=== PATIENT | female | born 1955 | race Caucasian/White ===

== ENCOUNTER 2023-12-26 08:40 | Outpatient (OUT) | payer MEDICARE, OTHER, SELFPAY ==
--- NOTE | 2023-12-26 08:44 | MM_ITS ---
Patient Name: ALBERTO RENEE MR#: [id number] : 1955 Exam Date: 12/26/2023 Ordering Doctor: DR Tyrone Cabezas D.O. RADIOLOGY REPORT PROCEDURE: MM TOMOSYNTHESIS SCREENING BI COMPARISON: MAMMO WILLIAM SCREEN, 02/01/2023. MAMMO WILLIAM SCREEN, 12/15/2021. MG MAMM SCREEN WILLIAM W CAD, 10/28/2020. MG MAMM SCREEN WILLIAM W CAD, 12/24/2018. INDICATIONS: screening Calculator Name NCI Breast Cancer Risk Assessment Tool 5 Year Breast Cancer Risk 1.70% Lifetime Breast Cancer Risk 4.90% Personal Breast Cancer No Personal Ovarian Cancer No Treatments None Family Cancers Mother with colon cancer at age 78. LOCATION: [facility] BREAST COMPOSITION: Heterogeneously dense,which may obscure small masses. FINDINGS: DIAGNOSTIC CATEGORY 1--NEGATIVE. RIGHT BREAST: No significant suspicious finding. No significant change has occurred. LEFT BREAST: No significant suspicious finding. No significant change has occurred. RECOMMENDATIONS: ROUTINE MAMMOGRAM AND CLINICAL EVALUATION IN 12 MONTHS. PLEASE NOTE: A NORMAL MAMMOGRAM DOES NOT EXCLUDE THE POSSIBILITY OF BREAST CANCER. A CLINICALLY SUSPICIOUS PALPABLE LUMP SHOULD BE BIOPSIED. Dictated by: Tyron Helms M.D. on 12/28/2023 at 10:33 Approved by: Tyron Helms M.D. on 12/28/2023 at 10:37
== END 2023-12-26 08:41 | disposition home or self-care (01) ==
LOC: MAMMO 08:40
PROVIDERS: PCP Internal Medicine; Visit Provider Internal Medicine
DX: Z12.31 Encounter for screening mammogram for malignant neoplasm of breast (principal); Z80.0 Family history of malignant neoplasm of digestive organs
CPT/HCPCS: 77063; 77067

== ENCOUNTER 2024-06-03 07:46 | Day surgery (SDC) | payer MEDICARE, OTHER, SELFPAY ==
--- NOTE | 2024-06-03 07:51 | FL_ITS ---
[facility] [id number] Patient Name: ALBERTO RENEE MRN: [id number] date: 1955 Sex: F Assigned Patient Location: [place] Current Patient Location: Accession/Order Number: [id number] Exam Date: 06/03/2024 08:35 Report Date: 06/03/2024 12:49 At the request of: RAMESH DONOVAN Procedure: FL hip inj LT EXAMINATION: FL hip inj LT HISTORY: Left Hip Arthritis FLUORO DOSE: (Cannot be calculated) mGy Reference air kerma (Ka,r) COMPARISON: No relevant comparison available. TECHNIQUE: An arthrogram was performed under fluoroscopic guidance using non-ionic contrast material in the usual sterile manner after obtaining informed consent. Standard level fluoroscopic mode of operation utilized. FINDINGS: JOINT: Left hip NEEDLE: 25 gauge, 3.5 spinal needle. MEDICATION: 2 mL buffered 1% lidocaine for subcutaneous anesthesia. 2 mL Omnipaque-240 iodinated contrast to visualize the joint space. 40 mg Kenalog, 2 mL 0.5% bupivacaine, and 3 mL Omnipaque 240 injected into the joint space. TECHNIQUE: Anterior approach with prior localization of the femoral artery. A single stick was successful in gaining access to the joint space. CLINICAL: Improvement of joint pain post injection (3/10 preinjection; 2/10 post injection). COMPLICATIONS: None. OTHER: Negative. FL/FL hip inj LT IMPRESSION: 1. Technically successful left hip injection with slight improvement in symptoms immediately post procedure. Electronically authenticated by: NEHA MORALES Date: 06/03/2024 12:49
[2024-06-03] MEDS: BUPIVACAINE HCL 0.5% PF 50 MG/10 ML VIAL 2 ML INJ (08:35)
[2024-06-03] MEDS: LIDOCAINE HCL 10 ML, SODIUM BICARBONATE 1 MEQ INJ (08:35)
[2024-06-03] MEDS: TRIAMCINOLONE ACETONIDE 40 MG/ML VIAL INJ (08:35)
--- NOTE | 2024-06-03 09:07 | SUR.PREOP ---
06/02/24 Pt instructed on procedure, date, time, and prep.
== END 2024-06-03 08:55 | disposition home or self-care (01) ==
LOC: FL 07:46
PROVIDERS: Radiology Diagnostic Radiology; PCP Internal Medicine; Visit Provider Orthopaedic Surgery
DX: M16.12 Unilateral primary osteoarthritis, left hip (principal)
CPT/HCPCS: 20610; 77002; J0665; J3301; Q9966

== ENCOUNTER 2024-08-26 08:50 | Outpatient (OUT) | payer MEDICARE, OTHER, SELFPAY ==
--- OUTSIDE RECORDS SUMMARY | 2024-08-26 09:06 | XMS_ITS | CCD ---
Author Organization [facility] Care Team Providers Care Community Support Specialist Name Role Phone DANIEL, DR DUFFY Primary Care Unavailable BALL, DR DUFFY Consulting Unavailable BALL, DR DUFFY Attending Unavailable BALL, DR DUFFY Admitting Unavailable LutherChris Consulting Unavailable BALL, DR DUFFY Admitting Unavailable BALL, DR DUFFY Primary Care Unavailable BALL, DR DUFFY Consulting Unavailable BALL, DR DUFFY Attending Unavailable WEST, DR NAHUN Richey Consulting Unavailable Tyrone Sanchez DO Primary Care Provider [phone] Tyrone Sanchez DO Primary Care Provider [phone] MARSHA CASTANEDA Referring Unavai lable NO, PHYSICIAN Primary Care Unavailable JOE GONZALES Attending Chelsey vailable Tyrone Sanchez Unavailable Tyrone Sanchez DO Primary Care Provider [phone] TYRONE SANCHEZ Referring Unavailable DANIEL, TYRONE Primary Care Unavailable TYRONE SANCHEZ Referring Unavailable DANIEL, TYRONE Primary Care Unavailable Unavailable Primary Care Provider Unavailabl e Tyrone Sanchez DO Primary Care Provider [phone] TYRONE SANCHEZ Primary Care Unavailable SHALOM MÉNDEZ Attending Unavailable SELF, SELF Referring Unavailable SELF, SELF Referring Unavailable SHALOM MÉNDEZ Attending Unavailable TYRONE SANCHEZ Primary Care Unavailable ABELINO TIMMONS Referring Unavailable SHALOM MÉNDEZ Attending Unavailable SHALOM MÉNDEZ Attending Unavailable SELF, SELF Referring Unavailable SHALOM MÉNDEZ Referring Unavailable BALL, TYRONE Primary Care Unavailable TYRONE SANCHEZ Primary Care Unavailable SHALOM MÉNDEZ Attending Unavailable SELF, SELF Referring Unavailable TYRONE SANCHEZ Primary Care Unavailable SHALOM MÉNDEZ Attending Unavailable SELF, SELF Referring Unavailable BALL, TYRONE Primary Care Unavailable REAGAN HOGUE Attending Unavailable SELF, SELF Referring Unavailable BALL, TYRONE Primary Care Unavailable SHALOM MÉNDEZ Attending Unavailable SELF, SELF Referring Unavailable SHALOM MÉNDEZ Admitting Unavailable SHALOM MÉNDEZ Attending Unavailable TYRONE SANCHEZ Primary Care Unavailable SHALOM MÉNDEZ Attending Unavailable SELF, SELF Referring Unavailable Tyrone Sanchez MD Primary Care Provider Abelino Timmons MD Attending Unavailab Heriberto Abreu Attending Unavailable TYRONE SANCHEZ Referring Unavailable Unavailable Primary Care Provider Unavailabl e STEPANIC JR, RAMESH Maxwell Referring Unavailabl e STEPANIC JR, RAMESH Maxwell Referring Unavailabl e STEPANIC JR, RAMESH Maxwell Referring Unavailabl e STEPANIC JR, RAMESH Maxwell Attending Unavailabl e STEPANIC JR, RAMESH Maxwell Referring Unavailabl e LEATHA PEREZ Attending Unavailable STEPANIC, JR., RAMESH Maxwell Attending Unavaila ble STEPANIC, JR., RAMESH Maxwell Attending Unavaila ble STEPANIC, JR., RAMESH Maxwell Attending Unavaila ble LEATHA PEREZ Referring Unavailable LEATHA PEREZ Attending Unavailable STEPANIC, JR., RAMESH Maxwell Attending Unavaila ble Allergies Allergy Classification Reported Allergen(s) Allergy Type Date of Onset Reaction(s) Facility (1 source) patient allergy list reviewed by nurse or physicia Propensity to adverse reactions 8 Comment:Done [employer] Other (1 source) Allergies Reconciled Propensity to adverse reactions Unknown [employer] Other (2 sources) Other Propensity to adverse reactions 4 Other [facility] Medications Current Medications Medication Drug Class(es) Dates Sig (Normalized) Sig (Original) bimatoprost 0.1 mg/ml ophthalmic solution (18 sources) Prostaglandin Analog take 1 drop(s) into the eye(s) at bedtime Lumigan 0.01 % ophthalmic solution Administer 1 drop into affected eye(s) at bedtime Active brimonidine tartrate 1.5 mg/ml ophthalmic solution (20 sources) alpha-Adrenergic Agonist take 1 drop(s) into the eye(s) three times daily brimonidine (AlphaGAN P) 0.2 % ophthalmic solution ONE DROP IN EACH EYE THREE TIMES A DAY Active brimonidine (Alp Paulette P) 0.15 % ophthalmic solution Administer 1 drop into affected eye(s) in the morning and 1 drop at noon and 1 drop in the evening. Active take 1 drop(s) into the eye(s) three times daily brimonidine 0.15 % Solution ophthalmic solution Place 1 drop in left eye 3 times daily. Use in affected eye(s). Active dorzolamide 20 mg/ml / timolol 5 mg/ml ophthalmic solution (18 sources) Carbonic Anhydrase Inhibitor, beta-Adrenergic Marian End: 08-14-2024 dorzolamide-timolol (Cosopt) 2-0.5 % ophthalmic solution INSTILL 1 DROP INTO EACH EYE THREE TIMES A DAY 08/14/2024 Discontinued dorzolamide-franci lol 2-0.5 % Solution ophthalmic solution Place 1 drop in left eye 3 times daily. Active estradiol 0.5 mg oral tablet (20 sources) Estrogen Start: 10-04-2021 take 0.5 mg by mouth every other day Estradiol Active 0.5 MG PO .COMPLEX November 29, 2023 1:00am 0.5 mg orally every other day take 1 tablet by mouth once sanchez y Estradiol 0.5 MG tablet Take 1 tablet by mouth daily. Active folic acid 1 mg / polysaccharide iron complex 150 mg / vitamin b12 0.025 mg oral capsule (2 sources) Vitamin B12 Start: 08-14-2024 End: 09-13-2024 take 1 tablet by mouth once daily Iron Polysacch [id number] (Poly-Iron 150 Forte) 150-0.025-1 MG capsule Indications: Pre-op examination , Arthritis of left hip Take 1 tablet by mouth Daily 30 capsule 1 08/14/2024 09/13/2024 Active ketorolac tromethamine 5 mg/ml ophthalmic solution (18 sources) Nonsteroidal Anti-inflammatory Drug, Cyclooxygenase Inhibitor take 1 drop(s) into the eye(s) three times daily ketorolac (Acular) 0.5 % ophthalmic solution INSTILL 1 DROP INTO RIGHT EYE 3 TIMES A DAY Active take 1 drop(s) into the eye(s) twice daily ketorolac 0.5 % Solution ophthalmic solution Place 1 drop in right eye 2 times daily. Active Misc. Devices misc (2 sources) Start: 08-14-2024 Misc. Devices misc Indications: Pre-op examination , Arthritis of left hip Hospital bed, deliver to home 1 Units 08/14/2024 Active naproxen sodium 220 mg oral capsule (1 source) Nonsteroidal Anti-inflammatory Drug take 1 capsule by mouth in the morning, then take 1 capsule by mouth at mealtime naproxen sodium (ALEVE) 220 mg capsule Take 1 capsule (220 mg total) by mouth in the morning and 1 capsule (220 mg total) in the evening. Take with meals. Active predniSONE 10 mg oral tablet (2 sources) Start: 07-25-2024 predniSONE (Deltasone) 10 MG tablet PLEASE SEE ATTACHED FOR DETAILED DIRECTIONS 07/25/2024 Active SUMAtriptan 100 mg oral tablet (4 sources) Serotonin-1b and Serotonin-1d Receptor Agonist Start: 01-02-2024 take 1 tablet by mouth every two hours as needed Sumatriptan Succinate Active 0 .ROUTE .COMPLEX January 02, 2024 1:30pm TAKE 1 TABLET BY MOUTH NEEDED MAY REPEAT IN 2 HOURS IF NEEDED 30 Start: 11-29-2023 End: 01-02-2024 take 100 mg by mouth once Sumatriptan Succinate Discon tinued 100 MG PO Once November 29, 2023 1:00am January 02, 2024 1:30pm take 1 tablet by landon th every two hours as needed SUMAtriptan Succinate 100 MG TAKE 1 TABLET BY MOUTH NEEDED MAY REPEAT IN 2 HOURS IF NEEDED for 30 Active Completed/Discontinued Medications Medication Drug Class(es) Dates Sig (Normalized) Sig (Original) acetaminophen 325 mg oral tablet (1 source) Start: 12-10-2023 End: 12-10-2023 take 1 tablet by mouth every four hours as needed 650 mg, Oral, EVERY 4 HOURS NEEDED, Starting on Sun12/10/23 at 1253, Until Sun12/10/23 at 1527, Mild Pain, Maximum dose of acetaminophen is 4000 mg from all sources in 24 hours., Post-op/Post-Proc calcium chloride 0.0014 meq/ml / potassium chloride 0.004 meq/ml / sodium chloride 0.103 meq/ml / sodium lactate 0.028 meq/ml injectable solution (1 source) Start: 12-10-2023 End: 12-10-2023 Intravenous, at 20 mL/hr, CONTINUOUS, Starting on Sun12/10/23 at 1000, Until Sun12/10/23 at 1527, Pre-op/Pre-Proc 1 ml dexamethasone phosphate 4 mg/ml injection (1 source) Corticosteroid Start: 12-10-2023 End: 12-10-2023 inject 1 dose into the eye(s) once 2 mg, Subconjunctival, SEE ADMIN INSTRUCTIONS, 1 dose, Starting on Sun12/10/23 at 1135, Until Sun12/10/23 at 1527, Physician to inject into right eye via subconjunctival route once., Intra-op/Intra-Proc dicyclomine hydrochloride 10 mg oral capsule (3 sources) Anticholinergic Start: 06-13-2024 take 20 mg by mouth three times daily Dicyclomine Active 20 MG PO Three times daily June 13, 2024 12:00am Start: 12-03-2023 End: 06-13-2024 take 10 mg by mouth four times daily Dicyclomine Discontinued 10 MG PO Four times daily June 13, 2024 2:41pm June 13, 2024 2:41pm lidocaine 1% buffered in sodium bicarbonate 1-8.4 % injection SOSY 1 mL (1 source) Start: 12-10-2023 End: 12-10-2023 take 1 dose intravenously once 1 mL, Intradermal, ONCE NEEDED, 1 dose, Starting on Sun12/10/23 at 0945, Until Sun12/10/23 at 1026, Other, Use for peripheral IV insertion, Use when inserting peripheral IV, Pre-op/Pre-Proc moxifloxacin 5 mg/ml ophthalmic solution (1 source) Quinolone Antimicrobial Start: 12-10-2023 End: 12-10-2023 1 drop, Right Eye, SEE ADMIN INSTRUCTIONS, 3 doses, Starting on Sun12/10/23 at 0945, Until Sun12/10/23 at 1040, Administer every 5 minutes for 3 doses starting 30 minutes pre-procedure., Pre-op/Pre-Proc ofloxacin 3 mg/ml ophthalmic solution (5 sources) Quinolone Antimicrobial Start: 12-11-2023 End: 12-27-2023 take 1 drop(s) into the eye(s) four times daily ofloxacin 0.3 % ophthalmic solution Place 1 drop in right eye 4 times daily. Stop 12/17/23 12/14/2023 12/27/2023 Discontinued phenylephrine hydrochloride 25 mg/ml ophthalmic solution (1 source) alpha-1 Adrenergic Agonist Start: 12-10-2023 End: 12-10-2023 1 drop, Right Eye, SEE ADMIN INSTRUCTIONS, 3 doses, Starting on Sun12/10/23 at 0945, Until 12/10/23 at 1040, Administer every 5 minutes for 3 doses starting 30 minutes pre-procedure., Pre-op/Pre-Proc prednisoLONE acetate 10 mg/ml ophthalmic suspension (20 sources) Corticosteroid Start: 12-27-2023 End: 01-31-2024 prednisoLONE acetate 1 % Suspension ophthalmic suspension Place 1 drop in right eye See admin instructions. As of 01/03/24: TID OD x 1 wk, BID OD x 1 wk, daily OD x 1wk. 12/27/2023 01/31/2024 Discontinued Start: 12-27-2023 take 1 drop(s) into the eye(s) four times daily prednisoLONE acetate 1 % Suspension ophthalmic suspension Place 1 drop in right eye 4 times daily. 12/27/2023 Active Start: 12-14-2023 End: 08-14-2024 take 1 drop(s) into the eye(s) every two hours prednisoLONE acetate (Pred-Forte) 1 % ophthalmic suspension PLACE 1 DROP IN RIGHT EYE EVERY 2 HOURS WHILE AWAKE. 12/14/2023 08/14/2024 Discontinued Start: 12-11-2023 End: 12-27-2023 take 1 drop(s) into the eye(s) every two hours prednisoLONE acetate 1 % Suspension ophthalmic suspension Place 1 drop in right eye every 2 hours while awake. 15 mL 1 12/14/2023 12/27/2023 Discontinued Problems Active Problems Problem Classification Problem Date Documented Da te Episodic/Chronic Acute bronchitis (5 sources) Acute bronchitis due to other specified organisms; Translations: [Acute bronchitis] Onset: 04-21-2021 Episodic Blindness and vision defects (2 sources) Visual disturbance; Translations: [Other visual disturbances] Episodic Vincent (1 source) Partial thickness burn of lip; Translations: [Burn of second degree of lip(s), initial encounter] Episodic Cataract (8 sources) Nuclear sclerosis; Translations: [Age-related nuclear cataract, left eye] Onset: 12-27-2023 10-25-2023 Chronic Complications of surgical procedures or medical care (2 sources) Cystoid macular edema following cataract surgery, right eye; Translations: [Cystoid macular edema following cataract surgery, right eye] Onset: 10-26-2022 Episodic Disorders of lipid metabolism (2 sources) Hyperlipidemia; Translations: [Hyperlipidemia, unspecified] Onset: 11-13-2016 11-29-2023 Chronic Genitourinary symptoms and ill-defined conditions (4 sources) Dysuria; Translations: [Dysuria] Onset: 08-12-2024 08-12-2024 Episodic Glaucoma (11 sources) Primary open angle glaucoma; Translations: [Primary open-angle glaucoma, bilateral, severe stage] Onset: 11-05-2023 10-25-2023 Chronic Headache; including migraine (5 sources) Migraine, unspecified, not intractable, without status migrainosus; Translations: [Migraine with aura] Onset: 11-07-2017 Chronic Headache; including migraine (1 source) Headache; Translations: [Headache, unspecified] Episodic Menopausal disorders (5 sources) Menopausal symptom; Translations: [Menopausal and female climacteric states] Onset: 04-30-2018 Chronic Menopausal disorders (3 sources) Hormone replacement therapy; Translations: [Drug therapy finding] Onset: 11-03-2020 11-29-2023 Episodic Osteoarthritis (8 sources) Osteoarthritis of left hip joint; Translations: [Unilateral primary osteoarthritis, left hip] Onset: 08-12-2024 06-02-2024 Chronic Osteoporosis (1 source) Primary osteoporosis; Translations: [Age-related osteoporosis without current pathological fracture] Onset: 12-31-2018 Chronic Other aftercare (1 source) Long-term current use of drug therapy; Translations: [Other penitentiary (current) drug therapy] Episodic Other aftercare (7 sources) Surgical follow-up; Translations: [Encounter for surgical aftercare following surgery on the sense organs] 12-07-2023 Episodic Other aftercare (2 sources) Encounter for surgical aftercare following surgery on the sense organs; Translations: [Encounter for surgical aftercare following surgery on the sense organs] Onset: 01-10-2024 Episodic Other and unspecified benign neoplasm (3 sources) Benign neoplasm of colon; Translations: [Benign neoplasm of colon, unspecified] Episodic Other and unspecified benign neoplasm (1 source) Adenomatous polyp of colon ; Translations: [Benign neoplasm of colon, unspecified] 11-30-2023 Episodic Other and unspecified benign neoplasm (1 source) Benign neoplasm of colon, unspecified; Translations: [Benign neoplasm of colon] 06-13-2024 Episodic Other bone disease and musculoskeletal deformities (3 sources) Other specified disorders of bone density and structure, left thigh; Translations: [Osteopenia of neck of left femur] Episodic Other bone disease and musculoskeletal deformities (1 source) Osteopenia; Translations: [Other specified disorders of bone density and structure, left thigh] 11-29-2023 Episodic Other circulatory disease (1 source) Elevated blood-pressure reading, without diagnosis of hypertension Episodic Other congenital anomalies (2 sources) Congenital pes planus; Translations: [Congenital pes planus] Onset: 12-28-2014 Chronic Other gastrointestinal disorders (3 sources) Irritable bowel syndrome; Translations: [Irritable bowel syndrome without diarrhea] Onset: 11-24-2013 11-29-2023 Chronic Other gastrointestinal disorders (1 source) Irritable bowel syndrome without diarrhea; Translations: [Irritable bowel syndrome] 06-13-2024 Chronic Other injuries and conditions due to external causes (1 source) History of fall; Translations: [History of falling] Episodic Other lower respiratory disease (1 source) Cough; Translations: [COUGH] Onset: 04-28-2021 Episodic Other non-traumatic joint disorders (2 sources) Arthritis of left hip 08-14-2024 Chronic Other non-traumatic joint disorders (1 source) Hip pain; Translations: [Pain in left hip] 06-02-2024 Episodic Other nutritional; endocrine; and metabolic disorders (3 sources) Overweight; Translations: [Overweight] Onset: 02-02-2023 Episodic Other nutritional; endocrine; and metabolic disorders (1 source) Overweight; Translations: [Overweight] Episodic Other screening for suspected conditions (not mental disorders or infectious disease) (11 sources) Encounter for screening mammogram for malignant neoplasm of breast; Translations: [Encounter for screening for diseases of the blood and blood-forming organs and certain disorders involving the immune mechanism] Onset: 10-28-2020 Resolved: 11-23-2021 Episodic Other upper respiratory infections (1 source) Chronic sinusitis; Translations: [Chronic sinusitis, unspecified] Chronic Other upper respiratory infections (3 sources) Acute frontal sinusitis; Translations: [Acute frontal sinusitis, unspecified] Onset: 11-24-2013 Episodic Retinal detachments; defects; vascular occlusion; and retinopathy (3 sources) Cystoid macular edema of right retina; 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, right eye] Onset: 01-10-2024 01-10-2024 Chronic Thyroid disorders (2 sources) Congenital hypothyroidism with diffuse goiter; Translations: [Congenital hypothyroidism with diffuse goiter] Onset: 02-02-2023 Chronic Unclassified (2 sources) Post Op Visit; Translations: [Post Op Visit] Onset: 01-31-2024 Unclassified (2 sources) New Patient; Translations: [New Patient] Onset: 10-25-2023 Unclassified (3 sources) Preprocedural examination done 08-12-2024 Past or Other Problems Problem Classification Problem Date Documented Da te Episodic/Chronic Allergic reactions (1 source) Allergic contact dermatitis due to plants, except food; Translations: [Allergic contact dermatitis due to plants, except food] Onset: 04-18-2019 Episodic Bacterial infection; unspecified site (1 source) Bacterial infectious disease; Translations: [Bacterial infection, unspecified, in conditions classified elsewhere and of unspecified site] Onset: 09-16-2018 Episodic Malaise and fatigue (4 sources) Other fatigue; Translations: [Malaise and fatigue] Onset: 12-11-2018 Episodic Other aftercare (1 source) Other terminal make up operator (current) drug therapy; Translations: [OTH PENITENTIARY CURRENT DRUG THERAPY] Onset: 11-03-2020 Episodic Other and unspecified benign neoplasm (1 source) Benign neoplasm of skin of face; Translations: [Benign neoplasm of skin of other and unspecified parts of face] Onset: 10-05-2016 Episodic Other bone disease and musculoskeletal deformities (1 source) Bone density finding; Translations: [Other specified disorders of bone density and structure, unspecified site] Onset: 12-31-2018 Episodic Other lower respiratory disease (1 source) Cough; Translations: [Cough, unspecified] Resolved: 11-23-2021 Episodic Other nervous system disorders (1 source) Tetany; Translations: [Tetany] Onset: 11-07-2017 Episodic Other non-epithelial cancer of skin (1 source) Basal cell carcinoma of face; Translations: [Basal cell carcinoma of skin of unspecified parts of face] Onset: 10-25-2016 Episodic Other non-traumatic joint disorders (1 source) Arthralgia of the ankle and/or foot; Translations: [Pain in unspecified ankle and joints of unspecified foot] Onset: 12-28-2014 Episodic Other nutritional; endocrine; and metabolic disorders (1 source) Body mass index 25-29 - overweight; Translations: [Body mass index 27.0-27.9, adult] Onset: 11-07-2017 Episodic Other skin disorders (2 sources) Alopecia; Translations: [Other alopecia] Onset: 04-30-2018 Episodic Residual codes; unclassified (1 source) Family history of malignant neoplasm of digestive organs; Translations: [FAM HX MALIG NEOPLASM DIGESTIV ORGN] Onset: 11-03-2020 Episodic Residual codes; unclassified (1 source) Flushing; Translations: [Flushing] Onset: 11-24-2013 Episodic Results Test Name Value Interpretation Reference Range Facility Bacteria identified Cx Nom ( U)on 08-13-2024 Service comment (Unsp spec) [Interp] 50-100,000 ORGANISMS/ML NORMAL UROGENITAL PATY [facility] XR HIP LT 2-3 VIEWS W OR WO PELVISon 08-13-2024 XR HIP LT 2-3 VIEWS W OR WO PELVIS XR HIP LT 2-3 VIEWS W OR WO PELVIS History: Left hip degenerative disease. . Exam/Technique: AP view the pelvis, AP and lateral views of the left hip Comparison: None available Findings: Pelvic ring and sacrum appear intact and atraumatic. Degenerative disease of the lower lumbar spine noted as well as previous right hip replacement. Dedicated images of the left hip show loss of joint space superior acetabulum with subarticular sclerosis. There is no evidence of articular collapse, fracture or dislocation. IMPRESSION: * Loss of joint space left femoral acetabular articulation. Finalized by Abhinav Reynoso DO on 08/13/2024 2:54 PM Normal [facility] XR Pelvis and Hip - left 2 V iewson 08-13-2024 History: Left hip degenerative disease. . Exam/Technique: AP view the pelvis, AP and lateral views of the left hip Comparison: None available Findings: Pelvic ring and sacrum appear intact and atraumatic. Degenerative disease of the lower lumbar spine noted as well as previous right hip replacement. Dedicated images of the left hip show loss of joint space superior acetabulum with subarticular sclerosis. There is no evidence of articular collapse, fracture or dislocation. IMPRESSION: * Loss of joint space left femoral acetabular articulation. Finalized by Abhinav Reynoso DO on 08/13/2024 2:54 PM [facility] Abhinav Reynoso DO - 08/13/2024 History: Left hip degenerative disease. . Exam/Technique: AP view the pelvis, AP and lateral views of the left hip Comparison: None available Findings: Pelvic ring and sacrum appear intact and atraumatic. Degenerative disease of the lower lumbar spine noted as well as previous right hip replacement. Dedicated images of the left hip show loss of joint space superior acetabulum with subarticular sclerosis. There is no evidence of articular collapse, fracture or dislocation. IMPRESSION: * Loss of joint space left femoral acetabular articulation. Finalized by Abhinav Reynoso DO on 08/13/2024 2:54 PM [facility] XR Pelvis and Hip - left 2 V iewsOrdered By: Abhinav Reynoso on 08-13-2024 [facility] Work Phone: CBC AND AUTO DIFFon 08-12-20 ABSOLUTE BASOPHIL 0.1 X10E9/L Normal 0.0-0.2 [facility] Comment on above: Performed By: #### C BCA #### [facility] ([id number]) [address], [address] [place] [address] ABSOLUTE NEUTROPHIL 16.8 X10E9/L High 1.5-6.6 [facility] Comment on above: Performed By: #### C BCA #### [facility] ([id number]) [address], [address] [place] [address] Basophils/100 WBC (Bld) 0.6 % Normal [facility] Comment on above: Performed By: #### C BCA #### [facility] ([id number]) [address], [address] [place] [address] Eosinophils (Bld) [#/Vol] 0.0 10*3/uL Normal 0.0-0.4 [facility] Comment on above: Performed By: #### C BCA #### [facility] ([id number]) [address], [address] [place] [address] Eosinophils/100 WBC (Bld) 0.0 % Normal [facility] Comment on above: Performed By: #### C BCA #### [facility] ([id number]) [address], [facility] [address] [place] [address] Erythrocyte distribution width (RBC) [Ratio] 13.7 % Normal 11.5-15.0 [facility] Comment on above: Performed By: #### C BCA #### [facility] ([id number]) [address], [facility] [address] [place] [address] Hematocrit (Bld) [Volume fraction] 40.9 % Normal 35-47 [facility] Comment on above: Performed By: #### C BCA #### [facility] ([id number]) [address] [address] [place] [address] Hemoglobin (Bld) [Mass/Vol] 14.3 g/dL Normal 11.7-15.5 [facility] Comment on above: Performed By: #### C BCA #### [facility] ([id number]) [address], [facility] [address] [place] [address] Lymphocytes (Bld) [#/Vol] 0.8 10*3/uL Low 1.0-3.5 [facility] Comment on above: Performed By: #### C BCA #### [facility] ([id number]) [address], [address] [place] [address] Lymphocytes/100 WBC (Bld) 4.4 % Normal [facility] Comment on above: Performed By: #### C BCA #### [facility] ([id number]) [address], [address] [place] [address] MCH (RBC) [Entitic mass] 32.9 pg Normal 27-34 [facility] Comment on above: Performed By: #### C BCA #### [facility] ([id number]) [address], [address] [place] [address] MCHC (RBC) [Mass/Vol] 34.9 g/dL Normal 32-36 [facility] Comment on above: Performed By: #### C BCA #### [facility] ([id number]) [address], [address] [place] [address] MCV (RBC) [Entitic vol] 94 fL Normal 80-100 [facility] Comment on above: Performed By: #### C BCA #### [facility] ([id number]) [address], [address] [place] [address] Monocytes (Bld) [#/Vol] 0.2 10*3/uL Normal 0-0.9 [facility] Comment on above: Performed By: #### C BCA #### [facility] ([id number]) [address], [address] [place] [address] Monocytes/100 WBC (Bld) 1.2 % Normal [facility] Comment on above: Performed By: #### C BCA #### [facility] ([id number]) [address], [address] [place] [address] Neutrophils/100 WBC (Bld) 93.8 % Normal [facility] Comment on above: Performed By: #### C BCA #### [facility] ([id number]) [address], [address] [place] [address] Platelet mean volume (Bld) [Entitic vol] 9.1 fL Normal 7-12 [facility] Comment on above: Performed By: #### C BCA #### [facility] ([id number]) [address], [address] [place] [address] Platelets (Bld) [#/Vol] 310 10*3/uL Normal 150-450 [facility] Comment on above: Performed By: #### C BCA #### [facility] ([id number]) [address] [place] [address] RBC COUNT 4.35 X10E12/L Normal 3.80-5.20 [facility] Comment on above: Performed By: #### C BCA #### [facility] ([id number]) [address], [address] [place] [address] WBC (Bld) [#/Vol] 17.9 10*3/uL High 4.0-11.0 [facility] Comment on above: Performed By: #### C BCA #### [facility] ([id number]) [address], [address] [place] [address] CBC W Auto Differential pane l (Bld)on 08-12-2024 ABSOLUTE BASOPHIL 0.1 [facility] Comment on above: PERFORMED AT [facility] [address],[place] [address] Basophils/100 WBC (Bld) 0.6 % [facility] Eosinophils (Bld) [#/Vol] 0 10*3/uL [facility] Eosinophils/100 WBC (Bld) 0 % [facility] Erythrocyte distribution width (RBC) [Ratio] 13.7 % 11.5 - 15.0 % [facility] Hematocrit (Bld) [Volume fraction] 40.9 % 35 - 47 % [facility] Hem[facility] (Bld) [Mass/Vol] 14.3 g/dL 11.7 - 15.5 g/dL [facility] Interpretation and review of laboratory results Abnormal [facility] Lymphocytes (Bld) [#/Vol] 0.8 10*3/uL Low [facility] Lymphocytes/100 WBC (Bld) 4.4 % [facility] MCH (RBC) [Entitic mass] 32.9 pg 27 - 34 pg [facility] MCHC (RBC) [Mass/Vol] 34.9 g/dL 32 - 36 g/dL [facility] MCV (RBC) [Entitic vol] 94 fL 80 - 100 fL [facility] Monocytes (Bld) [#/Vol] 0.2 10*3/uL [facility] Monocytes/100 WBC (Bld) 1.2 % [facility] Neutrophils (Bld) [#/Vol] 16.8 10*3/uL High [facility] Neutrophils/100 WBC (Bld) 93.8 % [facility] Platelet mean volume (Bld) [Entitic vol] 9.1 fL 7 - 12 fL [facility] Platelets (Bld) [#/Vol] 310 10*3/uL [facility] RBC (Bld) [#/Vol] 4.35 10*6/uL [facility] WBC corrected for nucl RBC Auto (Bld) [#/Vol] 17.9 High [facility] CBC auto differentialon 07-25 Basophils (Bld) [#/Vol] 0.1 10*3/uL [facility] Basophils/100 WBC (Bld) 0.6 % [facility] Eosinophils (Bld) [#/Vol] 0 10*3/uL [facility] Eosinophils/100 WBC (Bld) 0 % [facility] Erythrocyte distribution width (RBC) [Ratio] 13.7 % 11.5 - 15.0 % [facility] Hematocrit (Bld) [Volume fraction] 40.9 % 35 - 47 % [facility] Hemoglobin (Bld) [Mass/Vol] 14.3 g/dL 11.7 - 15.5 g/dL [facility] Interpretation and review of laboratory results Abnormal [facility] Lymphocytes (Bld) [#/Vol] 0.8 10*3/uL Low [facility] Lymphocytes/100 WBC (Bld) 4.4 % [facility] MCH (RBC) [Entitic mass] 32.9 pg 27 - 34 pg [facility] MCHC (RBC) [Mass/Vol] 34.9 g/dL 32 - 36 g/dL [facility] MCV (RBC) [Entitic vol] 94 fL 80 - 100 fL [facility] Monocytes (Bld) [#/Vol] 0.2 10*3/uL [facility] Monocytes/100 WBC (Bld) 1.2 % [facility] Neutrophils (Bld) [#/Vol] 16.8 10*3/uL High [facility] Neutrophils/100 WBC (Bld) 93.8 % [facility] Platelet mean volume (Bld) [Entitic vol] 9.1 fL 7 - 12 fL [facility] Platelets (Bld) [#/Vol] 310 10*3/uL [facility] RBC (Bld) [#/Vol] 4.35 10*6/uL [facility] WBC corrected for nucl RBC Auto (Bld) [#/Vol] 17.9 High [facility] ECG 12 leadon 08-12-2024 TRACEMASTERVUE [facility] URINALYSISon 08-12-2024 Bilirubin Ql (U) Negative Normal NEG [facility] Comment on above: Performed By: #### U A #### [facility] ([id number]) [address] [place] [address] BLOOD/HGB Small Abnormal NEG [facility] Comment on above: Performed By: #### U A #### [facility] ([id number]) [address], [address] [place] [address] Color (U) YELLOW Normal YELLOW [facility] Comment on above: Performed By: #### U A #### [facility] ([id number]) [address], [address] [place] [address] Glucose Ql (U) Negative Normal NEG [facility] Comment on above: Performed By: #### U A #### [facility] ([id number]) [address], [address] [place] [address] Ketones Ql (U) Negative Normal NEG [facility] Comment on above: Performed By: #### U A #### [facility] ([id number]) [address], [address] [place] [address] Leukocyte esterase Test strip Ql (U) Negative Normal NEG [facility] Comment on above: Performed By: #### U A #### [facility] ([id number]) [address] [place] [address] MUCOUS PRESENT Abnormal NONE [facility] Comment on above: Performed By: #### U A #### [facility] ([id number]) [address], [address] [place] [address] Nitrite Ql (U) Negative Normal NEG [facility] Comment on above: Performed By: #### U A #### [facility] ([id number]) [address] [place] [address] pH (U) 6.0 [pH] Normal 5.0-8.5 [facility] Comment on above: Performed By: #### U A #### [facility] ([id number]) [address] [place] [address] Protein Ql (U) 30 mg/dL Abnormal NEG [facility] Comment on above: Performed By: #### U A #### [facility] ([id number]) [address], [address] [place] [address] R.B.CELLS 3 /hpf Normal 0-5 [facility] Comment on above: Performed By: #### U A #### [facility] ([id number]) [address], [address] [place] [address] Specific gravity (U) [Rel density] 1.026 Normal 1.003-1.035 [facility] Comment on above: Performed By: #### U A #### [facility] ([id number]) [address], [address] [place] [address] SQUAMOUS EPITHELIUM 10 /hpf High 0-5 [facility] Comment on above: Performed By: #### U A #### [facility] ([id number]) [address], [address] [place] [address] TURBIDITY CLEAR Normal CLEAR [facility] Comment on above: Performed By: #### U A #### [facility] ([id number]) [address], [address] [place] [address] Urobilinogen (U) [Mass/Vol] mg/dL Normal <1.1 [facility] Comment on above: Performed By: #### U A #### [facility] ([id number]) [address], [address] [place] [address] W.B.CELLS 3 /hpf Normal 0-5 [facility] Comment on above: Performed By: #### U A #### [facility] ([id number]) [address] [place] [address] URINE CULTUREon 08-12-2024 Bacteria identified Cx Nom (U) CULTURE RESULTS 50-100,000 ORGANISMS/ML NORMAL UROGENITAL PATY Normal [facility] Comment on above: Performed By: #### 6 30-4 #### [facility] ([id number]) [address] [place] [address] Urinalysison 08-12-2024 Bilirubin Ql (U) Negative Negative^Ne g ative [facility] Color (U) YELLOW YELLOW^YELLO W [facility] Epithelial cells Auto (Urine sed) [#/Area] 10 High [facility] Glucose (U) [Mass/Vol] Negative Negative^Neg ative mg/dL [facility] Hemoglobin Auto test strip Ql (U) Small Abnormal Negative^Neg ative [facility] Interpretation and review of laboratory results Abnormal [facility] Ketones (U) [Mass/Vol] Negative Negative^Neg ative mg/dL [facility] Leukocyte esterase Auto test strip Ql (U) Negative Negative^Neg ative [facility] Mucus Ql (Urine sed) PRESENT Abnormal NONE^NONE [facility] Nitrite Auto test strip Ql (U) Negative Negative^Neg ative [facility] pH (U) 6 [pH] 5.0 - 8.5 [facility] Protein (U) [Mass/Vol] 30 mg/dL Abnormal Negative^Neg ative [facility] RBC Auto (Urine sed) [#/Area] 3 [facility] Specific gravity Refractometry automated (U) [Rel density] 1.026 1.003 - 1.035 [facility] Turbidity Ql (U) CLEAR CLEAR^CLEAR [facility] Urobilinogen Qn (U) NINF [facility] WBC Auto (Urine sed) [#/Area] 3 [facility] [employer] [facility] XR Pelvis and Hip - left 2 V iewson 08-12-2024 Radiology Study observation (narrative) [facility] OCT/HRT MACULA OD*on 024 OCT/HRT MACULA OD* +CME - stable with 01/2023. Normal [facility] +CME - stable with 01/2023. RADIOLOGY [facility] Radiology Study observation (narrative) [facility] Basic Metabolic Panelon 01-22 Anion gap [Moles/Vol] 9 mmol/L 9 - 17 mmol/L [facility] Calcium [Mass/Vol] 9.6 mg/dL 8.6 - 10. 4 mg/dL [facility] Chloride [Moles/Vol] 106 mmol/L 98 - 10 7 mmol/L [facility] CO2 [Moles/Vol] 24 mmol/L 20 - 31 mmol/L [facility] Creatinine [Mass/Vol] 0.6 mg/dL 0.50 - 0.90 mg/dL [facility] GFR/1.73 sq M.predicted MDRD (S/P/Bld) [Vol rate/Area] - PINF [facility] Comment on above: These results are not intended for use in patients <18 years of age. eGFR results are calculated without a race factor using the 2020 CKD-EPI equation. Careful clinical correlation is recommended, particularly when comparing to results calculated using previous equations. The CKD-EPI equation is less accurate in patients with extremes of muscle mass, extra-renal metabolism of creatine, excessive creatine ingestion, or following therapy that affects renal tubular secretion. Glucose [Mass/Vol] 94 mg/dL 70 - 99 mg/dL [facility] Interpretation and review of laboratory results Abnormal [facility] Potassium [Moles/Vol] 4.2 mmol/L 3.7 - 5.3 mmol/L [facility] Sodium [Moles/Vol] 139 mmol/L 135 - 144 mmol/L [facility] Urea nitrogen [Mass/Vol] 26 mg/dL High 8 - 23 mg/dL [facility] Urea nitrogen/Creatinine (Bld) [Mass ratio] 43 High 9 - 20 [facility] Basic Metabolic Profon 02-02 Anion gap [Moles/Vol] 9 mmol/L Normal 9-17 [facility] Comment on above: Performed By: #### B MP, CDP, TSH #### [facility] [address] [place] [address] Network Field Engineer: Nahun Stone MD BUN/CRE Ratio 43 High - [facility] Comment on above: Performed By: #### B ERWIN KAN, TSH #### [facility] [address] [place] [address] Network Field Engineer: Nahun Stone MD Calcium [Mass/Vol] 9.6 mg/dL Normal 8.6-10.4 [facility] Comment on above: Performed By: #### B ERWIN KAN, TSH #### [facility] [address] [place] [address] Network Field Engineer: Nahun Stone MD Chloride [Moles/Vol] 106 mmol/L Normal 98-107 [facility] Comment on above: Performed By: #### B LUCIUS CDP, TSH #### [facility] [address] [place] [address] Network Field Engineer: Nahun Stone MD CO2 [Moles/Vol] 24 mmol/L Normal 20-31 [facility] Comment on above: Performed By: #### B LUCIUS CDP, TSH #### [facility] [address] [place] [address] Network Field Engineer: Nahun Stone MD Creatinine [Mass/Vol] 0.60 mg/dL Normal 0.50-0.90 [facility] Comment on above: Performed By: #### B ERWIN KAN, TSH #### [facility] [address] [place] [address] Network Field Engineer: Nahun Stone MD GFR/1.73 sq M.predicted among non-blacks MDRD (S/P/Bld) [Vol rate/Area] mL/min/{1.73_m2} Normal >60 [facility] Comment on above: Result Comment: These results are not intended for use in patients <18 years of age. eGFR results are calculated without a race factor using the 2020 CKD-EPI equation. Careful clinical correlation is recommended, particularly when comparing to results calculated using previous equations. The CKD-EPI equation is less accurate in patients with extremes of muscle mass, extra-renal metabolism of creatine, excessive creatine ingestion, or following therapy that affects renal tubular secretion. Performed By: #### B ERWIN KAN, TSH #### [facility] [address] [place] [address] Network Field Engineer: Nahun Stone MD Glucose [Mass/Vol] 94 mg/dL Normal 70-99 [facility] Comment on above: Performed By: #### B ERWIN KAN, TSH #### [facility] [address] [place] [address] Network Field Engineer: Nahun Stone MD Potassium [Moles/Vol] 4.2 mmol/L Normal 3.7-5.3 [facility] Comment on above: Performed By: #### B ERWIN KAN, TSH #### [facility] [address] [place] [address] Network Field Engineer: Nahun Stone MD Sodium [Moles/Vol] 139 mmol/L Normal 135-144 [facility] Comment on above: Performed By: #### B ERWIN KAN, TSH #### [facility] [address] [place] [address] Network Field Engineer: Nahun Stone MD Urea nitrogen [Mass/Vol] 26 mg/dL High 8-23 [facility] Comment on above: Performed By: #### B MP, CDP, TSH #### [facility] [address] [place] [address] Network Field Engineer: Nahun Stone MD CBC with Auto Differentialon 02-02-2023 Absolute Eos # 0.[address] [facility] Absolute Immature Granulocyte [facility] Absolute Lymph # 1.[address] [facility] [facility] Absolute Maury # 0.[address] [facility] Basophils (Bld) [#/Vol] 0.06 10*3/uL [facility] Basophils/100 WBC (Bld) 1 % 0 - 2 % [facility] Eosinophils/100 WBC (Bld) 4 % 1 - 4 % [facility] Hematocrit (Bld) [Volume fraction] 41.1 % 36.3 - 47.1 % [facility] Hemoglobin (Bld) [Mass/Vol] 14.2 g/dL 11.9 - 15.1 g/dL [facility] Immature granulocytes/100 WBC (Bld) 0 % 0 [facility] Interpretation and review of laboratory results Abnormal [facility] Lymphocytes/100 WBC (Bld) 18 % Low 24 - 43 % [facility] MCH (RBC) [Entitic mass] 32.7 pg 25.2 - 33.5 pg [facility] MCHC (RBC) [Mass/Vol] 34.5 g/dL 28.4 - 34.8 g/dL [facility] MCV (RBC) [Entitic vol] 94.7 fL 82.6 - 102.9 fL [facility] Monocytes/100 WBC (Bld) 8 % 3 - 12 % [facility] NRBC Automated 0.0 0.0 per 100 WBC [facility] Platelet distribution width (Bld) [Ratio] 12.2 % 11.8 - 14.4 % [facility] Platelet mean volume (Bld) [Entitic vol] 10.2 fL 8.1 - 13.5 fL [facility] Platelets (Bld) [#/Vol] 293 10*3/uL [facility] RBC (Bld) [#/Vol] 4.34 10*6/uL 3.95 - 5.1 1 m/uL [facility] Segmented neutrophils/100 WBC (Bld) 69 % High 36 - 65 % [facility] Segs Absolute 5.19 [facility] WBC (Bld) [#/Vol] 7.5 10*3/uL [facility] CBC with Diffon 02-02-2023 Abs. Basophil 0.06 k/uL Normal 0.00-0.20 [facility] Comment on above: Performed By: #### B LUCIUS, CDP, TSH #### [address] [place] [address] Network Field Engineer: Nahun Stone MD Abs.Imm.Granulocyte <0.03 Normal 0.00-0.30 [facility] Comment on above: Performed By: #### B LUCIUS, ERWIN, TSH #### [address] [place], [place] [address] Network Field Engineer: Nahun Stone MD Abs.Neutrophil (Seg) 5.19 k/uL Normal 1.50-8.10 [facility] Comment on above: Performed By: #### B LUCIUS, ERWIN, TSH #### [address] [place], [place] [id number] Network Field Engineer: Nahun Stone MD Basophils/100 WBC (Bld) 1 % Normal 0-2 [facility] Comment on above: Performed By: #### B LUCIUS, CDP, TSH #### [facility] [address] [place] [address] [place] [address] Network Field Engineer: Nahun Stone MD Eosinophils (Bld) [#/Vol] 0.30 10*3/uL Normal 0.00-0.44 [facility] Comment on above: Performed By: #### B MP, CDP, TSH #### [address] [place] [address] Network Field Engineer: Nahun Stone MD Eosinophils/100 WBC (Bld) 4 % Normal 1-4 [facility] Comment on above: Performed By: #### B ERWIN KAN, TSH #### [address] [place], [place] [id number] Network Field Engineer: Nahun Stone MD Erythrocyte distribution width (RBC) [Ratio] 12.2 % Normal 11.8-14.4 [facility] Comment on above: Performed By: #### B ERWIN KAN, TSH #### [address] [place], [place] [id number] Network Field Engineer: Nahun Stone MD Hematocrit (Bld) [Volume fraction] 41.1 % Normal 36.3-47.1 [facility] Comment on above: Performed By: #### B ERWIN KAN, TSH #### [address] [place], [facility] Network Field Engineer: Nahun Stone MD Hemoglobin (Bld) [Mass/Vol] 14.2 g/dL Normal 11.9-15.1 [facility] Comment on above: Performed By: #### B ERWIN KAN, TSH #### [address] [place], [place] [id number] Network Field Engineer: Nahun Stone MD Immature granulocytes/100 WBC (Bld) 0 % Normal 0 [facility] Comment on above: Performed By: #### B ERWIN KAN, TSH #### [facility] [address] [place] [address] [place] [place], [place] [id number] Network Field Engineer: Nahun Stone MD Lymphocytes (Bld) [#/Vol] 1.34 10*3/uL Normal 1.10-3.70 [facility] Comment on above: Performed By: #### B LUCIUS, ERWIN, TSH #### [address] [place], [place] [id number] Network Field Engineer: Nahun Stone MD Lymphocytes/100 WBC (Bld) 18 % Low 24-43 [facility] Comment on above: Performed By: #### B LUCIUS, CDP, TSH #### [facility] [address] [place] [address] Network Field Engineer: Nahun Stone MD MCH (RBC) [Entitic mass] 32.7 pg Normal 25.2-33.5 [facility] Comment on above: Performed By: #### B LUCIUS, CDP, TSH #### [facility] [address] [place], [place] [id number] Network Field Engineer: Nahun Stone MD MCHC (RBC) [Mass/Vol] 34.5 g/dL Normal 28.4-34.8 [facility] Comment on above: Performed By: #### B LUCIUS CDP, TSH #### [address] [place], [place] [address] Network Field Engineer: Nahun Stone MD MCV (RBC) [Entitic vol] 94.7 fL Normal 82.6-102.9 [facility] Comment on above: Performed By: #### B ERWIN KAN, TSH #### [address] [place], [place] [id number] Network Field Engineer: Nahun Stone MD Monocytes (Bld) [#/Vol] 0.62 10*3/uL Normal 0.10-1.20 [facility] Comment on above: Performed By: #### B LUCIUS CDP, TSH #### [facility] [address] [place] [address] [place] [place], [place] [phone] Network Field Engineer: Nahun Stone MD Monocytes/100 WBC (Bld) 8 % Normal 3-12 [facility] Comment on above: Performed By: #### B LUCIUS, CDP, TSH #### [facility] [address] [place], [place] [phone] Network Field Engineer: Nahun Stone MD Neutrophil (Seg) 69 % High 36-65 [facility] Comment on above: Performed By: #### B MP, CDP, TSH #### [facility] [address] [place], [place] [address] Network Field Engineer: Nahun Stone MD NRBC Automated 0.0 per 100 WBC Normal 0.0 [facility] Comment on above: Performed By: #### B LUCIUS CDP, TSH #### [facility] [address] [place], [facility] Network Field Engineer: Nahun Stone MD Platelet mean volume (Bld) [Entitic vol] 10.2 fL Normal 8.1-13.5 [facility] Comment on above: Performed By: #### B ERWIN KAN, TSH #### [address] [place], [facility] Network Field Engineer: Nahun Stone MD Platelets (Bld) [#/Vol] 293 10*3/uL Normal 138-453 [facility] Comment on above: Performed By: #### B ERWIN KAN, TSH #### [address] [place], [place] [address] Network Field Engineer: Nahun Stone MD RBC (Bld) [#/Vol] 4.34 10*6/uL Normal 3.95-5.11 [facility] Comment on above: Performed By: #### B ERWIN KAN, TSH #### [address] [place], [place] [address] Network Field Engineer: Nahun Stone MD WBC (Bld) [#/Vol] 7.5 10*3/uL Normal 3.5-11.3 [facility] Comment on above: Performed By: #### B ERWIN KAN, TSH #### [address] [place] [address] Network Field Engineer: Nahun Stone MD No Panel Informationon 02-02 [facility] TSHon 02-02-2023 TSH Qn 3.54 m[IU]/L [facility] Thyroid Stim. Horm.on 2022 Thyroid Stim. Horm. 3.54 uIU/mL Normal 0.30-5.00 [facility] Comment on above: Performed By: #### B MP, CDP, TSH #### [facility] [address] [place] [address] Network Field Engineer: Nahun Stone MD [facility] D[facility] SCRE[facility] BILCarl Xie 02-01-2023 [facility] DIGITAL SCREEN BILATERAL EXAMINATION: SCREENING DIGITAL BILATERAL MAMMOGRAM WITH TOMOSYNTHESIS, 02/01/2023 TECHNIQUE: Screening mammography was performed with tomosynthesis including MLO and CC views of the bilateral breasts. Computer aided detection was used for the interpretation of this exam. COMPARISON: December 15, 2021 in October 28, 2020 HISTORY: Screening. FINDINGS: The breasts are heterogeneously dense which can obscure small masses. There is no dominant mass architectural distortion or concerning grouping of microcalcification in either breast. IMPRESSION: No mammographic evidence of malignancy BIRADS: BIRADS - CATEGORY 1 Negative. Normal interval follow-up is recommended in 12 months. OVERALL ASSESSMENT - NEGATIVE A letter of notification will be sent to the patient regarding the results. The [employer] recommends annual mammograms for women 40 years and older. Interpreted by: Dick Rodriguez DO Signed by: Dick Rodriguez DO 02/01/23 Final result Normal [facility] No mammographic evidence of malignancy BIRADS: BIRADS - CATEGORY 1 Negative. Normal interval follow-up is recommended in 12 months. OVERALL ASSESSMENT - NEGATIVE A letter of notification will be sent to the patient regarding the results. [employer] recommends annual mammograms for women 40 years and older. [facility] EXAMINATION: SCREENING DIGITAL BILATERAL MAMMOGRAM WITH TOMOSYNTHESIS, 02/01/2023 TECHNIQUE: Screening mammography was performed with tomosynthesis including MLO and CC views of the bilateral breasts. Computer aided detection was used for the interpretation of this exam. COMPARISON: December 15, 2021 in October 28, 2020 HISTORY: Screening. FINDINGS: The breasts are heterogeneously dense which can obscure small masses. There is no dominant mass architectural distortion or concerning grouping of microcalcification in either breast. [facility] Radiology Study observation (narrative) [facility] Work Phone: [facility] DIG[facility] S[facility] BILA TERALOrdered By: Dick Rodriguez on 02-01-2023 [facility] [employer] Phone: [facility] DIG[facility] SCREEN BILA TERALon 12-15-2021 No evidence of malignancy. Advise annual screening mammography. BREAST DENSITY SUMMARY C: The breasts are heterogeneously dense which may obscure small masses. BI-RADS 2 BIRADS: BIRADS - CATEGORY 2 Benign Findings. Normal interval follow-up is recommended in 12 months. OVERALL ASSESSMENT - BENIGN A letter of notification will be sent to the patient regarding the results. [employer] recommends annual mammograms for women 40 years and older. [facility] EXAMINATION: SCREENING DIGITAL BILATERAL MAMMOGRAM WITH TOMOSYNTHESIS, 12/15/2021 TECHNIQUE: Screening mammography was performed with tomosynthesis including MLO and CC views of the bilateral breasts. Computer aided detection was used for the interpretation of this exam. COMPARISON: 28 October 2020; 24 December 2018 [facility] HISTORY: Screening. Negative family history of breast cancer. Negative history of hormonal replacement therapy. Prior right surgical biopsy 30 years ago with benign histology. FINDINGS: The breast parenchyma is heterogeneously dense which can obscure small masses. No skin thickening, nipple contour changes, malignant type microcalcifications, areas of architectural distortion, or significant interval changes are noted. Stable scar is present upper outer right breast in the area prior noted scar marker. [facility] Radiology Study observation (narrative) [facility]: [facility] DIG[facility] SCREEN BILA TERALOrdered By: Heather Daigle on 12-15-2021 [facility]: XR CHEST 2 Von 04-21-2021 XR CHEST 2 V EXAM: CHEST 2 VIEWS HISTORY: Acute bronchitis TECHNIQUE: PA and lateral views chest. COMPARISON: None. FINDINGS: The lungs are clear. There is no focal lung consolidation, pleural effusion or pneumothorax. There is no peribronchial cuffing. Pulmonary vasculature is within normal limits. The cardiomediastinal silhouette is normal. IMPRESSION: 1. No focal lung consolidation or bronchial wall thickening. Recommend followup imaging if symptoms worsen or persist. Electronically authenticated by: CHRIS LUTHER Date: 2021-04-21 17:53 Normal [facility] CBC AUTO DIFFon 10-28-2020 BASO # 0.1 103/ul Normal 0.0-0.1 [facility] Comment on above: Performed By: #### C BC #### [facility] [address] [id number] Inocencio Sandy Basophils/100 WBC (Bld) 0.6 % Normal 0.2-2.0 [facility] Comment on above: Performed By: #### C BC #### [facility] [address] [place], [place] [id number] Inocencio Sandy EO # 0.4 103/ul Normal 0.0-0.7 [facility] Comment on above: Performed By: #### C BC #### [facility] [address] [place] [address] Inocencio Sandy Eosinophils/100 WBC (Bld) 4.7 % Normal 0.9-7.0 [facility] Comment on above: Performed By: #### C BC #### [facility] [address] [place], [place] [phone] Inocencio Sandy Erythrocyte distribution width (RBC) [Ratio] 12.3 % Normal 11.0-15.0 [facility] Comment on above: Performed By: #### C BC #### [facility] [address] [place], [place] [phone] Inocencio Sandy Hematocrit (Bld) [Volume fraction] 41.3 % Normal 36.0-48.0 [facility] Comment on above: Performed By: #### C BC #### [facility] [address] [place], [place] [phone] Inocencio Sandy Hemoglobin (Bld) [Mass/Vol] 13.8 g/dL Normal 12.0-16.0 [facility] Comment on above: Performed By: #### C BC #### [facility] [address] [place], [place] [phone] Inocencio Sandy IG # 0.03 10e3/ul Normal 0.00-0.03 [facility] Comment on above: Performed By: #### C BC #### [facility] [address] [place] [address] Inocencio Sandy IG % 0.4 % Normal 0.0-0.5 [facility] Comment on above: Performed By: #### C BC #### [facility] [address] [place], [place] [phone] Inocencioadryan Randallen LYMPH # 1.7 103/ul Normal 1.2-3.8 [facility] Comment on above: Performed By: #### C BC #### [facility] [address] [place], [place] [phone] Inocencioadryan Delgado Lymphocytes/100 WBC (Bld) 20.3 % Critically low 20.5-60.0 [facility] Comment on above: Performed By: #### C BC #### [facility] [address] [place] [address] Inocencio Delgado MANUAL DIFF REQ NO Normal [facility] Comment on above: Performed By: #### C BC #### [facility] [address] [place] [address] Inocencioadryan Randallen MCH (RBC) [Entitic mass] 31.8 pg Normal 26.7-34.0 [facility] Comment on above: Performed By: #### C BC #### [facility] [address] [place] [address] Inocencioadryan Delgado MCHC (RBC) [Mass/Vol] 33.4 g/dL Normal 29.9-35.2 [facility] Comment on above: Performed By: #### C BC #### [facility] [address] [place] [address] Inocencioadryan Delgado MCV (RBC) [Entitic vol] 95.2 fL Normal 81.0-99.0 [facility] Comment on above: Performed By: #### C BC #### [facility] [address] [place], [place] [phone] Inocencio Sandy MONO # 0.6 103/ul Normal 0.3-0.8 [facility] Comment on above: Performed By: #### C BC #### [facility] [address] [place], [place] [phone] Inocencio Sandy Monocytes/100 WBC (Bld) 7.3 % Normal 1.7-12.0 [facility] Comment on above: Performed By: #### C BC #### [facility] [address] [place], [place] [phone] Inocencio Delgado NEUT # 5.4 103/ul Normal 1.4-6.5 [facility] Comment on above: Performed By: #### C BC #### [facility] [address] [place], [place] [phone] Inocencioadryan Delgado Neutrophils/100 WBC (Bld) 66.7 % Normal 43.0-75.0 [facility] Comment on above: Performed By: #### C BC #### [facility] [address] [place], [place] [phone] Inocencioadryan Delgado Platelet mean volume (Bld) [Entitic vol] 10.5 fL Normal 9.5-13.5 [facility] Comment on above: Performed By: #### C BC #### [facility] [address] [place] [address] Inocencio Sandy PLT 267 103/ul Normal 150-450 [facility] Comment on above: Performed By: #### C BC #### [facility] [address] [place], [place] [phone] Inocencio Sandy RBC 4.34 106/ul Normal 4.20-5.40 [facility] Comment on above: Performed By: #### C BC #### [facility] [address] [place] [address] Inocencio Sandy WBC 8.1 103/ul Normal 4.0-11.0 [facility] Comment on above: Performed By: #### C BC #### [facility] [address] [place] [id number] Inocencioadryan Delgado LIPID PROFILEon 10-28-2020 CHOL-HDL RATIO NORM SEE BELOW Normal [facility] Comment on above: Result Comment: 3.3 - 4.4 LOW RISK 4.4 - 7.1 AVERAGE RISK 7.1 - 11.0 MODERATE RISK >11.0 HIGH RISK Performed By: #### B MP, LIPID #### [facility] [address] [place], [place] [phone] Inocencio Sandy Cholesterol [Mass/Vol] 257 mg/dL Critically high <=200 [facility] Comment on above: Performed By: #### B MP, LIPID #### [facility] [address] [place], [place] [phone] Inocencio Sandy Cholesterol in HDL [Mass/Vol] 88 mg/dL Normal [facility] Comment on above: Performed By: #### B MP, LIPID #### [facility] [address] [phone] Inocencio Sandy Cholesterol in LDL [Mass/Vol] 158.0 mg/dL Normal [facility] Comment on above: Performed By: #### B MP, LIPID #### [facility] [address] [place], [place] [phone] Inocencio Sandy Cholesterol.total/Ch olesterol in HDL [Mass ratio] 2.9 {ratio} Normal [facility] Comment on above: Performed By: #### B MP, LIPID #### [facility] [address] [place], [place] [phone] Inocencio Sandy HDL NORMAL > or = 60 mg/dl - LOW CARDIOVASCULAR RISK <40 mg/dl - HIGH CARDIOVASCULAR RISK Normal [facility] Comment on above: Performed By: #### B MP, LIPID #### [facility] [address] [place], [place] [phone] Inocencio Sandy LDL CALC NORMAL SEE BELOW Normal [facility] Comment on above: Result Comment: <100 mg/dl OPTIMAL 100 - 129 mg/dl NEAR OR ABOVE OPTIMAL 130 - 159 mg/dl BORDERLINE HIGH 160 - 189 mg/dl HIGH >190 mg/dl VERY HIGH Performed By: #### B MP, LIPID #### [facility] [address] [place], [place] [phone] Inocencio Sandy Triglyceride [Mass/Vol] 55 mg/dL Normal <=150 [facility] Comment on above: Performed By: #### B MP, LIPID #### [facility] [address] [place], [place] [phone] Inocencio Sandy VLDL CALC 11.0 mg/dL Normal [facility] Comment on above: Performed By: #### B MP, LIPID #### [facility] [address] [place], [place] [phone] Inocencio Sandy MG MAMM SCREEN WILLIAM W CADon 0 10-28-2020 MG MAMM SCREEN WILLIAM W CAD Patient: LETICIA CANNON Exam Date: 10/28/2020 : 1955 Gender:F Ordering : DR TYRONE SANCHEZ D.O. Admission #: [id number] Family : Order #: [id number] CLICK HERE TO VIEW EXAM RADIOLOGY REPORT PROCEDURE: MAMMOGRAM BILATERAL SCREENING DIGITAL WITH COMPUTER AIDED DETECTION COMPARISON: MG MAMM SCREEN WILLIAM W CAD, 10/05/2016. MG MAMM SCREEN WILLIAM W CAD, 12/24/2018. INDICATIONS: Screening mammography Calculator Name NCI Breast Cancer Risk Assessment Tool 5 Year Breast Cancer Risk 1.60% Lifetime Breast Cancer Risk 5.60% Personal Breast Cancer No Personal Ovarian Cancer No Treatments None Family Cancers Mother with colon cancer at age 78. LOCATION: [facility] BREAST COMPOSITION: Heterogeneously dense, which may obscure small masses. FINDINGS: DIAGNOSTIC CATEGORY 1--NEGATIVE NO CHANGE FROM COMPARISON ASSESSMENT. Scattered benign-appearing calcifications are present. Scattered benign-appearing lymph nodes are present. RIGHT BREAST: No significant suspicious finding. Linear scar marker LEFT BREAST: No significant suspicious finding. Round mole marker RECOMMENDATIONS: ROUTINE MAMMOGRAM AND CLINICAL EVALUATION IN 12 MONTHS. PLEASE NOTE: A NORMAL MAMMOGRAM DOES NOT EXCLUDE THE POSSIBILITY OF BREAST CANCER. A CLINICALLY SUSPICIOUS PALPABLE LUMP SHOULD BE BIOPSIED. Dictated by: Nahun Medina MD on 10/28/2020 at 09:19 Approved by: Nahun Medina MD on 10/28/2020 at 09:23 Normal [facility] PROF CHEM 8 (BAS METB)on Anion gap [Moles/Vol] 13.1 mmol/L Normal [facility] Comment on above: Performed By: #### B MP, LIPID #### [facility] [address] [phone] Inocencio Sandy Calcium [Mass/Vol] 9.2 mg/dL Normal 8.4-10.2 [facility] Comment on above: Performed By: #### B MP, LIPID #### [facility] [address] [place], [place] [address] Inocencio Sandy Chloride [Moles/Vol] 106 mmol/L Normal 98-107 [facility] Comment on above: Performed By: #### B MP, LIPID #### [facility] [address] [phone] Inocencio Sandy CO2 [Moles/Vol] 26.1 mmol/L Normal 22.0-30.0 [facility] Comment on above: Performed By: #### B MP, LIPID #### [facility] [address] [phone] Inocencio Sandy Creatinine [Mass/Vol] 0.70 mg/dL Normal 0.52-1.04 [facility] Comment on above: Performed By: #### B MP, LIPID #### [facility] [address] [phone] Inocencio Sandy EGFR-AF [place] >60 Normal >=60 [facility] Comment on above: Performed By: #### B MP, LIPID #### [facility] [address] [address] Inocencio Sandy EGFR-NON AF [place] >60 Normal >=60 [facility] Comment on above: Performed By: #### B MP, LIPID #### [facility] [address] [address] Inocencio Sandy Glucose [Mass/Vol] 104 mg/dL Normal 74-[address] [facility] Comment on above: Performed By: #### B MP, LIPID #### [facility] [address] [address] Inocencio Sandy Potassium [Moles/Vol] 4.2 mmol/L Normal 3.4-5.0 [facility] Comment on above: Performed By: #### B MP, LIPID #### [facility] [address] [address] Inocencio Sandy Sodium [Moles/Vol] 141 mmol/L Normal 137-[address] [facility] Comment on above: Performed By: #### B MP, LIPID #### [facility] [address] [address] Inocencio Sandy Urea nitrogen [Mass/Vol] 22.0 mg/dL Critically high 7.0-17.0 [facility] Comment on above: Performed By: #### B MP, LIPID #### [facility] [address] [place], [place] [address] Inocencio Delgado Urea nitrogen/Creatinine [Mass ratio] 31.4 mg/mg Normal [facility] Comment on above: Performed By: #### B MP, LIPID #### [facility] [address] [place], [place] [address] Inocencio Delgado Vital Signs Date Time Vital Sign Value Performing Clinician Facility 08-14-2024 11:13-0500 Body height 160 cm Leatha ARIZA Work Phone: [facility] 08-14-2024 11:13-0500 Body mass index (BMI) [Ratio] 28.27 kg/m2 Leatha ARIZA Work Phone: [facility] 08-14-2024 11:13-0500 Body weight 72.39 kg Leatha ARIZA Work Phone: [facility] 08-12-2024 11:08-0500 Body height 160 cm [facility] 08-12-2024 11:08-0500 Body mass index (BMI) [Ratio] 28.34 kg/m2 [facility] 08-12-2024 11:08-0500 Body weight 72.58 kg [facility] 1 [facility] 06-13-2024 14:27-0400 Body height 160.02 cm [facility] 06-13-2024 14:27-0400 Body mass index (BMI) [Ratio] 28.4 kg/m2 [facility] 06-13-2024 14:27-0400 Body weight 72.8 kg [facility] 06-13-2024 14:27-0400 Diastolic blood pressure 91 mm[Hg] [facility] 06-13-2024 14:27-0400 Heart rate 75 /min [facility] 06-13-2024 14:27-0400 Respiratory rate 12 /min [facility] 06-13-2024 14:27-0400 Systolic blood pressure 163 mm[Hg] [facility] 12-10-2023 13:00-0400 Diastolic blood pressure 89 mm[Hg] Shalom Méndez MD Work Phone: [facility] 12-10-2023 13:00-0400 Heart rate 70 /min Shalom Méndez MD Work Phone: [facility] 12-10-2023 13:00-0400 Respiratory rate 19 /min Shalom Méndez MD Work Phone: [facility] 12-10-2023 13:00-0400 SaO2% (BldA) [Mass fraction] 97 % Shalom Méndez MD Work Phone: [facility] 12-10-2023 13:00-0400 Systolic blood pressure 189 mm[Hg] Shalom Méndez MD Work Phone: [facility] 12-10-2023 12:58-0400 Body temperature 98.4 [degF] Shalom Méndez MD Work Phone: [facility] 12-10-2023 10:29-0400 Body height 160 cm Shalom Méndez MD Work Phone: [facility] 12-10-2023 10:29-0400 Body mass index (BMI) [Ratio] 29.33 kg/m2 Shalom Méndez MD Work Phone: [facility] 12-10-2023 10:29-0400 Body weight 75.1 kg Shalom Méndez MD Work Phone: [facility] 12-07-2022 11:00-0400 Body height 160.02 cm Tyrone Sanchez Other [employer] Other 12-07-2022 11:00-0400 Body mass index (BMI) [Ratio] 27.6 kg/m2 Tyrone Ball Other [employer] Other 12-07-2022 11:00-0400 Body weight 70.67 kg Tyrone Ball Other [employer] Other 12-07-2022 11:00-0400 Diastolic blood pressure 111 mm[Hg] Tyrone Sanchez Other [employer] Other 12-07-2022 11:00-0400 Respiratory rate 12 /min Tyrone Sanchez Other [employer] Other 12-07-2022 11:00-0400 Systolic blood pressure 171 mm[Hg] Tyrone Sanchez Other [employer] Other Encounters Encounter Date Encounter Type Care Provider Facility Start: 10-29-2024 ambulatory Heriberto FRYE Facility :[facility] Start: 08-14-2024 End: 08-14-2024 Bamboo flowsheet Leatha Perez PA Work Phone: [facility] Start: 08-14-2024 End: 08-14-2024 Bamboo flowsheet Leatha ARIZA Work Phone: [facility] Start: 08-14-2024 End: 08-14-2024 Patient encounter procedure Leatha ARIZA Work Phone: [facility] Comment on above: Pre-op examination ( Primary Dx); Arthritis of left hip Start: 08-14-2024 End: 08-14-2024 Preprocedural examination done Leatha ARIZA Work Phone: [facility] Start: 08-14-2024 End: 08-14-2024 ambulatory LEATHA PEREZ Not Available Start: 08-12-2024 End: 08-12-2024 External Result Encounter Jr. Ramesh Christianson DO Work Phone: [facility] Unsolicited Start: 08-12-2024 End: 08-12-2024 External Result Encounter Jr. Ramesh Christianson DO Work Phone: [facility] Unsolicited Start: 08-12-2024 End: 08-12-2024 ambulatory RAMESH CHRISTIANSON JR [facility] Start: 08-12-2024 Encounter for other preprocedural examination RAMESH ZION CASH [facility] Start: 08-12-2024 End: 08-12-2024 Patient encounter procedure [facility] Pre-Admission Testing [facility] Comment on above: Preop examination (P rimary Dx); Osteoarthritis of left hip, unspecified osteoarthritis type; Urinary frequency Start: 08-12-2024 End: 08-12-2024 Preprocedural examination done [facility] 1 [facility] Start: 08-05-2024 End: 08-05-2024 ambulatory Abelino Timmons MD Facility:[facility] Start: 08-04-2024 End: 08-04-2024 Telephone encounter Jr. Ramesh Christianson DO Work Phone: [facility] Comment on above: surgery Start: 06-25-2024 End: 06-25-2024 Office outpatient visit 25 minutes Jr. Ramesh Christianson DO Work Phone: [facility] Comment on above: Arthritis of left hi p (Primary Dx) Start: 06-25-2024 End: 06-25-2024 ambulatory RAMESH CASTELLANO Not Available Start: 06-25-2024 End: 06-25-2024 Marycruz Christianson DO Work Phone: [facility] Start: 06-25-2024 End: 06-25-2024 Marycruz Christianson DO Work Phone: [facility] Start: 06-17-2024 ambulatory Heriberto FRYE Facility:[facility] Start: 06-13-2024 End: 06-13-2024 ambulatory [facility] Work Phone: Start: 06-13-2024 End: 06-13-2024 Patient encounter procedure [facility] Work Phone: Start: 06-02-2024 End: 06-02-2024 ambulatory RAMESH CASTELLANO Not Available Start: 05-19-2024 End: 05-19-2024 ambulatory RAMESH CASTELLANO Hans CHRISTIANSON Not Available Start: 04-21-2024 End: 04-21-2024 ambulatory RAMESH CASTELLANO Hans CHRISTIANSON Not Available Start: 03-26-2024 End: 03-26-2024 ambulatory LEATHA PEREZ Not Available Start: 01-31-2024 ambulatory SELF SELF Facility:[facility] Start: 01-31-2024 End: 01-31-2024 Postop follow up visit related to original px Shalom Méndez MD Work Phone: [facility] Comment on above: Aftercare following surgery of a sense organ (Primary Dx); Primary open-angle glaucoma, bilateral, severe stage Start: 01-10-2024 ambulatory TYRONE BALL Facility: [facility] Start: 01-10-2024 End: 01-10-2024 Postop follow up visit related to original px Shalom Méndez MD Work Phone: [facility] Comment on above: Aftercare following surgery of a sense organ (Primary Dx); Primary open-angle glaucoma, bilateral, severe stage; Cystoid macular edema of right eye Start: 01-03-2024 ambulatory TYRONE BALL Facility: [facility] Start: 01-03-2024 End: 01-03-2024 Postop follow up visit related to original px Shalom Méndez MD Work Phone: [facility] Comment on above: Aftercare following surgery of a sense organ (Primary Dx); Primary open-angle glaucoma, bilateral, severe stage Start: 12-27-2023 ambulatory TYRONE BALL Facility: [facility] Start: 12-27-2023 End: 12-27-2023 Postop follow up visit related to original px Shalom Méndez MD Work Phone: [facility] Comment on above: Aftercare following surgery of a sense organ (Primary Dx); Primary open-angle glaucoma, bilateral, severe stage; Pseudophakia, right eye Start: 12-17-2023 ambulatory TYRONE SANCHEZ Facility: [facility] Start: 12-17-2023 End: 12-17-2023 Postop follow up visit related to original px Reagan Hogue MD Work Phone: [facility] [place] Comment on above: Aftercare following surgery of a sense organ (Primary Dx) Start: 12-14-2023 ambulatory TYRONE SANCHEZ Facility: [facility] Start: 12-14-2023 End: 12-14-2023 Postop follow up visit related to original px Shalom Méndez MD Work Phone: [facility] Comment on above: Aftercare following surgery of a sense organ (Primary Dx); Primary open-angle glaucoma, bilateral, severe stage; Pseudophakia, right eye Start: 12-11-2023 ambulatory TYRONE DANIEL Facility: [facility] Start: 12-11-2023 End: 12-11-2023 Postop follow up visit related to original px Shalom Méndez MD Work Phone: [facility] Comment on above: Aftercare following surgery of a sense organ (Primary Dx); Primary open-angle glaucoma, bilateral, severe stage; Pseudophakia, right eye; Nuclear sclerosis, left Start: 12-10-2023 End: 12-10-2023 ambulatory SHALOM MÉNDEZ Facility:[facility] Start: 12-10-2023 End: 12-10-2023 Subsequent hospital visit by physician Shalom Méndez MD Work Phone: [facility] [place] Comment on above: Primary open-angle g la[place], bilateral, severe stage Start: 11-07-2023 ambulatory SHALOM Meier ty:[facility] Start: 11-07-2023 Encounter for other preprocedural examination SHALOM MÉNDEZ Facility:[facility] Start: 11-05-2023 ambulatory SHALOM Meier ty:[facility] Start: 10-25-2023 ambulatory ABELINO TIMMONS Facility: [facility] Start: 10-25-2023 End: 10-25-2023 Office outpatient new 45 minutes Shalom Méndez MD Work Phone: [facility] [place] Comment on above: Primary open-angle g laucoma, bilateral, severe stage (Primary Dx); Nuclear sclerosis, left; Pseudophakia, right eye Start: 10-02-2023 End: 10-02-2023 ambulatory Tyrone Sanchez Other [employer] Other Start: 10-02-2023 Telephone encounter [facility] Start: 02-02-2023 End: 02-03-2023 ambulatory [facility] Start: 02-02-2023 End: 02-02-2023 Subsequent hospital visit by physician Tyrone Sanchez DO Work Phone: [facility] Start: 02-01-2023 End: 02-04-2023 ambulatory TYRONE [facility] Start: 02-01-2023 End: 02-03-2023 Subsequent hospital visit by physician [facility] Comment on above: Encounter for screen ing mammogram for malignant neoplasm of breast Start: 12-07-2022 End: 12-07-2022 ambulatory Tyrone Sanchez Other [employer] Other Start: 12-07-2022 Patient encounter procedure Tyrone Sanchez [facility] Start: 10-26-2022 End: 10-26-2022 ambulatory MARSHA CASTANEDA [facility] Start: 10-26-2022 End: 10-26-2022 Encounter for other preprocedural examination JOE GONZALES [facility] Start: 02-02-2022 End: 02-02-2022 Subsequent hospital visit by physician Jeanmarie Roblero PT [facility] Physical Therapy Comment on above: Arrived Start: 01-26-2022 End: 01-26-2022 Subsequent hospital visit by physician Keyur Vital [facility] Physical Therapy Comment on above: Arrived Start: 01-24-2022 End: 01-24-2022 Subsequent hospital visit by physician Reagan Quiroz PTA [facility] Physical Therapy Comment on above: Arrived Start: 01-18-2022 End: 01-18-2022 Subsequent hospital visit by physician Reagan Quiroz PTA [facility] Physical Therapy Comment on above: Arrived Start: 01-16-2022 End: 01-16-2022 Subsequent hospital visit by physician Blanquita Nieto PT [facility] Physical Therapy Comment on above: Arrived Start: 01-11-2022 End: 01-11-2022 Subsequent hospital visit by physician Blanquita Nieto PT [facility] Physical Therapy Comment on above: Arrived Start: 01-05-2022 End: 01-05-2022 Subsequent hospital visit by physician Jeanmarie Roblero PT [facility] Physical Therapy Comment on above: Arrived Start: 01-02-2022 End: 01-02-2022 Subsequent hospital visit by physician Keyur Vital [facility] Physical Therapy Comment on above: Arrived Start: 12-15-2021 End: 12-17-2021 Subsequent hospital visit by physician [facility] Comment on above: Encounter for screen ing mammogram for breast cancer Start: 11-23-2021 Adult health examination Montrell Sanchez Other [employer] Other Start: 04-21-2021 End: 04-22-[address] TYRONE SANCHEZ Facility:[facility]1 Start: 10-28-2020 End: 10-29-[address] TYRONE SANCHEZ Facility:[facility]1 Procedures Date Procedure Procedure Detail Performing Clinician Start: 08-12-2024 Complete blood count with white cell differential, automated JrFrances Christianson DO Work Phone: Start: 01-10-2024 Optical coherence tomography of retina Shalom Méndez MD Work Phone: Start: 02-02-2023 Basic metabolic pane l calcium total Tyrone Sanchez DO Work Phone: Start: 02-01-2023 End: 02-01-2023 Screening mammography bi 2-view breast inc cad Tyrone Sanchez DO Work Phone: Start: 12-15-2021 Screening mammograph y bi 2-view breast inc cad Lorenzo Lindsay MD Work Phone: Start: 12-11-2018 Diabetes mellitus screening Tyrone Sanchez Other Start: 12-10-2018 Screening for malign ant neoplasm of colon Tyrone Sanchez Other Start: 12-10-2018 Screening for osteoporosis Tyrone Sanchez Other Start: 10-05-2016 Screening mammography B marcio Sanchez Other Start: 02-03-2016 General examination of patient Tyrone Sanchez Other Depression screening Arlet Sanchez Other Hormone replacement therapy Tyrone Sanchez Other Hormone replacement therapy Tyrone Sanchez Other End: 11-23-2021 Hyperlipidemia screening Tyrone Sanchez Other Screening for malign ant neoplasm of breast Tyrone Sanchez Other Plan of Treatment Date Care Activity Detail Author Start: 08-12-2025 Adult BMI Screening Adult BMI Screen ing [facility] Start: 08-12-2025 Tobacco Screening Tobacco Screening [facility] Start: 02-01-2025 Screening for malignant neoplasm of breast Breast cancer screen [facility] Start: 09-15-2024 End: 09-15-2024 Patient encounter procedure 09/15/2024 1:30 PM EST Office Visit [facility] [address] [place] [address] Leander Michaud, BEL[employer] PICKER [address] [place], [place] [id number] [facility] Start: 09-02-2024 End: 09-02-2024 Admission to same day surgery center 09/02/2024 12:30 PM EST - 09/02/2024 3:30 PM EST Surgery [facility] [address] [place] [id number] Ramesh Christianson Jr., DO [address] [place] [address] REPLACEMENT TOTAL JOINT HIP [97603 (CPT )] [facility] Comment on above: REPLACEMENT TOTAL STEWART INT HIP [51941 (CPT )] Start: 09-02-2024 End: 09-02-2024 Arthrp acetblr/prox fem prostc agrft/algrft REPLACEMENT TOTAL JOINT HIP left hip degenerative joint disease 09/02/2024 12:30 PM EST [facility] Start: 09-02-2024 Subsequent hospital visit by physician 09/02/2024 12:30 PM EST Hospital Encounter [facility] [address] [place] [id number] Ramesh Christianson Jr., DO [address] [facility] [address] [place] [address] [facility] Start: 08-25-2024 End: 08-08-2025 Crossmatch RBC Crossmatch RBC Blood Bank Routine Preop examination Osteoarthritis of left hip, unspecified osteoarthritis type Urinary frequency Expected: 08/25/2024, Expires: 08/08/2025 [facility] Comment on above: Expected: 08/25/2024 , Expires: 08/08/2025 Start: 08-25-2024 End: 08-08-2025 Type and screen(includes indirect dov) Type and screen(includes indirect dov) Blood Bank Routine Preop examination Osteoarthritis of left hip, unspecified osteoarthritis type Urinary frequency Expected: 08/25/2024, Expires: 08/08/2025 [employer] Work Phone: Comment on above: Expected: 08/25/2024 , Expires: 08/08/2025 Start: 08-14-2024 End: 08-14-2024 Patient encounter procedure [facility] Comment on above: Pre-op examination ( Primary Dx); Arthritis of left hip Start: 06-25-2024 End: 06-25-2024 Patient encounter procedure 06/25/2024 3:00 PM EDT Office Visit [facility] [address] [place] [address] Jr. Ramesh Christianson DO [address] [facility] [address] [place] [address] Arrived [facility] Comment on above: Arrived Start: 05-25-2024 COVID-19 Vaccine ( season) COVID-19 Vaccine ( season) [facility] Start: 05-25-2024 Influenza vaccination [facility] Start: 02-02-2024 Screening for malignant neoplasm of breast [facility] Start: 01-31-2024 End: 01-31-2024 Patient encounter procedure 01/31/2024 1:00 PM EDT Office Visit [facility] [address] [place] [address] [address] [place] [address] Shalom Méndez MD [address] [place] [address] [address] [place] [address] [facility] Start: 01-10-2024 End: 01-10-2024 Patient encounter procedure 01/10/2024 1:30 PM EDT Office Visit [facility] [address] [place] [address] [address] [place] [address] Shalom Méndez MD [address] [place] [address] [address] [place] [address] [facility] Start: 01-03-2024 End: 01-03-2024 Patient encounter procedure 01/03/2024 1:30 PM EDT Office Visit [facility] [address] [place] [address] [address] [place] [address] Shalom Méndez MD [address] [place] [address] [address] [place] [address] [facility] Start: 12-27-2023 End: 12-27-2023 Patient encounter procedure 12/27/2023 1:30 PM EDT Office Visit [facility] [place] [address] [place] [address] [address] [place] [id number] Shalom Méndez MD [address] [place] [address] [address] [place] [address] [facility] Start: 12-17-2023 End: 12-17-2023 Patient encounter procedure 12/17/2023 10:30 AM EDT Office Visit [facility] [address] [place] [phone] Reagan Hogue MD [address] [place] [address] [address] [place] [address] [facility] Start: 12-16-2023 Screening for malignant neoplasm of breast Breast cancer screen [facility] Start: 12-14-2023 End: 12-14-2023 Patient encounter procedure 12/14/2023 8:00 AM EDT Office Visit [facility] [address] [place] [address] Shalom Méndez MD [address] [place] [address] [address] [place] [address] [facility] Start: 12-11-2023 End: 12-11-2023 Patient encounter procedure 12/11/2023 8:00 AM EDT Office Visit [facility] [place] [address] [facility] [facility] [facility] [address] [place] [address] Shalom Méndez MD [address] [place] [address] [facility] [place] Start: 12-10-2023 End: 12-10-2023 Fstlj sclera glaucoma trabeculect ab externo TRABECULECTOMY Primary open-angle glaucoma, bilateral, severe stage 12/10/2023 11:18 AM EDT [facility] Start: 05-25-2023 COVID-19 VACCINE ( season) COVID-19 VACCINE ( season) [facility] Start: 05-25-2023 Influenza vaccination INFLUENZA VACC INE (#1) [facility] Start: 04-24-2023 Influenza vaccination Flu vacc ine (Season Ended) [facility] Start: 03-22-2023 Shingles vaccine (2 of 2) Shingles vaccine (2 of 2) [facility] Start: 05-25-2022 Influenza vaccination Flu vacc ine (Season Ended) [facility] Start: 02-02-2022 End: 02-02-2022 Patient encounter procedure 02/02/2022 Appointment Physical Therapy Jeanmarie Roblero, PT [facility] Physical Therapy Start: 01-26-2022 End: 01-26-2022 Patient encounter procedure 01/26/2022 Appointment Physical Therapy [facility] Vital [facility] Start: 01-24-2022 End: 01-24-2022 Patient encounter procedure 01/24/2022 Appointment Physical Therapy Reagan Quiroz PTA [facility] Physical Therapy Start: 01-18-2022 End: 01-18-2022 Patient encounter procedure 01/18/2022 Appointment Physical Therapy Reagan Quiroz PTA [facility] Physical Therapy Start: 01-16-2022 End: 01-16-2022 Patient encounter procedure 01/16/2022 Appointment Physical Therapy Blanquita Nieto, PT [facility] Physical Therapy Start: 01-11-2022 End: 01-11-2022 Patient encounter procedure 01/11/2022 Appointment Physical Therapy Blanquita Nieto, PT [facility] Physical Therapy Start: 01-09-2022 End: 01-09-2022 Patient encounter procedure 01/09/2022 Appointment Physical Therapy Reagan Quiroz, [facility] Start: 01-05-2022 End: 01-05-2022 Patient encounter procedure 01/05/2022 Appointment Physical Therapy Reagan Quiroz, OCTAVIA [facility] Physical Therapy Start: 10-31-2021 Annual Wellness Visi t (AWV) Annual Wellness Visit (AWV) [facility] Start: 05-25-2021 Influenza vaccination Flu vaccine (# 1) [facility] Start: 03-07-2021 COVID-19 Vaccine (3 - Booster for Moderna series) COVID-19 Vaccine (3 - Booster for Moderna series) [facility] Start: 12-11-2019 Pneumococcal 65+ yea rs Vaccine (2 - PPSV23 if available, else PCV20) Pneumococcal 65+ years Vaccine (2 - PPSV23 if available, else PCV20) [facility] Start: 12-11-2019 Pneumococcal 65+ yea rs Vaccine (2 - PPSV23 or PCV20) Pneumococcal 65+ years Vaccine (2 - PPSV23 or PCV20) [facility] Start: 12-11-2019 Pneumococcal 65+ yea rs Vaccine (2 of 2 - PPSV23) Pneumococcal 65+ years Vaccine (2 of 2 - PPSV23) [facility] Start: 12-11-2019 Pneumococcal vaccination PNEUMOCOCCAL VACCINE SERIES (2 of 2 - PPSV23 or PCV20) [facility] Start: 12-11-2019 Pneumococcal Vaccine : 65+ Years (2 of 2 - PPSV23 or PCV20) Pneumococcal Vaccine: 65+ Years (2 of 2 - PPSV23 or PCV20) [facility] Start: 2018 Fall Risk Screening Fall Risk Screen [facility] Start: 2008 Screening for osteoporosis DEXA (modify frequency per FRAX score) [facility] Start: 2003 Shingles Vaccine (1 of 2) Shingles Vaccine (1 of 2) [facility] Start: 1998 Screening for malignant neoplasm of colon [facility] Start: 1993 Lipid panel [facility] Start: 1993 Screening for malignant neoplasm of breast MAMMOGRAM SCREENING DISCUSSION [facility] Start: 1988 Diabetes screen Diabetes screen [facility] Start: 1974 Screening for malignant neoplasm of cervix CERVICAL CANCER SCREENING DISCUSSION [facility] Start: 1972 DTaP,Tdap and Td Vaccines (1 - Tdap) DTaP,Tdap and Td Vaccines (1 - Tdap) [facility] Start: 1972 DTaP/Tdap/Td vaccine (1 - Tdap) DTaP/Tdap/Td vaccine (1 - Tdap) [facility] Start: 1972 Third diphtheria, tetanus and acellular pertussis (DTaP) vaccination TDAP (ADULT) [facility] Start: 1971 Adult BMI Follow Up Plan Adult BMI Follow Up Plan [facility] Start: 1971 Hepatitis C screening Hepatitis C sc reen [facility] Start: 1965 Depression Screen Depression Screen [facility] Start: 1965 Depression Screening Depression Scre ing [facility] Start: 1958 COVID-19 Vaccine (1) COVID-19 Vaccin e (1) [facility] Start: 1953 Annual Wellness Visi t (AWV) Annual Wellness Visit (AWV) [facility] Start: 1953 Hepatitis C screening [facility] Start: 1953 Screening for malignant neoplasm of colon [facility] Start: 1953 Screening for osteoporosis DEXA SCAN DISCUSSION [facility] Start: 1953 Tetanus vaccination TETANUS [facility] Immunizations Immunization Date Immunization Notes Care Provider Fa lisseth 01-10-2021 COVID-19 Vaccine Moderna - Documentation Purposes Only Tyrone Sanchez Other [facility] 12-13-2020 COVID-19 Vaccine Moderna - Documentation Purposes Only Tyrone Sanchez Other [facility] 07-22-2020 influenza virus vaccine, split virus (incl. purified surface antigen) Tyrone Sanchez Other [facility] [employer] Other 07-22-2020 influenza virus vaccine, unspecified formulation Shalom Méndez MD Work Phone: [facility] 12-10-2018 pneumococcal conjuga te vaccine, 13 valent Tyrone Sanchez Other [facility] 12-10-2018 pneumococcal Conjuga te, unspecified formulation; Translations: [Need for prophylactic vaccination against Streptococcus pneumoniae (pneumococcus)] Tyrone Sanchez Other [facility] [employer] Other 07-12-2015 tetanus and diphther ia toxoids, adsorbed, preservative free, for adult use (5 Lf of tetanus toxoid and 2 Lf of diphtheria toxoid) Tyrone Sanchez Other [facility] 07-15-2014 tetanus and diphther ia toxoids, adsorbed, preservative free, for adult use (5 Lf of tetanus toxoid and 2 Lf of diphtheria toxoid) Tyrone Sanchez Other [facility] Payers Date Payer Category Payer Managed Care Other (unspecified) [employer] [id number] 2018 Medicare [id number] 2018 Private Health Insurance [id number] [id number] 2018 Unknown GENERIC PAYOR ME DICARE SUPPLEMENT [id number] 2018-Present [phone] [address] [address] [place] [address] [id number] [id number] 1959 Medicare [id number] 1959 Private Health Insurance [id number] 1953 Unknown [id number] 2.16.840.1.219104.3.579. 2.593 1953 Unknown [id number] 2.16.840.1.019266.3.579. 2.593 1953 Unknown [id number] 2.16.840.1.755136.3.579. 2.903 1953 Unknown [id number] 2.16.840.1.620296.3.579. 2.173 1953 Unknown [id number] 2.16.840.1.821847.3.579. 2.173 1953 Unknown [id number] 2.16.840.1.645120.3.579. 2.594 1953 Unknown [id number] 2.16.840.1.856990.3.579. 2.594 1953 Unknown [id number] 2.16.840.1.521432.3.579. 2.594 1953 Unknown [id number] 2.16.840.1.768955.3.579. 2.594 1953 Unknown [id number] 2.16.840.1.786216.3.579. 2.594 1953 Unknown [id number] 2.16.840.1.423967.3.579. 2.594 1953 Unknown [id number] 2.16.840.1.043961.3.579. 2.594 1953 Unknown [id number] 2.16.840.1.112850.3.579. 2.594 1953 Unknown [id number] 2.16.840.1.876173.3.579. 2.594 1953 Unknown [id number] 2.16.840.1.537944.3.579. 2.594 1953 Unknown [id number] 2.16.840.1.792912.3.579. 2.594 1953 Unknown [id number] 2.16.840.1.810886.3.579. 2.196 1953 Unknown [id number] 2.16.840.1.088573.3.579. 2.727 1953 Unknown [id number] 2.16.840.1.748358.3.579. 2.1286 1953 Unknown [id number] 2.16.840.1.261041.3.579. 2.1286 1953 Unknown [id number] 2.16.840.1.694599.3.579. 2.1286 1953 Unknown [id number] 2.16.840.1.991393.3.579. 2.1286 1953 Unknown [id number] 2.16.840.1.746475.3.579. 2.1259 1953 Unknown [id number] 2.16.840.1.418976.3.579. 2.1259 1953 Unknown [id number] 2.16.840.1.693055.3.579. 2.1259 1953 Unknown [id number] 2.16.840.1.981429.3.579. 2.1259 1953 Unknown [id number] 2.16.840.1.554159.3.579. 2.1259 1953 Unknown [id number] 2.16.840.1.994021.3.579. 2.1259 1953 Unknown [id number] 2.16.840.1.068835.3.579. 2.1259 Social History Date Type Detail Facility Start: 10-31-2021 End: 03-26-2024 Tobacco smoking status NHIS Never smoked tobacco [employer] Phone: Start: 10-31-2021 End: 03-26-2024 Tobacco use and exposure Smokeless tobacco non-user [employer] Phone: Start: 12-15-2021 End: 08-12-2024 Alcohol intake Lifetime non-drinker (finding) [employer] Phone: Start: 1955 Sex Assigned At Not on file [employer] Phone: Start: 10-25-2023 End: 08-08-2024 Sex Assigned At [facility] [employer] Other Start: 10-25-2023 End: 08-08-2024 History of Social function [facility] Start: 1955 Sex Assigned At Female F [facility] Start: 06-20-2024 End: 08-14-2024 Alcoholic beverage intake Ex-drinker (finding) [facility] Unknown [facility] Start: 04-29-2015 Sex Female (finding) [facility] Clinical Notes 01-02-2022 to 08-14-2024 TO Chaudhari - 08/14/2024 11:15 AM ESTPatient InstructionsPerioperative Nursing Note - Nusrat Duran RN - 08/12/2024 10:30 AM ESTTelephone Encounter - Farnaz Lindsay - 08/08/2024 8:18 AM EST Note Date & Type Note Facility 08-14-2024 History of Present illness Narrative Images from the original note were not included. GENERAL HISTORY AND PHYSICAL: NAME: Leticia Cannon : 1955 HISTORY OF PRESENT ILLNESS: Leticia Cannon is an 69 y.o. @ female. Here for surgery instructions - (L) SATHYA 09/02/2024 @[facility] PAST MEDICAL HISTORY: Past Medical History: Diagnosis Date Glaucoma (CMS/HCC) PAST SURGICAL HISTORY: Past Surgical History: Procedure Laterality Date [place] GUIDED INJECTION HIP LEFT Left 06/03/2024 [place] GUIDED INJECTION HIP LEFT GLAUCOMA SURGERY Right 10/2023 HYSTERECTOMY 2004 TOTAL HIP ARTHROPLASTY Right 2013 DR CHRISTIANSON SOCIAL HISTORY: Social History Occupational History Not on file Tobacco Use Smoking status: Never Smokeless tobacco: Never Substance and Sexual Activity Alcohol use: Not Currently Drug use: Not on file Sexual activity: Not on file ALLERGIES: No Known Allergies MEDICATIONS: Current Outpatient Medications Medication Instructions brimonidine (AlphaGAN P) 0.15 % ophthalmic solution 1 drop, Ophthalmic, 3 times daily brimonidine (AlphaGAN P) 0.2 % ophthalmic solution ONE DROP IN EACH EYE THREE TIMES A DAY dorzolamide-timolol (Cosopt) 2-0.5 % ophthalmic solution INSTILL 1 DROP INTO EACH EYE THREE TIMES A DAY estradiol (Estrace) 0.5 MG tablet TAKE 1 TABLET BY MOUTH EVERY OTHER DAY 30 ketorolac (Acular) 0.5 % ophthalmic solution INSTILL 1 DROP INTO RIGHT EYE 3 TIMES A DAY Lumigan 0.01 % ophthalmic solution 1 drop, Ophthalmic, Nightly prednisoLONE acetate (Pred-Forte) 1 % ophthalmic suspension PLACE 1 DROP IN RIGHT EYE EVERY 2 HOURS WHILE AWAKE. REVIEW OF SYSTEMS: Review of Systems Constitutional: Negative for fatigue, fever and unexpected weight change. Eyes: Negative for redness and visual disturbance. Gastrointestinal: Negative for abdominal pain. Denies Indigestion Musculoskeletal: See note: Skin: Negative for color change and rash. Neurological: Negative for light-headedness and numbness. Vitals: There is no height or weight on file to calculate BMI. PHYSICAL EXAM: Physical Exam Constitutional: General: She is not in acute distress. Appearance: Normal appearance. HENT: Head: Normocephalic and atraumatic. Right Ear: External ear normal. Left Ear: External ear normal. Nose: Nose normal. No rhinorrhea. Mouth/Throat: Mouth: Mucous membranes are moist. Dentition: No gingival swelling or dental abscesses. Pharynx: Oropharynx is clear. No pharyngeal swelling or posterior oropharyngeal erythema. Eyes: Extraocular Movements: Extraocular movements intact. Conjunctiva/sclera: Conjunctivae normal. Cardiovascular: Rate and Rhythm: Normal rate and regular rhythm. Pulses: Normal pulses. Heart sounds: Normal heart sounds. No murmur heard. Pulmonary: Effort: Pulmonary effort is normal. No respiratory distress. Breath sounds: Normal breath sounds. No wheezing or rhonchi. Abdominal: Palpations: Abdomen is soft. Tenderness: There is no abdominal tenderness. Musculoskeletal: Cervical back: Normal range of motion and neck supple. Lymphadenopathy: Cervical: No cervical adenopathy. Skin: General: Skin is warm and dry. Findings: No erythema or rash. Neurological: General: No focal deficit present. Mental Status: She is alert and oriented to person, place, and time. Psychiatric: Mood and Affect: Mood normal. Behavior: Behavior normal. No orders of the defined types were placed in this encounter. ASSESSMENT: ICD-10-CM 1. Pre-op examination Z01.818 2. Arthritis of left hip M16.12 PLAN: This patient presents for preadmission testing for upcoming surgery. Complete history with medical, surgery, and current allergy and medication list obtained. Consent for surgery signed and witnessed after verbal consent to perform surgery received. All questions answered and proposed surgery scheduled. (L) SATHYA 09/02 @[facility] SX INSTRUCTIONS GIVEN TODAY 08/14 @11:15AM - ADILENE DURHAM 08/12 @10:30AM DR. SANCHEZ CLEARANCE 08/18 @10AM [facility] NOTIFIED NPAR ([id number]) No follow-ups on file. Discussed patient's need for a Hospital bed postoperatively. The patient has mobility limitations that significantly impair their ability to participate in activities of daily living without the risk of fall. The patient would benefit from hospital bed in the home to avoid steps which she can't safely navigate post op. This will keep her on the same floor to help with activities of daily living such as prepping and cooking meals, getting too and from the bathroom in an acceptable timeframe given current limitations. To prevent risk of fall patient can not use a low couch safely as an alternative. documented in this encounter [facility] 08-12-2024 Instructions Nusrat Duran RN - 08/12/2024 10:30 AM EST Preoperative Education Checklist- Joints/Spine Surgery date: 09/02/24 Surgery time: 1230 p.m. Arrival time: 1030 a.m. Return between 12/2-09/01/24 Mon-Fri 7 a.m.-5 p.m. to [facility] for your last blood test. 1. Bring a photo ID and your insurance card with you the day of surgery. You will check in at the main lobby of the [facility]- registration desk is straight ahead as soon as you walk in. Tell them you are here for surgery. 2. If you have a Living Will/Durable Power of Program Administrator for Health Care that is not on file here, please bring a copy the day of surgery. 3. Please shower/tub bath the night before surgery and use wipes as directed. Do not shower the morning of surgery- you will again use wipes when you arrive here at the hospital before getting into your surgical gown. Do not shave the area of your procedure for 2 days prior to your surgery. 4. NO powder, lotion, perfume/cologne, aftershave, make-up, deodorant, or hair products after you have bathed. 5. No nail bahamian/acrylic on at least one finger. If you are having a hand, wrist, foot, or leg surgery then ALL nail bahamian and artificial/acrylic nails MUST be removed from that hand or foot. 6. Avoid ALL Aspirin and non-steroidal anti-inflammatory drugs (Ibuprofen, Advil, Aleve, Excedrin, Meloxicam, Celebrex, fish/krill oil, etc.) for 7 days prior to surgery as instructed by your surgeon and/or prescribing doctor. Tylenol IS ALLOWED. If you are on Ticlid, Xarelto, Eliquis, Pradaxa, Plavix or Coumadin, please check with your prescribing doctor for instructions for when to stop them. 7. If you use an inhaler, continue to use it routinely. 8. Nothing to eat or drink (not even water, gum, mints, or hard candy!) AFTER midnight prior to your surgery. 7. Take only medications that you are instructed to on the morning of surgery with a TINY SIP OF WATER. 9. Choose a responsible adult that will be able to drive you home when you are discharged from your hospital stay for your surgery- no driving or operating any machinery for 24 hours after surgery. 10. When you dress for your appointment, please wear loose fitting clothing that is appropriate to accommodate your surgical area procedure. BRING WITH YOU ANY DEVICES YOU MAY NEED: RAMOS hose, ice machine, sling/swath, brace or special shoe, crutches, oversized sup-up or button up shirt, CPAP machine if staying overnight. 11. Do NOT wear jewelry, watches, or any piercings or metal for surgery. 12. Do NOT wear contact lenses for surgery- glasses are okay if needed. 13. The anesthesiologist will talk with you the day of surgery and will ask you to sign a Consent Form. 14. Refrain from smoking or any type of tobacco use for at least 8 hours or marijuana for 24 hours prior to arrival for your surgery. 15. If a GREEN BLOOD band is given to you, please bring it with you for the day of surgery. 16. Notify your surgeon if you develop any illness before your surgery. 17. If you are staying overnight, please DO NOT BRING your home medications with your. 18. If you have any questions prior to surgery, please call the Preadmission Testing office at [phone] Mon.-Fri. 7 a.m.-3 p.m. Leave a voicemail if needed. Pre-Surgery Instructions: Medication Instructions estradioL (ESTRACE) 0.5 mg tablet Stop taking 0 days prior to procedure naproxen sodium (ALEVE) 220 mg capsule Stop taking 14 days prior to procedure What to Expect Following Your Surgery After surgery you will be in the recovery room for approximately 1 hour before you are moved to your room. Please let your family and visitors know this. You may be in a bed that has a trapeze overhead to assist you with movement while in bed. After surgery you will have a Smyth catheter in place (it is usually removed the first day after surgery after your first round of physical therapy has been completed), foot pumps on for circulation and prevention of blood clots, an IV, and possibly a DELIVERY REP pump and/or a NERVE BLOCK (both used for pain control). We will have you rate your pain on a scale from 0-10, with 10 being the highest possible pain level. We will NOT be able to get rid of ALL of your pain. We strive to keep you comfortable in the 3-5 range on the pain scale. PLEASE let your nurse know if your pain starts to creep up above a level of 5. We use a combination of IV medications, oral medications, ice, and elevation according to the doctor s orders in order to help keep your pain at a tolerable level. The first 24 hours after surgery are very busy! The doctor orders certain routine medications that are to be given up to every 4 hours along with breathing treatments and vital signs being assessed every 4 through the first night of your surgery in order to make sure that you are progressing as expected after surgery. This often makes it hard to sleep well the first night, but it is necessary to make sure that we are providing you the best care possible. We try to coordinate this care with each department in order to help you get as much uninterrupted sleep as possible. We also have earplugs and eye masks available by request to promote and enhance your sleep time. While here, you may see one of our Hospitalist physicians if your family doctor does not round on patients at [facility] to see you while you are here after surgery. Your orthopedic doctor will be directing all of your care and your discharge, but sometimes they need to consult with primary care/hospitalists in order to better serve you. Having the Hospitalists see you while in the hospital allows your primary care doctor to have more time in their offices, and the hospitalists will be in communication with your primary care doctor with updates on your care. Once discharged from the hospital, you will see your regular primary care physician as directed. While in the hospital you will receive physical therapy from [facility] physical therapists who work in the hospital and they will start seeing you the morning after surgery. Therapy from your orthopedic doctor s office will begin seeing you once you are discharged from the hospital- they are not contracted to provide your treatment while you are in the hospital. You may have spoken with a planner/scheduler at your orthopedic doctor s office, but you will still review your discharge plan with our planner/scheduler from here at the hospital in order to make sure that you understand all of your options prior to going home or to a facility. How to Avoid an Infection after Your Surgery Your doctor will give you specific instructions, but remember: -ALWAYS wash hands before caring for your incision. -No picking, scratching, or rubbing your incision. -No creams, lotion, powder, rubbing alcohol or hydrogen peroxide on the incision (can harm the tissue and slow healing). -Your doctor will give you specific instructions for what type of dressing you will need and how often it will need changed for infection purposes. -No tight clothing on incision. -Do not allow anyone to touch your incision unless they are cleaning, checking, or redressing it (be sure they wash their hands first). -No contact of your incision with pets; avoid sleeping with pets. -Take full course of antibiotic if prescribed for you after surgery- do not stop unless directed to by your physician. You may also be given an antibiotic prior to your surgery to help prevent surgical site infections. -Eat a healthy and varied diet including proteins, fruits, and vegetables to help promote wound healing and keep blood sugars under control if you are diabetic. -Smoking slows the healing process by decreasing the amount of oxygen in your blood that is needed for tissue healing. Try to avoid or stop smoking if possible. LOOK at your incision each morning and each night to check the progress of healing. Some soreness, numbness, itching and/or mild bruising around the incision is normal. Call your doctor if you notice any of the following: -Increased redness or hardening around the incision area. -Increased pain at the incision site. -Incision feels hot to the touch. -Swelling or pulling apart of the incision edges. -Yellow or green drainage or foul odor coming from the incision. -Bleeding from the incision (apply pressure as needed). -Fever higher than 101 degrees Fahrenheit for more than 4 hours. SHOWERING: Your doctor will give you specific instructions, but remember: -Be careful getting into and out of the shower. -Showers should be quick (5 minutes or less). -Use a clean washcloth to gently wash your incision with soap and water and pat the area dry with a clean towel. -No re-using wash cloths or towels; get a fresh one to clean your incision. -Do not soak in the bathtub, go swimming or use a hot tub (Jacuzzi), or perform activities where your incision is submerged in water or exposed to any fluids or substances until instructed by your doctor. -If your have the sticky strips (steri-strips) over the incision, it is OK to shower with them. Do not remove them. Let them fall off on their own. If you have a question, call your doctor s office. Go to the follow-up appointment with your doctor. documented in this encounter [facility] 08-12-2024 Miscellaneous Notes Preoperative Education Checklist- Joints/Spine Surgery date: 09/02/24 Surgery time: 1230 p.m. Arrival time: 1030 a.m. Return between 08/25-09/01/24 Mon-Fri 7 a.m.-5 p.m. to [facility] for your last blood test. 1. Bring a photo ID and your insurance card with you the day of surgery. You will check in at the main lobby of the [facility]- registration desk is straight ahead as soon as you walk in. Tell them you are here for surgery. 2. If you have a Living Will/Durable Power of Program Administrator for Health Care that is not on file here, please bring a copy the day of surgery. 3. Please shower/tub bath the night before surgery and use wipes as directed. Do not shower the morning of surgery- you will again use wipes when you arrive here at the hospital before getting into your surgical gown. Do not shave the area of your procedure for 2 days prior to your surgery. 4. NO powder, lotion, perfume/cologne, aftershave, make-up, deodorant, or hair products after you have bathed. 5. No nail bahamian/acrylic on at least one finger. If you are having a hand, wrist, foot, or leg surgery then ALL nail bahamian and artificial/acrylic nails MUST be removed from that hand or foot. 6. Avoid ALL Aspirin and non-steroidal anti-inflammatory drugs (Ibuprofen, Advil, Aleve, Excedrin, Meloxicam, Celebrex, fish/krill oil, etc.) for 7 days prior to surgery as instructed by your surgeon and/or prescribing doctor. Tylenol IS ALLOWED. If you are on Ticlid, Xarelto, Eliquis, Pradaxa, Plavix or Coumadin, please check with your prescribing doctor for instructions for when to stop them. 7. If you use an inhaler, continue to use it routinely. 8. Nothing to eat or drink (not even water, gum, mints, or hard candy!) AFTER midnight prior to your surgery. 7. Take only medications that you are instructed to on the morning of surgery with a TINY SIP OF WATER. 9. Choose a responsible adult that will be able to drive you home when you are discharged from your hospital stay for your surgery- no driving or operating any machinery for 24 hours after surgery. 10. When you dress for your appointment, please wear loose fitting clothing that is appropriate to accommodate your surgical area procedure. BRING WITH YOU ANY DEVICES YOU MAY NEED: RAMOS hose, ice machine, sling/swath, brace or special shoe, crutches, oversized sup-up or button up shirt, CPAP machine if staying overnight. 11. Do NOT wear jewelry, watches, or any piercings or metal for surgery. 12. Do NOT wear contact lenses for surgery- glasses are okay if needed. 13. The anesthesiologist will talk with you the day of surgery and will ask you to sign a Consent Form. 14. Refrain from smoking or any type of tobacco use for at least 8 hours or marijuana for 24 hours prior to arrival for your surgery. 15. If a GREEN BLOOD band is given to you, please bring it with you for the day of surgery. 16. Notify your surgeon if you develop any illness before your surgery. 17. If you are staying overnight, please DO NOT BRING your home medications with your. 18. If you have any questions prior to surgery, please call the Preadmission Testing office at [phone] Mon.-Fri. 7 a.m.-3 p.m. Leave a voicemail if needed. Pre-Surgery Instructions: Medication Instructions estradioL (ESTRACE) 0.5 mg tablet Stop taking 0 days prior to procedure naproxen sodium (ALEVE) 220 mg capsule Stop taking 14 days prior to procedure What to Expect Following Your Surgery After surgery you will be in the recovery room for approximately 1 hour before you are moved to your room. Please let your family and visitors know this. You may be in a bed that has a trapeze overhead to assist you with movement while in bed. After surgery you will have a Smyth catheter in place (it is usually removed the first day after surgery after your first round of physical therapy has been completed), foot pumps on for circulation and prevention of blood clots, an IV, and possibly a DELIVERY REP pump and/or a NERVE BLOCK (both used for pain control). We will have you rate your pain on a scale from 0-10, with 10 being the highest possible pain level. We will NOT be able to get rid of ALL of your pain. We strive to keep you comfortable in the 3-5 range on the pain scale. PLEASE let your nurse know if your pain starts to creep up above a level of 5. We use a combination of IV medications, oral medications, ice, and elevation according to the doctor s orders in order to help keep your pain at a tolerable level. The first 24 hours after surgery are very busy! The doctor orders certain routine medications that are to be given up to every 4 hours along with breathing treatments and vital signs being assessed every 4 through the first night of your surgery in order to make sure that you are progressing as expected after surgery. This often makes it hard to sleep well the first night, but it is necessary to make sure that we are providing you the best care possible. We try to coordinate this care with each department in order to help you get as much uninterrupted sleep as possible. We also have earplugs and eye masks available by request to promote and enhance your sleep time. While here, you may see one of our Hospitalist physicians if your family doctor does not round on patients at [facility] to see you while you are here after surgery. Your orthopedic doctor will be directing all of your care and your discharge, but sometimes they need to consult with primary care/hospitalists in order to better serve you. Having the Hospitalists see you while in the hospital allows your primary care doctor to have more time in their offices, and the hospitalists will be in communication with your primary care doctor with updates on your care. Once discharged from the hospital, you will see your regular primary care physician as directed. While in the hospital you will receive physical therapy from [facility] physical therapists who work in the hospital and they will start seeing you the morning after surgery. Therapy from your orthopedic doctor s office will begin seeing you once you are discharged from the hospital- they are not contracted to provide your treatment while you are in the hospital. You may have spoken with a planner/scheduler at your orthopedic doctor s office, but you will still review your discharge plan with our planner/scheduler from here at the hospital in order to make sure that you understand all of your options prior to going home or to a facility. How to Avoid an Infection after Your Surgery Your doctor will give you specific instructions, but remember: -ALWAYS wash hands before caring for your incision. -No picking, scratching, or rubbing your incision. -No creams, lotion, powder, rubbing alcohol or hydrogen peroxide on the incision (can harm the tissue and slow healing). -Your doctor will give you specific instructions for what type of dressing you will need and how often it will need changed for infection purposes. -No tight clothing on incision. -Do not allow anyone to touch your incision unless they are cleaning, checking, or redressing it (be sure they wash their hands first). -No contact of your incision with pets; avoid sleeping with pets. -Take full course of antibiotic if prescribed for you after surgery- do not stop unless directed to by your physician. You may also be given an antibiotic prior to your surgery to help prevent surgical site infections. -Eat a healthy and varied diet including proteins, fruits, and vegetables to help promote wound healing and keep blood sugars under control if you are diabetic. -Smoking slows the healing process by decreasing the amount of oxygen in your blood that is needed for tissue healing. Try to avoid or stop smoking if possible. LOOK at your incision each morning and each night to check the progress of healing. Some soreness, numbness, itching and/or mild bruising around the incision is normal. Call your doctor if you notice any of the following: -Increased redness or hardening around the incision area. -Increased pain at the incision site. -Incision feels hot to the touch. -Swelling or pulling apart of the incision edges. -Yellow or green drainage or foul odor coming from the incision. -Bleeding from the incision (apply pressure as needed). -Fever higher than 101 degrees Fahrenheit for more than 4 hours. SHOWERING: Your doctor will give you specific instructions, but remember: -Be careful getting into and out of the shower. -Showers should be quick (5 minutes or less). -Use a clean washcloth to gently wash your incision with soap and water and pat the area dry with a clean towel. -No re-using wash cloths or towels; get a fresh one to clean your incision. -Do not soak in the bathtub, go swimming or use a hot tub (Jacuzzi), or perform activities where your incision is submerged in water or exposed to any fluids or substances until instructed by your doctor. -If your have the sticky strips (steri-strips) over the incision, it is OK to shower with them. Do not remove them. Let them fall off on their own. If you have a question, call your doctor s office. Go to the follow-up appointment with your doctor. CHG wipes and surgical instructions reviewed. Patient verbalized understanding. LVM for patient to watch [facility] video prior to PAT appt. [facility] Nurse Note Preoperative Education Checklist- Joints/Spine Surgery date: 09/02/24 Surgery time: 1230 p.m. Arrival time: 1030 a.m. Return between 08/25-09/01/24 Mon-Fri 7 a.m.-5 p.m. to [facility] for your last blood test. 1. Bring a photo ID and your insurance card with you the day of surgery. You will check in at the main lobby of the [facility]- registration desk is straight ahead as soon as you walk in. Tell them you are here for surgery. 2. If you have a Living Will/Durable Power of Program Administrator for Health Care that is not on file here, please bring a copy the day of surgery. 3. Please shower/tub bath the night before surgery and use wipes as directed. Do not shower the morning of surgery- you will again use wipes when you arrive here at the hospital before getting into your surgical gown. Do not shave the area of your procedure for 2 days prior to your surgery. 4. NO powder, lotion, perfume/cologne, aftershave, make-up, deodorant, or hair products after you have bathed. 5. No nail bahamian/acrylic on at least one finger. If you are having a hand, wrist, foot, or leg surgery then ALL nail bahamian and artificial/acrylic nails MUST be removed from that hand or foot. 6. Avoid ALL Aspirin and non-steroidal anti-inflammatory drugs (Ibuprofen, Advil, Aleve, Excedrin, Meloxicam, Celebrex, fish/krill oil, etc.) for 7 days prior to surgery as instructed by your surgeon and/or prescribing doctor. Tylenol IS ALLOWED. If you are on Ticlid, Xarelto, Eliquis, Pradaxa, Plavix or Coumadin, please check with your prescribing doctor for instructions for when to stop them. 7. If you use an inhaler, continue to use it routinely. 8. Nothing to eat or drink (not even water, gum, mints, or hard candy!) AFTER midnight prior to your surgery. 7. Take only medications that you are instructed to on the morning of surgery with a TINY SIP OF WATER. 9. Choose a responsible adult that will be able to drive you home when you are discharged from your hospital stay for your surgery- no driving or operating any machinery for 24 hours after surgery. 10. When you dress for your appointment, please wear loose fitting clothing that is appropriate to accommodate your surgical area procedure. BRING WITH YOU ANY DEVICES YOU MAY NEED: RAMOS hose, ice machine, sling/swath, brace or special shoe, crutches, oversized sup-up or button up shirt, CPAP machine if staying overnight. 11. Do NOT wear jewelry, watches, or any piercings or metal for surgery. 12. Do NOT wear contact lenses for surgery- glasses are okay if needed. 13. The anesthesiologist will talk with you the day of surgery and will ask you to sign a Consent Form. 14. Refrain from smoking or any type of tobacco use for at least 8 hours or marijuana for 24 hours prior to arrival for your surgery. 15. If a GREEN BLOOD band is given to you, please bring it with you for the day of surgery. 16. Notify your surgeon if you develop any illness before your surgery. 17. If you are staying overnight, please DO NOT BRING your home medications with your. 18. If you have any questions prior to surgery, please call the Preadmission Testing office at [phone] Mon.-Fri. 7 a.m.-3 p.m. Leave a voicemail if needed. Pre-Surgery Instructions: Medication Instructions estradioL (ESTRACE) 0.5 mg tablet Stop taking 0 days prior to procedure naproxen sodium (ALEVE) 220 mg capsule Stop taking 14 days prior to procedure What to Expect Following Your Surgery After surgery you will be in the recovery room for approximately 1 hour before you are moved to your room. Please let your family and visitors know this. You may be in a bed that has a trapeze overhead to assist you with movement while in bed. After surgery you will have a Smyth catheter in place (it is usually removed the first day after surgery after your first round of physical therapy has been completed), foot pumps on for circulation and prevention of blood clots, an IV, and possibly a DELIVERY REP pump and/or a NERVE BLOCK (both used for pain control). We will have you rate your pain on a scale from 0-10, with 10 being the highest possible pain level. We will NOT be able to get rid of ALL of your pain. We strive to keep you comfortable in the 3-5 range on the pain scale. PLEASE let your nurse know if your pain starts to creep up above a level of 5. We use a combination of IV medications, oral medications, ice, and elevation according to the doctor s orders in order to help keep your pain at a tolerable level. The first 24 hours after surgery are very busy! The doctor orders certain routine medications that are to be given up to every 4 hours along with breathing treatments and vital signs being assessed every 4 through the first night of your surgery in order to make sure that you are progressing as expected after surgery. This often makes it hard to sleep well the first night, but it is necessary to make sure that we are providing you the best care possible. We try to coordinate this care with each department in order to help you get as much uninterrupted sleep as possible. We also have earplugs and eye masks available by request to promote and enhance your sleep time. While here, you may see one of our Hospitalist physicians if your family doctor does not round on patients [facility] Hospital to see you while you are here after surgery. Your orthopedic doctor will be directing all of your care and your discharge, but sometimes they need to consult with primary care/hospitalists in order to better serve you. Having the Hospitalists see you while in the hospital allows your primary care doctor to have more time in their offices, and the hospitalists will be in communication with your primary care doctor with updates on your care. Once discharged from the hospital, you will see your regular primary care physician as directed. While in the hospital you [facility] who work in the hospital and they will start seeing you the morning after surgery. Therapy from your orthopedic doctor s office will begin seeing you once you are discharged from the hospital- they are not contracted to provide your treatment while you are in the hospital. You may have spoken with a planner/scheduler at your orthopedic doctor s office, but you will still review your discharge plan with our planner/scheduler from here at the hospital in order to make sure that you understand all of your options prior to going home or to a facility. How to Avoid an Infection after Your Surgery Your doctor will give you specific instructions, but remember: -ALWAYS wash hands before caring for your incision. -No picking, scratching, or rubbing your incision. -No creams, lotion, powder, rubbing alcohol or hydrogen peroxide on the incision (can harm the tissue and slow healing). -Your doctor will give you specific instructions for what type of dressing you will need and how often it will need changed for infection purposes. -No tight clothing on incision. -Do not allow anyone to touch your incision unless they are cleaning, checking, or redressing it (be sure they wash their hands first). -No contact of your incision with pets; avoid sleeping with pets. -Take full course of antibiotic if prescribed for you after surgery- do not stop unless directed to by your physician. You may also be given an antibiotic prior to your surgery to help prevent surgical site infections. -Eat a healthy and varied diet including proteins, fruits, and vegetables to help promote wound healing and keep blood sugars under control if you are diabetic. -Smoking slows the healing process by decreasing the amount of oxygen in your blood that is needed for tissue healing. Try to avoid or stop smoking if possible. LOOK at your incision each morning and each night to check the progress of healing. Some soreness, numbness, itching and/or mild bruising around the incision is normal. Call your doctor if you notice any of the following: -Increased redness or hardening around the incision area. -Increased pain at the incision site. -Incision feels hot to the touch. -Swelling or pulling apart of the incision edges. -Yellow or green drainage or foul odor coming from the incision. -Bleeding from the incision (apply pressure as needed). -Fever higher than 101 degrees Fahrenheit for more than 4 hours. SHOWERING: Your doctor will give you specific instructions, but remember: -Be careful getting into and out of the shower. -Showers should be quick (5 minutes or less). -Use a clean washcloth to gently wash your incision with soap and water and pat the area dry with a clean towel. -No re-using wash cloths or towels; get a fresh one to clean your incision. -Do not soak in the bathtub, go swimming or use a hot tub (Jacuzzi), or perform activities where your incision is submerged in water or exposed to any fluids or substances until instructed by your doctor. -If your have the sticky strips (steri-strips) over the incision, it is OK to shower with them. Do not remove them. Let them fall off on their own. If you have a question, call your doctor s office. Go to the follow-up appointment with your doctor. [facility] 08-12-2024 Nurse Note CHG wipes and surgical instructions reviewed. Patient verbalized understanding. [facility] 08-08-2024 Telephone encounter Note Pt notified - states understanding. [facility] 08-08-2024 Miscellaneous Notes Pt notified - states understanding. She will be ok finishing this taper before surgery... I spoke to her on 08/04 about it.. but she will be off for 10 days before surgery,, she is not diabetic ...she will need to notify anesthesia of the taper and her eye surgery just so they are aware.. Spoke with pt - states she was given Prednisone to take post-op cataract sx 08/04/24 - tapering dose 60MG down to 10MG over the course of 3 weeks ; states she will finish this 10 days prior to her scheduled SATHYA 09/02/24. Pt wants to make sure this won't affect sx - please advise Patient left vm returning call. Attempted to call pt - no answer - L/M stating pt can return my call if she still has questions. Closing encounter for now... Attempted to call pt - no answer - L/M requesting a return call Attempted to call pt - no answer - L/M requesting a return call Patient is having cataract sx tomorrow. They want to put her on a couple pills. She wants to make sure this is ok, she is having (L) SATHYA 09/02/24. Please advise [phone]. documented in this encounter [facility] 08-08-2024 Telephone encounter Note She will be ok finishing this taper before surgery... I spoke to her on 08/04 about it.. but she will be off for 10 days before surgery,, she is not diabetic ...she will need to notify anesthesia of the taper and her eye surgery just so they are aware.. [facility] 08-08-2024 Telephone encounter Note Spoke with pt - states she was given Prednisone to take post-op cataract sx 08/04/24 - tapering dose 60MG down to 10MG over the course of 3 weeks ; states she will finish this 10 days prior to her scheduled SATHYA 09/02/24. Pt wants to make sure this won't affect sx - please advise [facility] 08-08-2024 Telephone encounter Note Patient left vm returning call. [facility] 08-07-2024 Telephone encounter Note Attempted to call pt - no answer - L/M stating pt can return my call if she still has questions. Closing encounter for now... [facility] 08-05-2024 Telephone encounter Note Attempted to call pt - no answer - L/M requesting a return call [facility] 08-05-2024 Nurse Note LVM for patient to watch SHAYY video prior to PAT appt. [facility] 08-04-2024 Telephone encounter Note Attempted to call pt - no answer - L/M requesting a return call [facility] 08-04-2024 Telephone encounter Note Spoke with pt.. she believes she will be on a taper over 21 days.. she will be off the steroid before surgery on her hip.. she will clarify the steroid rx written by her eye surgeon as she has a history of glaucoma,, denies temporal arteritis history. Pt thankful for phone call, she will notify us if anything changes following her eye surgery. [facility] 08-04-2024 Miscellaneous Notes Spoke with pt.. she believes she will be on a taper over 21 days.. she will be off the steroid before surgery on her hip.. she will clarify the steroid rx written by her eye surgeon as she has a history of glaucoma,, denies temporal arteritis history. Pt thankful for phone call, she will notify us if anything changes following her eye surgery. Patient has caratacts sx tomorrow and they are have her take prednisone. Making sure this won't affect her Lt hip sx on 09/[address] Christianson? documented in this encounter [facility] 08-04-2024 Telephone encounter Note Patient has caratacts sx tomorrow and they are have her take prednisone. Making sure this won't affect her Lt hip sx on 09/[address] Christianson? [facility] 08-04-2024 Telephone encounter Note Patient is having cataract sx tomorrow. They want to put her on a couple pills. She wants to make sure this is ok, she is having (L) SATHYA 09/02/24. Please advise [phone]. [facility] 06-25-2024 History of Present illness Narrative Images from the original note were not included. HISTORY OF PRESENT ILLNESS: EST PT Leticia Cannon is an 69 y.o. @ female. (EST PT) RECHECK (L) HIP ; S/P IA CORTISONE INJ 06/03/24 (3WKS 2DAYS) @ [facility] - EYE PRESSURE WAS CHECKED ~2DAYS AGO PER DR TIMMONS. XRAYS, 03/26/24 IN EPIC NO MRI NO MDP / PREDNISONE S/P IA CORTISONE INJ 06/03/24 NO PHYSICAL THERAPY NO PAIN MGMT CONTINUES TO HAVE INTERMITTENT DISCOMFORT PAIN ; BECOMING MORE CONSTANT. PAIN IS MOSTLY IN THE GROIN - SOME LATERAL ; DENIES ANY RADIATING PAIN, NO N/T. NOTES LIMITED ROM ; SOME WEAKNESS / DIFFICULTY GOING UP STAIRS. AMBULATES WITH LIMP / DIFFICULTY WITH PROLONGED AMBULATION. TAKING ALEVE PRN - SOME RELIEF. PREVIOUS (R) SATHYA 2013 - DR CHRISTIANSON ALLERGIES: No Known Allergies HOME MEDICATIONS: Current Outpatient Medications Medication Instructions brimonidine (AlphaGAN P) 0.15 % ophthalmic solution 1 drop, Ophthalmic, 3 times daily brimonidine (AlphaGAN P) 0.2 % ophthalmic solution ONE DROP IN EACH EYE THREE TIMES A DAY dorzolamide-timolol (Cosopt) 2-0.5 % ophthalmic solution INSTILL 1 DROP INTO EACH EYE THREE TIMES A DAY estradiol (Estrace) 0.5 MG tablet TAKE 1 TABLET BY MOUTH EVERY OTHER DAY 30 ketorolac (Acular) 0.5 % ophthalmic solution INSTILL 1 DROP INTO RIGHT EYE 3 TIMES A DAY Lumigan 0.01 % ophthalmic solution 1 drop, Ophthalmic, Nightly prednisoLONE acetate (Pred-Forte) 1 % ophthalmic suspension PLACE 1 DROP IN RIGHT EYE EVERY 2 HOURS WHILE AWAKE. PHYSICAL EXAM: Hip Musculoskeletal Exam Gait Antalgic: left Limp: left Trendelenburg: left Abductor lurch: left Circumduction: left Inspection Leg length disparity: no discrepancy Left Erythema: none Ecchymosis: none Edema: none Deformity: none Previous incision: no previous incision Palpation Left Increased warmth: none Tenderness: present Greater trochanteric region pain: mild Pubic rami pain: mild Lower lumbar region pain: mild Range of Motion Left Left hip range of motion is within functional limits. Active ROM: abnormal and pain. Passive ROM: abnormal and pain. Active extension: 10. Passive extension: 5. Active flexion: 40. Passive flexion: 40. Active internal rotation: 5. Passive internal rotation: 10. Active external rotation: 10. Passive external rotation: 15. Active adduction: 10. Passive adduction: 15. Active abduction: 10. Passive abduction: 15. Range of motion additional comments: Terminal motion on IR and ER limited by pain. Strength Left Left hip strength is normal. Extension: 5/5. Flexion: 4+/5. Flexion is affected by pain. Internal rotation: 5/5. External rotation: 5/5. Adduction: 5/5. Abduction: 4+/5. Abduction is affected by pain. Neurovascular Left Left hip neurovascular exam is normal. Sensation: sural, saphenous, tibial, superficial peroneal and deep peroneal Dorsalis pedis: 2+ Pulses - PT: normal Posterior tibial: 2+ Special Tests Left Log roll test: positive Impingement test: positive Trendelenburg test: positive Internal rotation: positive External rotation: positive Vitals: There is no height or weight on file to calculate BMI. Tobacco Use: Low Risk (06/25/2024) Patient History Smoking Tobacco Use: Never Smokeless Tobacco Use: Never Passive Exposure: Not on file Alcohol Use: Not on file IMAGING: Procedures No orders of the defined types were placed in this encounter. ASSESSMENT: ICD-10-CM 1. Arthritis of left hip M16.12 PLAN: We have answered all the patients questions and explained the patients condition, decision making and plan including the risks and benefits associated with said plan in layman''s terms in a language the patient could understand easily. If patient''s symptoms significantly worsen and they cannot get a hold of us or their family physician, we have recommended that the patient proceed to the nearest emergency department (room). Dr. Christianson obtained history and examined the patient, I am acting as scribe for Dr. Christianson/birgit, PLAN: We have reviewed prior (L) hip xrays. After examination of her left hip today we have discussed both surgical and nonsurgical intervention, with the risks and benefits of both. Patient denies relief of her left hip with recent IA injection. She is requesting a (L) SATHYA as the pain is affecting her ADL' s- unable to ambulate prolong period of time. Patient is understanding that she will have to wait at least 3 months s/p IA injection to proceed with sx. She is understanding that we are recommending that she ambulate with a cane / walker. We will give her a note for [employer] as she is going to [place]. We have discussed her HEP and restrictions and will see her back on the day of sx. Surgery - (L) SATHYA We have discussed both surgical and nonsurgical treatment options with the patient at length and the risks and benefits associated with both. The patient is requesting surgical intervention because they have not responded to outpatient treatment options including but not limited to rest ice, and home exercise program. Pain and decreased range of motion are affecting the patient''s ability to sleep and activities of daily living and we have recommended surgical intervention. We recommended surgery in the form of a total hip arthroplasty. Factors including the patient's age and longevity of prosthesis, usual postoperative course, and possible need for revision in the future, and leg length inequality postoperatively were discussed at length. We have discussed with the patient that this is a major orthopedic procedure. We discussed that the patient may require more than the average 30 MED limited and may require greater than 7 days narcotic treatment postoperatively. Therefore, patient's narcotic usage will be tailored on an individual basis. If this patient at the time of surgery has any of the following: Morbidities including but not limited to history of falling, cognitive impairment, BMI greater than 30, end-stage renal disease, respiratory failure, heart failure, kidney failure, liver failure, diabetes, cardiac event in the last year, sleep apnea, disorder, excessive tobacco use, if at the time of surgery the patient is greater than 80 years old, or the patient requires discharge to a custodial facility, the patient may require to have additional inpatient hospital stay days following the surgery. Physical therapy is contraindicated in this patient''s case because of the [id number] articulation of the patient's hip. Ramesh Stepanic, D.O. documented in this encounter [facility] 01-31-2024 History of Present illness Narrative ATTENDING PHYSICIAN NOTE CC: Chief Complaint Patient presents with Post Op Visit HPI: Reviewed and agree with tech HPI. Objective Today's Ancillary Tests: None Assessment/Plan: Subjective S/p trabeculectomy with MMC 0.4 mg/mL RIGHT EYE 12/10/23 Preop IOP: 16 on a complex regimen Aiming for IOP of 14 or less on fewest meds possible 5 sutures in a square flap - 2 T, PT, PN, N - all tied tight. Cut PN & middle temp 12/13 Doing well - IOP=08, off all ocular hypotensive agents and off prednisolone. Monitor. (NOTE: on ketorolac BID OD d/t h/o CME - will continue as below. 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 OS - eye remains comfortable. Monitor. PLAN: monitor OD. continue: dorz/timolol TID OS only; brimonidine TID OS only, and lumigan daily OS only. Pseudophakia OD - stable, monitor. Nuclear sclerosis OS - dense but vision limited by glaucoma (FS <0 on last HVF). Patient has elected to defer surgery due to limited vision from glaucoma. S/p PPV/MP/AGFEx OD with Dr. Saunders with h/o CME OD - on ketorolac BID OD, will continue. Last HVF 30-2 daylin-fast 03/2023, last OCT RNFL/GCL 09/2023, last DFE 10/2023 Referring; Dr. Calyton Timmons RTC with Dr. Timmons in 4-6 weeks RTC with ar GENIE Stanley, Derek GUERRERO, acted as a scribe for Shalom Méndez MD for this note 01/31/2024 at 1:41 PM Parts of this note were written by Derek Crespo, acting as a scribe for . The note was ultimately edited by Dr. Méndez for accuracy. I have reviewed the dictated exam and progress note as scribed by Derek Crespo and it accurately reflects the work performed and the decisions made. Shalom Méndez MD --- Shalom Méndez M.D. Hr Leader of Clinical Ophthalmology Glaucoma Taker Off [employer] [facility] Department of Ophthalmology and Visual Science REASON FOR VISIT Leticia Cannon presents to clinic today for a Post-Op Patient visit. Chief Complaint Post Op Visit HISTORY OF PRESENT ILLNESS HPI 68 yo female present for POW#7 s/p Trab right eye. Patient states no changes from previous visit. Patient denies any pain or irritation in the right right eye. Ketorolac BID @ 8am dorz/timolol TID OS, brimonidine TID OS @ 8am lumigan daily OS @ 11pm Last edited by Lawanda Romero on 01/31/2024 1:06 PM. Allergies, medications & history reviewed & updated by Lawanda Romero REVIEW OF SYSTEMS ROS Positive for: Eyes (reading vision gradually worsening and peripheral vision worsening) Negative for: Constitutional (denies fever), Neurological (denies cough), Respiratory (denies cough) Last edited by Lawanda Romero on 01/31/2024 12:59 PM. 10 minutes of face to face time was spent with patient performing the semiconductor development technician work of this visit. documented in this encounter [facility] 01-31-2024 Instructions Naomi Crespo - 01/31/2024 1:00 PM EDT Thank you for choosing [facility] for your eye care. Below are the instructions for your current eye medications. Please feel free to call with any questions. Follow up with [facility] in 4-6 weeks for pressure check and visual field testing Ketorolac HUGHES TOP RIGHT EYE 1 drop 2x daily Cosopt (dorzolamide/timolol) BLUE or WHITE CAP LEFT EYE 1 drop 3x daily Alphagan (brimonidine) PURPLE CAP LEFT EYE 1 drop 3x daily (morning, afternoon, bedtime) Lumigan TEAL CAP LEFT EYE 1 drop once daily at bedtime Anytime swimming use goggles Call [phone] with any questions or concerns. For emergencies after hours, call [phone] and ask to have the glaucoma doctor data conversion analyst paged. If you do not receive a return call within 15 minutes, please call [phone] and ask for the ophthalmology resident doctor data conversion analyst. documented in this encounter [facility] 01-10-2024 History of Present illness Narrative ATTENDING PHYSICIAN NOTE CC: Chief Complaint Patient presents with Post Op Visit HPI: Reviewed and agree with tech HPI. Objective Today's Ancillary Tests: z (NC) OCT/HRT MACULA OD* +CME - stable with 01/2023. Assessment/Plan: Subjective S/p trabeculectomy with MMC 0.4 mg/mL RIGHT EYE 12/10/23 Preop IOP: 16 on a complex regimen Aiming for IOP of 14 or less on fewest meds possible 5 sutures in a square flap - 2 T, PT, PN, N - all tied tight. Cut PN & middle temp 12/13 Doing great - IOP=09, no change in CME s/p surgery (stable as far back as at least 01/2023). Finish prednisolone taper: BID OD x 1 week, daily OD x 1 week, then stop. (NOTE: on ketorolac BID OD d/t h/o CME - will continue as below. 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 OS - eye remains comfortable. Monitor. PLAN: continue: dorz/timolol TID OS only; brimonidine TID OS only, and lumigan daily OS only. Pseudophakia OD - not addressed today Nuclear sclerosis OS - dense but vision limited by glaucoma (FS <0 on last HVF). Patient has elected to defer surgery due to limited vision from glaucoma. S/p PPV/MP/AGFEx OD with Dr. Saunders with h/o CME OD - on ketorolac BID OD, will continue. Last HVF 30-2 daylin-fast 03/2023, last OCT RNFL/GCL 09/2023, last DFE 10/2023 Referring; Dr. Clayton Timmons RTC 3 weeks - postop ck Lizeth, Derek GUERRERO, acted as a scribe for Shalom Méndez MD for this note 01/10/2024 at 4:50 PM Parts of this note were written by Derek Crespo, acting as a scribe for . The note was ultimately edited by Dr. Méndez for accuracy. I have reviewed the dictated exam and progress note as scribed by Derek Crespo and it accurately reflects the work performed and the decisions made. Shalom Méndez MD --- Shalom Méndez M.D. Hr Leader of Clinical Ophthalmology Glaucoma Taker Off [employer] [facility] Department of Ophthalmology and Visual Science REASON FOR VISIT Leticia Cannon presents to clinic today for a Established Patient visit. Chief Complaint Post Op Visit HISTORY OF PRESENT ILLNESS HPI 68 year old female presents for 4 week postop; S/p trabeculectomy with MMC 0.4 mg/mL RIGHT EYE 12/10/23. She stated that her eye feels much better after having her sutures trimmed at her last visit. No changes in vision OU since her last visit. ROS not completed due to post op period. Last edited by Mary Smith on 01/10/2024 1:42 PM. Allergies, medications & history reviewed & updated by Mary Smith REVIEW OF SYSTEMS 10 minutes of face to face time was spent with patient performing the semiconductor development technician work of this visit. documented in this encounter [facility] 01-10-2024 Instructions Naomi Crespo - 01/10/2024 1:30 PM EDT Thank you for choosing [facility] for your eye care. Below are the instructions for your current eye medications. Please feel free to call with any questions. Pred Forte (prednisolone acetate) PINK or WHITE CAP RIGHT EYE 2x daily for 1 week Then 1 drop daily for 1 week Then STOP Ketorolac HUGHES TOP RIGHT EYE 1 drop 2x daily Cosopt (dorzolamide/timolol) BLUE or WHITE CAP LEFT EYE 1 drop 3x daily Alphagan (brimonidine) PURPLE CAP LEFT EYE 1 drop 3x daily (morning, afternoon, bedtime) Lumigan TEAL CAP LEFT EYE 1 drop once daily at bedtime Anytime swimming use goggles Call [phone] with any questions or concerns. For emergencies after hours, call [phone] and ask to have the glaucoma doctor data conversion analyst paged. If you do not receive a return call within 15 minutes, please call [phone] and ask for the ophthalmology resident doctor data conversion analyst. documented in this encounter [facility] 01-03-2024 History of Present illness Narrative ATTENDING PHYSICIAN NOTE CC: Chief Complaint Patient presents with Post Op Visit HPI: Reviewed and agree with tech HPI. Objective Today's Ancillary Tests: None Assessment/Plan: Subjective S/p trabeculectomy with MMC 0.4 mg/mL RIGHT EYE 12/10/23 Preop IOP: 16 on a complex regimen Aiming for IOP of 14 or less on fewest meds possible 5 sutures in a square flap - 2 T, PT, PN, N - all tied tight. Cut PN & middle temp 12/13 IOP=08 - well controlled. Start prednisolone taper: TID OD x 1 wk, BID OD x 1 wk, daily OD x 1 wk then stop. Activity restrictions through Saturday 01/06 then stop. Removed loose vicryl sutures today - yara negative after removal. (NOTE: on ketorolac BID OD d/t h/o CME - will continue as below. 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 OS - eye remains comfortable. Monitor. PLAN: use dorz/timolol TID OS only; continue brimonidine TID OS only, and lumigan daily OS only. Pseudophakia OD - not addressed today Nuclear sclerosis OS - dense but vision limited by glaucoma (FS <0 on last HVF). Patient has elected to defer surgery due to limited vision from glaucoma. S/p PPV/MP/AGFEx OD with Dr. Saunders with h/o CME OD - on ketorolac BID OD, will continue. Last HVF 30-2 daylin-fast 03/2023, last OCT RNFL/GCL 09/2023, last DFE 10/2023 Referring; Dr. Clayton Timmons RTC 1 week - postop ck, OCT mac OD only I, Derek Crespo COT, acted as a scribe for Shalom Méndez MD for this note 01/03/2024 at 1:57 PM Parts of this note were written by Derek Crespo, acting as a scribe for . The note was ultimately edited by Dr. Méndez for accuracy. I have reviewed the dictated exam and progress note as scribed by Derek Crespo and it accurately reflects the work performed and the decisions made. Shalom Méndez MD --- Shalom Méndez M.D. Hr Leader of Clinical Ophthalmology Glaucoma Taker Off [employer]ker [employer] [facility] Department of Ophthalmology and Visual Science REASON FOR VISIT Leticia Cannon presents to clinic today for a Post-Op Patient visit. Chief Complaint Post Op Visit HISTORY OF PRESENT ILLNESS HPI 68 year old female returns for 3 week s/p Trab right eye after last visit noticed FB sensation in the right eye that lasted 4 days today noticing FB sensation again. Last edited by Naomi Crespo on 01/03/2024 1:18 PM. Allergies, medications & history reviewed & updated by Naomi Crespo Past Medical History: Diagnosis Date Arthritis Glaucoma REVIEW OF SYSTEMS Review of Systems 10 minutes of face to face time was spent with patient performing the semiconductor development technician work of this visit. documented in this encounter [facility] 01-03-2024 Instructions Naomi Crespo - 01/03/2024 1:30 PM EDT Thank you for choosing [facility] for your eye care. Below are the instructions for your current eye medications. Please feel free to call with any questions. Pred Forte (prednisolone acetate) PINK or WHITE CAP RIGHT EYE 1 drop 3x daily for 1 week Then 1 drop 2x daily for 1 week Then 1 drop daily for 1 week Then STOP Ketorolac HUGHES TOP RIGHT EYE 1 drop 2x daily Cosopt (dorzolamide/timolol) BLUE or WHITE CAP LEFT EYE 1 drop 3x daily Alphagan (brimonidine) PURPLE CAP LEFT EYE 1 drop 3x daily (morning, afternoon, bedtime) Lumigan TEAL CAP LEFT EYE 1 drop once daily at bedtime Call [phone] with any questions or concerns. For emergencies after hours, call [phone] and ask to have the glaucoma doctor data conversion analyst paged. If you do not receive a return call within 15 minutes, please call [phone] and ask for the ophthalmology resident doctor data conversion analyst. documented in this encounter [facility] 12-27-2023 History of Present illness Narrative ATTENDING PHYSICIAN NOTE CC: Chief Complaint Patient presents with Post Op Visit HPI: Reviewed and agree with tech HPI. Objective Today's Ancillary Tests: Assessment/Plan: Subjective S/p trabeculectomy with MMC 0.4 mg/mL RIGHT EYE 12/10/23 Preop IOP: 16 on a complex regimen Aiming for IOP of 14 or less on fewest meds possible 5 sutures in a square flap - CUT PN and middle temporal suture 12/14/23 IOP well controlled at 09, acuity 20/60 (baseline), continue prednisolone QID RIGHT EYE. Activity restrictions, shield at night, provided emergency contact numbers. 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 OS - eye remains comfortable. PLAN: Continue dorz/timolol TID OS only, brimonidine TID OS only, and lumigan fdaily OS only. Pseudophakia OD - not addressed today Nuclear sclerosis OS - dense but vision limited by glaucoma (FS <0 on last HVF). Patient has elected to defer surgery due to limited vision from glaucoma. H/o CME OD (pre-existing prior to trab). S/p PPV/MP OD: on ketorolac BID OD, will continue. Follows with Dr. Castaneda Last HVF 30-2 daylin-fast 03/2023, last OCT RNFL/GCL 09/2023, last DFE 10/2023 Referring; Dr. Clayton Timmons RTC 1 week - postop ck I, Derek Crespo COT, acted as a scribe for Shaolm Méndez MD for this note 12/27/2023 at 2:03 PM Shalom Méndez M.D. Hr Leader of Clinical Ophthalmology Glaucoma Taker Off Braker Machine [facility] [place] [facility] Department of Ophthalmology and Visual Science REASON FOR VISIT Leticia Cannon presents to clinic today for a Post-Op Patient visit. Chief Complaint Post Op Visit HISTORY OF PRESENT ILLNESS HPI 68 y.o female returns for 2 and a half week s/p TRABECULECTOMY (RIGHT EYE) 12/10/23. Pt reports that her vision has been gradually getting better since surgery and has no complaints of pain or foreign body sensation. Pt confirms use of drops as prescribed. Last edited by Vanna York on 12/27/2023 1:47 PM. Allergies, medications & history reviewed & updated by Vanna York REVIEW OF SYSTEMS NOT PERFORMED DURING 90 DAY POST OPERATIVE PERIOD >9 minutes was spent with patient updating allergies, medications, and medical history. documented in this encounter [facility] 12-17-2023 History of Present illness Narrative REASON FOR VISIT Leticia Cannon presents to clinic today for a Post-Op Patient visit. Chief Complaint Post Op Visit HISTORY OF PRESENT ILLNESS HPI 68 year old female presents for a 1 week post op; S/p trabeculectomy right eye 12/10/23. She is doing well, no pain only some scratchiness. Patient states her vision is not as clear as it was the first few days after surgery. ofloxacin QID OD @ 7am prednisolone Q2hrs w.a. OD @ 7am Last edited by Lawanda Romero on 12/17/2023 11:07 AM. Allergies, medications & history reviewed & updated by Lawanda Romero REVIEW OF SYSTEMS ROS Positive for: Eyes (reading vision gradually worsening and peripheral vision worsening) Negative for: Constitutional (denies fever), Neurological (denies cough), Respiratory (denies cough) Last edited by Lawanda Romero on 12/17/2023 10:59 AM. 10 minutes of face to face time was spent with patient performing the semiconductor development technician work of this visit. ATTENDING PHYSICIAN NOTE CC: Chief Complaint Patient presents with Post Op Visit HPI: Reviewed and agree with tech HPI. Objective Today's Ancillary Tests: None Assessment/Plan: Subjective S/p trabeculectomy with MMC 0.4 mg/mL RIGHT EYE 12/10/23 Preop IOP: 16 on a complex regimen Aiming for IOP of 14 or less on fewest meds possible 5 sutures in a square flap - 2 T, PT, PN, N - all tied tight. Cut PN & middle temp 12/13 Baseline acuity: 20/60 - at baseline today Nice bleb present after LSL. Stop ofloxacin QID RIGHT EYE until 12/16 then stop, prednisolone decrease to QID. 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 OS - eye remains comfortable. Monitor. PLAN: use dorz/timolol TID OS only; continue brimonidine TID OS only, and lumigan daily OS only. Pseudophakia OD - not addressed today Nuclear sclerosis OS - dense but vision limited by glaucoma (FS <0 on last HVF). Patient has elected to defer surgery due to limited vision from glaucoma. S/p PPV/MP/AGFEx OD with Dr. Saunders with h/o CME OD - on ketorolac BID OD, will continue. Last HVF 30-2 daylin-fast 03/2023, last OCT RNFL/GCL 09/2023, last DFE 10/2023 Referring; Dr. Clayton Timmons RTC with [facility] / - postop (sooner PRN) Reagan Hogue MD documented in this encounter [facility] 12-14-2023 History of Present illness Narrative POST OP SURGICAL FOLLOW UP Leticia Cannon presents to clinic today for a post-op visit. Chief Complaint Patient presents with Post Op Visit The procedure was performed on the right eye. Patient was asked about problems with loss of vision, eye pain/irritation, redness and discharge. The patient denies all. ; except for the following foreign body sensation. I have reviewed the patient's medical history in detail and updated the computerized patient record. ATTENDING PHYSICIAN NOTE CC: Chief Complaint Patient presents with Post Op Visit HPI: Reviewed and agree with tech HPI. Objective Today's Ancillary Tests: None Laser Suture Lysis Operative Report Risks, benefits and alternatives, were discussed including but not limited to: conjunctival button hole, hemorhage, hypotony, and need for additional procedures. Leticia Cannon understands the treatment and is ready to proceed. The Informed Consent was signed. Procedure: Laser Suture Lysis in the right eye Anesthesia: Topical (Proparacaine) Lens used: Paige/Rena Power: 400 mW Duration: 100 ms Size: 50 microns #: 1, 1 Suture cut: PN then middle temporal suture Postop IOP:as in the exam portion of this encounter The patient tolerated the procedure without complications. Assessment/Plan: Subjective S/p trabeculectomy with MMC 0.4 mg/mL RIGHT EYE 12/10/23 Preop IOP: 16 on a complex regimen Aiming for IOP of 14 or less on fewest meds possible 5 sutures in a square flap - 2 T, PT, PN, N - all tied tight. Cut PN & middle temp 12/13 Baseline acuity: 20/60 - acuity back up to 20/70 today. IOP=16 with flat bleb on dorz/timolol to avoid LSL on POD#1. All sutures were tied tight due to lack of scleral rigidity. Extra suture was placed temporally as a precaution. Cut PN suture today - IOP decreased to 14, cut extra suture that was placed in the middle aspect of the temporal margin of the flap - IOP down to 10. Nice bleb present after LSL. Will now stop dorz/timolol (was on dorz/timolol, brimonidine, and lumigan prior to surgery). use ofloxacin QID RIGHT EYE until 12/16 then stop, continue prednisolone Q2hrs w.a. RIGHT EYE - likely will be able to decrease to QID next week. NEXT WEEK: would cut PT if IOP 16 or higher. Activity restrictions, shield at night, provided emergency contact numbers. 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 OS - eye remains comfortable. Monitor. PLAN: use dorz/timolol TID OS only; continue brimonidine TID OS only, and lumigan daily OS only. Pseudophakia OD - not addressed today Nuclear sclerosis OS - dense but vision limited by glaucoma (FS <0 on last HVF). Patient has elected to defer surgery due to limited vision from glaucoma. S/p PPV/MP/AGFEx OD with Dr. Saunders with h/o CME OD - on ketorolac BID OD, will continue. Last HVF 30-2 daylin-fast 03/2023, last OCT RNFL/GCL 09/2023, last DFE 10/2023 Referring; Dr. Clayton Timmons RTC 12/16 - postop with Lennie (AKS out) RTC with [facility]KS 12/26 - postop (sooner PRN) IDerek, acted as a scribe for Shalom Méndez MD for this note 12/14/2023 at 10:17 AM Parts of this note were written by Derek Crespo, acting as a scribe for . The note was ultimately edited by Dr. Méndez for accuracy. I have reviewed the dictated exam and progress note as scribed by Derek Crespo and it accurately reflects the work performed and the decisions made. Shalom Méndez MD --- Shalom Méndez M.D. Hr Leader of Clinical Ophthalmology Glaucoma Taker Off Braker Machine [facility] Department of Ophthalmology and Visual Science documented in this encounter [facility] 12-14-2023 Instructions Naomi Crespo - 12/14/2023 8:00 AM EDT Postoperative Trabeculectomy Instructions NEXT APPT: 12/14/23 at 8am Glasses or the shield may be worn to protect the eye during the daytime. At night, the shield must be taped over the eye to protect it. DROP INSTRUCTIONS: - Wash your hands before instilling drops - Allow 5 minutes between each drop - You do not need to wake up at night to instill the drops RIGHT EYE: Antibiotic (Vigamox / Zymar / Ocuflox) CORDOVA CAP 1 drop 4x daily RIGHT EYE thru Sunday evening then STOP Steroid (Prednisolone acetate/Pred forte) PINK or WHITE CAP 1 drop every 2 hours w.a. daily RIGHT EYE Ketorolac HUGHES CAP 1 drop 2x daily RIGHT EYE LEFT EYE: Continue your usual medications in the non-operative eye including: Alphagan (brimonidine) PURPLE CAP 1 drop 3x daily (morning, afternoon, bedtime) LEFT EYE ONLY Lumigan TEAL CAP 1 drop once daily at bedtime LEFT EYE ONLY (Stop this drop in the right eye) Cosopt (dorzolamide/timolol) BLUE or WHITE CAP 1 drop 3x daily (morning, afternoon, bedtime) LEFT EYE ONLY WHAT TO EXPECT: Vision may fluctuate daily after surgery. Generally your vision may be blurry for several weeks. Glaucoma surgery cannot restore vision already lost from glaucoma. You may feel a foreign body sensation for several days to several weeks. You will experience some mild aching and stinging after surgery. Tylenol should be adequate to take care of this. If the pain is extreme, call your doctor. ACTIVITY RESTRICTIONS: 1) Never rub, scratch or press on the operated eye. 2) No exertion activities: No lifting or moving heavy objects No bending (head over waist) No Valsalva maneuvers, i.e. Coughing Blowing your nose with force Sneezing Constipation (stool softeners should be used) Sexual activity No vigorous exercise No gardening/shoveling No swimming WHAT YOU CAN DO: Activities that you can do include: reading, walking and watching television. You may also eat and drink just the way you did before surgery. Showering and washing your hair is allowed but avoid getting water and shampoo in your operative eye. CALL YOUR DOCTOR: 1) severe pain unrelieved by tylenol 2) a significant decrease in your vision 3) worsening redness of the eye if accompanied by pain or blurred vision. During normal business hours, please call Dr. Méndez's office if you have any questions or problems at [phone]. For after hours emergencies, please call the [facility] lasting machine operator bed at [phone] and ask to have the glaucoma doctor data conversion analyst paged. If no return call within 15 minutes, call the [facility] lasting machine operator bed and ask to have the ophthalmology resident doctor data conversion analyst paged. documented in this encounter [facility] 12-11-2023 History of Present illness Narrative ATTENDING PHYSICIAN NOTE CC: Chief Complaint Patient presents with Post Op Visit HPI: Reviewed and agree with tech HPI. Objective Today's Ancillary Tests: None Assessment/Plan: Subjective S/p trabeculectomy with MMC 0.4 mg/mL RIGHT EYE 12/10/23 Preop IOP: 16 on a complex regimen Aiming for IOP of 14 or less on fewest meds possible 5 sutures in a square flap IOP=24 today with flat bleb, bleb elevates and IOP decreases to 12 with gentle DOC - suspect underfiltration d/t sticky flap from some heme. will start ofloxacin QID RIGHT EYE, prednisolone Q2hrs w.a. RIGHT EYE, cover with dorz/timolol TID (continue OU) for the first few days - recheck in 4 days and consider early LSL. Stop glaucoma medications in this eye. Activity restrictions, shield at night, provided emergency contact numbers. 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 IOPs have been 9-16. Re-discussed that ideal IOPs in her case are likely 14 or less given amount of VF loss, with a rare IOP of as high as 18 tolerable. Reviewed options of close observation on current regimen vs. Surgical options (patient reports meds are expensive, would be interested in surgical options to try to control IOP with a less demanding and more affordable regimen) - patient has decided to proceed with a trabeculectomy in the right eye. OS - eye remains comfortable. PLAN: Continue dorz/timolol TID OU; change brimonidine from TID OU to TID OS only, and lumigan from daily OU to daily OS only. Pseudophakia OD - not addressed today Nuclear sclerosis OS - dense but vision limited by glaucoma (FS <0 on last HVF). Patient has elected to defer surgery due to limited vision from glaucoma. S/p PPV/MP/AGFEx OD with Dr. Saunders with h/o CME OD - on ketorolac BID OD, will continue. Last HVF 30-2 daylin-fast 03/2023, last OCT RNFL/GCL 09/2023, last DFE 10/2023 Referring; Dr. Clayton Timmons RTC 4 days - postop ck Shalom Méndez M.D. Hr Leader of Clinical Ophthalmology Glaucoma Taker Off Braker Machine [facility] [place] [facility] Department of Ophthalmology and Visual Science Chief Complaint Patient presents with Post Op Visit 1 day S/P Trabeculectomy with Mitomycin C 0.4 mg/mL RIGHT EYE (12/10/23) Patient asked about problems with loss of vision, eye pain/irritation, redness and discharge. The patient denies all except for the following: patient states she did pretty well last night. She states she can feel some scratchiness right eye. ROS not reviewed today due to patient here for post op appointment. documented in this encounter [facility] 12-11-2023 Instructions Shalom Méndze MD - 12/11/2023 8:00 AM EDT Postoperative Trabeculectomy Instructions NEXT APPT: 12/14/23 at 8am Glasses or the shield may be worn to protect the eye during the daytime. At night, the shield must be taped over the eye to protect it. DROP INSTRUCTIONS: - Wash your hands before instilling drops - Allow 5 minutes between each drop - You do not need to wake up at night to instill the drops BOTH EYES: Cosopt (dorzolamide/timolol) BLUE or WHITE CAP 1 drop 3x daily BOTH EYES RIGHT EYE: Antibiotic (Vigamox / Zymar / Ocuflox) CORDOVA CAP 1 drop 4x daily RIGHT EYE Steroid (Prednisolone acetate/Pred forte) PINK or WHITE CAP 1 drop every 2 hours w.a. daily RIGHT EYE Ketorolac HUGHES CAP 1 drop 2x daily RIGHT EYE LEFT EYE: Continue your usual medications in the non-operative eye including: Alphagan (brimonidine) PURPLE CAP 1 drop 3x daily (morning, afternoon, bedtime) LEFT EYE ONLY (Stop this drop in the right eye) Lumigan TEAL CAP 1 drop once daily at bedtime LEFT EYE ONLY (Stop this drop in the right eye) WHAT TO EXPECT: Vision may fluctuate daily after surgery. Generally your vision may be blurry for several weeks. Glaucoma surgery cannot restore vision already lost from glaucoma. You may feel a foreign body sensation for several days to several weeks. You will experience some mild aching and stinging after surgery. Tylenol should be adequate to take care of this. If the pain is extreme, call your doctor. ACTIVITY RESTRICTIONS: 1) Never rub, scratch or press on the operated eye. 2) No exertion activities: No lifting or moving heavy objects No bending (head over waist) No Valsalva maneuvers, i.e. Coughing Blowing your nose with force Sneezing Constipation (stool softeners should be used) Sexual activity No vigorous exercise No gardening/shoveling No swimming WHAT YOU CAN DO: Activities that you can do include: reading, walking and watching television. You may also eat and drink just the way you did before surgery. Showering and washing your hair is allowed but avoid getting water and shampoo in your operative eye. CALL YOUR DOCTOR: 1) severe pain unrelieved by tylenol 2) a significant decrease in your vision 3) worsening redness of the eye if accompanied by pain or blurred vision. During normal business hours, please call Dr. Méndez's office if you have any questions or problems at [phone]. For after hours emergencies, please call the [facility] lasting machine operator bed at [phone] and ask to have the glaucoma doctor data conversion analyst paged. If no return call within 15 minutes, call the [facility] lasting machine operator bed and ask to have the ophthalmology resident doctor data conversion analyst paged. documented in this encounter [facility] 12-10-2023 Nurse Surgical operation note 1315: Discharge instructions reviewed with patient and family, with family at bedside. All questions answered, patient and family verbalize understanding. 1326: Patient ambulated independently with standby assist to car without issue. [facility] 12-10-2023 Nurse Note 1315: Discharge instructions reviewed with patient and family, with family at bedside. All questions answered, patient and family verbalize understanding. 1326: Patient ambulated independently with standby assist to car without issue. Pt transported to PACU. Report given to RIC Garcia RN documented in this encounter [facility] 03-18-2024 Surgery Postoperative evaluation and management note PREOPERATIVE DIAGNOSIS: Primary Open Angle Glaucoma RIGHT EYE - severe stage POSTOPERATIVE DIAGNOSIS: Primary Open Angle Glaucoma RIGHT EYE - severe stage PROCEDURE: Trabeculectomy with Mitomycin C 0.4 mg/mL RIGHT EYE SURGEON: Shalom Méndez MD. ANESTHESIA: Retrobulbar block with monitored anesthesia care. COMPLICATIONS: None. INDICATIONS FOR PROCEDURE: Leticia Cannon has uncontrolled glaucoma as detailed in the last office encounter. Therefore the risks, benefits, and alternatives of a trabeculectomy with mitomycin C of the right eye were discussed with the patient. Risks discussed included but were not limited to decreased vision, loss of vision, loss of the eye, bleeding, infection, inflammation, endophthalmitis, choroidal hemorrhage, corneal edema, retinal edema, retinal detachment, hange in the size and the shape of the pupil, ptosis, diplopia, and need for additional procedures including surgery. The patient verbalized an understanding of these risks, and then signed the informed consent. PROCEDURE IN DETAIL: The patient was met in the preoperative holding area where her identity was confirmed and the operative eye was marked. The patient was then escorted to the operating room where a sign-in and pre-block time-out was completed. With anesthesia staff present to administer IV sedation, a peribulbar block consisting of a mixture of preservative-free lidocaine 4%, Marcaine 0.75%, and hyaluronidase was injected inferior to the RIGHT globe. The RIGHT eye was then gently massaged. The RIGHT eye was prepped and draped in the usual sterile fashion for ophthalmic surgery. A lid speculum was placed into the RIGHT eye, and the operating microscope was moved into position. A surgical time out was completed. No qualified resident was available to assist with this procedure. A 7-0 silk suture was then passed partial-thickness through the superior aspect of the cornea in order to serve as a traction suture. A mixture of 0.08 mL of mitomycin-C and 0.12mL of preservative free lidocaine 1% was injected into the superior subtenon's space. The mixture was left in place for 2 minutes. Vannas scissors were then used to complete a fornix-based peritomy superiorly that was approximately 8 mm in length. A small lip of intact conjunctiva was preserved at the limbus. The eye was irrigated copiously with balanced salt solution. Calipers were then used to measure the perimeter of a 3 x 3 mm square shaped scleral flap. A #67 Mcdonald blade was then used to create the posterior margin this scleral flap. A partial-thickness scleral flap was then advanced anteriorly to the blue line using a cresent blade. The temporal and nasal margins of the flap were cut with vannas scissors. Two interrupted 10-0 nylon sutures were then placed in the posterior corners of the scleral flap. A 15-degree blade was then used to create a temporal paracentesis.The 15-degree blade was then used to enter the anterior chamber at the base of the scleral flap. The sclerotomy was widened using a Jeanne punch. There was heme at the posterior margin of the sclerotomy and there was poor rigidity of the sclera due to prior vitrectomy. Therefore provisc was injected into the anterior chamber to maintain a formed chamber while cautery was completed to the bleeding vessel at the ostium site. Megha scissors were then used to complete a peripheral iridectomy. The 2 preplaced 10-0 nylon sutures were then tied using adjustable knots. 3 additional 10-0 nylon sutures were placed and tied with adjustable knots - 1 nasal and 2 temporal. The Provisc was then removed from the eye via manual irrigation while applying posterior pressure at the paracentesis site. Miostat was injected into the anterior chamber. Flow around the scleral flap was assessed and found to be adequate. All 5 sutures were then tied securely and rotated such that the knots were buried. The conjunctiva was then closed. A 10-0 vic[address] was used to place a central horizontal mattress suture. 8-0 vicryl on a BV needle was then used in a running fashion along the nasal and temporal aspects of the peritomy. The anterior chamber was once again deepened with balanced salt solution. A nice posterior temporal bleb formed. The conjunctival closure appeared to be watertight by Weck-chaitanya and fluorescein testing. Intracameral cefuroxime and subconjunctival dexamethasone was then administered. The anterior chamber was deep. The intraocular pressure was within a physiologic range by palpation. The traction suture was then removed from the eye. The lid speculum was removed under visualization of the microscope with maintenance of a deep anterior chamber. Several drops of Vigamox were then administered. The RIGHT eye was patched and shielded. The patient was instructed to leave the shield in place until the following day. The patient tolerated the procedure well without complications. The patient was sent to the recovery room in good condition. [facility] 12-10-2023 Miscellaneous Notes PREOPERATIVE DIAGNOSIS: Primary Open Angle Glaucoma RIGHT EYE - severe stage POSTOPERATIVE DIAGNOSIS: Primary Open Angle Glaucoma RIGHT EYE - severe stage PROCEDURE: Trabeculectomy with Mitomycin C 0.4 mg/mL RIGHT EYE SURGEON: Shalom Méndez MD. ANESTHESIA: Retrobulbar block with monitored anesthesia care. COMPLICATIONS: None. INDICATIONS FOR PROCEDURE: Leticia Cannon has uncontrolled glaucoma as detailed in the last office encounter. Therefore the risks, benefits, and alternatives of a trabeculectomy with mitomycin C of the right eye were discussed with the patient. Risks discussed included but were not limited to decreased vision, loss of vision, loss of the eye, bleeding, infection, inflammation, endophthalmitis, choroidal hemorrhage, corneal edema, retinal edema, retinal detachment, hange in the size and the shape of the pupil, ptosis, diplopia, and need for additional procedures including surgery. The patient verbalized an understanding of these risks, and then signed the informed consent. PROCEDURE IN DETAIL: The patient was met in the preoperative holding area where her identity was confirmed and the operative eye was marked. The patient was then escorted to the operating room where a sign-in and pre-block time-out was completed. With anesthesia staff present to administer IV sedation, a peribulbar block consisting of a mixture of preservative-free lidocaine 4%, Marcaine 0.75%, and hyaluronidase was injected inferior to the RIGHT globe. The RIGHT eye was then gently massaged. The RIGHT eye was prepped and draped in the usual sterile fashion for ophthalmic surgery. A lid speculum was placed into the RIGHT eye, and the operating microscope was moved into position. A surgical time out was completed. No qualified resident was available to assist with this procedure. A 7-0 silk suture was then passed partial-thickness through the superior aspect of the cornea in order to serve as a traction suture. A mixture of 0.08 mL of mitomycin-C and 0.12mL of preservative free lidocaine 1% was injected into the superior subtenon's space. The mixture was left in place for 2 minutes. Vannas scissors were then used to complete a fornix-based peritomy superiorly that was approximately 8 mm in length. A small lip of intact conjunctiva was preserved at the limbus. The eye was irrigated copiously with balanced salt solution. Calipers were then used to measure the perimeter of a 3 x 3 mm square shaped scleral flap. A #67 Mcdonald blade was then used to create the posterior margin this scleral flap. A partial-thickness scleral flap was then advanced anteriorly to the blue line using a cresent blade. The temporal and nasal margins of the flap were cut with vannas scissors. Two interrupted 10-0 nylon sutures were then placed in the posterior corners of the scleral flap. A 15-degree blade was then used to create a temporal paracentesis.The 15-degree blade was then used to enter the anterior chamber at the base of the scleral flap. The sclerotomy was widened using a Jeanne punch. There was heme at the posterior margin of the sclerotomy and there was poor rigidity of the sclera due to prior vitrectomy. Therefore provisc was injected into the anterior chamber to maintain a formed chamber while cautery was completed to the bleeding vessel at the ostium site. Megha scissors were then used to complete a peripheral iridectomy. The 2 preplaced 10-0 nylon sutures were then tied using adjustable knots. 3 additional 10-0 nylon sutures were placed and tied with adjustable knots - 1 nasal and 2 temporal. The Provisc was then removed from the eye via manual irrigation while applying posterior pressure at the paracentesis site. Miostat was injected into the anterior chamber. Flow around the scleral flap was assessed and found to be adequate. All 5 sutures were then tied securely and rotated such that the knots were buried. The conjunctiva was then closed. A 10-0 vicryl was used to place a central horizontal mattress suture. 8-0 vicryl on a BV needle was then used in a running fashion along the nasal and temporal aspects of the peritomy. The anterior chamber was once again deepened with balanced salt solution. A nice posterior temporal bleb formed. The conjunctival closure appeared to be watertight by Weck-chaitanya and fluorescein testing. Intracameral cefuroxime and subconjunctival dexamethasone was then administered. The anterior chamber was deep. The intraocular pressure was within a physiologic range by palpation. The traction suture was then removed from the eye. The lid speculum was removed under visualization of the microscope with maintenance of a deep anterior chamber. Several drops of Vigamox were then administered. The RIGHT eye was patched and shielded. The patient was instructed to leave the shield in place until the following day. The patient tolerated the procedure well without complications. The patient was sent to the recovery room in good condition. Leticia Cannon ([id number]) PRE OPERATIVE DIAGNOSIS Primary open-angle glaucoma, bilateral, severe stage [H40.1133] POST OPERATIVE DIAGNOSIS Primary open-angle glaucoma, bilateral, severe stage [H40.1133] PROCEDURE PERFORMED Procedure(s) (LRB): TRABECULECTOMY (RIGHT EYE) (Right) INTRAOPERATIVE FINDINGS glaucoma SURGEON Surgeons and Role: * Shalom Méndez MD - Primary ANESTHESIOLOGIST Anesthesiologist: Franck Barron MD MANAGER MUSIC: Leatha Longoria APRN-MANAGER MUSIC SURGICAL STAFF Corporate Accounting Manager: Lin Juares RN Relief Corporate Accounting Manager: Jennifer Doyle RN Relief Scrub: Zamzam Andrew Scrub Person: Erika Linares COMPLICATIONS None ESTIMATED BLOOD LOSS Minimal SPECIMENS No specimen sent * No specimens in log * Shalom Méndez MD December 10, 2023 12:57 PM documented in this encounter [facility] 12-10-2023 Nurse Surgical operation note Pt transported to PACU. Report given to RIC Garcia [facility] Hospital Discharge instructions Shalom Méndez MD - 12/10/2023 12:58 PM EDT Images from the original note were not included. [facility] Shalom Méndez MD [address], [place] [address] Postoperative Glaucoma Surgery Instructions You have an appointment tomorrow, December 10 at 8am At the [facility], 5th floor. 1) No drops are needed in the operative eye tonight. 2) Use your usual medications in the non-operative eye: Cosopt (dorzolamide/timolol) BLUE or WHITE CAP 1 drop 3x daily LEFT EYE Alphagan (brimonidine) PURPLE CAP 1 drop 3x daily (morning, afternoon, bedtime) LEFT EYE Lumigan TEAL CAP 1 drop once daily at bedtime LEFT EYE 3) You may take Tylenol as needed for pain per the package instructions. Activity Restrictions: 1. Do not lift more than 5 pounds 2. Avoid bending at the waist 3. No strenuous activity or straining. Use stool softeners if needed. 4. Do not rub or press on the operative eye. 5. Do not remove your eye shield this evening. It is normal for the eye to feel scratchy following surgery, but you should not have severe pain or pressure. You may take Tylenol as needed for discomfort. Call your doctor for severe pain, unrelieved by Tylenol During normal business hours, call [phone] with any questions or concerns. After hours, for eye emergencies call: [facility] lasting machine operator bed at [phone] Shalom Mnédez paged. If no return call within 15 minutes, call [phone] and ask to have the Ophthalmology Resident on-call paged. documented in this encounter [facility] 12-10-2023 Surgery Postoperative evaluation and management note Leticia Cannon ([id number]) PRE OPERATIVE DIAGNOSIS Primary open-angle glaucoma, bilateral, severe stage [H40.1133] POST OPERATIVE DIAGNOSIS Primary open-angle glaucoma, bilateral, severe stage [H40.1133] PROCEDURE PERFORMED Procedure(s) (LRB): TRABECULECTOMY (RIGHT EYE) (Right) INTRAOPERATIVE FINDINGS glaucoma SURGEON Surgeons and Role: * Shalom Méndez MD - Primary ANESTHESIOLOGIST Anesthesiologist: Franck Barron MD MANAGER MUSIC: Leatha Longoria APRN-MANAGER MUSIC SURGICAL STAFF Corporate Accounting Manager: Lin Juares RN Relief Corporate Accounting Manager: Jennifer Doyle RN Relief Scrub: Zamzam Andrew Scrub Person: Erika Linares COMPLICATIONS None ESTIMATED BLOOD LOSS Minimal SPECIMENS No specimen sent * No specimens in log * Shalom Méndez MD December 10, 2023 12:57 PM [facility] 12-10-2023 History and physical note Name: Leticia Cannon CC: Glaucoma right eye HPI: Here for eye surgery. ROS: Unchanged from the last office visit Reviewed current medications / Allergies / medical history No Known Allergies Current Outpatient Medications Medication Sig Last Dose Start Date End Date Authorizing Provider bimatoprost (Lumigan) 0.01 % Solution 1 drop, Both Eyes, DAILY AT BEDTIME Historical Provider brimonidine 0.15 % Solution ophthalmic solution 1 drop, Both Eyes, 3 TIMES DAILY, Use in affected eye(s). Historical Provider dorzolamide-timolol 2-0.5 % Solution ophthalmic solution 1 drop, Both Eyes, 3 TIMES DAILY Historical Provider Estradiol 0.5 MG tablet 0.5 mg, Oral, DAILY Historical Provider ketorolac 0.5 % Solution ophthalmic solution 1 drop, Right Eye, 2 TIMES DAILY Historical Provider PE: VS: Reviewed nurses notes and VS HEENT: Normocephalic / neck is supple Chest: Clear to auscultation bilaterally Cardiac: Regular rate and rhythm Abd: Soft / non tender Ext: No edema Neuro: Alert & oriented x 3 Impression: Glaucoma right eye Plan: Proceed with surgery as scheduled right eye Discussed possible risks and complications of surgery at length. - All questions were answered. - The patient has provided informed consent for the surgery and requested to proceed. Discussed with anesthesia. No contraindications to the planned procedure. [facility] 12-10-2023 History and physical note Name: Leticia Cannon CC: Glaucoma right eye HPI: Here for eye surgery. ROS: Unchanged from the last office visit Reviewed current medications / Allergies / medical history No Known Allergies Current Outpatient Medications Medication Sig Last Dose Start Date End Date Authorizing Provider bimatoprost (Lumigan) 0.01 % Solution 1 drop, Both Eyes, DAILY AT BEDTIME Historical Provider brimonidine 0.15 % Solution ophthalmic solution 1 drop, Both Eyes, 3 TIMES DAILY, Use in affected eye(s). Historical Provider dorzolamide-timolol 2-0.5 % Solution ophthalmic solution 1 drop, Both Eyes, 3 TIMES DAILY Historical Provider Estradiol 0.5 MG tablet 0.5 mg, Oral, DAILY Historical Provider ketorolac 0.5 % Solution ophthalmic solution 1 drop, Right Eye, 2 TIMES DAILY Historical Provider PE: VS: Reviewed nurses notes and VS HEENT: Normocephalic / neck is supple Chest: Clear to auscultation bilaterally Cardiac: Regular rate and rhythm Abd: Soft / non tender Ext: No edema Neuro: Alert & oriented x 3 Impression: Glaucoma right eye Plan: Proceed with surgery as scheduled right eye Discussed possible risks and complications of surgery at length. - All questions were answered. - The patient has provided informed consent for the surgery and requested to proceed. Discussed with anesthesia. No contraindications to the planned procedure. documented in this encounter [facility] 10-25-2023 History of Present illness Narrative ATTENDING PHYSICIAN NOTE CC: Chief Complaint Patient presents with New Patient HPI: Reviewed and agree with tech HPI. INFO FROM REFERRIN68 year old F with h/o POAG (moderate stage OU) referred for a glaucoma evaluation by Dr. Timmons. Patient had been on brimonidine TID OU, dorz/timolol TID OU, and lumigan daily OU - but was transitioned from lumigan to rocklatan last visit (in early September). Could not afford rocklatan ($400) so still using lumigan. IOPs have been 9-16 OD, 10-17 OS over the past 1.5 years. INFO FROM PATIENT - see tech HPI Objective Today's Ancillary Tests: None REVIEWED OUTSIDE TESTING: HVF 30-2 daylin-fast 03/2023 OD dense generalized depression with sup altitudinal loss - worse c/w 2019, stable with 2020. + some variability. 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 IOPs have been 9-16. OS - advanced but stable VF loss c/w 2020, RNFL stable c/w 2019. IOPs have been 10-17. PLAN: Explained that ideal IOPs in her case are likely 14 or less given amount of VF loss, with a rare IOP of as high as 18 tolerable. Discussed close observation on current regimen vs. Surgical options (patient reports meds are expensive, would be interested in surgical options to try to control IOP with a less demanding and more affordable regimen). Discussed trab vs tube shunt. Patient wants to think over her options and will call with a decision in the next few days. Continue dorz/timolol TID OU, brimonidine TID OU, lumigan daily OU (did not fill rocklatan d/t cost - $400). Keep appt with Dr. Timmons later this month should she elect not to pursue surgery. Pseudophakia OD - stable, monitor. Nuclear sclerosis OS - dense but vision limited by glaucoma (FS <0 on last HVF). Discussed that extraction may not improve vision given glaucomatous loss. However, given density of cataract, would advise completing PEM/IOL at time of glaucoma surgery if glaucoma surgery is pursued with the goal of maintaining visualization of the optic nerve. Last HVF 30-2 daylin-fast 03/2023, last OCT RNFL/GCL 09/2023, last DFE 10/2023 Referring; Dr. Clayton Timmons Patient to call with her decision regarding surgery RTC with Dr. Timmons in 1 month I have reviewed the dictated exam documentation as scribed by Reema Smith, and it accurately reflects the work performed. Shalom Méndez MD -- Shalom Méndez M.D. Hr Leader of Clinical Ophthalmology Glaucoma Taker Off Braker Machine [facility] Department of Ophthalmology and Visual Science documented in this encounter [facility] 10-25-2023 Instructions Mary (Scribe) Luis - 10/25/2023 10:15 AM EST PREPARING FOR YOUR GLAUCOMA SURGERY (TRABECULECTOMY) Treatment for all forms of glaucoma involves lowering the eye pressure. The amount of fluid (aqueous) in the eye determines your eye pressure. This internal fluid (aqueous) is different from tears (fluid on the surface of the eye). Treatments for glaucoma involve medications, surgery, or laser treatments that either slow down the rate at which the fluid (aqueous) is made or help the fluid (aqueous) get out of the front part of the eye (anterior chamber) more quickly. A trabeculectomy is a surgical procedure that creates a new drain for the eye. A small hole is made in the wall of the eye. This hole is covered by a microscopic trap door created from the tissues in the wall of the eye (sclera). This opening allows fluid to exit the eye, decreasing the eye pressure. The fluid becomes trapped in a small space (bleb) between the wall of the eye (sclera) and skin of the eye (conjunctiva). This pocket of fluid is on the white part of the eye. This area is covered by the eyelid and usually is not noticeable after surgery. The trap door is tied down with stitches. These stitches are covered by the skin of the eye (the conjunctiva) and are permanent. They can be cut using a laser as needed after surgery to help control your eye pressure. The laser takes just a few minutes and is performed in the office. In some instances, we also use anti-scarring medication in the office after surgery. The goal of glaucoma surgery is to lower your eye pressure. It will not improve your vision. It is designed to stabilize your vision and prevent additional vision loss. Glaucoma medications may still be needed after your surgery. We will use medications to numb your eye for surgery. You will not be put to sleep but will be given medications to help keep you relaxed. WHAT TO EXPECT after surgery: After surgery, you can expect to have a scratchy sensation in the eye for about 2 weeks. Most people experience a mild aching sensation after surgery, but tylenol should alleviate this discomfort. The vision is usually blurry for 2 weeks (sometimes as long as 4-6 weeks) and then typically returns to your baseline. You will wear an eye shield home from surgery. That shield will be removed in the office on the first postoperative day. You will be seen in the office the day after surgery. Then, you will see your doctor approximately once per week for the next 4-6 weeks. ACTIVITY RESTRICTIONS after surgery: You will wear a shield over the operative eye at night for approximately 4 weeks. You should remove obstacles in your home that might cause you to trip while your vision is blurry (such as rugs, low lying objects on the floor). You will avoid strenuous activities that include the following for 4 weeks after surgery: No lifting or moving heavy objects No bending (head over waist) No Valsalva maneuvers, such as: Coughing Blowing your nose with force Sneezing Constipation (stool softeners should be used) Sexual activity No vigorous exercise No gardening/shoveling No swimming WHAT YOU CAN DO after surgery: Activities that you can do include: reading, walking and watching television. You may also eat and drink just the way you did before surgery. Showering and washing your hair is allowed but avoid getting water and shampoo in your operative eye. SCHEDULING surgery: My surgical scrub technologist, Laurence, will schedule your surgery. In preparation for surgery, you will meet with our anesthesia team to complete a short questionnaire regarding your health (either in person or by phone). This questionnaire will help us determine if you will need additional testing (labs, heart tests, X-rays) or appointments (with your primary care physician or a specialist) prior to surgery. If you regularly see your medical doctor(s), you may not need any additional testing or doctor's appointments prior to surgery. If you have questions regarding the scheduling of your surgery, you may contact Laurence directly at . PREPARING for surgery: You will begin an antibiotic drop (ofloxacin or moxifloxacin depending on what your insurance covers) and steroid eye (prednisolone) drop AFTER surgery. Both of these medications will be sent electronically to your pharmacy on the day after surgery. Sometimes additional medications will be prescribed postoperatively depending on how your eye is healing. If you are on blood thinners prescribed by another physician, DO NOT stop those blood thinners prior to surgery. You should STOP taking herbal supplements or non-steroidal anti-inflammatory medications prior to surgery if these medications are not prescribed by a doctor. Until surgery you should continue your usual eye medications unless otherwise by your doctor. QUESTIONS? Call [phone] with any questions or concerns. For emergencies after hours, call [phone] and ask to have the glaucoma doctor data conversion analyst paged. If no return page in 15 minutes, please call [phone] and ask for the ophthalmology resident doctor data conversion analyst. PREPARING FOR YOUR GLAUCOMA SURGERY (TUBE SHUNT) Treatment for all forms of glaucoma involves lowering the eye pressure. The amount of fluid (aqueous) in the eye determines your eye pressure. This internal fluid (aqueous) is different from tears (fluid on the surface of the eye). Treatments for glaucoma involve medications, surgery, or laser treatments that either slow down the rate at which the fluid (aqueous) is made or help the fluid (aqueous) get out of the front part of the eye (anterior chamber) more quickly. A tube shunt is a surgical procedure that creates a new drain for the eye. A microscopic, clear tube is inserted into the the front part of the eye (anterior chamber) in order to get the fluid (aqueous) out of the eye faster. The fluid is then trapped in a small area between the wall of the eye (the sclera) and the skin of the eye (the conjunctiva). This pocket of fluid is on the white part of the eye in an area that is hidden by the eye lid. The goal of glaucoma surgery is to lower your eye pressure. It will not improve your vision. It is designed to stabilize your vision and prevent additional vision loss. Glaucoma medications may still be needed after your surgery. We will use medications to numb your eye for surgery. You will not be put to sleep but will be given medications to help keep you relaxed. WHAT TO EXPECT after surgery: After surgery, you can expect to have a foreign body sensation/scratchy sensation for several days to several weeks. Most people experience a mild aching sensation after surgery, but tylenol should alleviate this discomfort. The vision is usually blurry for 2 weeks (sometimes as long as 4-6 weeks) and then typically returns to your baseline. You will wear an eye shield home from surgery. That shield will be removed in the office on the first postoperative day. You will be seen in the office one day after surgery and one week after surgery. Then, you will see your doctor for approximately 1-3 postoperative appointments over the next 4-6 weeks. ACTIVITY RESTRICTIONS after surgery: You will wear a shield over the operative eye at night for approximately 4 weeks. You should remove obstacles in your home that might cause you to trip while your vision is blurry (such as rugs, low lying objects on the floor). You will avoid strenuous activities that include the following: No lifting or moving heavy objects No bending (head over waist) No Valsalva maneuvers, i.e. Coughing Blowing your nose with force Sneezing Constipation (stool softeners should be used) Sexual activity No vigorous exercise No gardening/shoveling No swimming WHAT YOU CAN DO after surgery: Activities that you can do include: reading, walking and watching television. You may also eat and drink just the way you did before surgery. Showering and washing your hair is allowed but avoid getting water and shampoo in your operative eye. SCHEDULING surgery: My surgical scrub technologist, Laurence, will schedule your surgery. In preparation for surgery, you will meet with our anesthesia team to complete a short questionnaire regarding your health (either in person or by phone). This questionnaire will help us determine if you will need additional testing (labs, heart tests, X-rays) or appointments (with your primary care physician or a specialist) prior to surgery. If you regularly see your medical doctor(s), you may not need any additional testing or doctor's appointments prior to surgery. If you have questions regarding the scheduling of your surgery, you may contact Laurence directly at . PREPARING for surgery: These prescriptions will be sent electronically sent to your pharmacy on the day after surgery. Sometimes additional medications will be prescribed after surgery depending on how your eye is healing. If you are on blood thinners prescribed by another physician, DO NOT stop those blood thinners prior to surgery. You should STOP taking herbal supplements or non-steroidal anti-inflammatory medications prior to surgery if these medications are not prescribed by a doctor. You should continue your usual eye medications until your surgery unless otherwise prescribed by your doctor. Call [phone] with any questions or concerns. For emergencies after hours, call [phone] and ask to have the glaucoma doctor data conversion analyst paged. If no return page in 15 minutes, please call [phone] and ask for the ophthalmology resident doctor data conversion analyst. documented in this encounter [facility] 12-07-2022 Evaluation note Encounter Date Diagnosis Assessment Notes Nov, Medicare annual wellness visit, subsequent (ICD-10 - Z00.00) Personalized health advice was given to the beneficiary including a written plan for screenings discussed and provided. Advanced care planning reviewed and/or information given as requested. Additional counseling was provided here today in regards to, [ ]. The above visit was performed by [ ], under direct supervision of [ ]. Document reviewed and amended by provider signed below. Healthy diet and exercise. Reviewed age-appropriate preventive testing recommended. Nov, Menopausal symptom (ICD-10 - N95.1) Discussed pros/cons w/ HRT. Recommend d/c HRT but she refuses but has decrease dose/frequency Nov, Elevated BP without diagnosis of hypertension (ICD-10 - R03.0) Instructed on home BP readings This patient is instructed to consume a healthy, low-fat, low-salt diet. They are also encouraged to continue exercise to achieve/maintai n a normal BMI. Nov, Overweight (BMI 25.0-29.9) (ICD-10 - E66.3) This patient has been instructed on a low-fat, high-fiber diet. They are instructed to reduce calories, portion sizes and snacks. It is recommended that they exercise for 30 minutes, 3-5 times weekly. Nov, Screening mammogram for breast cancer (ICD-10 - Z12.31) Nov, Fatigue, unspecified type (ICD-10 - R53.83) [employer] Other 05-12-2022 History of Present illness Narrative* Jeanmarie Roblero, PT - 02/02/2022 10:15 AM EDT [facility] Daily Note Patient: Leticia Cannon : 1955 CSN #: [id number] Referring Physician: Leatha Perez PA-C Date: 02/02/2022 Treatment Diagnosis: R hip pain Onset Date: 10/24/21 Total # of Visits Approved: 12 Per Physician Order Total # of Visits to Date: 9 No Show: 0 Canceled Appointment: 0 Pre-Treatment Pain: 0/10 Subjective: Patient denies pain coming into therapy. She reports she is 100% better overall. She reports she has been able to perform all her daily activities with minimal discomfort. Exercises: Exercise 1: HEP: clamshell, hip flexor stretch, bridges, single limb bridges, LSU, side stepping atcounter with GTB, clam shells Exercise 5: SciFIt bike 8 mins 3 Exercise 11: Measures obtained for physician update Assessment Assessment: The patient has attended her initial evaluation and 9 follow-up appointments and reports she is 100% better overall. She reports she has been able to perform her normal activities with minimal discomfort. She has met all of her terminal make up operator goals and was educated on importance of continuing with her HEP. She will be placed on hold at this time. Activity Tolerance Activity Tolerance: Patient tolerated treatment well Patient Education Patient Education: HEP Pt verbalized/demonstrated good understanding: [x] Yes [] No, pt required further clarification. Post Treatment Pain: 0/10 Plan Plan Frequency: 2x/wk Plan weeks: 4 Goals (Total # of Visits to Date: 9) Short Term Goals Time Frame for Short term goals: 3 weeks Short term goal 1: Pt will initiate HEP -MET Short term goal 2: Pt will initiate manual techniques/modalities PRN to assist with decreasing painand improving mobility -MET/Continue Chcf Goals Time Frame for senior living goals : 6 weeks senior living goal 1: Pt will be independent and compliant with HEP -MET terminal make up operator goal 2: Pt will have min/no TTP through R hip surrounding GT to decrease irritation -MET terminal make up operator goal 3: Pt will improve R hip ext PROM to neutral to improve LE mobility -MET senior living goal 4: Pt will improve R hip ABD/ER strength grossly to 4/5 to assist with addressing LEmuscle imbalance -MET Minutes Tracking: Time In: 1015 Time Out: 1045 Minutes: 30 Timed Code Treatment Minutes: 28 Minutes Jeanmarie Roblero PT, DPT Date: 02/02/2022 [facility]: 1(495) 478-583805-03-2022 History of Present illness Narrative* Reagan Quiroz PTA - 01/24/2022 8:00 AM EDT [facility] Daily Note Patient: Leticia Cannon : 1955 CSN #: [id number] Referring Physician: Leatha Perez PA-C Date: 01/24/2022 Diagnosis: Acute R hip pain (M25.551), Bursitis of R hip (M70.71) Treatment Diagnosis: R hip pain Onset Date: 10/24/21 PT Insurance Information: Medicare Total # of Visits Approved: 12 Per Physician Order Total # of Visits to Date: 8 No Show: 0 Canceled Appointment: 0 Pre-Treatment Pain: 0/10 Subjective: Pt denies pain this date or over the weekend, states mornings it feels stiff. Exercises: Exercise 3: hip flexor stretching (L sktc, gentle R overpressure above knee) Exercise 5: SciFIt bike 10 mins 3 Exercise 6: Sideways amb at counter 5 laps GTB, ABD x15ea Exercise 8: 6 FSU/LSU x15ea 2 inch hip hike 10x Exercise 9: Farhad step overs fwd/lat x10ea (small Exercise 10: Bridges, DTKC w/ ball between knees x10-15 Manual: Other: Ball STM 10 mins Modalities: IFC w/ MHP to R hip for 15 mins Assessment Assessment: Continued strengthening of LE with focus on hip ABD musculature, no increases in pain noted. STM with ball performed to R hip w/ no TTP noted near GT. IFC w/ MHP applied to R hip to reduce pain and tightness. Will progress as tolerated. Activity Tolerance Activity Tolerance: Patient tolerated treatment well Patient Education Patient Education: Continue HEP Pt verbalized/demonstrated good understanding: [x] Yes [] No, pt required further clarification. Post Treatment Pain: 0/10 Plan Plan Frequency: 2x/wk Plan weeks: 4 Goals (Total # of Visits to Date: 8) Short Term Goals Time Frame for Short term goals: 3 weeks Short term goal 1: Pt will initiate HEP -MET Short term goal 2: Pt will initiate manual techniques/modalities PRN to assist with decreasing painand improving mobility -MET/Continue Assistant Product Manager Goals Time Frame for senior living goals : 6 weeks terminal make up operator goal 1: Pt will be independent and compliant with HEP. senior living goal 2: Pt will have min/no TTP through R hip surrounding GT to decrease irritation. terminal make up operator goal 3: Pt will improve R hip ext PROM to neutral to improve LE mobility. terminal make up operator goal 4: Pt will improve R hip ABD/ER strength grossly to 4/5 to assist with addressing LEmuscle imbalance. Minutes Tracking: Time In: 806 Time Out: 904 Minutes: 58 Timed Code Treatment Minutes: 56 Minutes Reagan Quiroz PTA Date: 01/24/2022 [facility] Phone: 1(740) 760-112704-27-2022 History of Present illness Narrative* Reagan Quiroz PTA - 01/18/2022 9:30 AM EDT [facility] Daily Note Patient: Leticia Cannon : 1955 CSN #: [id number] Referring Physician: Date: 01/18/2022 Treatment Diagnosis: R hip pain Onset Date: 10/24/21 Total # of Visits Approved: 12 Per Physician Order Total # of Visits to Date: 7 No Show: 0 Canceled Appointment: 0 Pre-Treatment Pain: 0/10 Subjective: Pt reports her hip seems like its really getting better. Pt rates current pain a 0/10. Exercises: Exercise 3: hip flexor stretching (L sktc, gentle R overpressure above knee) Exercise 4: clamshell with YTB 10x2 Exercise 5: SciFIt bike 10 mins 3 Exercise 6: Sideways amb at counter 5 laps GTB Exercise 7: PPT, November 10x ea Exercise 8: FSU/LSU x15ea 2 inch hip hike 10x Exercise 9: Farhad step overs fwd/lat x10ea (small Manual: Other: Ball STM 10 mins Modalities: IFC with MHP 15 mins to R hip for discomfort. Assessment Assessment: Advanced control with strengthening exercises today with fair tolerance noted. Pt conitnues to display tenderness with palpation on R IT band near greater trochanter. Will continue. Activity Tolerance Activity Tolerance: Patient tolerated treatment well Patient Education Patient Education: Ex progressions Pt verbalized/demonstrated good understanding: [x] Yes [] No, pt required further clarification. Post Treatment Pain: 0/10 Plan Plan Frequency: 2x/wk Plan weeks: 4 Goals (Total # of Visits to Date: 7) Short Term Goals Time Frame for Short term goals: 3 weeks Short term goal 1: Pt will initiate HEP -MET Short term goal 2: Pt will initiate manual techniques/modalities PRN to assist with decreasing painand improving mobility -MET/Continue Chcf Goals Time Frame for terminal make up operator goals : 6 weeks terminal make up operator goal 1: Pt will be independent and compliant with HEP. terminal make up operator goal 2: Pt will have min/no TTP through R hip surrounding GT to decrease irritation. terminal make up operator goal 3: Pt will improve R hip ext PROM to neutral to improve LE mobility. terminal make up operator goal 4: Pt will improve R hip ABD/ER strength grossly to 4/5 to assist with addressing LEmuscle imbalance. Minutes Tracking: Time In: 933 Time Out: 1032 Minutes: 58 Timed Code Treatment Minutes: 56 Minutes Reagan Quiroz PTA Date: 01/18/2022 [facility] this [facility] Work Phone: 1(368) 640-390004-25-2022 History of Present illness Narrative* Blanquita Nieto PT - 01/16/2022 7:45 AM EDT [facility] Daily Note Patient: Leticia Cannon : 1955 CSN #: [id number] Referring Practitioner: Date: 01/16/2022 Diagnosis: Acute R hip pain (M25.551), Bursitis of R hip (M70.71) Treatment Diagnosis: R hip pain Onset Date: 10/24/21 PT Insurance Information: Medicare Total # of Visits Approved: 12 Per Physician Order Total # of Visits to Date: 6 No Show: 0 Canceled Appointment: 0 Pre-Treatment Pain: 0/10 Subjective: Pt denies pain upon arrival this date. Pt states [facility] and [facility] good throughout. Exercises: Exercise 3: hip flexor stretching (L sktc, gentle R overpressure above knee) Exercise 5: SciFIt bike 10 mins 3 Exercise 6: Sideways amb at counter 5 laps OTB Exercise 8: FSU/LSU x15ea Exercise 9: Farhad step overs fwd/lat x10ea Manual: Soft Tissue Mobilizaton: Dry needling with 3 needles to piriformis, glute med, glute min.; manual STM following IDN Other: Hip flexor stretching in supine and sidelying Modalities: IFC+MHP x15min R hip for pain Assessment Assessment: Progressed ther ex program within pt tolerance. Pt c/o discomfort in posterior gluteal region with FSU on RLE. Manual hip flexor stretching tolerated well. Hip ext mobility gradually improving. Will progress as tolerated. Activity Tolerance Activity Tolerance: Patient tolerated treatment well Patient Education Patient Education: Ex progressions Pt verbalized/demonstrated good understanding: [x] Yes [] No, pt required further clarification. Post Treatment Pain: 0/10 Plan Plan Frequency: 2x/wk Plan weeks: 4 Goals (Total # of Visits to Date: 6) Short Term Goals Time Frame for Short term goals: 3 weeks Short term goal 1: Pt will initiate HEP -MET Short term goal 2: Pt will initiate manual techniques/modalities PRN to assist with decreasing painand improving mobility -MET/Continue Assistant Product Manager Goals Time Frame for senior living goals : 6 weeks terminal make up operator goal 1: Pt will be independent and compliant with HEP. senior living goal 2: Pt will have min/no TTP through R hip surrounding GT to decrease irritation. terminal make up operator goal 3: Pt will improve R hip ext PROM to neutral to improve LE mobility. senior living goal 4: Pt will improve R hip ABD/ER strength grossly to 4/5 to assist with addressing LEmuscle imbalance. Minutes Tracking: Time In: 744 Time Out: 844 Minutes: 60 Timed Code Treatment Minutes: 58 Minutes Blanquita Nieto PT, DPT Date: 01/16/2022 documented [facility] this [facility] Work Phone: 1(549) 650-821004-20-2022 History of Present illness Narrative* Blanquita Nieto PT - 01/11/2022 8:15 AM EDT [facility] Daily Note Patient: Leticia Cannon : 1955 CSN #: [id number] Referring Practitioner: TO Dutton Referral Date : 12/26/21 Date: 01/11/2022 Diagnosis: Acute R hip pain (M25.551), Bursitis of R hip (M70.71) Treatment Diagnosis: R hip pain Onset Date: 10/24/21 PT Insurance Information: Medicare Total # of Visits Approved: 12 Per Physician Order Total # of Visits to Date: 5 No Show: 0 Canceled Appointment: 0 Pre-Treatment Pain: 0/10 Subjective: Pt denies pain upon arrival. Pt states she has been feeling a lot better. Pt states shestill gets pain with stairs. Exercises: Exercise 5: SciFIt bike 8 mins 3 Exercise 6: Sideways amb at counter 5 laps no band Exercise 7: PPT, November 10x ea Manual: Soft Tissue Mobilizaton: Dry needling with 3 needles to piriformis, glute med, glute min. Heated thermoprobe following to increase blood flow to heal structures. Modalities: Cryotherapy (Minutes\Location): x15min E-stim (parameters): IFC+CP x15min R hip for pain --in L sidelying Assessment Assessment: Pt reports good feedback regarding overall progress with PT thus far. Cont with IDN to R hip, focusing on piriformis, glute med and TFL. Warm thermoprobe for STM to follow IDN. IFC and CPapplied at end of tx for pain. Will progress as tolerated. Activity Tolerance Activity Tolerance: Patient tolerated treatment well Patient Education Patient Education: Reviewed manual techniques Pt verbalized/demonstrated good understanding: [x] Yes [] No, pt required further clarification. Post Treatment Pain: 0/10 Plan Times per week: 2 Plan weeks: 4 Goals (Total # of Visits to Date: 5) Short Term Goals Time Frame for Short term goals: 3 weeks Short term goal 1: Pt will initiate HEP -MET Short term goal 2: Pt will initiate manual techniques/modalities PRN to assist with decreasing painand improving mobility -MET/Continue Chcf Goals Time Frame for senior living goals : 6 weeks senior living goal 1: Pt will be independent and compliant with HEP. terminal make up operator goal 2: Pt will have min/no TTP through R hip surrounding GT to decrease irritation. senior living goal 3: Pt will improve R hip ext PROM to neutral to improve LE mobility. senior living goal 4: Pt will improve R hip ABD/ER strength grossly to 4/5 to assist with addressing LEmuscle imbalance. Minutes Tracking: Time In: 822 Time Out: 924 Minutes: 62 Timed Code Treatment Minutes: 58 Minutes Blanquita Nieto PT, DPT Date: 01/11/2022 documented [facility] this [facility] Phone: 1(527) 327-154404-14-2022 History of Present illness Narrative* Jeanmarie Roblero, PT - 01/05/2022 11:00 AM EDT [facility] Daily Note Patient: Leticia Cannon : 1955 CSN #: [id number] Referring Practitioner: TO Dutton Referral Date : 12/26/21 Date: 01/05/2022 Diagnosis: Acute R hip pain (M25.551), Bursitis of R hip (M70.71) Treatment Diagnosis: R hip pain Onset Date: 10/24/21 PT Insurance Information: Medicare Total # of Visits Approved: 12 Per Physician Order Total # of Visits to Date: 3 No Show: 0 Canceled Appointment: 0 Pre-Treatment Pain: 5/10 Subjective: Pt reports she has been up and down the steps more today so she is feeling some pain. Pt rates current pain a 5/10. Exercises: Exercise 1: HEP: clamshell, hip flexor stretch Exercise 5: SciFIt bike 6 mins 2.5 Manual: Soft Tissue Mobalization: Dry needling with 3 needles to piriformis, glute med, glute min. Heated thermoprobe following to increase blood flow to heal structures. Assessment Assessment: Used dry needling to decrease muscular hypertonus and pain along with heated thermoprobe. Continued with ROM to gently stretch structures. Activity Tolerance Activity Tolerance: Patient Tolerated treatment well Patient Education Patient Education: HEP Pt verbalized/demonstrated good understanding: [x] Yes [] No, pt required further clarification. Post Treatment Pain: 5/10 Plan Times per week: 2 Plan weeks: 4 Goals (Total # of Visits to Date: 3) Short term goals Time Frame for Short term goals: 3 weeks Short term goal 1: Pt will initiate HEP -MET Short term goal 2: Pt will initiate manual techniques/modalities PRN to assist with decreasing painand improving mobility -MET/Continue terminal make up operator goals Time Frame for terminal make up operator goals : 6 weeks terminal make up operator goal 1: Pt will be independent and compliant with HEP. senior living goal 2: Pt will have min/no TTP through R hip surrounding GT to decrease irritation. terminal make up operator goal 3: Pt will improve R hip ext PROM to neutral to improve LE mobility. terminal make up operator goal 4: Pt will improve R hip ABD/ER strength grossly to 4/5 to assist with addressing LEmuscle imbalance. Minutes Tracking: Time In: 1100 Time Out: 1145 Minutes: 45 Timed Code Treatment Minutes: 43 Minutes Jeanmarie Roblero PT, DPT Date: 01/05/2022 documented [facility] this [facility] Phone: 1(464) 416-293404-11-2022 History of Present illness Narrative* Keyur Vital - 01/02/2022 8:30 AM EDT [facility] Daily Note Patient: Leticia Cannon : 1955 CSN #: [id number] Referring Practitioner: TO Dutton Referral Date : 12/26/21 Date: 01/02/2022 Diagnosis: Acute R hip pain (M25.551), Bursitis of R hip (M70.71) Treatment Diagnosis: R hip pain Onset Date: 10/24/21 PT Insurance Information: Medicare Total # of Visits Approved: 12 Per Physician Order Total # of Visits to Date: 2 No Show: 0 Canceled Appointment: 0 Pre-Treatment Pain: 5/10 Exercises: Exercise 3: hip flexor stretching Exercise 4: clamshell with YTB 10x2 Manual: PROM: R hip flexor stretch in sidelying Modalities: Cryotherapy (Minutes\Location): x15min E-stim (parameters): IFC+CP x15min R hip for pain --in L sidelying Assessment Assessment: Pt with moderate pain R hip region. Pain with stairs and walking. Moderate TTP lateral/posterior hip and greater trochanter. Stretching tolerated well. HEP reviewed. Spoke to pt about IDNnet session . IFC/cp for pain control; Activity Tolerance Activity Tolerance: Patient Tolerated treatment well Patient Education Patient Education: HEP Pt verbalized/demonstrated good understanding: [x] Yes [] No, pt required further clarification. Post Treatment Pain: 5/10 Plan Times per week: 2 Plan weeks: 4 Goals (Total # of Visits to Date: 2) Short term goals Time Frame for Short term goals: 3 weeks Short term goal 1: Pt will initiate HEP. Short term goal 2: Pt will initiate manual techniques/modalities PRN to assist with decreasing painand improving mobility. senior living goals Time Frame for senior living goals : 6 weeks terminal make up operator goal 1: Pt will be independent and compliant with HEP. terminal make up operator goal 2: Pt will have min/no TTP through R hip surrounding GT to decrease irritation. senior living goal 3: Pt will improve R hip ext PROM to neutral to improve LE mobility. senior living goal 4: Pt will improve R hip ABD/ER strength grossly to 4/5 to assist with addressing LEmuscle imbalance. Minutes Tracking: Time In: 829 Time Out: 917 Minutes: 48 Timed Code Treatment Minutes: 46 Minutes Keyur Amador Date: 01/02/2022 documented in this [facility] Phone: [email or web address] note* Diagnosis Encounter for screening mammogram for breast cancer documented in this encounter [employer] Phone: evalkkcafa note* Diagnosis Encounter for screening mammogram for malignant neoplasm of breast Other screening mammogram documented in this encounter [employer] Phone: evaluation noteNo [employer] Other Evaluation note* Diagnosis Primary open-angle glaucoma, bilateral, severe stage- Primary Nuclear sclerosis, left Pseudophakia, right eye Lens replaced by other means [facility] Diagnosis Aftercare following surgery of a sense organ- Primary Aftercare following surgery of the sense organs, NEC Primary open-angle glaucoma, bilateral, severe stage Pseudophakia, right eye Lens replaced by other means Nuclear sclerosis, left [facility] Diagnosis Aftercare following surgery of a sense organ- Primary Aftercare following surgery of the sense organs, NEC Primary open-angle glaucoma, bilateral, severe stage Pseudophakia, right eye Lens replaced by other means [facility] Diagnosis Aftercare following surgery of a sense organ- Primary Aftercare following surgery of the sense organs, NEC [facility] Diagnosis Aftercare following surgery of a sense organ- Primary Aftercare following surgery of the sense organs, NEC Primary open-angle glaucoma, bilateral, severe stage Pseudophakia, right eye Lens replaced by other means [facility] Diagnosis Aftercare following surgery of a sense organ- Primary Aftercare following surgery of the sense organs, NEC Primary open-angle glaucoma, bilateral, severe stage [facility] Diagnosis Aftercare following surgery of a sense organ- Primary Aftercare following surgery of the sense organs, NEC Primary open-angle glaucoma, bilateral, severe 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 [facility] Diagnosis Aftercare following surgery of a sense organ- Primary Aftercare following surgery of the sense organs, NEC Primary open-angle glaucoma, bilateral, severe stage [facility] Diagnosis Onset Date Resolution Status Adenomatous polyp of colon a cute Hormone replacement therapy acute IBS (irritable bowel syndrome) acute Screening for colon [facility] n [facility] Work Phone: Evaluation note* Diagnosis Arthritis of left hip- Primary [facility] Diagnosis Preop examination- Primary Unspecified pre-operative examination Osteoarthritis of left hip, unspecified osteoarthritis type Urinary frequency Preop examination Unspecified pre-operative examination Osteoarthritis of left hip, unspecified osteoarthritis type Urinary frequency Preop examination Unspecified pre-operative examination Osteoarthritis of left hip, unspecified osteoarthritis type Urinary frequency documented [facility] Pre-op examination- Primary Arthritis of left hip documented in this encounter [facility] N[facility]ative - Reported* Type Description Date Medical History Migraine with aura, not intractable, without status migrainosus Medical History Hormone replacement therapy Medical History Osteopenia of neck of left femur Medical History Adenomatous polyp of colon, unspecified part of colon Medical History Menopausal symptom Surgical History DILAN/BSO 1995 Surgical History RIGHT BREAST BX 1989 Surgical History APPENDECTOMY 1995 Surgical History ARTHROSCOPY LEFT KNEE 2018 Surgical History Cataract Surgery - right eye Surgical History Retina Surgery - right eye Hospitalization History SEE SURGICAL HX [employer] Other Summary Purpose Family History No Family History Records FoundNo Family History Records FoundNo Family History Records FoundNo Family History Records FoundNo Family History Records FoundNo Family History Records FoundNo Family History Records FoundNo Family History Records Found Advance Directives No Advanced Directives Records FoundDocuments on File Type Date Recorded Patient Tool And Gauge Inspector Expl anation ACP-Advance Directive ACP-Power of Program Administrator Documents on File Type Date Recorded Patient Tool And Gauge Inspector Expl anation ACP-Advance Directive ACP-Power of Program Administrator Advance Directive Response Recorded Date/ Time Advance Directives No October 16, 2023 11:07am Reason for Referral Specialty Diagnoses / Procedures Referred By Contac t Referred To Contact Radiology Diagnoses Encounter for screening mammogram for breast cancer Procedures DEANGELO CASSIUS DIGITAL SCREEN BILATERAL Lorenzo Lindsay MD [address] [facility] [address] [place] [address] Referral ID Status Reason Start Date Expiration Date Visits Re quested Visits Authorized [id number] Closed 10/31/2021 10/31/2022 1 1 Specialty Diagnoses / Procedures Referred By Radha fournier Referred To Contact Radiology Diagnoses Encounter for screening mammogram for malignant neoplasm of breast Procedures DEANGELO CASSIUS DIGITAL SCREEN BILATERAL Tyrone Sanchez DO [address] [facility] [place] [address] Referral ID Status Reason Start Date Expiration Date Visits Re quested Visits Authorized [id number] Closed 12/15/2022 12/15/2023 1 1 Chief Complaint and Reason for Visit Chief Complaint 6 Month Check Up Reason for Visit Adenomatous polyp of colon Hormone replacement therapy IBS (irritable bowel syndrome) Screening for colon cancer Additional Source Comments INFORMATION SOURCE (unrecogn ized section and content) DATE CREATED AUTHOR 07/17/2021 [facility] DATE CREATED AUTHOR AUTHOR'S ORGANIZ ATION 10/26/2022 [facility] DATE CREATED AUTHOR AUTHOR'S ORGANIZ ATION 02/05/2023 [facility] DATE CREATED AUTHOR AUTHOR'S ORGANIZ ATION 02/02/2024 [facility] DATE CREATED AUTHOR AUTHOR'S ORGANIZ ATION 08/07/2024 [facility] DATE CREATED AUTHOR AUTHOR'S ORGANIZ ATION 08/12/2024 [facility] DATE CREATED AUTHOR AUTHOR'S ORGANIZ ATION 08/14/2024 [facility] DATE CREATED AUTHOR AUTHOR'S ORGANIZ ATION 08/17/2024 [facility] EPIC Reason for Visit (unrecogniz ed section and content) Specialty Diagnoses / Procedures Referred By Contac t Referred To Contact Radiology Diagnoses Encounter for screening mammogram for breast cancer Procedures DEANGELO CASSIUS DIGITAL SCREEN BILATERAL Lorenzo Lindsay MD [address] [facility] [address] [place] [address] Referral ID Status Reason Start Date Expiration Date Visits Re quested Visits Authorized [id number] Closed 10/31/2021 10/31/2022 1 1 Specialty Diagnoses / Procedures Referred By Contac t Referred To Contact Radiology Diagnoses Encounter for screening mammogram for malignant neoplasm of breast Procedures DEANGELO CASSIUS DIGITAL SCREEN BILATERAL Tyrone Sanchez, DO [address] [facility] [place] [address] Referral ID Status Reason Start Date Expiration Date Visits Re quested Visits Authorized [id number] Closed 12/15/2022 12/15/2023 1 1 Reason Comments New Patient Specialty Diagnoses / Procedures Referred By Contac t Referred To Contact Ophthalmology Diagnoses Glaucoma of both eyes, [place] [address] [facility] [address] Shalom Méndez MD [address] [place] [address] [address] [place] [address] Referral ID Status Reason Start Date Expiration Date V isits Requested Visits Authorized [id number] New Request 10/09/2023 11/02/2024 1 1 Specialty Diagnoses / Procedures Referred By Contac t Referred To Contact Diagnoses Primary open-angle glaucoma, bilateral, severe stage Primary open-angle glaucoma, bilateral, severe stage [H40.1133] Procedures ME GLAUCOMA SURG,TRABECU AB EXTERNO TRABECULECTOMY Shalom Méndez MD [address] [place] [address] [address] [place] [address] [facility] [address] [place] [address] Referral ID Status Reason Start Date Expiration Date Visits Re quested Visits Authorized [id number] 1 1 Reason Comments Post Op Visit Reason Comments Pain Reason Onset Date Comments surgery 08/04/2024 Reason Comments Pre-op Exam Care Teams (unrecognized sec tion and content) Community Support Specialist Relationship Specialty Start Date End Date Tyrone Sanchez, DO [address] [place] [address] PCP - General 12/31/12 Community Support Specialist Relationship Specialty Start Date End Date Tyrone Sanchez, DO [address] [place] [address] PCP - General 12/31/12 Community Support Specialist Relationship Specialty Start Date End Date Tyrone Sanchez DO [address] [place] [address] PCP - General 12/31/12 Community Support Specialist Relationship Specialty Start Date End Date Tyrone Sanchez DO [address] [place] [address] PCP - General 12/31/12 Community Support Specialist Relationship Specialty Start Date End Date Tyrone Sanchez, DO [address] [place] [address] PCP - General 12/31/12 Community Support Specialist Relationship Specialty Start Date End Date Tyrone Sanchez, DO [address] [place] [address] PCP - General 12/31/12 Community Support Specialist Relationship Specialty Start Date End Date Tyrone Sanchez, DO [address] [place] [address] PCP - General 12/31/12 Community Support Specialist Relationship Specialty Start Date End Date Tyrone Sanchez DO [address] [place] [address] PCP - General 12/31/12 Community Support Specialist Relationship Specialty Start Date End Date Tyrone Sanchez, DO [address] [place] [address] PCP - General 12/31/12 Community Support Specialist Relationship Specialty Start Date End Date Tyrone Sanchez, DO [address] [place] [address] PCP - General 12/31/12 Community Support Specialist Relationship Specialty Start Date End Date Tyrone Sanchez DO [address] [place] [address] PCP - General Internal Medicine 11/07/23 Community Support Specialist Relationship Specialty Start Date End Date Tyrone Sanchez DO [address] [place] [address] PCP - General Internal Medicine 11/07/23 Community Support Specialist Relationship Specialty Start Date End Date Tyrone Sanchez DO [address] [place] [address] PCP - General Internal Medicine 11/07/23 Community Support Specialist Relationship Specialty Start Date End Date Tyrone Sanchez DO [address] [place] [address] PCP - General Internal Medicine 11/07/23 Community Support Specialist Relationship Specialty Start Date End Date Tyrone Sanchez DO [address] [place] [address] PCP - General Internal Medicine 11/07/23 Community Support Specialist Relationship Specialty Start Date End Date DanielTyrone DO [address] [place] [address] PCP - General Internal Medicine 11/07/23 Community Support Specialist Relationship Specialty Start Date End Date Tyrone Sanchez DO [address] [facility] [place] [address] PCP - General Internal Medicine 11/07/23 Team Status: Active Member Role Status Dates Tyrone Sanchez DO Primary Care Provider Active Team Status: Inactive Member Role Status Dates Tyrone Sanchez DO Primary Care Provide r, Attending Provider Active Start: June 13, 2024 End: June 13, 2024 Community Support Specialist Relationship Specialty Start Date End Date Tyrone Sanchez MD [address] [facility] [address] PCP - General Internal Medicine 03/26/24 Community Support Specialist Relationship Specialty Start Date End Date Tyrone Sanchez MD [address] [facility] [place] [address] PCP - General Internal Medicine 03/26/24 Community Support Specialist Relationship Specialty Start Date End Date Tyrone Sanchez MD [address] [facility] [place] [address] PCP - General Internal Medicine 03/26/24 Community Support Specialist Relationship Specialty Start Date End Date Tyrone Sanchez MD [address] [facility] [place] [address] PCP - General Internal Medicine 03/26/24 Community Support Specialist Relationship Specialty Start Date End Date Tyrone Sanchez MD [address] [facility] [place] [address] PCP - General Internal Medicine 03/26/24 Community Support Specialist Relationship Specialty Start Date End Date Tyrone Sanchez MD [address] [facility] [place] [address] PCP - General Internal Medicine 03/26/24 Scheduled Active and Recently Administ ered Medications (unrecognized section and content) Medication Order 12/08/2023 12/09/2023 12/10/2023 cefUROxime intracameral solution 1 mg/0.1 mL (COMPLETED) 0.1 mL, Right Eye Intracameral, ONCE, 1 dose, On Sun12/10/23 at 1145, Intra-op/Intra-Proc 1145 (Due)1237 (Give n - Provider: Shalom Méndez MD) dexAMETHasone (DECADRON) injection 2 mg 2 mg, Subconjunctival, SEE ADMIN INSTRUCTIONS, 1 dose, Starting on Sun12/10/23 at 1135, Until Sun12/10/23 at 1527, Physician to inject into right eye via subconjunctival route once., Intra-op/Intra-Proc MitoMYcin (MUTAMYCIN) 0.4 MG/ML 1 mL syringe 0.1 mL (COMPLETED) 0.1 mL, Right Eye Subconjunctival, ONCE, 1 dose, On Sun12/10/23 at 1145, Instill into right eye and allow to soak., Intra-op/Intra-Proc 1135 (Given - Provid er: Shalom Méndez MD - Comment: mixed with .12 ml 1% PF lidocaine on sterile field)1145 (Due) Moxifloxacin (VIGAMOX) 0.5 % ophthalmic solution 1 drop (COMPLETED) 1 drop, Right Eye, SEE ADMIN INSTRUCTIONS, 3 doses, Starting on Sun12/10/23 at 0945, Until Sun12/10/23 at 1040, Administer every 5 minutes for 3 doses starting 30 minutes pre-procedure., Pre-op/Pre-Proc 1026 (Given - Provid er: Xin Arrieta RN)1032 (Given - Provider: Xin Arrieta RN)1040 (Given - Provider: Xin Arrieta RN) Phenylephrine (MYDFRIN) 2.5 % ophthalmic solution 1 drop (COMPLETED) 1 drop, Right Eye, SEE ADMIN INSTRUCTIONS, 3 doses, Starting on Sun12/10/23 at 0945, Until Sun12/10/23 at 1040, Administer every 5 minutes for 3 doses starting 30 minutes pre-procedure., Pre-op/Pre-Proc 1026 (Given - Provid er: Xin Arrieta RN)1032 (Given - Provider: Xin Arrieta RN)1040 (Given - Provider: Xin Arrieta RN) Continuous Medication Order 12/08/2023 12/09/2023 12/10/2023 Lactated ringers IV solution Intravenous, at 20 mL/hr, CONTINUOUS, Starting on Sun12/10/23 at 1000, Until Sun12/10/23 at 1527, Pre-op/Pre-Proc 1026 ($$New Bag$$ - Provider: Xin Arrieta RN)1308 (Stopped - Provider: Radha Nuñez RN) PRN Medication Order 12/08/2023 12/09/2023 12/10/2023 Acetaminophen (TYLENOL) tablet 650 mg 650 mg, Oral, EVERY 4 HOURS NEEDED, Starting on Sun12/10/23 at 1253, Until Sun12/10/23 at 1527, Mild Pain, Maximum dose of acetaminophen is 4000 mg from all sources in 24 hours., Post-op/Post-Proc balanced salt solution (BSS) ophthalmic irrigation (CANCELED) NEEDED, Starting on Sun12/10/23 at 1132, Until Sun12/10/23 at 1255, Intra-op/Intra-Proc 1132 (Given - Provid er: Shalom Méndez MD)1141 (Given - Provider: Shalom Méndez MD)1146 (Given - Provider: Shalom Méndez MD)1211 (Given - Provider: Shalom Méndez MD)1248 (Given - Provider: hSalom Méndez MD) BUPivacaine/lidocaine/hyaluronida se 10 mL syringe 10 mL (COMPLETED) 10 mL, Retro/Mary bulbar, CELL TECHNICIAN TO PROCEDURE, 1 dose, Starting on Sun12/10/23 at 0945, Until Sun12/10/23 at 1123, Physician to inject into right eye once., Pre-op/Pre-Proc 1123 (Given - Provid er: Shalom Méndez MD) carbachol (MIOSTAT) 0.01 % ophthalmic injection (CANCELED) NEEDED, Starting on Sun12/10/23 at 1202, Until Sun12/10/23 at 1255, Intra-op/Intra-Proc 1202 (Given - Provid er: Shalom Méndez MD) dexAMETHasone (DECADRON) injection (CANCELED) NEEDED, Starting on Sun12/10/23 at 1237, Until Sun12/10/23 at 1255, Intra-op/Intra-Proc 1237 (Given - Provid er: Shalom Méndez MD) fluorescein ophthalmic 1 mg strip (CANCELED) NEEDED, Starting on Sun12/10/23 at 1248, Until Sun12/10/23 at 1255, Intra-op/Intra-Proc 1248 (Given - Provid er: Shalom Méndez MD) Lidocaine 1% (PF) (XYLOCAINE MPF) 1 % injection (CANCELED) NEEDED, Starting on Sun12/10/23 at 1135, Until Sun12/10/23 at 1255, Intra-op/Intra-Proc 1135 (Given - Provid er: Shalom Méndez MD - Comment: mixed with .08 ml [facility] on sterile field) lidocaine 1% buffered in sodium bicarbonate 1-8.4 % injection SOSY 1 mL (COMPLETED) 1 mL, Intradermal, ONCE NEEDED, 1 dose, Starting on Sun12/10/23 at 0945, Until Sun12/10/23 at 1026, Other, Use for peripheral IV insertion, Use when inserting peripheral IV, Pre-op/Pre-Proc 1026 (Given - Provid er: Xin Arrieta RN) Moxifloxacin (VIGAMOX) 0.5 % ophthalmic solution (CANCELED) NEEDED, Starting on Sun12/10/23 at 1253, Until Sun12/10/23 at 1255, Intra-op/Intra-Proc 1253 (Given - Provid er: Shalom Méndez MD) Goals (unrecognized section and content) Goals may be documented in a n alternate section FOR RECORDS PERTAINING TO PATIENTS WHO ARE OR HAVE BEEN ENROLLED IN A CHEMICAL DEPENDENCY/SUBSTANCEABUSE PROGRAM, SOME INFORMATION MAY BE OMITTED. This clinical summary was aggregated from multiple sources. Caution should be exercised in using it in the provision of clinical care. This summary normalizes information from multiple sources, and as a consequence, information in this document may materially change the coding, format and clinical context of patient data. In addition, data may be omitted in some cases. CLINICAL DECISIONS SHOULD BE BASED ON THE PRIMARY CLINICAL RECORDS. [employer] [facility]. provides no warranty or guarantee of the accuracy or completeness of information in this document.
[2024-08-26 09:07] LABS: Basophils Absolute Auto 0.1 10^3/uL (0.0-0.1); Basophils Percent Auto 0.6 % (0.2-2.0); Eosinophils Absolute Auto 0.2 10^3/uL (0.0-0.7); Eosinophils Percent Auto 2.2 % (0.9-7.0); Hematocrit 42.2 % (36.0-48.0); Hemoglobin 13.9 g/dL (12.0-16.0); Immature Granulocytes Abs Auto 0.03 10^3/uL (0.00-0.03); Immature Granulocytes Pct Auto 0.3 % (0.0-0.5); Lymphocytes Absolute Auto 1.2 10^3/uL (1.2-3.8); Lymphocytes Percent Auto 13.6 % (20.5-60.0); Mean Corpuscular HGB Conc 32.9 g/dL (29.9-35.2); Mean Corpuscular Hemoglobin 32.1 pg (26.7-34.0); Mean Corpuscular Volume 97.5 fL (81.0-99.0); Mean Platelet Volume 9.9 fL (9.5-13.5); Monocytes Absolute Auto 0.7 10^3/uL (0.3-0.8); Monocytes Percent Auto 7.6 % (1.7-12.0); Neutrophils Absolute Auto 6.6 10^3/uL (1.4-6.5); Neutrophils Percent Auto 75.7 % (43.0-75.0); Platelet Count 245 10^3/uL (150-450); Red Blood Count 4.33 10^6/uL (4.20-5.40); Red Cell Distribution Width 13.2 % (11.0-15.0); White Blood Count 8.7 10^3/uL (4.0-11.0)
[2024-08-26 09:45] LABS: Alanine Aminotransferase 28 U/L (14-59); Albumin Globulin Ratio 1.1; Albumin Level 3.6 g/dL (3.4-5.0); Alkaline Phosphatase 84 U/L (46-116); Anion Gap 15.1; Aspartate Amino Transferase 19 U/L (15-37); BUN Creatinine Ratio 30.7; Bilirubin Total 0.5 mg/dL (0.2-1.0); Calcium 9.1 mg/dL (8.5-10.1); Chloride 109 mmol/L (98-107); Estimated GFR (African America >60 (>=60 mL/min/1.73m^2); Estimated GFR (Non-African Ame >60 (>=60 mL/min/1.73m^2); Globulin 3.4 g/dL; Glucose 104 mg/dL (74-106); Potassium 4.1 mmol/L (3.5-5.1); Sodium 146 mmol/L (136-145)
== END 2024-08-26 08:51 | disposition home or self-care (01) ==
LOC: LAB 08:51
PROVIDERS: PCP Internal Medicine; Visit Provider Internal Medicine
DX: Z01.812 Encounter for preprocedural laboratory examination (principal); Z01.818 Encounter for other preprocedural examination
CPT/HCPCS: 36415; 80053; 85025

== ENCOUNTER 2025-03-12 10:55 | Outpatient (OUT) | payer MEDICARE, OTHER, SELFPAY ==
--- OUTSIDE RECORDS SUMMARY | 2025-03-12 11:19 | XMS_ITS | CCD ---
Author Organization [facility] Care Team Providers Care Rn Licensed Practical Name Role Phone DANIEL, DR DUFFY Primary Care Unavailable BALL, DR DUFFY Consulting Unavailable DANIEL, DR DUFFY Attending Unavailable BALL, DR DUFFY Admitting Unavailable Luther, Chris Consulting Unavailable DANIEL, DR DUFFY Admitting Unavailable BALL, DR DUFFY Primary Care Unavailable BALL, DR DUFFY Consulting Unavailable BALL, DR DUFFY Attending Unavailable WEST, DR NAHUN Richey Consulting Unavailable Tyrone Sanchez DO Primary Care Provider [phone] Tyrone Sanchez DO Primary Care Provider [phone] MARSHA CASTANEDA Referring Unavai lable NO, PHYSICIAN Primary Care Unavailable JOE GONZALES Attending Chelsey vailable Tyrone Sanchez Unavailable Tyrone Sanchez DO Primary Care Provider [phone] Unavailable Primary Care Provider Unavailabl e Tyrone Sanchez DO Primary Care Provider [phone] TYRONE SANCHEZ Primary Care Unavailable SHALOM MÉNDEZ Attending Unavailable SELF, SELF Referring Unavailable SELF, SELF Referring Unavailable SHALOM MÉNDEZ Attending Unavailable TYRONE SANCHEZ Primary Care Unavailable ABELINO TIMMONS Referring Unavailable SHALOM MÉNDEZ Attending Unavailable SHALOM MÉNDEZ Attending Unavailable SELF, SELF Referring Unavailable SHALOM MÉNDEZ Referring Unavailable TYRONE SANCHEZ Primary Care Unavailable TYRONE SANCHEZ Primary Care Unavailable SHALOM MÉNDEZ Attending Unavailable SELF, SELF Referring Unavailable TYRONE SANCHEZ Primary Care Unavailable SHALOM MÉNDEZ Attending Unavailable SELF, SELF Referring Unavailable TYRONE SANCHEZ Primary Care Unavailable REAGAN HOGUE Attending Unavailable SELF, SELF Referring Unavailable TYRONE SANCHEZ Primary Care Unavailable SHALOM MÉNDEZ Attending Unavailable SELF, SELF Referring Unavailable SHALOM MÉNDEZ Admitting Unavailable SHALOM MÉNDEZ Attending Unavailable BALL, TYRONE Primary Care Unavailable SHALOM MÉNDEZ Attending Unavailable SELF, SELF Referring Unavailable Daniel DODSON, Tyrone August Primary Care Provider Abelino Timmons MD Attending Unavailab le STEPANIC , RAMESH Maxwell Referring Unavailabl e STEPANIC JR, RAMESH Maxwell Referring Unavailabl e STEPANIC JR, RAMESH Maxwell Referring Unavailabl e STEPANIC JR, RAMESH Maxwell Attending Unavailabl e STEPANIC JR, RAMESH Maxwell Referring Unavailabl e STEPANIC JR, RAMESH Maxwell Referring Unavailabl e BALL, TYRONE E Primary Care Unavailable STEPANIC , RAMESH Maxwell Admitting Unavailabl e STEPANIC JR, RAMESH Maxwell Attending Unavailabl e Ball DO, Tyrone Primary Care Provider TYRONE SANCHEZ Primary Care Physician Unavailable Primary Care Provider Unavailabl e BALL, TYRONE Primary Care Unavailable PEREZ, LEATHA Referring Unavailable BALL, TYRONE Primary Care Unavailable PEREZ, LEATHA Referring Unavailable BALL, TYRONE Primary Care Unavailable PEREZ, LEATAH Referring Unavailable BALL, TYRONE Primary Care Unavailable PEREZ, LEATHA Referring Unavailable BALL, TYRONE Primary Care Unavailable PEREZ, LEATHA Referring Unavailable BALL, TYRONE Primary Care Unavailable PEREZ, LEATHA Referring Unavailable BALL, TYRONE Primary Care Unavailable PEREZ, LEATHA Referring Unavailable PEREZ, LEATHA Referring Unavailable BALL, TYRONE Primary Care Unavailable PEREZ, LEATHA Referring Unavailable BALL, TYRONE Primary Care Unavailable PEREZ, LEATHA Referring Unavailable BALL, TYRONE Primary Care Unavailable BALL, TYRONE Primary Care Unavailable PEREZ, LEATHA Referring Unavailable BALL, TYRONE Primary Care Unavailable PEREZ, LEATHA Referring Unavailable BALL, TYRONE Primary Care Unavailable PEREZ, LEATHA Referring Unavailable PEREZ, LEATHA Referring Unavailable BALL, TYRONE Primary Care Unavailable BALL, TYRONE Primary Care Unavailable PEREZ, LEATHA Referring Unavailable BALL, TYRONE Primary Care Unavailable PEREZ, LEATHA Referring Unavailable BALL, TYRONE Primary Care Unavailable PEREZ, LEATHA Referring Unavailable BALL, TYRONE Primary Care Unavailable PEREZ, LEATHA Referring Unavailable BALL, TYRONE Primary Care Unavailable PEREZ, LEATHA Referring Unavailable BALL, TYRONE Primary Care Unavailable EPREZ, LEATHA Referring Unavailable BALL, TYRONE Primary Care Unavailable PEREZ, LEATHA Referring Unavailable BALL, TYRONE Primary Care Unavailable PEREZ, LEATHA Referring Unavailable BALL, TYRONE Primary Care Unavailable PEREZ, LEATHA Referring Unavailable BALL, TYRONE Primary Care Unavailable PEREZ, LEATHA Referring Unavailable BALL, TYRONE Primary Care Unavailable PEREZ, LEATHA Referring Unavailable BALL, TYRONE Primary Care Unavailable PEREZ, LEATHA Referring Unavailable BALL, TYRONE Primary Care Unavailable PEREZ, LEATHA Referring Unavailable PEREZ, LEATHA Referring Unavailable BALL, TYRONE Primary Care Unavailable Ball , Tyrone E Primary Care Provider BEN ARSHAD Attending Matt CHRISTIANSON JR., RAMESH Maxwell Attending LEATHA Gonzalez Attending LEATHA Garcia Referring Matt CHRISTIANSON JR., RAMESH Maxwell Attending Mariela CHRISTIANSON JR., RAMESH Maxwell Attending Unavailcarl CHRISTIANSON JR., RAMESH Maxwell Attending Mariela CHRISTIANSON JR., RAMESH Maxwell Attending UnavailLEATHA Jay Attending BEN Washington Attending BEN Washington Attending Unavailable BEN ARSHAD Referring Heriberto Saab Attending Heriberto Saab Attending TYRONE Spencer Referring Unavailable Allergies Allergy Classification Reported Allergen(s) Allergy Type Date of Onset Reaction(s) Facility (1 source) patient allergy list reviewed by nurse or physicia Propensity to adverse reactions 8 Comment:Done [facility] Other (1 source) Allergies Reconciled Propensity to adverse reactions Unknown [facility] Other (18 sources) Other Propensity to adverse reactions 4 Other [facility] mohchi (11 sources) celecoxib Drug Allergy 4 [facility] (1 source) No Known Medication Allergies; Translations: [No Known Medication Allergies] Propensity to adverse reactions (disorder) [facility] Repository Medications Current Medications Medication Drug Class(es) Dates Sig (Normalized) Sig (Original) acetaminophen 325 mg / oxyCODONE hydrochloride 5 mg oral tablet (5 sources) Opioid Agonist Start: 09-01-2024 End: 09-13-2024 take 1 tablet by mouth every six hours for pain oxyCODONE-acetam inophen (Percocet) 5-325 MG tablet Indications: Post-operative pain , Arthritis of left hip Take 1 tablet by mouth every 6 (six) hours if needed for moderate pain for up to 5 days 20 tablet 09/08/2024 09/13/2024 Active amLODIPine 5 mg oral tablet (15 sources) Dihydropyridine Calcium Channel Marian Start: 11-09-2024 take 1 tablet by mouth once daily Amlodipine 5 mg tablet Active 0 .ROUTE .COMPLEX November 09, 2024 9:43am TAKE 1 TABLET BY MOUTH EVERY DAY Start: 08-18-2024 End: 11-09-2024 take 1 tablet by mouth in the morning amLODIPine (Norvasc) 5 MG tablet Take 5 mg by mouth in the morning. 08/18/2024 Active ascorbic acid 500 mg oral capsule (12 sources) Vitamin C Start: 01-30-2025 Ascorbic Acid (Vitamin C) 500 mg capsule Active MG PO January 30, 2025 12:00am ascorbic acid (V itamin C) 250 MG chewable tablet Chew 250 mg in the morning. Active aspirin 81 mg delayed release oral tablet (2 sources) Platelet Aggregation Inhibitor, Nonsteroidal Anti-inflammatory Drug Start: 09-03-2024 End: 10-03-2024 take 1 tablet by mouth in the morning aspirin 81 MG EC tablet Take 81 mg by mouth in the morning and 81 mg in the evening. 09/03/2024 10/03/2024 Active bimatoprost 0.1 mg/ml ophthalmic solution (20 sources) Prostaglandin Analog Start: 02-11-2025 take 1 drop(s) into the eye(s) once daily at bedtime Lumigan 0.01% ophthalmic solution 1 drop(s), Eye-Both, Once a day (at bedtime), Refill(s) 0 Start Date: 02/11/25 Status: Ordered Repeat number: 1 Start: 01-30-2025 take 0.01 drop(s) in to the eye(s) once daily Bimatoprost (Lumigan) 0.01 % drops Active 1 DROPS EYE-BOTH Daily January 30, 2025 12:00am take 1 drop(s) into the eye(s) at bedtime Lumigan 0.01 % ophthalmic solution Administer 1 drop into affected eye(s) at bedtime Active brimonidine tartrate 2 mg/ml ophthalmic solution (20 sources) alpha-Adrenergic Agonist Start: 02-11-2025 take 1 drop(s) into the eye(s) three times daily brimonidine Opth 0.2% Camila 1 drop(s), Eye-Both, TID, Refill(s) 0 Start Date: 02/11/25 Status: Ordered Repeat number: 1 take 1 drop(s) into the eye(s) three times daily brimonidine (AlphaGAN P) 0.2 % ophthalmi c solution ONE DROP IN EACH EYE THREE [...] times daily. Use in affected eye(s). Active Brimonidine 0.1 % drops (1 source) Start: 01-30-2025 Brimonidine 0.1 % drops Active 1 DROPS EYE-BOTH Three times daily January 30, 2025 12:00am administer approximately 8 hours apart celecoxib 200 mg oral capsule (3 sources) Nonsteroidal Anti-inflammatory Drug Start: 04-21-2024 End: 05-21-2024 take 1 capsule by mouth once daily at mealtime celecoxib (CeleBREX) 200 MG capsule Indications: Arthritis of left hip Take 1 capsule (200 mg) by mouth Daily Take with food 30 capsule 04/21/2024 05/21/2024 Active dicyclomine hydrochloride 10 mg oral capsule (8 sources) Anticholinergic Start: 09-29-2024 take 1 capsule by mouth four times daily as needed for pain dicyclomine 10 mg Cap 10 mg = 1 cap(s), Oral, QID, PRN abdominal pain, Refills(s) 0 Start Date: 09/29/24 Status: Ordered Repeat number: 1 Start: 06-13-2024 End: 01-30-2025 take 1 tablet by mouth three times daily as needed for pain Dicyclomine 20 mg tablet Discontinued 20 MG PO Three times daily as needed for abdominal pain June 13, 2024 12:00am January 30, 2025 8:36am Start: 12-03-2023 End: 06-13-2024 take 1 capsule by mouth four times daily Dicyclomine 10 mg capsule Discontinued 10 MG PO Four times daily June 13, 2024 2:41pm June 13, 2024 2:41pm dorzolamide 20 mg/ml ophthalmic solution (1 source) Carbonic Anhydrase Inhibitor Start: 01-30-2025 take 1 drop(s) into the eye(s) three times daily Dorzolamide 2 % drops Active 1 DROPS EYE-BOTH Three times daily January 30, 2025 12:00am dorzolamide 20 mg/ml / timolol 5 mg/ml ophthalmic solution (20 sources) Carbonic Anhydrase Inhibitor, beta-Adrenergic Marian Start: 09-29-2024 dorzolamide-timolo l Opth 2%-0.5% Camila Refill(s) 0, 0 Refill(s), INSTILL 1 DROP INTO EACH EYE THREE TIMES A DAY Start Date: 09/29/24 Status: Ordered Repeat number: 1 End: 08-14-2024 dorzolamide-timolol (Cosopt) 2-0.5 % ophthalmic solution INSTILL 1 DROP INTO EACH EYE THREE TIMES A DAY 08/14/2024 Discontinued dorzolamide-franci lol 2-0.5 % Solution ophthalmic solution Place 1 drop in left eye 3 times daily. Active Electrolytes-Dextrose solution (1 source) Start: 01-30-2025 Electrolytes-Dextrose solution Active 5 ML PO Q15M as needed January 30, 2025 12:00am until vomiting and/or diarrhea resolve for no more than 4 hours duration estradiol 0.5 mg oral tablet (20 sources) Estrogen Start: 10-10-2024 take 1 tablet by mouth every other day Estradiol 0.5 mg tablet Active 0 .ROUTE .COMPLEX October 10, 2024 3:03pm TAKE 1 TABLET BY MOUTH EVERY OTHER DAY 30 Start: 10-04-2021 End: 10-10-2024 estradiol 0.5 mg Tab 0 Refil l(s), TAKE 1 TABLET BY MOUTH EVERY OTHER DAY 30, Refills(s) 0 Start Date: 09/29/24 Status: Ordered Repeat number: 1 take 1 tablet by landon th once daily Estradiol 0.5 MG tablet Take 1 tablet by mouth daily. Active ketorolac tromethamine 5 mg/ml ophthalmic solution (20 sources) Nonsteroidal Anti-inflammatory Drug, Cyclooxygenase Inhibitor Start: 02-11-2025 ketorolac Opth 0.5% Camila 1 drop(s), Eye-Right, TID, Refill(s) 0 Start Date: 02/11/25 Status: Ordered Repeat number: 1 take 1 drop(s) into the eye(s) three times daily ketorolac (Acular) 0.5 % ophthalmic solution INSTILL 1 DROP INTO RIGHT EYE 3 TIMES A DAY Active take 1 drop(s) into the eye(s) twice daily ketorolac 0.5 % Solution ophthalmic solution Place 1 drop in right eye 2 times daily. Active lactobacillus acidophilus [id number] unt / pectin 100 mg oral tablet (11 sources) Lactobacillus Ac id-Pectin (Acidophilus/Murtaugh Pectin) tablet Take 1 tablet by mouth in the morning and 1 tablet at noon and 1 tablet in the evening. Take with meals. Active Misc. Devices misc (20 sources) Start: 09-22-2024 End: 11-21-2024 Misc. Devices misc Indicatio ns: Arthritis of left hip Hospital bed, deliver to home (CONTINUE PREVIOUS RX FOR ADDITIONAL 2 MONTHS) 2 Units 09/22/2024 11/21/2024 Active Start: 08-14-2024 Misc. Devices misc Indications: Pre-op examination , Arthritis of left hip Hospital bed, deliver to home 1 Units 08/14/2024 Active naproxen sodium 220 mg oral capsule (4 sources) Nonsteroidal Anti-inflammatory Drug take 1 capsule by mouth in the morning, then take 1 capsule by mouth at mealtime naproxen sodium (ALEVE) 220 mg capsule Take 1 capsule (220 mg total) by mouth in the morning and 1 capsule (220 mg total) in the evening. Take with meals. Active End: 05-19-2024 naproxen sodium (Aleve) 220 MG tablet every 12 (twelve) hours 05/19/2024 Discontinued (Therapy completed) SUMAtriptan 100 mg oral tablet (20 sources) Serotonin-1b and Serotonin-1d Receptor Agonist Start: 10-27-2024 SUMAtriptan 100 mg Tab 9 EA, 0 Refill(s), TAKE 1 TABLET BY MOUTH NEEDED MAY REPEAT IN 2 HOURS IF NEEDED 30, Refills(s) 0 Start Date: 10/27/24 Status: Ordered Repeat number: 1 Start: 09-14-2024 SUMAtriptan (I mitrex) 100 MG tablet 09/14/2024 Active Start: 01-02-2024 End: 01-30-2025 take 1 tablet by mouth every two hours as needed Sumatriptan Succinate 100 mg tablet Discontinued 0 .ROUTE .COMPLEX August 16, 2024 12:45pm January 30, 2025 8:37am TAKE 1 TABLET BY MOUTH NEEDED MAY REPEAT IN 2 HOURS IF NEEDED 30 Start: 11-29-2023 End: 01-02-2024 take 1 tablet by mouth once Sumatriptan Succinate 100 mg tablet Discontinued 100 MG PO Once November 29, 2023 [...] right eye via subconjunctival route once., Intra-op/Intra-Proc folic acid 1 mg / polysaccharide iron complex 150 mg / vitamin b12 0.025 mg oral capsule (8 sources) Vitamin B12 Start: 08-14-2024 End: 09-15-2024 take 1 tablet by mouth once daily Iron Polysacch [id number] (Poly-Iron 150 Forte) 150-0.025-1 MG capsule Indications: Pre-op examination , Arthritis of left hip Take 1 tablet by mouth Daily 30 capsule 1 08/14/2024 09/15/2024 Discontinued (Therapy completed) lidocaine 1% buffered in sodium bicarbonate 1-8.4 % injection SOSY 1 mL (1 source) Start: 12-10-2023 End: 12-10-2023 take 1 dose intravenously once 1 mL, Intradermal, ONCE NEEDED, 1 dose, Starting on Sun12/10/23 at 0945, Until Sun12/10/23 at 1026, Other, Use for peripheral IV insertion, Use when inserting peripheral IV, Pre-op/Pre-Proc meloxicam 15 mg oral tablet (3 sources) Nonsteroidal Anti-inflammatory Drug Start: 03-26-2024 End: 05-25-2024 take 1 tablet by mouth once daily at mealtime meloxicam (Mobic) 15 MG tablet Indications: Arthritis of left hip Take 1 tablet (15 mg) by mouth Daily Take with food 30 tablet 1 03/26/2024 05/19/2024 Discontinued (Therapy completed) moxifloxacin 5 mg/ml ophthalmic solution (1 source) [...] awake. 15 mL 1 12/14/2023 12/27/2023 Discontinued predniSONE 10 mg oral tablet (9 sources) Start: 07-25-2024 End: 09-15-2024 predniSONE (Deltasone) 10 MG tablet PLEASE SEE ATTACHED FOR DETAILED DIRECTIONS 07/25/2024 09/15/2024 Discontinued (Therapy completed) Problems Active Problems Problem Classification Problem Date [...] cataract surgery, right eye] Onset: 10-26-2022 Episodic Diseases of white blood cells (1 source) Neutrophilia; Translations: [Other elevated white blood cell count] 08-18-2024 Chronic Disorders of lipid metabolism (5 sources) Hyperlipidemia; Translations: [Hyperlipidemia, unspecified] Onset: 11-13-2016 11-29-2023 Chronic Essential hypertension (1 source) Hypertensive disorder; Translations: [Essential (primary) hypertension] 08-18-2024 Chronic Genitourinary symptoms and ill-defined conditions (4 sources) Dysuria; Translations: [Dysuria] Onset: 08-12-2024 08-12-2024 Episodic Glaucoma (13 sources) Primary open angle glaucoma; Translations: [Primary open-angle glaucoma, bilateral, severe stage] Onset: 11-05-2023 10-25-2023 Chronic Headache; including migraine (8 sources) Migraine, unspecified, not intractable, without status migrainosus; Translations: [Migraine with aura] Onset: 11-07-2017 Chronic Headache; including migraine (1 source) Headache; Translations: [Headache, unspecified] Episodic Menopausal disorders (5 sources) Menopausal symptom; Translations: [Menopausal and female climacteric states] Onset: 04-30-2018 Chronic Menopausal disorders (5 sources) Hormone replacement therapy; Translations: [Drug therapy finding] Onset: 11-03-2020 11-29-2023 Episodic Osteoarthritis (20 sources) Osteoarthritis of left hip joint; Translations: [Unilateral primary osteoarthritis, left hip] Onset: 08-12-2024 06-02-2024 Chronic Osteoporosis (1 source) Primary osteoporosis; Translations: [Age-related osteoporosis without current pathological fracture] Onset: 12-31-2018 Chronic Other aftercare (1 source) Long-term current use of drug therapy; Translations: [Other alf (current) drug therapy] Episodic Other aftercare (7 [...] unspecified] Episodic Other and unspecified benign neoplasm (2 sources) Adenomatous polyp of colon ; Translations: [Benign neoplasm of colon, unspecified] 11-30-2023 Episodic Other and unspecified benign neoplasm (2 sources) Benign neoplasm of colon, unspecified; Translations: [Benign neoplasm of colon] 06-13-2024 Episodic Other and unspecified benign neoplasm (2 sources) History of polyp of colon 09-29-2024 Episodic Other bone disease and musculoskeletal deformities (3 sources) Other specified disorders of bone density and structure, left thigh; Translations: [Osteopenia of neck of left femur] Episodic Other bone disease and musculoskeletal deformities (4 sources) Osteopenia; Translations: [Other specified disorders of bone density and structure, left thigh] 11-29-2023 Episodic Other circulatory disease (1 source) Elevated blood-pressure reading, without diagnosis of hypertension Episodic Other congenital anomalies (2 sources) Congenital pes planus; Translations: [Congenital pes planus] Onset: 12-28-2014 Chronic Other connective tissue disease (15 sources) History of repair of hip joint; Translations: [Presence of left artificial hip joint] Onset: 09-04-2024 09-04-2024 Chronic Other connective tissue disease (8 sources) History of total hip arthroplasty; Translations: [Presence of left artificial hip joint] 09-15-2024 Chronic Other connective tissue disease (2 sources) Presence of left artificial hip joint; Translations: [Presence of left artificial hip joint] Onset: 12-09-2024 Chronic Other gastrointestinal disorders (6 sources) Irritable bowel syndrome; Translations: [Irritable bowel syndrome without diarrhea] Onset: 11-24-2013 11-29-2023 Chronic Other gastrointestinal disorders (2 sources) Irritable bowel syndrome without diarrhea; Translations: [Irritable bowel syndrome] 06-13-2024 Chronic Other injuries and conditions due to external causes (1 source) History of fall; Translations: [History of falling] Episodic Other lower respiratory disease (1 source) Cough; Translations: [COUGH] Onset: 04-28-2021 Episodic Other nervous system disorders (15 sources) Difficulty walking; Translations: [Difficulty in walking, not elsewhere classified] Onset: 09-04-2024 09-04-2024 Chronic Other nervous system disorders (2 sources) Postoperative pain ; Translations: [Other acute postprocedural pain] 09-01-2024 Episodic Other non-traumatic joint disorders (2 sources) Arthritis of left hip 08-14-2024 Chronic Other non-traumatic joint disorders (20 sources) Hip pain; Translations: [Pain in left hip] Onset: 09-04-2024 06-02-2024 Episodic Other non-traumatic joint disorders (1 source) Pain in left hip; Translations: [Pain in left hip] Onset: 09-01-2024 Episodic Other nutritional; endocrine; and metabolic disorders (1 source) Overweight Episodic Other nutritional; endocrine; and metabolic disorders (3 sources) Overweight; Translations: [Overweight] 09-29-2024 Episodic Other nutritional; endocrine; and metabolic disorders (1 source) Overweight in adulthood with body mass index of 25 or more but less than 30 03-04-2025 Episodic Other screening for suspected conditions (not mental disorders or infectious disease) (12 sources) Encounter for screening mammogram for malignant [...] [Acute frontal sinusitis, unspecified] Onset: 11-24-2013 Episodic Residual codes; unclassified (2 sources) Family history of cancer of colon; Translations: [Family history of malignant neoplasm of digestive organs] 06-13-2024 Episodic Residual codes; unclassified (1 source) Family history of malignant neoplasm of digestive organ; Translations: [Family history of malignant neoplasm of digestive organs] Onset: 03-04-2025 Episodic Retinal detachments; defects; vascular occlusion; and retinopathy (3 sources) Cystoid macular edema of right retina; 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, right eye] Onset: 01-10-2024 01-10-2024 Chronic Unclassified (2 sources) Post Op Visit; Translations: [Post Op Visit] Onset: 01-31-2024 Unclassified (2 sources) New Patient; Translations: [New Patient] Onset: 10-25-2023 Unclassified (3 sources) Preprocedural examination done 08-14-2024 Unclassified (1 source) left hip degenerative joint disease Onset: 09-02-2024 Past or Other Problems Problem Classification Problem Date Documented Da te Episodic/Chronic Allergic reactions (1 source) Allergic contact dermatitis due to plants, except food; Translations: [Allergic contact dermatitis due to plants, except food] Onset: 04-18-2019 Episodic Bacterial infection; unspecified site (1 source) Bacterial infectious disease; Translations: [Bacterial infection, unspecified, in conditions classified elsewhere and of unspecified site] Onset: 09-16-2018 Episodic Malaise and fatigue (2 sources) Other fatigue; Translations: [Malaise and fatigue] Onset: 12-11-2018 Episodic Other aftercare (1 source) Other alf (current) drug therapy; Translations: [OTH NURSING HOME CURRENT DRUG THERAPY] Onset: 11-03-2020 Episodic Other [...] source) Flushing; Translations: [Flushing] Onset: 11-24-2013 Episodic Unclassified (20 sources) Onset: 10-31-2021 10-31-2021 Results Test Name Value Interpretation Reference Range Facility Ambulatory Visit Summaryon 0 03-04-2025 Ambulatory Visit Summary Ambulatory Visit Summary LETICIA CANNON :1955 Visit Date:03/04/2025 Ambulatory Visit Instructions Your Diagnosis Family history of colon cancer in mother Your Care Team Attending Physician - MELVA DODSNO, Heriberto Narayanan Primary Care Physician - DANIEL HICKS, TYRONE This Is Your Medications List Contact prescribing physician if questions or concerns amlodipine (amLODIPine 5 mg Tab) bimatoprost ophthalmic (Lumigan 0.01% ophthalmic solution) brimonidine ophthalmic (brimonidine Opth 0.2% Camila) dicyclomine (dicyclomine 10 mg Cap) dorzolamide-timolol ophthalmic (dorzolamide-timolol Opth 2%-0.5% Camila) estradiol (estradiol 0.5 mg Tab) ketorolac ophthalmic (ketorolac Opth 0.5% Camila) sumatriptan (SUMAtriptan 100 mg Tab) Procedures Performed Colonoscopy (01/22/2019), Arthroplasty of left hip, Arthroplasty of right hip, Arthroscopy of knee, Biopsy of breast, Cataract extraction, Colonoscopy, Reattachment of retina, DILAN BSO - Total abdominal hysterectomy and bilateral salpingo-oophorectom y, Trabeculectomy. Discharge Vitals Heart Rate (Peripheral) 72 Respiratory Rate 16 Blood Pressure 128/82 Height 160 cm Height 63 in Weight 73.3 kg Weight 161.599 lb BMI 28.63 Medications What How Much When Instructions Unchanged amlodipine (amLODIPine 5 mg Tab) 30 EA, 0 Refill(s), TAKE 1 TABLET BY MOUTH EVERY DAY Contact prescribing physician if questions or concerns Unchanged bimatoprost ophthalmic (Lumigan 0.01% ophthalmic solution) 1 Drops Both eyes Once a day (at bedtime) Contact prescribing physician if questions or concerns Unchanged brimonidine ophthalmic (brimonidine Opth 0.2% Camila) 1 Drops Both eyes 3 times a day Contact prescribing physician if questions or concerns Unchanged dicyclomine (dicyclomine 10 mg Cap) 1 Capsules By Mouth 4 times a day as needed for abdominal pain Contact prescribing physician if questions or concerns Unchanged dorzolamide-timolol ophthalmic (dorzolamide-timolol Opth 2%-0.5% Camila) 0 Refill(s), INSTILL 1 DROP INTO EACH EYE THREE TIMES A DAY Contact prescribing physician if questions or concerns Unchanged estradiol (estradiol 0.5 mg Tab) 0 Refill(s), TAKE 1 TABLET BY MOUTH EVERY OTHER DAY 30 Contact prescribing physician if questions or concerns Unchanged ketorolac ophthalmic (ketorolac Opth 0.5% Camila) 1 Drops Right eye 3 times a day Contact prescribing physician if questions or concerns Unchanged sumatriptan (SUMAtriptan 100 mg Tab) 9 EA, 0 Refill(s), TAKE 1 TABLET BY MOUTH NEEDED MAY REPEAT IN 2 HOURS IF NEEDED 30 Contact prescribing physician if questions or concerns Allergies No Known Allergies No Known Medication Allergies Problems Ongoing - Any problem that you are currently receiving treatment for. BMI 28.0-28.9,adult Family history of colon cancer in mother Glaucoma History of colon polyps Hyperlipidemia IBS (irritable bowel syndrome) Migraine Osteopenia Overweight Patient Survey You may receive a survey via text or e-mail asking about your office visit. Please share your experience with us by completing your survey. We appreciate your feedback and thank you for choosing us for your care. Normal [facility] XR Hip - left 3 Viewson 09-25 Imaging Result: 10/13/2024: AP and lateral of left hip showed acceptable position and alignment of left total hip arthroplasty. There was no evidence of loosening of the acetabular cup or femoral stem. Femoral head was well centered in the acetabular liner without evidence of asymmetric or accelerated wear. There was no gross evidence of fracture and/or dislocation. Impression: Unremarkable left total hip arthroplasty. 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 Comment on above: Performed By: #### H H #### [facility] ([id number]) [address] [place] [address] HGB AND HCTon 09-02-2024 Hematocrit (Bld) [Volume fraction] 35.9 % Normal 35-47 [facility] Comment on above: Performed By: #### H H #### [facility] ([id number]) [address] [place] [address] Hemoglobin (Bld) [Mass/Vol] 12.3 g/dL Normal 11.7-15.5 [facility] Comment on above: Performed By: #### H H #### [facility] ([id number]) [address] [place] [address] XR HIP LT 2-3 VIEWS W OR WO PELVISon 09-02-2024 XR HIP LT 2-3 VIEWS W OR WO PELVIS XR HIP LT 2-3 VIEWS W OR WO PELVIS XR HIP LT 2-3 VIEWS W OR WO PELVIS HISTORY: Postoperative assessment, pain COMPARISON: Left hip radiograph 08/12/2024 IMPRESSION: * Postprocedural changes following placement of left total hip arthroplasty. No acute hardware abnormality or periprosthetic fracture. * Surgical clips overlie the left lateral thigh with small volume postprocedural subcutaneous gas. Approved by Resident Yassine Lerma DO on 09/02/2024 4:47 PM I, Jerman Maxwell MD have personally reviewed the image(s) and agree with and/or edited the report Finalized by Jerman Maxwell MD on 09/02/2024 5:20 PM Normal [facility] Bacteria identified Cx Nom ( U)on 08-13-2024 Service comment (Unsp spec) [Interp] 50-100,000 ORGANISMS/ML NORMAL UROGENITAL PATY [facility] XR HIP LT 2-3 VIEWS W [...] Reynoso DO on 08/13/2024 2:54 PM Normal [facility] XR Pelvis and Hip - left 2 [...] Abhinav Reynoso DO on 08/13/2024 2:[address] [facility] XR Pelvis and Hip - left 2 V iewsOrdered By: Abhinav Reynoso on 08-13-2024 [employer] [facility] Work Phone: CBC AND AUTO DIFFon 08-12-20 24 ABSOLUTE BASOPHIL 0.1 X10E9/L Normal 0.0-0.2 [facility] Comment on above: Performed By: #### C BCA #### [facility] ([id number]) [address], [address] [place] [address] ABSOLUTE NEUTROPHIL 16.8 X10E9/L High 1.5-6.6 [facility] Comment on above: Performed By: #### C BCA #### [facility] ([id number]) [address], [address] [place] [address] Basophils/100 WBC (Bld) 0.6 % Normal [facility] Comment on above: Performed By: #### C BCA #### [facility] ([id number]) [address], [address] [place] [address] Eosinophils (Bld) [#/Vol] 0.0 10*3/uL Normal 0.0-0.4 [facility] Comment on above: Performed By: #### C BCA #### [facility] ([id number]) [address], [address] [place] [address] Eosinophils/100 WBC (Bld) 0.0 % Normal [facility] Comment on above: Performed By: #### C BCA #### [facility] ([id number]) [address], [address] [place] [address] Erythrocyte distribution width (RBC) [Ratio] 13.7 % Normal 11.5-15.0 [facility] Comment on above: Performed By: #### C BCA #### [facility] ([id number]) [address], [address] [place] [address] Hematocrit (Bld) [Volume fraction] 40.9 % Normal 35-47 [facility] Comment on above: Performed By: #### C BCA #### [facility] ([id number]) [address], [address] [place] [address] Hemoglobin (Bld) [Mass/Vol] 14.3 g/dL Normal 11.7-15.5 [facility] Comment on above: Performed By: #### C BCA #### [facility] ([id number]) [address], [address] [place] [address] Lymphocytes (Bld) [#/Vol] 0.8 10*3/uL Low 1.0-3.5 [facility] Comment on above: Performed By: #### C BCA #### [facility] ([id number]) [address], [address] [place] [address] Lymphocytes/100 WBC (Bld) 4.4 % Normal [facility] Comment on above: Performed By: #### C BCA #### [facility] ([id number]) [address] [place] [address] MCH (RBC) [Entitic mass] 32.9 pg Normal 27-34 [facility] Comment on above: Performed By: #### C BCA #### [facility] ([id number]) [address] [place] [address] MCHC (RBC) [Mass/Vol] 34.9 g/dL Normal 32-36 [facility] Comment on above: Performed By: #### C BCA #### [facility] ([id number]) [address], [address] [place] [address] MCV (RBC) [Entitic vol] 94 fL Normal 80-100 [facility] Comment on above: Performed By: #### C BCA #### [facility] ([id number]) [address], [address] [place] [address] Monocytes (Bld) [#/Vol] 0.2 10*3/uL Normal 0-0.9 [facility] Comment on above: Performed By: #### C BCA #### [facility] ([id number]) [address], [address] [place] [address] Monocytes/100 WBC (Bld) 1.2 % Normal [facility] Comment on above: Performed By: #### C BCA #### [facility] ([id number]) [address], [address] [place] [address] Neutrophils/100 WBC (Bld) 93.8 % Normal [facility] Comment on above: Performed By: #### C BCA #### [facility] ([id number]) [address] [place] [address] Platelet mean volume (Bld) [Entitic vol] 9.1 fL Normal 7-12 [facility] Comment on above: Performed By: #### C BCA #### [facility] ([id number]) [address] [place] [address] Platelets (Bld) [#/Vol] 310 10*3/uL Normal 150-450 [facility] Comment on above: Performed By: #### C BCA #### [facility] ([id number]) [address] [place] [address] RBC COUNT 4.35 X10E12/L Normal 3.80-5.20 [facility] Comment on above: Performed By: #### C BCA #### [facility] ([id number]) [address] [place] [address] WBC (Bld) [#/Vol] 17.9 10*3/uL High 4.0-11.0 [facility] Comment on above: Performed By: #### C BCA #### [facility] ([id number]) [address] [place] [address] CBC W Auto Differential pane l (Bld)on 08-12-2024 ABSOLUTE BASOPHIL 0.1 [facility] Comment on above: PERFORMED AT [facility] [address],[place] [address] Basophils/100 WBC (Bld) 0.6 % [facility] Eosinophils (Bld) [#/Vol] 0 10*3/uL [facility] Eosinophils/100 WBC (Bld) 0 % [facility] Erythrocyte distribution width (RBC) [Ratio] 13.7 % 11.5 - 15.0 % [facility] Hematocrit (Bld) [Volume fraction] 40.9 % 35 - 47 % [facility] Healthcar e Hemoglobin (Bld) [Mass/Vol] 14.3 g/dL 11.7 - 15.5 g/dL [facility] Interpretation and review of laboratory results Abnormal [facility] Lymphocytes (Bld) [#/Vol] 0.8 10*3/uL Low [facility] Lymphocytes/100 WBC (Bld) 4.4 % [facility] MCH (RBC) [Entitic mass] 32.9 pg 27 - 34 pg [facility] MCHC (RBC) [Mass/Vol] 34.9 g/dL 32 - 36 g/dL [facility] MCV (RBC) [Entitic vol] 94 fL 80 - 100 fL [facility] Monocytes (Bld) [#/Vol] 0.2 10*3/uL [facility] Monocytes/100 WBC (Bld) 1.2 % [facility] Neutrophils (Bld) [#/Vol] 16.8 10*3/uL High [facility] Neutrophils/100 WBC (Bld) 93.8 % [facility] Platelet mean volume (Bld) [Entitic vol] 9.1 fL 7 - 12 fL [facility] Platelets (Bld) [#/Vol] 310 10*3/uL [facility] RBC (Bld) [#/Vol] 4.35 10*6/uL [facility] WBC corrected for nucl RBC Auto (Bld) [#/Vol] 17.9 High [facility] e CBC auto differentialon 07-25 Basophils (Bld) [#/Vol] 0.1 10*3/uL [facility] Basophils/100 WBC (Bld) 0.6 % [facility] Eosinophils (Bld) [#/Vol] 0 10*3/uL [facility] Eosinophils/100 WBC (Bld) 0 % [facility] Erythrocyte distribution width (RBC) [Ratio] 13.7 % 11.5 - 15.0 % [facility] Hematocrit (Bld) [Volume fraction] 40.9 % 35 - 47 % [facility] Hemoglobin (Bld) [Mass/Vol] 14.3 g/dL 11.7 - 15.5 g/dL [facility] Interpretation and review of laboratory results Abnormal [facility] Lymphocytes (Bld) [#/Vol] 0.8 10*3/uL Low [facility] Lymphocytes/100 WBC (Bld) 4.4 % [facility] MCH (RBC) [Entitic mass] 32.9 pg 27 - [address] [facility] MCHC (RBC) [Mass/Vol] 34.9 g/dL 32 - 36 g/dL [facility] MCV (RBC) [Entitic vol] 94 fL 80 - [address] [facility] Monocytes (Bld) [#/Vol] 0.2 10*3/uL [facility] Monocytes/100 WBC (Bld) 1.2 % [facility] Neutrophils (Bld) [#/Vol] 16.8 10*3/uL High [facility] Neutrophils/100 WBC (Bld) 93.8 % [facility] Platelet mean volume (Bld) [Entitic vol] 9.1 fL 7 - 12 fL [facility] Platelets (Bld) [#/Vol] 310 10*3/uL [facility] RBC (Bld) [#/Vol] 4.35 10*6/uL [facility] WBC corrected for nucl RBC Auto (Bld) [#/Vol] 17.[address] [facility] ECG 12 leadon 08-12-2024 TRACEMASTERVUE [facility] URINALYSISon 08-12-2024 Bilirubin Ql (U) Negative Normal NEG [facility] Comment on above: Performed By: #### U A #### [facility] ([id number]) [address] [place] [address] BLOOD/HGB Small Abnormal NEG [facility] Comment on above: Performed By: #### U A #### [facility] ([id number]) [address] [place] [address] Color (U) YELLOW Normal YELLOW [facility] Comment on above: Performed By: #### U A #### [facility] ([id number]) [address] [place] [address] Glucose Ql (U) Negative Normal NEG [facility] Comment on above: Performed By: #### U A #### [facility] ([id number]) [address] [place] [address] Ketones Ql (U) Negative Normal NEG [facility] Comment on above: Performed By: #### U A #### [facility] ([id number]) [address] [place] [address] Leukocyte esterase Test strip Ql (U) Negative Normal NEG [facility] Comment on above: Performed By: #### U A #### [facility] ([id number]) [address] [place] [address] MUCOUS PRESENT Abnormal NONE [facility] Comment on above: Performed By: #### U A #### [facility] ([id number]) [address] [place] [address] Nitrite Ql (U) Negative Normal NEG [facility] Comment on above: Performed By: #### U A #### [facility] ([id number]) [address] [place] [address] pH (U) 6.0 [pH] Normal 5.0-8.5 [facility] Comment on above: Performed By: #### U A #### [facility] ([id number]) [address] [place] [address] Protein Ql (U) 30 mg/dL Abnormal NEG [facility] Comment on above: Performed By: #### U A #### [facility] ([id number]) [address] [place] [address] R.B.CELLS 3 /hpf Normal 0-5 [facility] Comment on above: Performed By: #### U A #### [facility] ([id number]) [address] [place] [address] Specific gravity (U) [Rel density] 1.026 Normal 1.003-1.035 [facility] Comment on above: Performed By: #### U A #### [facility] ([id number]) [address] [place] [address] SQUAMOUS EPITHELIUM 10 /hpf High 0-5 [facility] Comment on above: Performed By: #### U A #### [facility] ([id number]) [address] [place] [address] TURBIDITY CLEAR Normal CLEAR [facility] Comment on above: Performed By: #### U A #### [facility] ([id number]) [address] [place] [address] Urobilinogen (U) [Mass/Vol] mg/dL Normal <1.1 [facility] Comment on above: Performed By: #### U A #### [facility] ([id number]) [address] [place] [address] W.B.CELLS 3 /hpf Normal 0-5 [facility] Comment on above: Performed By: #### U A #### [facility] ([id number]) [address] [place] [address] URINE CULTUREon 08-12-2024 Bacteria identified Cx Nom (U) CULTURE RESULTS 50-100,000 ORGANISMS/ML NORMAL UROGENITAL PATY Normal [facility] Comment on above: Performed By: #### 6 30-4 #### [facility] ([id number]) [address] [place] [address] Urinalysison 08-12-2024 Bilirubin Ql (U) Negative Negative^Ne g ative [facility] Color (U) YELLOW YELLOW^YELLO W [facility] Epithelial cells Auto (Urine sed) [#/Area] 10 High [facility] Glucose (U) [Mass/Vol] Negative Negative^Neg ative mg/dL [facility] Hemoglobin Auto test strip Ql (U) Small Abnormal Negative^Neg ative [facility] Interpretation and review of laboratory results Abnormal [facility] Ketones (U) [Mass/Vol] Negative Negative^Neg ative mg/dL [facility] Leukocyte esterase Auto test strip Ql (U) Negative Negative^Neg ative [facility] Mucus Ql (Urine sed) PRESENT Abnormal NONE^NONE [facility] Nitrite Auto test strip Ql (U) Negative Negative^Neg ative [facility] pH (U) 6 [pH] 5.0 - 8.5 [facility] Protein (U) [Mass/Vol] 30 mg/dL Abnormal Negative^Neg ative [facility] RBC Auto (Urine sed) [#/Area] 3 [facility] Specific gravity Refractometry automated (U) [Rel density] 1.026 1.003 - 1.035 [facility] Turbidity Ql (U) CLEAR CLEAR^CLEAR [facility] Urobilinogen Qn (U) NINF [facility] WBC Auto (Urine sed) [#/Area] 3 [facility] XR Pelvis and Hip - left 2 V iewson 08-12-2024 Radiology Study observation (narrative) [facility] OCT/HRT MACULA OD*on 024 OCT/HRT MACULA OD* +CME - stable with 01/2023. Normal [facility] +CME - stable with 01/2023. RADIOLOGY [facility] Radiology Study observation (narrative) [facility] Basic Metabolic Panelon 05 Anion gap [Moles/Vol] 9 mmol/L 9 - 17 mmol/L [facility] Calcium [Mass/Vol] 9.6 mg/dL 8.6 - 10. 4 mg/dL [facility] Chloride [Moles/Vol] 106 mmol/L 98 - 10 7 mmol/L [facility] CO2 [Moles/Vol] 24 mmol/L 20 - 31 mmol/L [facility] Creatinine [Mass/Vol] 0.6 mg/dL 0.50 - 0.90 mg/dL [facility] GFR/1.73 sq M.predicted MDRD (S/P/Bld) [Vol rate/Area] - [facility] Comment on above: These results are not [...] [Mass/Vol] 94 mg/dL 70 - 99 mg/dL [facility] Interpretation and review of laboratory results Abnormal [facility] Potassium [Moles/Vol] 4.2 mmol/L 3.7 - 5.3 mmol/L [facility] Sodium [Moles/Vol] 139 mmol/L 135 - 144 mmol/L [facility] Urea nitrogen [Mass/Vol] 26 mg/dL High 8 - 23 mg/dL [facility] Urea nitrogen/Creatinine (Bld) [Mass ratio] 43 High 9 - 20 [facility] CBC with Auto Differentialon 02-02-2023 Absolute Eos # 0.30 [facility] Absolute Immature Granulocyte [facility] Absolute Lymph # 1.34 [facility] Absolute [place] # 0.62 [facility] RS [facility] Basophils (Bld) [#/Vol] 0.06 10*3/uL [facility] Basophils/100 WBC (Bld) 1 % 0 - 2 % [facility] Eosinophils/100 WBC (Bld) 4 % 1 - 4 % [facility] Hematocrit (Bld) [Volume fraction] 41.1 % 36.3 - 47.1 % [facility] Hemoglobin (Bld) [Mass/Vol] 14.2 g/dL 11.9 - 15.1 g/dL [facility] Immature granulocytes/100 WBC (Bld) 0 % 0 [facility] Interpretation and review of laboratory results Abnormal [facility] Lymphocytes/100 WBC (Bld) 18 % Low 24 - 43 % [facility] MCH (RBC) [Entitic mass] 32.7 pg 25.2 - 33.5 pg [facility] MCHC (RBC) [Mass/Vol] 34.5 g/dL 28.4 - 34.8 g/dL [facility] MCV (RBC) [Entitic vol] 94.7 fL 82.6 - 102.9 fL [facility] Monocytes/100 WBC (Bld) 8 % 3 - 12 % [facility] NRBC Automated 0.0 0.0 per 100 WBC [facility] Platelet distribution width (Bld) [Ratio] 12.2 % 11.8 - 14.4 % [facility] Platelet mean volume (Bld) [Entitic vol] 10.2 fL 8.1 - 13.5 fL [facility] Platelets (Bld) [#/Vol] 293 10*3/uL [facility] RBC (Bld) [#/Vol] 4.34 10*6/uL 3.95 - 5.1 1 m/uL [facility] Segmented neutrophils/100 WBC (Bld) 69 % High 36 - 65 % [facility] Segs Absolute 5.19 [facility] WBC (Bld) [#/Vol] 7.5 10*3/uL [facility] No Panel Informationon 02-02 [facility] TSHon 02-02-2023 TSH Qn 3.54 m[IU]/L [facility] DEANGELO CASSIUS DIGITAL SCREEN BILA TERALon 02-01-2023 No mammographic evidence of malignancy BIRADS: BIRADS - CATEGORY 1 Negative. Normal interval follow-up is recommended in 12 months. OVERALL ASSESSMENT - NEGATIVE A letter of notification will be sent to the patient regarding the results. [employer] recommends annual mammograms for women 40 years and older. [facility] RIS CONSOLIDATED EXAMINATION: SCREENING DIGITAL BILATERAL MAMMOGRAM WITH [...] concerning grouping of microcalcification in either breast. [facility] CON[facility] Radiology Study observation (narrative) [employer] Phone: [facility] CASSIUS DIGITAL SCREEN BILA TERALOrdered By: Dick Rodriguez on 02-01-2023 [employer] [facility] Phone: [facility] CASSIUS DIGITAL SCREEN BILA TERALon 12-15-2021 No evidence of malignancy. Advise annual screening mammography. BREAST DENSITY SUMMARY C: The breasts are heterogeneously dense which may obscure small masses. BI-RADS 2 BIRADS: BIRADS - CATEGORY 2 Benign Findings. Normal interval follow-up is recommended in 12 months. OVERALL ASSESSMENT - BENIGN A letter of notification will be sent to the patient regarding the results. [employer] recommends annual mammograms for women 40 years and older. [facility] CONSOLIDATED EXAMINATION: SCREENING DIGITAL BILATERAL MAMMOGRAM WITH TOMOSYNTHESIS, 12/15/2021 TECHNIQUE: Screening mammography was performed with tomosynthesis including MLO and CC views of the bilateral breasts. Computer aided detection was used for the interpretation of this exam. COMPARISON: 28 October 2020; 24 December 2018 [facility] HISTORY: Screening. Negative family history of [...] in the area prior noted scar marker. [facility] Radiology Study observation (narrative) [employer] Phone: [facility] CASSIUS DIGITAL SCREEN BILA TERALOrdered By: Heather Daigle on 12-15-2021 [employer] Phone: XR CHEST 2 Von 04-21-2021 XR [...] CHRIS LUTHER Date: 2021-04-21 17:53 Normal [facility] CBC AUTO DIFFon 10-28-2020 BASO # 0.1 103/ul Normal 0.0-0.1 [facility] Comment on above: Performed By: #### C BC #### [facility] [address] [id number] Inocencio Sandy Basophils/100 WBC (Bld) 0.6 % Normal 0.2-2.0 [facility] Comment on above: Performed By: #### C BC #### [facility] [address] [place] [address] Inocencio Sandy EO # 0.4 103/ul Normal 0.0-0.7 [facility] Comment on above: Performed By: #### C BC #### [facility] [address] [place], [place] [id number] Inocencio Sandy Eosinophils/100 WBC (Bld) 4.7 % Normal 0.9-7.0 [facility] Comment on above: Performed By: #### C BC #### [facility] [address] [place], [place] [id number] Inocencio Sandy Erythrocyte distribution width (RBC) [Ratio] 12.3 % Normal 11.0-15.0 [facility] Comment on above: Performed By: #### C BC #### [facility] [address] [place], [place] [id number] Inocencio Sandy Hematocrit (Bld) [Volume fraction] 41.3 % Normal 36.0-48.0 [facility] Comment on above: Performed By: #### C BC #### [facility] [address] [place], [place] [address] Inocencio Sandy Hemoglobin (Bld) [Mass/Vol] 13.8 g/dL Normal 12.0-16.0 [facility] Comment on above: Performed By: #### C BC #### [facility] [address] [place] [id number] Inocencio Sandy IG # 0.03 10e3/ul Normal 0.00-0.03 [facility] Comment on above: Performed By: #### C BC #### [facility] [address] [place] [address] Inocencio Sandy IG % 0.4 % Normal 0.0-0.5 [facility] Comment on above: Performed By: #### C BC #### [facility] [address] [place] [address] Inocencio Sandy LYMPH # 1.7 103/ul Normal 1.2-3.8 [facility] Comment on above: Performed By: #### C BC #### [facility] [address] [place] [address] Inocencio Sandy Lymphocytes/100 WBC (Bld) 20.3 % Critically low 20.5-60.0 [facility] Comment on above: Performed By: #### C BC #### [facility] [address] [place] [address] Inocencio Sandy MANUAL DIFF REQ NO Normal [facility] Comment on above: Performed By: #### C BC #### [facility] [address] [place] [address] Inocencio Sandy MCH (RBC) [Entitic mass] 31.8 pg Normal 26.7-34.0 [facility] Comment on above: Performed By: #### C BC #### [facility] [address] [place] [address] Inocencio Sandy MCHC (RBC) [Mass/Vol] 33.4 g/dL Normal 29.9-35.2 [facility] Comment on above: Performed By: #### C BC #### [facility] [address] [place] [address] Inocencio Sandy MCV (RBC) [Entitic vol] 95.2 fL Normal 81.0-99.0 [facility] Comment on above: Performed By: #### C BC #### [facility] [address] [address] Inocencioadryan Randallen MONO # 0.6 103/ul Normal 0.3-0.8 [facility] Comment on above: Performed By: #### C BC #### [facility] [address] [place], [place] [id number] Inocencio Delgado Monocytes/100 WBC (Bld) 7.3 % Normal 1.7-12.0 [facility] Comment on above: Performed By: #### C BC #### [facility] [address] [place] [address] Inocencio Sandy NEUT # 5.4 103/ul Normal 1.4-6.5 [facility] Comment on above: Performed By: #### C BC #### [facility] [address] [place] [address] Inocencio Delgado Neutrophils/100 WBC (Bld) 66.7 % Normal 43.0-75.0 [facility] Comment on above: Performed By: #### C BC #### [facility] [address] [place], [place] [id number] Inocencio Delgado Platelet mean volume (Bld) [Entitic vol] 10.5 fL Normal 9.5-13.5 [facility] Comment on above: Performed By: #### C BC #### [facility] [address] [place] [address] Inocencio Sandy PLT 267 103/ul Normal 150-450 [facility] Comment on above: Performed By: #### C BC #### [facility] [address] [place], [place] [address] Inocencio Sandy RBC 4.34 106/ul Normal 4.20-5.40 [facility] Comment on above: Performed By: #### C BC #### [facility] [address] [place], [place] [id number] Inocencio Sandy WBC 8.1 103/ul Normal 4.0-11.0 [facility] Comment on above: Performed By: #### C BC #### [facility] [address] [place], [place] [id number] Inocencioadryan Delgado LIPID PROFILEon 10-28-2020 CHOL-HDL RATIO NORM SEE BELOW Normal [facility] Comment on above: Result Comment: 3.3 - 4.4 LOW RISK 4.4 - 7.1 AVERAGE RISK 7.1 - 11.0 MODERATE RISK >11.0 HIGH RISK Performed By: #### B MP, LIPID #### [facility] [address] [place], [place] [address] Inocencio Sandy Cholesterol [Mass/Vol] 257 mg/dL Critically high <=200 [facility] Comment on above: Performed By: #### B MP, LIPID #### [facility] [address] [place], [place] [address] Inocencio Sandy Cholesterol in HDL [Mass/Vol] 88 mg/dL Normal [facility] Comment on above: Performed By: #### B MP, LIPID #### [facility] [address] [place] [id number] Inocencio Sandy Cholesterol in LDL [Mass/Vol] 158.0 mg/dL Normal [facility] Comment on above: Performed By: #### B MP, LIPID #### [facility] [address] [place], [place] [address] Inocencio Sandy Cholesterol.total/Ch olesterol in HDL [Mass ratio] 2.9 {ratio} Normal [facility] Comment on above: Performed By: #### B MP, LIPID #### [facility] [address] [place], [place] [address] Inocencio Sandy HDL NORMAL > or = 60 mg/dl - LOW CARDIOVASCULAR RISK <40 mg/dl - HIGH CARDIOVASCULAR RISK Normal [facility] Comment on above: Performed By: #### B MP, LIPID #### [facility] [address] [place], [place] [address] Inocencio Sandy LDL CALC NORMAL SEE BELOW Normal [facility] Comment on above: Result Comment: <100 mg/dl OPTIMAL 100 - 129 mg/dl NEAR OR ABOVE OPTIMAL 130 - 159 mg/dl BORDERLINE HIGH 160 - 189 mg/dl HIGH >190 mg/dl VERY HIGH Performed By: #### B MP, LIPID #### [facility] [address] [place], [place] [address] Inocencio Sandy Triglyceride [Mass/Vol] 55 mg/dL Normal <=150 [facility] Comment on above: Performed By: #### B MP, LIPID #### [facility] [address] [place], [place] [address] Inocencio Sandy VLDL CALC 11.0 mg/dL Normal [facility] Comment on above: Performed By: #### B MP, LIPID #### [facility] [address] [place], [place] [address] Inocencio Sandy MG MAMM SCREEN WILLIAM W CADon 0 10-28-2020 MG MAMM SCREEN WILLIAM W CAD Patient: LETICIA CANNON Exam Date: 10/28/2020 : 1955 Gender:F Ordering : DR TYRONE SANCHEZ D.O. Admission #: [id number] Family : Order #: [id number] CLICK HERE TO VIEW EXAM RADIOLOGY REPORT [...] colon cancer at age 76. LOCATION: [facility] BREAST COMPOSITION: Heterogeneously dense, which may [...] Medina MD on 10/28/2020 at 09:23 Normal [facility] PROF CHEM 8 (BAS METB)on Anion gap [Moles/Vol] 13.1 mmol/L Normal [facility] Comment on above: Performed By: #### B MP, LIPID #### [facility] [address] [place], [place] [address] Inocencio Sandy Calcium [Mass/Vol] 9.2 mg/dL Normal 8.4-10.2 [facility] Comment on above: Performed By: #### B MP, LIPID #### [facility] [address] [place] [address] Inocencio Sandy Chloride [Moles/Vol] 106 mmol/L Normal 98-107 [facility] Comment on above: Performed By: #### B MP, LIPID #### [facility] [address] [place] [address] Inocencio Sandy CO2 [Moles/Vol] 26.1 mmol/L Normal 22.0-30.0 [facility] Comment on above: Performed By: #### B MP, LIPID #### [facility] [address] [place] [address] Inocencio Sandy Creatinine [Mass/Vol] 0.70 mg/dL Normal 0.52-1.04 [facility] Comment on above: Performed By: #### B MP, LIPID #### [facility] [address] [place] [address] Inocencio Sandy EGFR-AF JAMAICAN >60 Normal >=60 [facility] Comment on above: Performed By: #### B MP, LIPID #### [facility] [address] [place] [address] Inocencio Sandy EGFR-NON AF JAMAICAN >60 Normal >=60 [facility] Comment on above: Performed By: #### B MP, LIPID #### [facility] [address] [place] [address] Inocencio Sandy Glucose [Mass/Vol] 104 mg/dL Normal 74-106 [facility] Comment on above: Performed By: #### B MP, LIPID #### [facility] [address] [place] [address] Inocencio Sandy Potassium [Moles/Vol] 4.2 mmol/L Normal 3.4-5.0 [facility] Comment on above: Performed By: #### B MP, LIPID #### [facility] [address] [place] [address] Inocencio Sandy Sodium [Moles/Vol] 141 mmol/L Normal 137-[address] [facility] Comment on above: Performed By: #### B MP, LIPID #### [facility] [address] [place], [place] [address] Inocencio Randallen Urea nitrogen [Mass/Vol] 22.0 mg/dL Critically high 7.0-17.0 [facility] Comment on above: Performed By: #### B MP, LIPID #### [facility] [address] [place], [place] [address] Inocencio Delgado Urea nitrogen/Creatinine [Mass ratio] 31.4 mg/mg Normal [facility] Comment on above: Performed By: #### B MP, LIPID #### [facility] [address] [place], [place] [address] Inocencio Delgado Vital Signs Date Time Vital Sign Value Performing Clinician Facility 01-30-2025 08:38-0400 Body height 160.02 cm [facility] 01-30-2025 08:38-0400 Body mass index (BMI) [Ratio] 28.4 kg/m2 [facility] 01-30-2025 08:38-0400 Body weight 72.8 kg [facility] 01-30-2025 08:38-0400 Diastolic blood pressure 81 mm[Hg] [facility] 01-30-2025 08:38-0400 Heart rate 76 /min [facility] 01-30-2025 08:38-0400 Respiratory rate 12 /min [facility] 01-30-2025 08:38-0400 Systolic blood pressure 123 mm[Hg] [facility] 08-14-2024 11:13-0500 Body height 160 cm Leatha ARIZA Work Phone: [facility] 08-14-2024 11:13-0500 Body mass index (BMI) [Ratio] 28.27 kg/m2 Leatha ARIZA Work Phone: [facility] 08-14-2024 11:13-0500 Body weight 72.39 kg Leatha ARIZA Work Phone: [facility] 08-12-2024 11:08-0500 Body height [address] 08-12-2024 11:08-0500 Body mass index (BMI) [Ratio] 28.34 kg/m2 [facility] 08-12-2024 11:08-0500 Body weight 72.58 kg [facility] 06-13-2024 14:27-0400 Body height 160.02 cm [facility] 06-13-2024 14:27-0400 Body mass index (BMI) [Ratio] 28.4 kg/m2 [facility] 06-13-2024 14:27-0400 Body weight 72.8 kg [facility] 06-13-2024 14:27-0400 Diastolic blood pressure 91 mm[Hg] [facility] 06-13-2024 14:27-0400 Heart rate 75 /min [facility] 06-13-2024 14:27-0400 Respiratory rate 12 /min [facility] 06-13-2024 14:27-0400 Systolic blood pressure 163 mm[Hg] [facility] 12-10-2023 13:00-0400 Diastolic blood pressure 89 mm[Hg] Shalom Méndez MD Work Phone: [facility] 12-10-2023 13:00-0400 Heart rate 70 /min Shalom Méndez MD Work Phone: [facility] 12-10-2023 13:00-0400 Respiratory rate 19 /min Shalom Méndez MD Work Phone: [facility] 12-10-2023 13:00-0400 SaO2% (BldA) [Mass fraction] 97 % Shalom Méndez MD Work Phone: [facility] 12-10-2023 13:00-0400 Systolic blood pressure 189 mm[Hg] Shalom Méndez MD Work Phone: [facility] 12-10-2023 12:58-0400 Body temperature 98.4 [degF] Shalom Méndez MD Work Phone: [facility] 12-10-2023 10:29-0400 Body height 160 cm Shalom Méndez MD Work Phone: [facility] 12-10-2023 10:29-0400 Body mass index (BMI) [Ratio] 29.33 kg/m2 Shalom Méndez MD Work Phone: [facility] 12-10-2023 10:29-0400 Body weight 75.1 kg Shalom Méndez MD Work Phone: [facility] 12-07-2022 11:00-0400 Body height 160.02 cm Tyrone Ball Other [employer] Other 12-07-2022 11:00-0400 Body mass index (BMI) [Ratio] 27.6 kg/m2 Tyrone Ball Other [employer] Other 12-07-2022 11:00-0400 Body weight 70.67 kg Tyrone Ball Other [employer] Other 12-07-2022 11:00-0400 Diastolic blood pressure 111 mm[Hg] Tyrone Ball Other [employer] Other 12-07-2022 11:00-0400 Respiratory rate 12 /min Tyrone Ball Other [employer] Other 12-07-2022 11:00-0400 Systolic blood pressure 171 mm[Hg] Tyrone Ball Other [employer] Other Encounters Encounter Date Encounter Type Care Provider Facility Start: 03-04-2025 End: 03-04-2025 ambulatory Heriberto FRYE Facility:[facility] Start: 03-04-2025 End: 03-04-2025 Patient encounter procedure Heriberto FRYE [facility] [place] Start: 03-03-2025 End: 03-03-2025 Bamboo flowsheet Jr. Ramesh Maxwell Stepanic DO Work Phone: [facility] Start: 03-03-2025 End: 03-03-2025 Bamboo flowsheet JrFrances Maxwell Stepanic DO Work Phone: [facility] Start: 03-03-2025 End: 03-03-2025 ambulatory JR., RAMESH Maxwell STEPFABIO Not Available Start: 03-03-2025 End: 03-03-2025 Office outpatient visit 15 minutes JrFrances Maxwell Stepfabio DO Work Phone: [facility] Comment on above: Status post total hi p replacement, left (Primary Dx); Left hip pain Start: 01-30-2025 End: 01-30-2025 ambulatory [facility] Work Phone: Start: 01-30-2025 End: 01-30-2025 Patient encounter procedure [facility] Work Phone: Start: 01-16-2025 End: 01-16-2025 ambulatory [facility]ONE [facility] Start: 01-16-2025 End: 01-16-2025 Subsequent hospital visit by physician Georgia Erazo PTA [facility] Comment on above: Arrived Start: 01-14-2025 End: 01-14-2025 ambulatory TYRONE [facility] Start: 01-14-2025 End: 01-14-2025 Subsequent hospital visit by physician Keyur Vital [facility] Physical Therapy Comment on above: Arrived Start: 01-08-2025 End: 01-08-2025 Subsequent hospital visit by physician Mann Tristan PTA [facility] Start: 01-06-2025 End: 01-06-2025 ambulatory TYRONE [facility] Start: 01-06-2025 End: 01-06-2025 Subsequent hospital visit by physician Mann Tristan PTA [facility] Physical Therapy Comment on above: Arrived Start: 12-31-2024 End: 12-31-2024 ambulatory [facility] Start: 12-31-2024 End: 12-31-2024 Subsequent [facility] Comment on above: Arrived Start: 12-29-2024 End: 12-29-2024 ambulatory [facility] Start: 12-29-2024 End: 12-29-2024 Subsequent hospital visit by physician Xin Samayoa PTA [facility] Physical Therapy Comment on above: Arrived Start: 12-26-2024 End: 12-26-2024 ambulatory [facility] Start: 12-26-2024 End: 12-26-2024 Subsequent hospital visit by physician Yoselin Aguilar PTA [facility] Physical Therapy Comment on above: Arrived Start: 12-11-2024 End: 12-11-2024 ambulatory [facility] Start: 12-11-2024 End: 12-11-2024 Subsequent hospital visit by physician [facility] Tristan [facility] Comment on above: Arrived Start: 12-09-2024 End: 12-09-2024 ambulatory [facility] Start: 12-09-2024 End: 12-09-2024 Subsequent hospital visit by physician Keyur Vital [facility] Comment on above: Arrived Start: 12-04-2024 End: 12-04-2024 [facility]ulatory [facility] Start: 12-04-2024 End: 12-04-2024 Subsequent hospital visit by physician [facility]raz[facility] Comment on above: Arrived Start: 12-02-2024 End: 12-02-2024 ambulatory [facility] Start: 12-02-2024 End: 12-02-2024 Subsequent hospital visit by physician Keyur Vital [facility] Comment on above: Arrived Start: 11-27-2024 End: 11-27-2024 ambulatory [facility] Start: 11-27-2024 End: 11-27-2024 Subsequent hospital visit by physician Georgia Erazo PTA [facility] Physical Therapy Comment on above: Arrived Start: 11-25-2024 End: 11-25-2024 ambulatory [facility] Start: 11-25-2024 End: 11-25-2024 Subsequent hospital visit by physician [facility]raz[facility] Comment on above: Arrived Start: 11-24-2024 End: 11-24-2024 Bamboo flowsheet Ben Arshad COMPLAINT MANAGER Work Phone: [facility] Start: 11-24-2024 End: 11-24-2024 Bamboo flowsheet Ben Arshad COMPLAINT MANAGER Work Phone: [facility] Start: 11-24-2024 End: 11-24-2024 ambulatory BEN ARSHAD Not Available Start: 11-24-2024 End: 11-24-2024 Office outpatient visit 15 minutes Ben Arshad COMPLAINT MANAGER Work Phone: [facility] Comment on above: Status post total hi p replacement, left (Primary Dx) Start: 11-20-2024 End: 11-20-2024 ambulatory LEATHA [facility] Start: 11-20-2024 End: 11-20-2024 Subsequent hospital visit by physician Georgia Erazo PTA [facility] Physical Therapy Comment on above: Arrived Start: 11-17-2024 End: 11-17-2024 ambulatory TYRONE [facility] Start: 11-17-2024 End: 11-17-2024 Subsequent hospital visit by physician Marilee Calvillo PTA [facility] Physical Therapy Comment on above: Arrived Start: 11-13-2024 End: 11-13-2024 ambulatory TYRONE [facility] Start: 11-13-2024 End: 11-13-2024 Subsequent hospital visit by physician Georgia Erazo PTA [facility] Therapy Comment on above: Arrived Start: 11-11-2024 End: 11-11-2024 Telephone encounter Jr. Ramesh Christianson DO Work Phone: [facility] Start: 11-11-2024 End: 11-11-2024 ambulatory TYRONE [facility] Start: 11-11-2024 End: 11-11-2024 Subsequent hospital visit by physician Keyur Vital [facility] Physical Therapy Comment on above: Arrived Start: 11-07-2024 End: 11-07-2024 ambulatory [facility] Start: 11-07-2024 End: 11-07-2024 Subsequent hospital visit by physician Larissa Roblero PT [facility] Physical Therapy Comment on above: Arrived Start: 11-04-2024 End: 11-04-2024 ambulatory [facility] Start: 11-04-2024 End: 11-04-2024 Subsequent hospital visit by physician [facility] Comment on above: Arrived Start: 10-30-2024 End: 10-30-2024 ambulatory [facility] Start: 10-30-2024 End: 10-30-2024 Subsequent hospital visit by physician Reagan Quiroz [facility] Comment on above: Arrived Start: 10-29-2024 End: 10-29-2024 ambulatory Heriberto FRYE Facility:[facility] Start: 10-29-2024 End: 10-29-2024 Patient encounter procedure Heriberto FRYE [facility] [place] Start: 10-28-2024 End: 10-28-2024 ambulatory [facility] Start: 10-28-2024 End: 10-28-2024 Subsequent hospital visit by physician [facility] Comment on above: Arrived Start: 10-23-2024 End: 10-23-2024 ambulatory [facility] Start: 10-23-2024 End: 10-23-2024 Subsequent hospital visit by physician [facility] Comment on above: Arrived Start: 10-21-2024 End: 10-21-2024 ambulatory [facility] Start: 10-21-2024 End: 10-21-2024 Subsequent hospital visit by physician [facility]raz[facility] Comment on above: Arrived Start: 10-16-2024 End: 10-16-2024 ambulatory [facility] Start: 10-16-2024 End: 10-16-2024 Subsequent hospital visit by physician Georgia Erazo PTA [facility] Physical Therapy Comment on above: Arrived Start: 10-14-2024 End: 10-14-2024 ambulatory [facility] Start: 10-14-2024 End: 10-14-2024 Subsequent hospital visit by physician Reagan Quiroz [facility] Physical Therapy Comment on above: Arrived Start: 10-13-2024 End: 10-13-2024 Postop follow up visit related to original px Ben Arshad COMPLAINT MANAGER Work Phone: [facility] Comment on above: Status post total hi p replacement, left; Left hip pain Start: 10-13-2024 End: 10-13-2024 ambulatory BEN ARSHAD Not Available Start: 10-10-2024 End: 10-10-2024 ambulatory [facility] Start: 10-10-2024 End: 10-10-2024 Subsequent hospital visit by physician Reagan Quiroz [facility] Physical Therapy Comment on above: Arrived Start: 10-08-2024 End: 10-08-2024 ambulatory [facility] Start: 10-08-2024 End: 10-08-2024 Subsequent hospital visit by physician Manuel Vazquez PT [facility] Physical Therapy Comment on above: Arrived Start: 10-02-2024 End: 10-02-2024 ambulatory [facility] Start: 10-02-2024 End: 10-02-2024 Subsequent hospital visit by physician Larissa Roblero PT [facility] Physical Therapy Comment on above: Arrived Start: 10-02-2024 ambulatory TYRONE Marquez [facility] Start: 09-15-2024 End: 09-15-2024 Bamboo flowsbreanne Arshad COMPLAINT MANAGER Work Phone: [facility] Start: 09-15-2024 End: 09-15-2024 Bamboo flowsbreanne Arshad COMPLAINT MANAGER Work Phone: [facility] Start: 09-15-2024 End: 09-15-2024 Postop follow up visit related to original px Ben Arshad COMPLAINT MANAGER Work Phone: [facility] Comment on above: Status post total hi p replacement, left (Primary Dx) Start: 09-15-2024 End: 09-15-2024 ambulatory BEN ARSHAD Not Available Start: 09-08-2024 End: 09-08-2024 Refill Ben Arshad COMPLAINT MANAGER Work Phone: [facility] Comment on above: Post-operative pain; Arthritis of left hip Start: 09-04-2024 End: 09-04-2024 Clinical Support Jeanne Awan PT Work Phone: [facility] Comment on above: Primary osteoarthrit is of left hip (Primary Dx); Acute postoperative pain of left hip; Status post left hip replacement; Difficulty walking Start: 09-03-2024 End: 09-03-2024 Telephone encounter Ramesh Maxwell Annalisefabio DO Work Phone: [facility] Comment on above: PO Start: 09-02-2024 End: 09-03-2024 ambulatory [facility] Start: 09-01-2024 End: 09-01-2024 Refill eBn Arshad COMPLAINT MANAGER Work Phone: [facility] Comment on above: Post-operative pain (Primary Dx); Arthritis of left hip Start: 08-28-2024 End: 08-28-2024 ambulatory [facility] Start: 08-14-2024 End: 08-14-2024 Bamboo flowsheet Leatha ARIZA Work Phone: [facility] Start: 08-14-2024 End: 08-14-2024 Bamboo flowsheet Leatha ARIZA Work Phone: [facility] Start: 08-14-2024 End: 08-14-2024 Patient encounter procedure Leatha ARIZA Work Phone: [facility] Comment on above: Pre-op examination ( Primary Dx); Arthritis of left hip Start: 08-14-2024 End: 08-14-2024 Preprocedural examination done Leatha ARIZA Work Phone: [facility] Start: 08-14-2024 End: 08-14-2024 ambulatory LEATHA PEREZ Not Available Start: 08-12-2024 End: 08-12-2024 External Result Encounter Jr. Ramesh Christianson DO Work Phone: [facility] External [facility] Unsolicited Start: 08-12-2024 End: 08-12-2024 External Result Encounter Jr. Ramesh Christianson DO Work Phone: [facility] External Department Unsolicited Start: 08-12-2024 End: 08-12-2024 ambulatory RAMESH CHRISTIANSON [facility] Start: 08-12-2024 Encounter for other [facility] Start: 08-12-2024 End: 08-12-2024 Patient encounter procedure Pmh Pre-Admission Testing 1 [facility] - Pre Admit Comment on above: Preop examination (P rimary Dx); Osteoarthritis of left hip, unspecified osteoarthritis type; Urinary frequency Start: 08-12-2024 End: 08-12-2024 Preprocedural examination done Pmh 1 [facility] Start: 08-05-2024 End: 08-05-2024 ambulatory Abelino Timmons MD Facility:[facility] Start: 08-04-2024 End: 08-04-2024 Telephone encounter Jr. Ramesh Christianson DO Work Phone: [facility] Comment on above: surgery Start: 06-25-2024 End: 06-25-2024 Office outpatient visit 25 minutes Jr. Ramesh Lordfabio DO Work Phone: [facility] Comment on above: Arthritis of left hi p (Primary Dx) Start: 06-25-2024 End: 06-25-2024 ambulatory RAMESH SAMMY Not Available Start: 06-25-2024 End: 06-25-2024 Bamboo flowsheet Jr. Ramesh Lordfabio DO Work Phone: [facility] Start: 06-25-2024 End: 06-25-2024 Bamboo flowsheet Jr. Ramesh Maxwell Sammy DO Work Phone: [facility] Start: 06-17-2024 ambulatory Heriberto FRYE Facility:[facility] Start: 06-13-2024 End: 06-13-2024 ambulatory [facility] Work Phone: Start: 06-13-2024 End: 06-13-2024 Patient encounter procedure [facility] Work Phone: Start: 06-02-2024 End: 06-02-2024 Bamboo flowsheet Jr. Ramesh Christianson DO Work Phone: [facility] Start: 06-02-2024 End: 06-02-2024 Bamboo flowsheet Jr. Ramesh Maxwell Stepanic DO Work Phone: [facility] Start: 06-02-2024 End: 06-02-2024 Postop follow up visit related to original px Jr. Ramesh Christianson DO Work Phone: [facility] Comment on above: Acute hip pain, left (Primary Dx); Arthritis of left hip Start: 06-02-2024 End: 06-02-2024 ambulatory RAMESH CASTELLANO Not Available Start: 05-19-2024 End: 05-19-2024 Bamboo flowsheet Jr. Ramesh Christianson DO Work Phone: [facility] Start: 05-19-2024 End: 05-19-2024 Bamboo flowsbreanne Christianson DO Work Phone: [facility] Start: 05-19-2024 End: 05-19-2024 Office outpatient visit 25 minutes Jr. Ramesh Christianson DO Work Phone: [facility] Comment on above: Arthritis of left hi p (Primary Dx) Start: 05-19-2024 End: 05-19-2024 ambulatory RAMESH CASTELLANO Not Available Start: 04-21-2024 End: 04-21-2024 ambulatory RAMESH CASTELLANO Not Available Start: 03-26-2024 End: 03-26-2024 ambulatory LEATHA PEREZ Not Available Start: 01-31-2024 ambulatory SELF SELF Facility:[facility] Start: 01-31-2024 End: 01-31-2024 Postop follow up visit related to original px Shalom Méndez MD Work Phone: [facility] Comment on above: Aftercare following surgery of a sense organ (Primary Dx); Primary open-angle glaucoma, bilateral, severe stage Start: 01-10-2024 ambulatory TYRONE BALL Facility: [facility] Start: 01-10-2024 End: 01-10-2024 Postop follow up visit related to original px Shalom Méndez MD Work Phone: [facility] Comment on above: Aftercare following surgery of a sense organ (Primary Dx); Primary open-angle glaucoma, bilateral, severe stage; Cystoid macular edema of right eye Start: 01-03-2024 ambulatory TYRONE BALL Facility: [facility] Start: 01-03-2024 End: 01-03-2024 Postop follow up visit related to original px Shalom Méndez MD Work Phone: [facility] Comment on above: Aftercare following surgery of a sense organ (Primary Dx); Primary open-angle glaucoma, bilateral, severe stage Start: 12-27-2023 ambulatory TYRONE BALL Facility: [facility] Start: 12-27-2023 End: 12-27-2023 Postop follow up visit related to original px Shalom Méndez MD Work Phone: [facility] Comment on above: Aftercare following surgery of a sense organ (Primary Dx); Primary open-angle glaucoma, bilateral, severe stage; Pseudophakia, right eye Start: 12-17-2023 ambulatory TYRONE BALL Facility: [facility] Start: 12-17-2023 End: 12-17-2023 Postop follow up visit related to original px Reagan Hogue MD Work Phone: [facility] Comment on above: Aftercare following surgery of a sense organ (Primary Dx) Start: 12-14-2023 ambulatory TYRONE DANIEL Facility: [facility] Start: 12-14-2023 End: 12-14-2023 Postop follow up visit related to original px Shalom Méndez MD Work Phone: [facility] Comment on above: Aftercare following surgery of a sense organ (Primary Dx); Primary open-angle glaucoma, bilateral, severe stage; Pseudophakia, right eye Start: 12-11-2023 ambulatory TYRONE SANCHEZ Facility: [facility] Start: 12-11-2023 End: 12-11-2023 Postop follow up visit related to original px Shalom Méndez MD Work Phone: [facility] Comment on above: Aftercare following surgery of a sense organ (Primary Dx); Primary open-angle glaucoma, bilateral, severe stage; Pseudophakia, right eye; Nuclear sclerosis, left Start: 12-10-2023 End: 12-10-2023 ambulatory SHALOM MÉNDEZ Facility:[facility] Start: 12-10-2023 End: 12-10-2023 Subsequent hospital visit by physician Shalom Méndez MD Work Phone: [facility] Comment on above: Primary open-angle g laucoma, bilateral, severe stage Start: 11-07-2023 ambulatory SHALOM MÉNDEZ Facili ty:[facility] Start: 11-07-2023 Encounter for other preprocedural examination SHALOM MÉNDEZ Facility:[facility] Start: 11-05-2023 ambulatory SHALOM Jamesi ty:[facility] Start: 10-25-2023 ambulatory ABELINO TIMMONS Facility: [facility] Start: 10-25-2023 End: 10-25-2023 Office outpatient new 45 minutes Shalom Méndez MD Work Phone: [facility] Comment on above: Primary open-angle g laucoma, bilateral, severe stage (Primary Dx); Nuclear sclerosis, left; Pseudophakia, right eye Start: 10-02-2023 End: 10-02-2023 ambulatory Tyrone Sanchez Other [employer] Other Start: 10-02-2023 Telephone encounter Tyrone Daniel [facility] Start: 02-02-2023 End: 02-02-2023 Subsequent hospital visit by physician Tyrone Sanchez DO Work Phone: [facility] Start: 02-01-2023 End: 02-03-2023 Subsequent hospital visit by physician [facility] Mammography Comment on above: Encounter for screen ing mammogram for malignant neoplasm of breast Start: 12-07-2022 End: 12-07-2022 ambulatory Tyrone Daniel Other [employer] Other Start: 12-07-2022 Patient encounter procedure Tyrone [facility] Start: 10-26-2022 End: 10-26-2022 ambulatory MARSHA CASTANEDA [facility] Ambulatory Start: 10-26-2022 End: 10-26-2022 Encounter for other preprocedural examination JOE WALLER CHRISTIAN [facility] Ambulatory Start: 02-02-2022 End: 02-02-2022 Subsequent hospital visit by physician Larissa Roblero PT [facility] Physical Therapy Comment on above: Arrived Start: 01-26-2022 End: 01-26-2022 Subsequent hospital visit by physician Keyur Vital [facility] Physical Therapy Comment on above: Arrived Start: 01-24-2022 End: 01-24-2022 Subsequent hospital visit by physician Reagan Quiroz PTA [facility] Physical Therapy Comment on above: Arrived Start: 01-18-2022 End: 01-18-2022 Subsequent hospital visit by physician Reagan Quiroz PTA [facility] Physical Therapy Comment on above: Arrived Start: 01-16-2022 End: 01-16-2022 Subsequent hospital visit by physician Blanquita Nieto PT [facility] Physical Therapy Comment on above: Arrived Start: 01-11-2022 End: 01-11-2022 Subsequent hospital visit by physician Blanquita Nieto PT [facility] Physical Therapy Comment on above: Arrived Start: 01-05-2022 End: 01-05-2022 Subsequent hospital visit by physician Larissa Roblero PT [facility] Physical Therapy Comment on above: Arrived Start: 01-02-2022 End: 01-02-2022 Subsequent hospital visit by physician Keyur Vital [facility] Physical Therapy Comment on above: Arrived Start: 12-15-2021 End: 12-17-2021 Subsequent hospital visit by physician [facility] Mammography Comment on above: Encounter for screen ing mammogram for breast cancer Start: 11-23-2021 Adult health examination Montrell Sanchez Other [employer] Other Start: 04-21-2021 End: 04-22-[address] TYRONE SANCHEZ Facility:[facility] Start: 10-28-2020 End: 10-29-[address] TYRONE SANCHEZ Facility:[facility] Procedures Date Procedure Procedure Detail Performing Clinician Start: 10-13-2024 Radex hip unilateral with pelvis 2-3 views Ben Arshad NP Work Phone: Start: 08-12-2024 Complete blood count with white cell differential, automated JrFrances Lordanic DO Work Phone: Start: 01-10-2024 Optical coherence tomography of retina Shalom Méndez MD Work Phone: Start: 02-02-2023 Basic metabolic pane l calcium total Tyrone Sanchez DO Work Phone: Start: 02-01-2023 End: 02-01-2023 Screening mammography bi 2-view breast inc cad Tyrone Sanchez DO Work Phone: Start: 12-15-2021 Screening mammograph y bi 2-view breast inc cad Lorenzo Lindsay MD Work Phone: Start: 01-22-2019 Colonoscopy Heriberto FOSTER Start: 12-11-2018 Diabetes mellitus screening Tyrone Sanchez Other Start: 12-10-2018 Screening for malign ant neoplasm of colon Tyrone Sanchez Other Start: 12-10-2018 Screening for osteoporosis Tyrone Sanchez Other Start: 10-05-2016 Screening mammography B enjamadalyn Sanchez Other Start: 02-03-2016 General examination of patient Tyrone Sanchez Other Appendectomy Heriberto FRYE Arthroscopy of knee Heriberto FRYE Biopsy of breast Heriberto GARCIA L Colonoscopy Heriberto GARCIAL Depression screening Arlet Sanchez Other Extraction of cataract Hari vivek FRYE Hormone replacement therapy Tyrone Sanchez Other Hormone replacement therapy Tyrone Sanchez Other End: 11-23-2021 Hyperlipidemia screening Tyrone Sanchez Other Repair of joint of left hip Heriberto GARCIAL Repair of joint of r ight hip Heriberto GARCIAL Repair of retina for retinal detachment Heriberto FRYE Screening for malign ant neoplasm of breast Tyrone Sanchez Other Surgical constructio n of filtration bleb Heriberto FRYE Total abdominal hysterectomy with bilateral salpingo-oophorectomy Heriberto FRYE Plan of Treatment Date Care Activity Detail Author Start: 2028 Respiratory Syncytia l Virus (RSV) or age 60 yrs+ (1 - 1-dose 75+ series) Respiratory Syncytial Virus (RSV) or age 60 yrs+ (1 - 1-dose 75+ series) [facility] Start: 03-02-2026 End: 03-02-2026 Patient encounter procedure 03/02/2026 9:15 AM EDT Office Visit [facility] [id number] [place] [address] Jr. Ramesh Christianson, DO [address] [facility] [address] [place] [address] [facility] Start: 08-12-2025 Adult BMI Screening Adult BMI Screen ing [facility] Start: 08-12-2025 Tobacco Screening Tobacco Screening [facility] Start: 05-25-2025 Influenza vaccination Influenz a Vaccine (Season Ended) [facility] Start: 04-24-2025 Influenza vaccination Flu vacc ine (Season Ended) [facility] Start: 03-03-2025 End: 03-03-2025 Patient encounter procedure 03/03/2025 9:15 AM EDT Office Visit [facility] [address] [place] [phone] Jr. Ramesh Christianson, DO [address] [address] [facility] Start: 02-01-2025 Screening for malignant neoplasm of breast Breast cancer screen [facility] Start: 01-23-2025 End: 01-23-2025 Patient encounter procedure 01/23/2025 1:30 PM EDT Appointment [facility] Physical Therapy [address] [place], [place] [phone] Larissa Mixon, PT [facility] Physical Therapy Comment on above: [facility] Start: 01-23-2025 ambulatory Ambulatory [facility] Start: 01-20-2025 End: 01-20-2025 Patient encounter procedure 01/20/2025 11:00 AM EDT Appointment [facility] Physical Therapy [address] [place], [place] [phone] Georgia Erazo PTA [facility] Physical Therapy Start: 01-16-2025 End: 01-16-2025 Patient encounter procedure 01/16/2025 11:00 AM EDT Appointment [facility] Physical Therapy [address] [place], [place] [phone] Georgia Erazo PTA [facility] Physical Therapy Start: 01-14-2025 End: 01-14-2025 Patient encounter procedure 01/14/2025 11:00 AM EDT Appointment [facility] Physical Therapy [address] [place] [address] [phone] Keyur Vital [facility] Physical Therapy Start: 01-08-2025 End: 01-08-2025 Patient encounter procedure 01/08/2025 12:15 PM EDT Appointment [facility] Physical Therapy [address] [place] [phone] Mann Tristan PTA [facility] Physical Therapy Start: 01-06-2025 End: 01-06-2025 Patient encounter procedure 01/06/2025 1:00 PM EDT Appointment [facility] Physical Therapy [address] [place] [phone] Mann Tristan PTA [facility] Physical Therapy Start: 12-31-2024 End: 12-31-2024 Patient encounter procedure 12/31/2024 1:00 PM EDT Appointment [facility] Physical Therapy [address] [place] [phone] Mann Tristan PTA [facility] Physical Therapy Start: 12-29-2024 End: 12-29-2024 Patient encounter procedure 12/29/2024 1:45 PM EDT Appointment [facility] Physical Therapy [address] [place] [phone] Xin Samayoa PTA [facility] Physical Therapy Start: 12-19-2024 End: 12-19-2024 Patient encounter procedure 12/19/2024 12:00 PM EDT Appointment [facility] Physical Therapy [address] [place] [phone] Larissa Mixon, PT [facility] Physical Therapy Comment on above: [facility] Start: 12-11-2024 End: 12-11-2024 Patient encounter procedure 12/11/2024 11:45 AM EDT Appointment [facility] Physical Therapy [address] [place] [phone] Larissa Roblero, PT [facility] Physical Therapy Comment on above: [facility] Start: 12-09-2024 End: 12-09-2024 Patient encounter procedure 12/09/2024 10:45 AM EDT Appointment [facility] Physical Therapy [address] [place] [phone] Keyur Vital [facility] Physical Therapy Start: 12-04-2024 End: 12-04-2024 Patient encounter procedure 12/04/2024 11:00 AM EDT Appointment [facility] Physical Therapy [address] [place] [phone] Georgia Erazo PTA [facility] Physical Therapy Start: 12-02-2024 End: 12-02-2024 Patient encounter procedure 12/02/2024 10:45 AM EDT Appointment [facility] Physical Therapy [address] [place] [phone] Keyur Vital [facility] Physical Therapy Start: 11-27-2024 End: 11-27-2024 Patient encounter procedure 11/27/2024 11:00 AM EST Appointment [facility] Physical Therapy [address] [place] [phone] Georgia Erazo PTA [facility] Physical Therapy Start: 11-25-2024 End: 11-25-2024 Patient encounter procedure 11/25/2024 11:00 AM EST Appointment [facility] Physical Therapy [address] [place] [phone] Larissa Roblero PT [facility] Physical Therapy Start: 11-24-2024 End: 11-24-2024 Patient encounter procedure 11/24/2024 1:00 PM EST Office Visit [facility] [address] [facility] [address] Ben Arshad, COMPLAINT MANAGER [address] [place] [address] [facility] Start: 11-20-2024 End: 11-20-2024 Patient encounter procedure 11/20/2024 11:00 AM EST Appointment [facility] Physical Therapy [address] [place] [phone] Georgia Erazo PTA [facility] Physical Therapy Start: 11-17-2024 End: 11-17-2024 Patient encounter procedure 11/17/2024 2:15 PM EST Appointment [facility] Physical Therapy [address] [place] [phone] Marilee Calvillo PTA [facility] Physical Therapy Start: 11-13-2024 End: 11-13-2024 Patient encounter procedure 11/13/2024 1:45 PM EST Appointment [facility] Physical Therapy [address] [place] [phone] Georgia Erazo PTA [facility] Physical Therapy Start: 11-11-2024 End: 11-11-2024 Patient encounter procedure 11/11/2024 1:00 PM EST Appointment [facility] Physical Therapy [address] [place] [phone] Keyur Vital [facility] Physical Therapy Start: 11-07-2024 End: 11-07-2024 Patient encounter procedure 11/07/2024 10:45 AM EST Appointment [facility] Physical Therapy [address] [place] [phone] Larissa Roblero, PT [facility] Physical Therapy Comment on above: [facility] Start: 11-04-2024 End: 11-04-2024 Patient encounter procedure 11/04/2024 11:00 AM EST Appointment [facility] Physical Therapy [address] [place] [phone] Georgia Erazo PTA [facility] Physical Therapy Start: 10-30-2024 End: 10-30-2024 Patient encounter procedure 10/30/2024 11:00 AM EST Appointment [facility] Physical Therapy [address] [place] [phone] Reagan Quiroz PTA [facility] Physical Therapy Start: 10-28-2024 End: 10-28-2024 Patient encounter procedure 10/28/2024 11:00 AM EST Appointment [facility] Physical Therapy [address] [place] [phone] Georgia Erazo PTA [facility] Physical Therapy Start: 10-23-2024 End: 10-23-2024 Patient encounter procedure 10/23/2024 11:45 AM EST Appointment [facility] Physical Therapy [address] [place] [phone] Georgia Erazo PTA [facility] Physical Therapy Start: 10-21-2024 End: 10-21-2024 Patient encounter procedure 10/21/2024 11:45 AM EST Appointment [facility] Physical Therapy [address] [place] [phone] Georgia Erazo PTA [facility] Physical Therapy Start: 10-16-2024 End: 10-16-2024 Patient encounter procedure 10/16/2024 11:45 AM EST Appointment [facility] Physical Therapy [address] [place] [phone] Georgia Erazo PTA [facility] Physical Therapy Start: 10-14-2024 End: 10-14-2024 Patient encounter procedure 10/14/2024 10:45 AM EST Appointment [facility] Physical Therapy [address] [place] [phone] Reagan Quiroz PTA [facility] Physical Therapy Start: 10-13-2024 End: 10-13-2024 Patient encounter procedure 10/13/2024 1:00 PM EST Office Visit [facility] [address] [place] [phone] Ben Arshad, COMPLAINT MANAGER [address] [place] [address] [facility] Start: 10-10-2024 End: 10-10-2024 Patient encounter procedure 10/10/2024 12:15 PM EST Appointment [facility] Physical Therapy [address] [place] [phone] Reagan Quiroz PTA [facility] Physical Therapy Start: 10-08-2024 End: 10-08-2024 Patient encounter procedure 10/08/2024 11:15 AM EST Appointment [facility] Physical Therapy [address] [place] [phone] Manuel Vazquez, PT [facility] Physical Therapy Start: 09-15-2024 End: 09-15-2024 Patient encounter procedure [facility] Comment on above: Arrived Start: 09-08-2024 End: 09-08-2024 Patient encounter procedure 09/08/2024 8:30 AM EST Office Visit [facility] [address] [place] [phone] Jr. Ramesh Christianson, DO [address] [phone] [facility] Start: 09-02-2024 End: 09-02-2024 Admission to same day surgery center 09/02/2024 12:30 PM EST - 09/02/2024 3:30 PM EST Surgery [facility] - Surgery [address] [place] [address] Ramesh Christianson Jr., DO [address] [place] [address] REPLACEMENT TOTAL JOINT HIP [44220 (CPT )] [facility] Comment on above: REPLACEMENT TOTAL STEWART INT HIP [52618 (CPT )] Start: 09-02-2024 End: 09-02-2024 Arthrp acetblr/prox fem prostc agrft/algrft REPLACEMENT TOTAL JOINT HIP left hip degenerative joint disease 09/02/2024 12:30 PM EST [facility] Start: 09-02-2024 Subsequent hospital visit by physician 09/02/2024 12:30 PM EST Hospital Encounter [facility] Surgery [address] [place] [address] Ramesh Christianson Jr., DO [address] [place] [address] [facility] Start: 09-01-2024 End: 09-01-2024 Patient encounter procedure 09/01/2024 8:30 AM EST Office Visit [facility] [address] [facility] [place] [phone] Jr. Ramesh Christianson, DO [address] [facility] [address] [place] [address] [facility] Start: 08-25-2024 End: 08-08-2025 Crossmatch RBC Crossmatch RBC Blood Bank Routine Preop examination Osteoarthritis of left hip, unspecified osteoarthritis type Urinary frequency Expected: 08/25/2024, Expires: 08/08/2025 [facility] Comment on above: Expected: 08/25/2024 , Expires: 08/08/2025 Start: 08-25-2024 End: 08-08-2025 Type and screen(includes indirect dov) Type and screen(includes indirect dov) Blood Bank Routine Preop examination Osteoarthritis of left hip, unspecified osteoarthritis type Urinary frequency Expected: 08/25/2024, Expires: 08/08/2025 [facility] Work Phone: Comment on above: Expected: 08/25/2024 , Expires: 08/08/2025 Start: 08-14-2024 End: 08-14-2024 Patient encounter procedure [facility] Comment on above: Pre-op examination ( Primary Dx); Arthritis of left hip Start: 06-25-2024 End: 06-25-2024 Patient encounter procedure 06/25/2024 3:00 PM EDT Office Visit [facility] [address] [place] [address] Jr. Ramesh Christianson, DO [address] [facility] [address] [place] [address] Arrived [facility] Comment on above: Arrived Start: 06-02-2024 End: 06-02-2025 RF Guidance for injection of Joint FL guided injection hip left Imaging Routine Arthritis of left hip Expected: 06/02/2024 (Approximate), Expires: 06/02/2025 [facility] Work Phone: Comment on above: Expected: 06/02/2024 (Approximate), Expires: 06/02/2025 Start: 06-02-2024 End: 06-02-2024 Patient encounter procedure 06/02/2024 11:00 AM EDT Office Visit [facility] [address] [place] [phone] Jr. Ramesh Christianson, DO [address] [facility] [address] [place] [address] Arrived [facility] Comment on above: Arrived Start: 05-25-2024 COVID-19 Vaccine ( season) COVID-19 Vaccine ( season) [facility] Start: 05-25-2024 COVID-19 Vaccine ( season) COVID-19 Vaccine ( season) [facility] Start: 05-25-2024 Influenza vaccination O [facility] Start: 05-19-2024 End: 05-19-2024 Patient encounter procedure 05/19/2024 10:30 AM EDT Office Visit [facility] [address] [place] [phone] Jr. Ramesh Christianson, [address] [facility] [address] [place] [address] Arrived [facility] Comment on above: Arrived Start: 04-24-2024 Influenza vaccination Flu vaccine (# 1) [facility] Start: 02-02-2024 Screening for malignant neoplasm of breast Mammogram [facility] Start: 01-31-2024 End: 01-31-2024 Patient encounter procedure 01/31/2024 1:00 PM EDT Office Visit [facility] [address] [place] [address] Shalom Méndez MD [address] [place] [address] [address] [place] [address] [facility] Start: 01-10-2024 End: 01-10-2024 Patient encounter procedure 01/10/2024 1:30 PM EDT Office Visit [facility] [address] [place] [address] Shalom Méndez MD [address] [place] [address] [address] [place] [address] [facility] Start: 01-03-2024 End: 01-03-2024 Patient encounter procedure 01/03/2024 1:30 PM EDT Office Visit [facility] [address] [place] [phone] Shalom Méndez MD [address] [place] [phone] [facility] Start: 12-27-2023 End: 12-27-2023 Patient encounter procedure 12/27/2023 1:30 PM EDT Office Visit [facility] [address] [place] [address] [address] [place] [address] Shalom Méndez MD [address] [place] [address] [facility] Start: 12-17-2023 End: 12-17-2023 Patient encounter procedure 12/17/2023 10:30 AM EDT Office Visit [facility] [address] [facility] [address] [place] [address] Reagan Hogue MD [address] [facility] [address] [place], [place] [phone] [facility] Start: 12-16-2023 Screening for malignant neoplasm of breast Breast cancer screen [facility] Start: 12-14-2023 End: 12-14-2023 Patient encounter procedure 12/14/2023 8:00 AM EDT Office Visit [facility] [address] [place] [phone] Shalom Méndez MD [address] [place] [address] [facility] Start: 12-11-2023 End: 12-11-2023 Patient encounter procedure 12/11/2023 8:00 AM EDT Office Visit [facility] [address] [place] [phone] Shalom Méndez MD [address] [place] [address] [facility] Start: 12-10-2023 End: 12-10-2023 Fstlj sclera glaucoma trabeculect ab externo TRABECULECTOMY Primary open-angle glaucoma, bilateral, severe stage 12/10/2023 11:18 AM EDT [facility] Start: 08-20-2023 Annual Wellness Visi t (Medicare) Annual Wellness Visit (Medicare) [facility] Start: 05-25-2023 COVID-19 VACCINE ( season) COVID-19 VACCINE ( season) [facility] Start: 05-25-2023 Influenza vaccination INFLUENZA VACC INE (#1) [facility] Start: 04-24-2023 Influenza vaccination Flu vacc ine (Season Ended) [facility] Start: 03-22-2023 Shingles vaccine (2 of 2) Shingles vaccine (2 of 2) [facility] Start: 05-25-2022 Influenza vaccination Flu vacc ine (Season Ended) [facility] Start: 02-02-2022 End: 02-02-2022 Patient encounter procedure 02/02/2022 Appointment Physical Therapy Larissa Roblero PT [facility] Start: 01-26-2022 End: 01-26-2022 Patient encounter procedure 01/26/2022 Appointment Physical Therapy Keyur Vital [facility] Therapy Start: 01-24-2022 End: 01-24-2022 Patient encounter procedure 01/24/2022 Appointment Physical Therapy Reagan Quiroz PTA [facility] Physical Therapy Start: 01-18-2022 End: 01-18-2022 Patient encounter procedure 01/18/2022 Appointment Physical Therapy Reagan Qurioz, OCT[facility] Start: 01-16-2022 End: 01-16-2022 Patient encounter procedure 01/16/2022 Appointment Physical Therapy Blanquita Nieto, PT [facility] Start: 01-11-2022 End: 01-11-2022 Patient encounter procedure 01/11/2022 Appointment Physical Therapy [facility] Start: 01-09-2022 End: 01-09-2022 Patient encounter procedure 01/09/2022 Appointment Physical Therapy Reagan Quiroz, OCTAVIA [facility] Start: 01-05-2022 End: 01-05-2022 Patient encounter procedure 01/05/2022 Appointment Physical Therapy Reagan Quiroz, OCT[facility]IA [facility] Start: 10-31-2021 Annual Wellness Visi t (AWV) Annual Wellness Visit (AWV) [facility] Start: 05-25-2021 Influenza vaccination Flu vaccine (# 1) [facility] Start: 03-07-2021 COVID-19 Vaccine (3 - Booster for Moderna series) COVID-19 Vaccine (3 - Booster for Moderna series) [facility] Start: 12-11-2019 Pneumococcal 50+ yea rs Vaccine (2 of 2 - PPSV23) Pneumococcal 50+ years Vaccine (2 of 2 - PPSV23) [facility] Start: 12-11-2019 Pneumococcal 65+ yea rs Vaccine (2 - PPSV23 if available, else PCV20) Pneumococcal 65+ years Vaccine (2 - PPSV23 if available, else PCV20) [facility] Start: 12-11-2019 Pneumococcal 65+ yea rs Vaccine (2 - PPSV23 or PCV20) Pneumococcal 65+ years Vaccine (2 - PPSV23 or PCV20) [facility] Start: 12-11-2019 Pneumococcal 65+ yea rs Vaccine (2 of 2 - PPSV23 or PCV20) Pneumococcal 65+ years Vaccine (2 of 2 - PPSV23 or PCV20) [facility] Start: 12-11-2019 Pneumococcal 65+ yea rs Vaccine (2 of 2 - PPSV23) Pneumococcal 65+ years Vaccine (2 of 2 - PPSV23) [facility] Start: 12-11-2019 Pneumococcal vaccination PNEUMOCOCCAL VACCINE SERIES (2 of 2 - PPSV23 or PCV20) [facility] Start: 12-11-2019 Pneumococcal Vaccine : 65+ Years (2 of 2 - PPSV23 or PCV20) Pneumococcal Vaccine: 65+ Years (2 of 2 - PPSV23 or PCV20) [facility] Start: 12-11-2019 Pneumococcal Vaccine : 65+ Years (2 of 2 - PPSV23) Pneumococcal Vaccine: 65+ Years (2 of 2 - PPSV23) [facility] Start: 2018 Fall Risk Screening Fall Risk Screen ing [facility] Start: 07-13-2015 DTaP/Tdap/Td vaccine (1 - Tdap) DTaP/Tdap/Td vaccine (1 - Tdap) [facility] Start: 2008 Screening for osteoporosis DEXA (modify frequency per FRAX score) [facility] Start: 2003 Shingles Vaccine (1 of 2) Shingles Vaccine (1 of 2) [facility] Start: 1998 Screening for malignant neoplasm of colon [facility] Start: 1993 Lipid panel [facility] Start: 1993 Screening for malignant neoplasm of breast MAMMOGRAM SCREENING DISCUSSION [facility] Start: 1988 Diabetes screen Diabetes screen [facility] Start: 1974 Screening for malignant neoplasm of cervix CERVICAL CANCER SCREENING DISCUSSION [facility] Start: 1972 DTaP,Tdap and Td Vaccines (1 - Tdap) DTaP,Tdap and Td Vaccines (1 - Tdap) [facility] Start: 1972 DTaP/Tdap/Td vaccine (1 - Tdap) DTaP/Tdap/Td vaccine (1 - Tdap) [facility] Start: 1972 Third diphtheria, tetanus and acellular pertussis (DTaP) vaccination TDAP (ADULT) [facility] Start: 1971 Adult BMI Follow Up Plan Adult BMI Follow Up Plan [facility] Start: 1971 Hepatitis C screening Hepatitis C sc reen [facility] Start: 1965 Depression Screen Depression Screen [facility] Start: 1965 Depression Screening Depression Scre ening [facility] Start: 1958 COVID-19 Vaccine (1) COVID-19 Vaccin e (1) [facility] Start: 1953 Annual Wellness Visi t (AWV) Annual Wellness Visit (AWV) [facility] Start: 1953 Hepatitis C screening [facility] Start: 1953 Screening for malignant neoplasm of colon [facility] Start: 1953 Screening for osteoporosis DEXA SCAN DISCUSSION [facility] Start: 1953 Tetanus vaccination TETANUS [facility] MG Breast - bilatera l Screening [facility] Immunizations Immunization Date Immunization Notes Care Provider Fa cility 01-10-2021 COVID-19 Vaccine Moderna - Documentation Purposes Only Tyrone Sanchez Other [facility] 12-13-2020 COVID-19 Vaccine Moderna - Documentation Purposes Only Tyrone Sanchez Other [facility] 07-22-2020 influenza virus vaccine, split virus (incl. purified surface antigen) Tyrone Sanchez Other [facility] Other 07-22-2020 influenza virus vaccine, unspecified formulation Shalom Méndez MD Work Phone: [facility] 12-10-2018 pneumococcal conjuga te vaccine, 13 valent Tyrone Sanchez Other [facility] 12-10-2018 pneumococcal Conjuga te, unspecified formulation; Translations: [Need for prophylactic vaccination against Streptococcus pneumoniae (pneumococcus)] Tyrone Sanchez Other [facility] Other 07-12-2015 tetanus and diphther ia toxoids, adsorbed, preservative free, for adult use (5 Lf of tetanus toxoid and 2 Lf of diphtheria toxoid) Tyrone Sanchez Other [facility] 07-15-2014 tetanus and diphther ia toxoids, adsorbed, preservative free, for adult use (5 Lf of tetanus toxoid and 2 Lf of diphtheria toxoid) Tyrone Sanchez Other [facility] Payers Date Payer Category Payer Managed Care Other (unspecified) [employer] [id number] 2018 Medicare [id number] 2018 Private Health Insurance [id number] 2018 Unknown GENERIC PAYOR ME DICARE SUPPLEMENT [id number] 2018-Present [phone] [id number] [place] [id number] [id number] 1959 Medicare [id number] 1959 Private Health Insurance [id number] 1953 Unknown [id number] 2.16.840.1.743175.3.579. 2.593 1953 Unknown [id number] 2.16.840.1.800574.3.579. 2.593 1953 Unknown [id number] 2.16.840.1.349935.3.579. 2.903 1953 Unknown [id number] 2.16.840.1.264117.3.579. 2.594 1953 Unknown [id number] 2.16.840.1.048499.3.579. 2.594 1953 Unknown [id number] 2.16.840.1.561444.3.579. 2.594 1953 Unknown [id number] 2.16.840.1.100492.3.579. 2.594 1953 Unknown [id number] 2.16.840.1.747802.3.579. 2.594 1953 Unknown [id number] 2.16.840.1.928077.3.579. 2.594 1953 Unknown [id number] 2.16.840.1.674773.3.579. 2.594 1953 Unknown [id number] 2.16.840.1.961446.3.579. 2.594 1953 Unknown [id number] 2.16.840.1.776793.3.579. 2.594 1953 Unknown [id number] 2.16.840.1.068922.3.579. 2.594 1953 Unknown [id number] 2.16.840.1.502775.3.579. 2.594 1953 Unknown [id number] 2.16.840.1.562699.3.579. 2.196 1953 Unknown [id number] 2.16.840.1.473364.3.579. 2.1286 1953 Unknown [id number] 2.16.840.1.692186.3.579. 2.1286 1953 Unknown [id number] 2.16.840.1.526076.3.579. 2.1286 1953 Unknown [id number] 2.16.840.1.594109.3.579. 2.128 1953 Unknown [id number] 2.16.840.1.913676.3.579. 2.1286 1953 Unknown [id number] 2.16.840.1.676094.3.579. 2.1286 1953 Unknown [id number] 2.16.840.1.424201.3.579. 2.173 1953 Unknown [id number] 2.16.840.1.015415.3.579. 2.173 1953 Unknown [id number] 2.16.840.1.306432.3.579. 2. 1953 Unknown [id number] 2.16.840.1.927692.3.579. 2.173 1953 Unknown [id number] 2.16.840.1.132805.3.579. 2. 1953 Unknown [id number] 2.16.840.1.425163.3.579. 2.173 1953 Unknown [id number] 2.16.840.1.564101.3.579. 2. 1953 Unknown [id number] 2.16.840.1.689555.3.579. 2. 1953 Unknown [id number] 2.16.840.1.210262.3.579. 2. 1953 Unknown [id number] 2.16.840.1.682827.3.579. 2.173 1953 Unknown [id number] 2.16.840.1.502862.3.579. 2. 1953 Unknown [id number] 2.16.840.1.157403.3.579. 2.173 1953 Unknown [id number] 2.16.840.1.541494.3.579. 2. 1953 Unknown [id number] 2.16.840.1.957129.3.579. 2. 1953 Unknown [id number] 2.16.840.1.818601.3.579. 2. 1953 Unknown [id number] 2.16.840.1.847317.3.579. 2.173 1953 Unknown [id number] 2.16.840.1.538424.3.579. 2.173 1953 Unknown [id number] 2.16.840.1.265273.3.579. 2.173 1953 Unknown [id number] 2.16.840.1.334669.3.579. 2.173 1953 Unknown [id number] 2.16.840.1.426788.3.579. 2.173 1953 Unknown [id number] 2.16.840.1.138080.3.579. 2.173 1953 Unknown [id number] 2.16.840.1.869852.3.579. 2.173 1953 Unknown [id number] 2.16.840.1.105413.3.579. 2.173 1953 Unknown [id number] 2.16.840.1.295239.3.579. 2.173 1953 Unknown [id number] 2.16.840.1.650379.3.579. 2.173 1953 Unknown [id number] 2.16.840.1.419799.3.579. 2.173 1953 Unknown [id number] 2.16.840.1.208431.3.579. 2.173 1953 Unknown [id number] 2.16.840.1.452144.3.579. 2.173 1953 Unknown [id number] 2.16.840.1.799003.3.579. 2.1259 1953 Unknown [id number] 2.16.840.1.982747.3.579. 2.1259 1953 Unknown [id number] 2.16.840.1.105865.3.579. 2.1259 1953 Unknown [id number] 2.16.840.1.249380.3.579. 2.1258 1953 Unknown [id number] 2.16.840.1.522784.3.579. 2.1258 1953 Unknown [id number] 2.16.840.1.852148.3.579. 2.1258 1953 Unknown [id number] 2.16.840.1.571418.3.579. 2.1258 1953 Unknown [id number] 2.16.840.1.347290.3.579. 2.1258 1953 Unknown [id number] 2.16.840.1.389211.3.579. 2.1258 1953 Unknown [id number] 2.16.840.1.723917.3.579. 2.1258 1953 Unknown [id number] 2.16.840.1.816553.3.579. 2.1258 1953 Unknown [id number] 2.16.840.1.765558.3.579. 2.1258 1953 Unknown [id number] 2.16.840.1.508288.3.579. 2.727 1953 Unknown [id number] 2.16.840.1.670354.3.579. 2.727 Social History Date Type Detail Facility Start: 10-31-2021 End: 03-26-2024 Tobacco smoking status MDIS Never smoked tobacco [employer] Phone: Start: 10-31-2021 End: 03-26-2024 Tobacco use and exposure Smokeless tobacco non-user [employer] Phone: Start: 12-15-2021 End: 08-12-2024 Alcohol intake Lifetime non-drinker (finding) [employer] Phone: Start: 1955 Sex Assigned At Not on file [employer] Work Phone: Start: 10-25-2023 End: 03-03-2025 Sex Assigned At [facility] Start: 10-25-2023 End: 03-03-2025 History of Social function [facility] Start: 1955 Sex Assigned At Female F [facility] Start: 06-20-2024 End: 03-03-2025 Alcoholic beverage intake Ex-drinker (finding) [facility] Tobacco smoking status [facility] [place] [facility] [place] Start: 04-29-2015 End: 01-30-2025 Sex Female (finding) [facility] Clinical Notes 01-02-2022 to 03-04-2025 Jr. Ramesh Christianson, - 03/03/2025 9:15 AM Georgia Mcallister PTA - 01/16/2025 11:00 AM Keyur Rich - 01/14/2025 10:45 AM Erika Coleman - 01/08/2025 12:15 PM EDT Note Date & Type Note Facility 03-04-2025 Note General Surgery Offi ce/Clinic Note Chief Complaint consultation for colonoscopy HPI Staff 69 year old female presents on consultation from Dr. Sanchez for surveillance colonoscopy. Denies abdominal or rectal pain. No rectal bleeding or change in bowel habits. Denies nausea or vomiting. No unexplained weight loss. Last colonoscopy completed 01/2019- normal. FH history of colon cancer in mother, age 76 or 77. History of Present Illness 69 yo female with h/o hyperlipidemia, migraines, IBS, referred for surveillance colonoscopy due to Fmhx of colon cancer in patient's mother; patient denies change in bms or blood in stools, no abd complaints; abd operations significant for appendectomy, DILAN with BSO; last colonoscopy 2018 wnl; no asa or NSAID use; no tobacco use; fmhx of colon cancer in patient's mother, dx at age 76; no fmhx of IBD. Review of Systems PHQ Score Initial Depression Screen Score: 2 SCORE ROS - Provider Constitutional: no fever, no sweats, no weight loss. Eyes: no glasses, no blurred vision, no visual loss. ENMT: no dentures, no hoarseness, no swallowing difficulties, no hearing loss, no ear infection(s), no nose bleeds. Cardiovascular: normal blood pressure, no chest pain, regular heartbeat, no heart murmur. Respiratory: no shortness of breath, no cough, no asthma, no wheezing. Gastrointestinal: no nausea, no vomiting, no diarrhea, no constipation, no blood in stool, no change in bowel habits, no abdominal pain, no hepatitis. Genitourinary: no kidney stones, no urine infection, no dysuria. Musculoskeletal: no pain, no weakness. Skin: no changing moles, no rash, no skin lumps. Neurologic: no seizures, no epilepsy, no headache. Psychiatric: no emotional or psychiatric problem. Heme/Lymph: no bleeding problems, no anemia, no blood clots, no transfusions. Allergy/Immunologic: no swollen lymph nodes/glands, no IV drug abuse. Other: Additional ROS info: Except as noted in the above Review of Systems and in the History of Present Illness, all other systems have been reviewed and are negative or noncontributory. Physical Exam Vitals & Measurements HR: 72(Peripheral) RR: 16 BP: 128/82 HT: 160 cm HT: 63 in WT: 161.599 lb WT: 73.3 kg BMI: 28.63 HEENT: normal conjunctiva, sclera clear, no scleral icterus, EOM intact, PERRLA, oral mucosa moist without lesions. Neck: trachea midline, no mass, symmetric, no thyromegaly or nodules, no adenopathy Respiratory: lungs CTA, respirations non labored. Cardiovascular: regular rate and rhythm, no murmur, no pedal edema or varicosities. Gastrointestinal: soft, non distended, no tenderness, no masses, no palpable hernias, diastasis recti no, no hepatosplenomegaly; normal bs Lymphatic: no cervical adenopathy, no supraclavicular adenopathy. Musculoskeletal: normal gait, digits and nails without infection, nodes, cyanosis, clubbing. Skin: no rashes, no lesions, no ulcers, no subcutaneous nodules, induration. Psychiatric/Neuro: oriented to time, place, person, judgement normal, affect appropriate for age, insight intact, no focal deficits. Tests: , review of old records completed , Discussed surgical options, risks, and possible complications with patient. Assessment/Plan 1. Family history of colon cancer in mother (Z80.0: Family history of malignant neoplasm of digestive organs) plan surveillance colonoscopy under anesthesia, informed consent obtained. Follow-up No qualifying data available Problem List/Past Medical History Ongoing BMI 28.0-28.9,adult Family history of colon cancer in mother Glaucoma History of colon polyps Hyperlipidemia IBS (irritable bowel syndrome) Migraine Osteopenia Overweight Historical No qualifying data Procedure/Surgical History Colonoscopy (01/22/2019), Arthroplasty of left hip, Arthroplasty of right hip, Arthroscopy of knee, Biopsy of breast, Cataract extraction, Colonoscopy, Reattachment of retina, DILAN BSO - Total abdominal hysterectomy and bilateral salpingo-oophorectomy, Trabeculectomy. Medications amLODIPine 5 mg Tab brimonidine Opth 0.2% Camila, 1 drop(s), Eye-Both, TID dicyclomine 10 mg Cap, 10 mg= 1 cap(s), Oral, QID, PRN dorzolamide-timolol Opth 2%-0.5% Camila estradiol 0.5 mg Tab ketorolac Opth 0.5% Camila, 1 drop(s), Eye-Right, TID Lumigan 0.01% ophthalmic solution, 1 drop(s), Eye-Both, Once a day (at bedtime) SUMAtriptan 100 mg Tab Allergies No Known Allergies No Known Medication Allergies Social History Alcohol - Denies Alcohol Use, 03/04/2025 Substance Abuse - Denies Substance Abuse, 03/04/2025 Tobacco Never (less than 100 in lifetime) Tobacco Use:. Never Smokeless Tobacco Use:., 03/04/2025 Family History Heart disease: Father. Primary malignant neoplasm of colon: Mother. Immunizations Vaccine Date Status SARS-CoV-2 (COVID-19) mRNA-1273 vaccine 01/10/2021 Recorded SARS-CoV-2 (COVID-19) mRNA-1273 vaccine 12/13/2020 Recorded [facility] Comment on above: Result Comment: Elec tronically Signed By: MELVA DODSON, Heriberto Koo\Date and Time Signed: 03/04/25 14:11 EDT 03-03-2025 History of Present illness Narrative Images from the original note were not included. HISTORY OF PRESENT ILLNESS: EST PT Leticia Cannon is an 69 y.o. @ female. EST PT; MOST RECENT VISIT WITH BEN- S/P LT SATHYA 09/02/24 (6MO) FM- DOING OK XRAY EPIC 10/13/24 [facility] NO MDP/PREDNISONE NOTES TIGHTNESS AFTER INCREASE ACTIVITY/PROLONG SITTING- PT STATES PAIN IS MINIMAL- DOES HEP- +TYLENOL/ALEVE PRN- DENIES WAKE HS- DENIES INSTABILITY ALLERGIES: Allergies Allergen Reactions Celecoxib Other Reaction(s): INCREASE OCCULAR PRESSURE Other Other DENIES METAL ALLERGY HOME MEDICATIONS: Current Outpatient Medications Medication Instructions amLODIPine (NORVASC) 5 mg, Daily RT ascorbic acid (VITAMIN C) 250 mg, Daily RT brimonidine (AlphaGAN P) 0.15 % ophthalmic solution 1 drop, 3 times daily brimonidine (AlphaGAN P) 0.2 % ophthalmic solution ONE DROP IN EACH EYE THREE TIMES A DAY estradiol (Estrace) 0.5 MG tablet TAKE 1 TABLET BY MOUTH EVERY OTHER DAY 30 ketorolac (Acular) 0.5 % ophthalmic solution INSTILL 1 DROP INTO RIGHT EYE 3 TIMES A DAY Lactobacillus Acid-Pectin (Acidophilus/Murtaugh Pectin) tablet 1 tablet, 3 times daily with meals Lumigan 0.01 % ophthalmic solution 1 drop, Nightly Misc. Devices [facility] bed, deliver to home SUMAtriptan (Imitrex) 100 MG tablet PHYSICAL EXAM: Hip Musculoskeletal Exam Gait Gait is normal. Limp: left Limp comment: mild Inspection Leg length disparity: no discrepancy Left Erythema: none Ecchymosis: none Edema: none Deformity: none Previous incision: anterolateral Incision: well-healed Palpation Left Left hip palpation is normal. Increased warmth: none Tenderness: none Range of Motion Left Left hip range of motion is within functional limits. Active ROM: normal and no pain. Passive ROM: normal and no pain. Strength Left Left hip strength is normal. Extension: 5/5. Flexion: 5/5. Internal rotation: 5/5. External rotation: 5/5. Adduction: 5/5. Abduction: 5/5. Neurovascular Left Left hip neurovascular exam is normal. Pulses - PT: normal Posterior tibial: 2+ General Constitutional: appears stated age Labored breathing: no Psychiatric: normal mood and affect Neurological: alert and oriented x3 Skin: intact Lymphadenopathy: none Vitals: There is no height or weight on file to calculate BMI. Tobacco Use: Low Risk (03/03/2025) Patient History Smoking Tobacco Use: Never Smokeless Tobacco Use: Never Passive Exposure: Not on file Alcohol Use: Not At Risk (09/02/2024) Received from [facility] Frequency of Alcohol Consumption: Never Average Number of Drinks: Patient does not drink Frequency of Binge Drinking: Never IMAGING: Procedures No orders of the defined types were placed in this encounter. ASSESSMENT: ICD-10-CM 1. 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 Left hip pain M25.552 PLAN: Patient is much better than she was before surgery and she is pleased with her progress glad that she had her hip replaced. We have discussed restrictions, home exercise program, and x-rays at length today. We'll see her back in 1 year to reassess. The patient's operative hip and operative lower extremity was neurovascularly intact without any sensory or motor deficits noted. Dorsalis pedis and posterior tibial pulses were present and equal bilaterally. Strength major muscle groups and symmetrical bilaterally. Patient was able to dorsi and plantarflex both feet with 5 out of 5 strength bilaterally. Sensation to light touch was intact all dermatomes to large cavities bilaterally. Patient's incision is healed without evidence of infection. There is no evidence of redness swelling or ascending lymphangitis. Questions answered in laymen terms at the bedside. The diagnosis, home exercise plan and any ongoing restrictions/ recommendations reviewed. If unable to be reached in office, I recommend evaluation at nearest Emergency Room if any symptoms worsened or new symptoms develop for requiring urgent evaluation. documented in this encounter [facility] 01-16-2025 History of Present illness Narrative [facility] Outpatient Physical Therapy Daily Note Patient: Leticia Cannon : 1955 CSN #: [id number] Referring Physician: Leatha Perez PA-C Date: 01/16/2025 Treatment Diagnosis: s/p L SATHYA, generalized weakness Onset Date: 09/02/24 PT Insurance Information: Medicare Total # of Visits Approved: 20 Per Physician Order Total # of Visits to Date: 27 No Show: 0 Canceled Appointment: 0 01/23/25 Plan of Care/Recert Due Pre-Treatment Pain: 0/10 Subjective: Patient reports mild tightness when up on her feet for longer periods of time. Denies pain and reports compliance with HEP. Exercises: Exercise 1: HEP: SLR 2x8, bridge 2x10, PPT with march x10 ea, R SKTC 2x30 seconds Exercise 2: SciFIT: level 4.5 x 7 minutes - hills Exercise 3: Sit/stands left retro position 2 x 10 no Ue push off - 8# ball today Exercise 4: SLS on L LE with glut squeeze 3x30 sec Exercise 5: Fwd/Lat 6 step ups, SD 6in, x15 ea one UE support Exercise 6: Standing marches, HS curls, mini squats, hip ext, heel/toe raises x20 ea with #2 weight Exercise 12: Standing hip ext/abd with BTB x10 ea B LE Exercise 13: mini lunges forward and lateral at bar x10 // SLS 2x30 Exercise 14: fwd/lat 10 saritha step overs x15 Exercise 20: Treadmill x4 min (focus on gait pattern) - TM 4 min retro amb today Assessment Body Structures, Functions, Activity Limitations Requiring Skilled Therapeutic Intervention: Decreased functional mobility , Decreased ADL status, Decreased ROM, Decreased strength, Decreased endurance, Decreased balance, Decreased high-level IADLs, Increased pain, Decreased posture Assessment: Continued with charted exercises to improve L hip ROM and glute strength with good tolerance. Pt agreeable to discharge at this time with GTB given to progress HEP with good understanding. Pt completed retro amb on TM with cues for glute activation and longer step length. Pt continues to displays gait deviations and antalgic gait pattern. Activity Tolerance Activity Tolerance: Patient tolerated treatment well Patient Education Patient Education: HEP Pt verbalized/demonstrated good understanding: [x] Yes [] No, pt required further clarification. Post Treatment Pain: 0/10 Plan Plan Frequency: 2 Plan weeks: 4 Goals (Total # of Visits to Date: 27) Short Term Goals Time Frame for Short Term Goals: 3 weeks Short Term Goal 1: Patient will be initiated with a HEP-met Short Term Goal 2: Patient will tolerate 30 minutes of therex/act to improve endurance for ADLs.-met Waiver Analyst Goals Time Frame for Waiver Analyst Goals : 5 weeks Waiver Analyst Goal 1: Patient will be independent and compliant with a HEP - met Waiver Analyst Goal 2: Patient will improve L hip extension and flexion ROM to at least 0-90* for ADLs. - progressing (11/25/24 L hip flexion 0-100* , hip ext ) Penitentiary Goal 3: Patient will improve L LE strength to >/= 4/5 in all major joints and planes. - MET (11/25/24 L knee ext 5/5, L knee flexion 4/5, L hip flexion 4/5) Waiver Analyst Goal 4: Patient will be able to perform 5 sit to stands without UE assist. - MET (10/23/24 - 5 sit to stands without UE assist) Waiver Analyst Goal 5: Patient will be able to ambulate without an AD, with minimal gait deviations - progressing - patient ambulating no AD, antalgic gait pattern - progressing pt continues to have significant gait deviations. senior care goal 6: Patient will report 70% improvement in overall symptoms and function. - MET (12/04/24 80% improvement) Minutes Tracking: Time In: 1105 Time Out: 1143 Minutes: 38 Timed Code Treatment Minutes: 38 Minutes Georgia Erazo PTA Date: 01/16/2025 Cosigned by Larissa Roblero, PT at 01/16/2025 12:19 PM EDT documented in this encounter [facility] 01-14-2025 History of Present illness Narrative [facility] Outpatient Physical Therapy Daily Note Patient: Leticia Cannon : 1955 CSN #: [id number] Referring Physician: Leatha Perez PA-C Date: 01/14/2025 Diagnosis: s/p L hip arthroplasty, Z96.642 Treatment Diagnosis: s/p L SATHYA, generalized weakness Onset Date: 09/02/24 PT Insurance Information: Medicare Total # of Visits Approved: 20 Per Physician Order Total # of Visits to Date: 26 No Show: 0 Canceled Appointment: 0 01/23/25 Plan of Care/Recert Due Pre-Treatment Pain: 0/10 Subjective: Pt states she just has some stiffness in her hip when she sit too long. States when she gets tired she has a little hips soreness. Exercises: Exercise 1: HEP: SLR 2x8, bridge 2x10, PPT with november x10 ea, R SKTC 2x30 seconds Exercise 2: SciFIT: level 4.5 x 7 minutes - hills Exercise 3: Sit/stands left retro position 2 x 10 no Ue push off Exercise 4: SLS on L LE with glut squeeze 3x30 sec Exercise 5: Fwd/Lat 6 step ups, SD 6in, x15 ea one UE support Exercise 15: 1 lap today// high knee walking and side walking --whole length of gym Exercise 18: TG squats 20 // TG SL squats 2x10 Assessment Assessment: Pt denies pain. States she is happt with current progress and feels she can continue on her own following next session. Strength in quads is 4+/5, hip 4/4+/5. Activity Tolerance Activity Tolerance: Patient tolerated treatment well Patient Education Patient Education: HEP Pt verbalized/demonstrated good understanding: [x] Yes [] No, pt required further clarification. Post Treatment Pain: 0/10 Plan Plan Frequency: 2 Plan weeks: 4 Goals (Total # of Visits to Date: 26) Short Term Goals Time Frame for Short Term Goals: 3 weeks Short Term Goal 1: Patient will be initiated with a HEP-met Short Term Goal 2: Patient will tolerate 30 minutes of therex/act to improve endurance for ADLs.-met Waiver Analyst Goals Time Frame for Penitentiary Goals : 5 weeks Waiver Analyst Goal 1: Patient will be independent and compliant with a HEP - met Waiver Analyst Goal 2: Patient will improve L hip extension and flexion ROM to at least 0-90* for ADLs. - progressing (11/25/24 L hip flexion 0-100* , hip ext ) Waiver Analyst Goal 3: Patient will improve L LE strength to >/= 4/5 in all major joints and planes. - MET (11/25/24 L knee ext 5/5, L knee flexion 4/5, L hip flexion 4/5) Waiver Analyst Goal 4: Patient will be able to perform 5 sit to stands without UE assist. - MET (10/23/24 - 5 sit to stands without UE assist) Penitentiary Goal 5: Patient will be able to ambulate without an AD, with minimal gait deviations - progressing - patient ambulating no AD, antalgic gait pattern - progressing (pt continues to have significant gait deviations. extermination inspector goal 6: Patient will report 70% improvement in overall symptoms and function. - MET (12/04/24 80% improvement) Minutes Tracking: Time In: 1047 Time Out: 1128 Minutes: 41 Timed Code Treatment Minutes: 40 Minutes Keyur Amador Date: 01/14/2025 Cosigned by Larissa Roblero PT at 01/14/2025 8:05 PM EDT documented in this encounter [facility] 01-08-2025 History of Present illness Narrative Physical Therapy [facility] Inpatient/Observation/Outpatient Rehabilitation Date: 01/08/2025 Patient Name: Leticia Cannon [] Inpatient Acute/Observation [x] Outpatient : 1955 Plan of Care/Recert ends [] Pt refused/declined therapy at this time due to: [x] Pt cancelled due to: [] No Reason Given [] Sick/ill [x] Other: having work done at her house [] Evaluation held by RN/Provider/Physical Therapist due to: [] High Heart Rate [] High Blood Pressure [] Orthopedic Consult [] Hgb < 7 [] Other: [] Pt ordered brace per physician request: [] Proper fit will be completed and education for wearing/skin checks [] Pt does not require skilled services due to: Therapist/Networking Technology Instructor will attempt to see this patient, at our earliest opportunity. Erika Soto Date: 01/08/2025 Cosigned by Mann Tristan PTA at 01/08/2025 2:25 PM EDT documented in this encounter [facility] 01-06-2025 History of Present illness Narrative Physical Therapy [facility] Outpatient Physical Therapy Daily Note Patient: Leticia Cannon : 1955 CSN #: [id number] Referring Physician: Leatha Perez PA-C Date: 01/06/2025 Treatment Diagnosis: s/p L SATHYA, generalized weakness Onset Date: 09/02/24 PT Insurance Information: Medicare Total # of Visits Approved: 20 Per Physician Order Total # of Visits to Date: 25 No Show: 0 Canceled Appointment: 0 01/23/25 Plan of Care/Recert Due Pre-Treatment Pain: 0/10 Subjective: Patient denies pain and reports she felt really good after previous session, reports hip is sore from picking up stuff in her yard over the weekend. Denies pain 0/10. Exercises: Exercise 1: HEP: SLR 2x8, bridge 2x10, PPT with november x10 ea, R SKTC 2x30 seconds Exercise 2: SciFIT: level 4.5 x 7 minutes - hills Exercise 3: Sit/stands left retro position 2 x 10 no Ue push off Exercise 4: SLS on L LE with glut squeeze 3x30 sec Exercise 5: Fwd/Lat 6 step ups, SD 6in, x15 ea one UE support Exercise 8: Standing L hip flexor stretch 3x20 sec at steps // HS stretch 3 x 30 Exercise 11: Standing Sideways Walks x3 at counter top with blue TB Exercise 12: Standing hip ext/abd with BTB x10 ea B LE Exercise 15: 1 lap today// high knee walking and side walking --whole length of gym Exercise 17: left hip hiking , left hip hiking with right hip abd 10x 4inch step mirror for feedback Exercise 19: Elliptical L 1 x 6 min Assessment Body Structures, Functions, Activity Limitations Requiring Skilled Therapeutic Intervention: Decreased functional mobility , Decreased ADL status, Decreased ROM, Decreased strength, Decreased endurance, Decreased balance, Decreased high-level IADLs, Increased pain, Decreased posture Assessment: Focused on functional LLE strengthening and stability to reduce limping pattern with gait this session.Left Hip hiking utilizing mirror for visual feedback, demo improved pelvic alighment after tc for proper hip stabilization with quick fatigue in left glut med demo after. Sit <> stands modified to focus on left glut strengthening with LLE in retro position, improved weightshifting towards LLE after modification with less compensation demo. Quick fatigue with left glut strengthening and staiblizing training due to weakness, reports fatigue and some soreness after PT. Activity Tolerance Activity Tolerance: Patient tolerated treatment well Patient Education Patient Education: HEP, focus on hip stabilizer strengthening. Pt verbalized/demonstrated good understanding: [x] Yes [] No, pt required further clarification. Post Treatment Pain: 0/10 Plan Plan Frequency: 2 Plan weeks: 4 Goals (Total # of Visits to Date: 25) Short Term Goals Time Frame for Short Term Goals: 3 weeks Short Term Goal 1: Patient will be initiated with a HEP-met Short Term Goal 2: Patient will tolerate 30 minutes of therex/act to improve endurance for ADLs.-met Penitentiary Goals Time Frame for Waiver Analyst Goals : 5 weeks Waiver Analyst Goal 1: Patient will be independent and compliant with a HEP - met Penitentiary Goal 2: Patient will improve L hip extension and flexion ROM to at least 0-90* for ADLs. - progressing (11/25/24 L hip flexion 0-100* , hip ext ) Penitentiary Goal 3: Patient will improve L LE strength to >/= 4/5 in all major joints and planes. - MET (11/25/24 L knee ext 5/5, L knee flexion 4/5, L hip flexion 4/5) Waiver Analyst Goal 4: Patient will be able to perform 5 sit to stands without UE assist. - MET (10/23/24 - 5 sit to stands without UE assist) Waiver Analyst Goal 5: Patient will be able to ambulate without an AD, with minimal gait deviations - progressing - patient ambulating no AD, antalgic gait pattern - progressing (pt continues to have significant gait deviations. senior care goal 6: Patient will report 70% improvement in overall symptoms and function. - MET (12/04/24 80% improvement) Minutes Tracking: Time In: 1258 Time Out: 1340 Minutes: 42 Timed Code Treatment Minutes: 42 Minutes Mann Tristan PTA Date: 01/06/2025 Cosigned by Larissa Mixon, PT at 01/06/2025 2:02 PM EDT documented in this encounter [facility] 12-29-2024 History of Present illness Narrative Physical Therapy [facility] Outpatient Physical Therapy Daily Note Patient: Leticia Cannon : 1955 CSN #: [id number] Referring Physician: Leatha Perez PA-C Date: 12/29/2024 Treatment Diagnosis: s/p L SATHYA, generalized weakness Onset Date: 09/02/24 PT Insurance Information: Medicare Total # of Visits Approved: 20 Per Physician Order Total # of Visits to Date: No Show: 0 Canceled Appointment: 0 01/23/25 Plan of Care/Recert Due Pre-Treatment Pain: 0/10 Subjective: Pt denied pain. Pt notes she did a lot of running around this morning at stores so she is more sore and fatigued. Pt states increased ache with ambulation, notes she still favors L LE causing limp. Pt states she has been completing HEP at home with no concerns. Exercises: Exercise 2: SciFIT: level 4.5 x 7 minutes - hills Exercise 3: Sit/stands 15- vc's for equal WB through legs Exercise 4: SLS on L LE 3x30 sec Exercise 5: Fwd/Lat 6 step ups, SD 6in, x15 ea one UE support Exercise 11: Standing Sideways Walks x3 at counter top with Green TB Exercise 12: Standing hip ext/abd with BTB x10 ea B LE Exercise 14: fwd/lat 10 saritha step overs x15 - fwd only this date. Exercise 18: TG squats 20 // TG SL squats 2x10 Exercise 19: Elliptical L 1 x4 min Assessment Assessment: Progressed with treadmill with a focus on gait patern, good tolerance. Added BTB hip ext and abd, noted weakness in L hip abd and glute. Pt required frequent VCs for technique and to decrease compensations, fair carryover. Reviewed HEP with pt with a focus on hip abd and ext, good understanding, UPOC completed by Larissa Mixon DPT. Continue as pt tolerates. Activity Tolerance Activity Tolerance: Patient tolerated treatment well Patient Education Patient Education: Educated pt on ambulating with TKE on L LE and increasing L LE stance time. Pt verbalized/demonstrated good understanding: [x] Yes [] No, pt required further clarification. Post Treatment Pain: 0/10 Pt noting fatigue. Plan Plan Frequency: 2 Plan weeks: 4 Goals (Total # of Visits to Date: 23) Short Term Goals Time Frame for Short Term Goals: 3 weeks Short Term Goal 1: Patient will be initiated with a HEP-met Short Term Goal 2: Patient will tolerate 30 minutes of therex/act to improve endurance for ADLs.-met Waiver Analyst Goals Time Frame for Penitentiary Goals : 5 weeks Waiver Analyst Goal 1: Patient will be independent and compliant with a HEP - met Penitentiary Goal 2: Patient will improve L hip extension and flexion ROM to at least 0-90* for ADLs. - progressing (11/25/24 L hip flexion 0-100* , hip ext ) Waiver Analyst Goal 3: Patient will improve L LE strength to >/= 4/5 in all major joints and planes. - MET (11/25/24 L knee ext 5/5, L knee flexion 4/5, L hip flexion 4/5) Waiver Analyst Goal 4: Patient will be able to perform 5 sit to stands without UE assist. - MET (10/23/24 - 5 sit to stands without UE assist) Penitentiary Goal 5: Patient will be able to ambulate without an AD, with minimal gait deviations - progressing - patient ambulating no AD, antalgic gait pattern - progressing (pt continues to have significant gait deviations. senior care goal 6: Patient will report 70% improvement in overall symptoms and function. - MET (12/04/24 80% improvement) Minutes Tracking: Time In: 1350 Time Out: 1432 Minutes: 42 Timed Code Treatment Minutes: 40 Minutes Xin Samayoa PTA Date: 12/29/2024 Cosigned by Manuel Vazquez PT at 12/29/2024 4:21 PM EDT documented in this encounter [facility] 12-26-2024 History of Present illness Narrative [facility] Outpatient Physical Therapy Date: 12/26/2024 Patient: Leticia Cannon : 1955 CSN #: [id number] Referring Physician: Leatha Perez PA-C [] Plan of Care [x] Updated Plan of Care Dates of Service to Include: 12/26/2024 to 01/23/25 Diagnosis: s/p L hip arthroplasty, Z96.642 Rehab (Treatment) Diagnosis: s/p L SATHYA, generalized weakness Onset Date: 09/02/24 Attendance Total # of Visits to Date: 21 No Show: 0 Canceled Appointment: 0 Assessment Pt has attended 20 visits and an intital evaluation s/p L SATHYA. Hip flexion has improved to 100* and ext at 8*. Pt has met all STGs and making progress toward LTGs. L hip still with weakness of 4/5 with flexion abd and ext and pt with moderate antalgic gait pattern d/t weakness. Decreased L hip flexion and ext with late stance phase on L from anterior tightness. Pt would continue to benefit from skilled therapy to allow for full strength to return and to fix antalgic gait pattern to prevent future injury from poor gait mechanics. Goals Short Term Goals Time Frame for Short Term Goals: 3 weeks Short Term Goal 1: Patient will be initiated with a HEP-met Short Term Goal 2: Patient will tolerate 30 minutes of therex/act to improve endurance for ADLs.-met Waiver Analyst Goals Time Frame for Penitentiary Goals : 5 weeks Waiver Analyst Goal 1: Patient will be independent and compliant with a HEP - met Waiver Analyst Goal 2: Patient will improve L hip extension and flexion ROM to at least 0-90* for ADLs. - progressing (11/25/24 L hip flexion 0-100* , hip ext ) Penitentiary Goal 3: Patient will improve L LE strength to >/= 4/5 in all major joints and planes. - MET (11/25/24 L knee ext 5/5, L knee flexion /5, L hip flexion 4/5) Penitentiary Goal 4: Patient will be able to perform 5 sit to stands without UE assist. - MET (10/23/24 - 5 sit to stands without UE assist) Waiver Analyst Goal 5: Patient will be able to ambulate without an AD, with minimal gait deviations - progressing - patient ambulating no AD, antalgic gait pattern senior care goal 6: Patient will report 70% improvement in overall symptoms and function. - MET (12/04/24 80% improvement) Prognosis Therapy Prognosis: Good Treatment Plan Plan Frequency: 2 Plan weeks: 4 [x] HP/CP [] Electrical Stim [x] Therapeutic Exercise [x] Gait Training [] Aquatics [] Ultrasound [x] Patient Education/HEP [x] Manual Therapy [] Traction [x] Neuro-rolly [x] Soft Tissue Mobs [x] Therapeutic Activity [] Iontophoresis [] Orthotic casting/fitting [] Dry Needling [] Blood Flow Restriction [] Vasopneumatic Compression [x] Vasopneumatic Compression/Cold [] Vestibular Rehabilitation Electronically signed by: LARISSA MIXON, PT, DPT Date: 12/26/2024 Date: 12/26/2024 Physician Signature documented in this encounter [facility] 12-11-2024 History of Present illness Narrative Physical Therapy [facility] Outpatient Physical Therapy Daily Note Patient: Leticia Cannon : 1955 CSN #: [id number] Referring Physician: Leatha Perez PA-C Date: 12/11/2024 Treatment Diagnosis: s/p L SATHYA, generalized weakness Onset Date: 09/02/24 PT Insurance Information: Medicare Total # of Visits Approved: 20 Per Physician Order Total # of Visits to Date: 21 No Show: 0 Canceled Appointment: 0 12/05/24 Plan of Care/Recert Due Pre-Treatment Pain: 10/03 Subjective: Pt reports hip is feeling much better but still has some c/os of tightness. Reprots she does not use cane. Exercises: Exercise 2: SciFIT: level 4.5 x 10 minutes - hills Exercise 3: Sit/stands 2x15 holding 8# ball - vc's for equal WB through legs Exercise 5: Fwd/Lat 8 step ups, SD 6in, x20 ea Exercise 6: Standing marches, HS curls, mini squats, hip ext, heel/toe raises x20 ea with #2 weight Exercise 8: Standing L hip flexor stretch 3x20 sec at steps // HS stretch 3 x 30 Exercise 11: Standing Sideways Walks x3 at counter top with BTB Exercise 14: fwd/lat 10 saritha step overs x15 - fwd 4in lat 10in today Exercise 15: 1 lap today// high knee walking and side walking --whole length of gym Exercise 19: hip ext, hip abd GTB x15 Assessment Body Structures, Functions, Activity Limitations Requiring Skilled Therapeutic Intervention: Decreased functional mobility , Decreased ADL status, Decreased ROM, Decreased strength, Decreased endurance, Decreased balance, Decreased high-level IADLs, Increased pain, Decreased posture Assessment: Gait with no AD SBA, demo less antalgic gait pattern this date but still demos slight right hip drop d/t left glut med weakness. Activity Tolerance Activity Tolerance: Patient tolerated treatment well Patient Education Patient Education: HEP Pt verbalized/demonstrated good understanding: [x] Yes [] No, pt required further clarification. Post Treatment Pain: 0/10 Plan Plan Frequency: 2 Plan weeks: 5 Goals (Total # of Visits to Date: 21) Waiver Analyst Goals Penitentiary Goal 5: Patient will be able to ambulate without an AD, with minimal gait deviations - progressing - patient ambulating no AD, antalgic gait pattern Minutes Tracking: Time In: 1145 Time Out: 1234 Minutes: 49 Mann Tristan PTA Date: 12/11/2024 Cosigned by Manuel Vazquez, PT at 12/11/2024 2:26 PM EDT documented in this encounter [facility] 12-09-2024 History of Present illness Narrative [facility] Outpatient Physical Therapy Daily Note Patient: Leticia Cannon : 1955 CSN #: [id number] Referring Physician: Leatha Perez PA-C Date: 12/09/2024 Diagnosis: s/p L hip arthroplasty, Z96.642 Treatment Diagnosis: s/p L SATHYA, generalized weakness Onset Date: 09/02/24 PT Insurance Information: Medicare Total # of Visits Approved: 20 Per Physician Order Total # of Visits to Date: 20 No Show: 0 12/05/24 Plan of Care/Recert Due Pre-Treatment Pain: 11/03 Subjective: Pt with complaints of mild hip tightness. States she is doing more at her home. Exercises: Exercise 1: HEP: SLR 2x8, bridge 2x10, PPT with march x10 ea, R SKTC 2x30 seconds Exercise 2: SciFIT: level 4.5 x 10 minutes - hills Exercise 3: Sit/stands 2x15 holding 8# ball - vc's for equal WB through legs Exercise 5: Fwd/Lat 8 step ups, SD 6in, x20 ea Exercise 6: Standing marches, HS curls, mini squats, hip ext, heel/toe raises x20 ea with #2 weight Exercise 8: Standing L hip flexor stretch 3x20 sec at steps // HS stretch 3 x 30 --hip flexor this date Exercise 10: Startrac knee extension 25#, knee flexion 35# 2 x 10 ea Exercise 14: fwd/lat 10 saritha step overs x15 - fwd 4in lat 10in today Exercise 15: 2 laps around clinic without AD - 1 lap today// high knee walking and side walking --whole length of gym--just 1 lap around clinic this date Assessment Assessment: Pt denies pain, states she jsut has some hip tightness. Functional strengthening completed to increase strength and endurance. Added 5# wt to sit to stands with good tolerance. Walking drills completed with SBA and no LOB. Pt continues with mild glut med. gait. HEP reviewed Activity Tolerance Activity Tolerance: Patient tolerated treatment well Patient Education Patient Education: HEP Pt verbalized/demonstrated good understanding: [x] Yes [] No, pt required further clarification. Post Treatment Pain: 11/03 Plan Plan Frequency: 2 Plan weeks: 5 Goals (Total # of Visits to Date: 20) Short Term Goals Short Term Goal 1: Patient will be initiated with a HEP-met Short Term Goal 2: Patient will tolerate 30 minutes of therex/act to improve endurance for ADLs.-met Penitentiary Goals Time Frame for Waiver Analyst Goals : 5 weeks Penitentiary Goal 1: Patient will be independent and compliant with a HEP - met Waiver Analyst Goal 2: Patient will improve L hip extension and flexion ROM to at least 0-90* for ADLs. - progressing (11/25/24 L hip flexion 0-100*) Penitentiary Goal 3: Patient will improve L LE strength to >/= 4/5 in all major joints and planes. - MET (11/25/24 L knee ext 5/5, L knee flexion 4/5, L hip flexion 4/5) Penitentiary Goal 4: Patient will be able to perform 5 sit to stands without UE assist. - MET (10/23/24 - 5 sit to stands without UE assist) Waiver Analyst Goal 5: Patient will be able to ambulate without an AD, with minimal gait deviations - progressing - patient ambulating no AD, antalgic gait pattern senior care goal 6: Patient will report 70% improvement in overall symptoms and function. - MET (12/04/24 80% improvement) Minutes Tracking: Time In: 1045 Time Out: 1134 Minutes: 49 Timed Code Treatment Minutes: 46 Minutes Keyur Amador Date: 12/09/2024 Cosigned by Larissa Roblero, PT at 12/09/2024 12:10 PM EDT documented in this encounter [facility] 12-04-2024 History of Present illness Narrative [facility] Out[facility] Physical Therapy Daily Note Patient: Leticia Cannon : 1955 CSN #: [id number] Referring Physician: Leatha Perez PA-C Date: 12/04/2024 Treatment Diagnosis: s/p L SATHYA, generalized weakness Onset Date: 09/02/24 PT Insurance Information: Medicare Total # of Visits Approved: 20 Per Physician Order Total # of Visits to Date: 19 No Show: 0 Canceled Appointment: 0 12/05/24 Plan of Care/Recert Due Pre-Treatment Pain: 0/10 Subjective: Patient reports feeling sore following cleaning the garage yesterday. Pt states she may have overdone it with cleaning and taking a few walks. Pt denies pain only tightness. Exercises: Exercise 1: HEP: SLR 2x8, bridge 2x10, PPT with november x10 ea, R SKTC 2x30 seconds Exercise 2: SciFIT: level 4.5 x 10 minutes - hills Exercise 3: Sit/stands 2x15 holding 8# ball - vc's for equal WB through legs Exercise 5: Fwd/Lat 8 step ups, SD 6in, x20 ea Exercise 8: Standing L hip flexor stretch 3x20 sec at steps // HS stretch 3 x 30 --hip flexor this date Exercise 11: Standing Sideways Walks x3 at counter top with BTB Exercise 13: mini lunges at bar x10 - on BOSU today x15 Exercise 14: fwd/lat 10 saritha step overs x15 - fwd 4in lat 10in today Exercise 18: TG mini squats 2x10 // cybex squats DL 4pl, SL 2pl 2 x 10 Exercise 19: hip ext, hip abd GTB x15 Assessment Body Structures, Functions, Activity Limitations Requiring Skilled Therapeutic Intervention: Decreased functional mobility , Decreased ADL status, Decreased ROM, Decreased strength, Decreased endurance, Decreased balance, Decreased high-level IADLs, Increased pain, Decreased posture Assessment: Patient making good progress towards LTGs this date with 80% improvements noted. Progressed patient with cybex DL/SL squats with good tolerance this date, no increase in pain or discomfort. Education provided with sit to stands on distributing equal weight through B LEs and L glute activation with tactile and visual cues. Pt reported glute weakness and fatigue post session. Continue per tolerance. Activity Tolerance Activity Tolerance: Patient tolerated treatment well Patient Education Patient Education: HEP Pt verbalized/demonstrated good understanding: [x] Yes [] No, pt required further clarification. Post Treatment Pain: 0/10 Plan Plan Frequency: 2 Plan weeks: 5 Goals (Total # of Visits to Date: 19) Short Term Goals Time Frame for Short Term Goals: 3 weeks Short Term Goal 1: Patient will be initiated with a HEP-met Short Term Goal 2: Patient will tolerate 30 minutes of therex/act to improve endurance for ADLs.-met Penitentiary Goals Time Frame for Penitentiary Goals : 5 weeks Penitentiary Goal 1: Patient will be independent and compliant with a HEP - met Waiver Analyst Goal 2: Patient will improve L hip extension and flexion ROM to at least 0-90* for ADLs. - progressing (11/25/24 L hip flexion 0-100*) Penitentiary Goal 3: Patient will improve L LE strength to >/= 4/5 in all major joints and planes. - MET (11/25/24 L knee ext 5/5, L knee flexion 4/5, L hip flexion 4/5) Waiver Analyst Goal 4: Patient will be able to perform 5 sit to stands without UE assist. - MET (10/23/24 - 5 sit to stands without UE assist) Penitentiary Goal 5: Patient will be able to ambulate without an AD, with minimal gait deviations - progressing - patient ambulating no AD, antalgic gait pattern extermination inspector goal 6: Patient will report 70% improvement in overall symptoms and function. - MET (12/04/24 80% improvement) Minutes Tracking: Time In: 1100 Time Out: 1146 Minutes: 46 Timed Code Treatment Minutes: 44 Minutes Georgia Erazo PTA Date: 12/04/2024 Cosigned by Larissa Roblero, PT at 12/04/2024 12:52 PM EDT documented in this encounter [facility] 12-02-2024 History of Present illness Narrative [facility] Physical Therapy Daily Note Patient: Leticia Cannon : 1955 CSN #: [id number] Referring Physician: Leatha Perez PA-C Date: 12/02/2024 Diagnosis: s/p L hip arthroplasty, Z96.642 Treatment Diagnosis: s/p L SATHYA, generalized weakness Onset Date: 09/02/24 PT Insurance Information: Medicare Total # of Visits Approved: 20 Per Physician Order Total # of Visits to Date: 18 No Show: 0 Canceled Appointment: 0 12/05/24 Plan of Care/Recert Due Pre-Treatment Pain: 0/10 Subjective: Pt denies pain, states her hip feels tight. Exercises: Exercise 2: SciFIT: level 4 x 10 minutes Exercise 3: Sit/stands 2x15 holding 8# ball - vc's for equal WB through legs Exercise 5: Fwd/Lat 8 step ups, SD 6in L leg, x15-20 ea Exercise 6: Standing marches, HS curls, mini squats, hip ext, heel/toe raises x20 ea with #2 weight Exercise 8: Standing L hip flexor stretch 3x20 sec at steps // HS stretch 3 x 30 --hip flexor this date Exercise 10: Startrac knee extension 25#, knee flexion 35# 2 x 10 ea Exercise 11: Standing Sideways Walks x3 at counter top with GTB Exercise 13: mini lunges at bar x10 - on BOSU today x15 Exercise 14: fwd/lat 10 saritha step overs x15 - fwd 4in lat 10in today Exercise 15: 2 laps around clinic without AD - 1 lap today// high knee walking and side walking --whole length of gym--just 1 lap around clinic this date Exercise 17: mirella retro amb 15# x10 // lateral walk outs 7# x3 Assessment Assessment: Pt denies pain, but reports tightness L hip. Pt ambulating with no device and a mild glut medius gait pattern. Progressed step ups to 8 block. Spoke to pt about progressing exercise sets and reps at home Activity Tolerance Activity Tolerance: Patient tolerated treatment well Patient Education Patient Education: HEP Pt verbalized/demonstrated good understanding: [x] Yes [] No, pt required further clarification. Post Treatment Pain: 0/10 Plan Plan Frequency: 2 Plan weeks: 5 Goals (Total # of Visits to Date: 18) Short Term Goals Time Frame for Short Term Goals: 3 weeks Short Term Goal 1: Patient will be initiated with a HEP-met Short Term Goal 2: Patient will tolerate 30 minutes of therex/act to improve endurance for ADLs.-met Waiver Analyst Goals Time Frame for Penitentiary Goals : 5 weeks Penitentiary Goal 1: Patient will be independent and compliant with a HEP - met Penitentiary Goal 2: Patient will improve L hip extension and flexion ROM to at least 0-90* for ADLs. - progressing (11/25/24 L hip flexion 0-100*) Waiver Analyst Goal 3: Patient will improve L LE strength to >/= 4/5 in all major joints and planes. - MET (11/25/24 L knee ext 5/5, L knee flexion 4/5, L hip flexion 4/5) Waiver Analyst Goal 4: Patient will be able to perform 5 sit to stands without UE assist. - MET (10/23/24 - 5 sit to stands without UE assist) Waiver Analyst Goal 5: Patient will be able to ambulate without an AD, with minimal gait deviations -Partially met: patient ambulating with a [place] extermination inspector goal 6: Patient will report 70% improvement in overall symptoms and function. - progressing (11/25/24 60% improvement) Minutes Tracking: Time In: 1045 Time Out: 1140 Minutes: 55 Timed Code Treatment Minutes: 53 Minutes Keyur Amador Date: 12/02/2024 Cosigned by Larissa Roblero, PT at 12/02/2024 3:14 PM EDT documented in this encounter [facility] 11-27-2024 History of Present illness Narrative [facility] Therapy Daily Note Patient: Leticia Cannon : 1955 CSN #: [id number] Referring Physician: Leatha Perez PA-C Date: 11/27/2024 Treatment Diagnosis: s/p L SATHYA, generalized weakness Onset Date: 09/02/24 PT Insurance Information: Medicare Total # of Visits Approved: 20 Per Physician Order Total # of Visits to Date: 17 No Show: 0 Canceled Appointment: 0 12/05/24 Plan of Care/Recert Due Pre-Treatment Pain: 0/10 Subjective: Pt reports tightness first thing in the morning, otherwise feels well. Pt denies pain. Exercises: Exercise 1: HEP: SLR 2x8, bridge 2x10, PPT with november x10 ea, R SKTC 2x30 seconds Exercise 2: SciFIT: level 4 x 10 minutes Exercise 3: Sit/stands 2x10 holding #6 ball - vc's for equal WB through legs Exercise 5: Fwd/Lat 7 step ups, SD 6in L leg, x15-20 ea Exercise 10: Startrac knee extension 25#, knee flexion 35# 2 x 10 ea Exercise 14: fwd/lat 10 saritha step overs x15 - fwd 4in lat 10in today Exercise 17: mirella retro amb 15# x10 // lateral walk outs 7# x3 Assessment Body Structures, Functions, Activity Limitations Requiring Skilled Therapeutic Intervention: Decreased functional mobility , Decreased ADL status, Decreased ROM, Decreased strength, Decreased endurance, Decreased balance, Decreased high-level IADLs, Increased pain, Decreased posture Assessment: Focused on L glute strengthening with weakness noted with lateral walk outs this date. VCs provided during sit to stands for form correction as patient comes up to the R. Continue per tolerance. Activity Tolerance Activity Tolerance: Patient tolerated treatment well Patient Education Patient Education: HEP Pt verbalized/demonstrated good understanding: [x] Yes [] No, pt required further clarification. Post Treatment Pain: 0/10 Plan Plan Frequency: 2 Plan weeks: 5 Goals (Total # of Visits to Date: 17) Short Term Goals Time Frame for Short Term Goals: 3 weeks Short Term Goal 1: Patient will be initiated with a HEP-met Short Term Goal 2: Patient will tolerate 30 minutes of therex/act to improve endurance for ADLs.-met Penitentiary Goals Time Frame for Waiver Analyst Goals : 5 weeks Waiver Analyst Goal 1: Patient will be independent and compliant with a HEP - met Waiver Analyst Goal 2: Patient will improve L hip extension and flexion ROM to at least 0-90* for ADLs. - progressing (11/25/24 L hip flexion 0-100*) Penitentiary Goal 3: Patient will improve L LE strength to >/= 4/5 in all major joints and planes. - MET (11/25/24 L knee ext 5/5, L knee flexion 4/5, L hip flexion 4/5) Waiver Analyst Goal 4: Patient will be able to perform 5 sit to stands without UE assist. - MET (10/23/24 - 5 sit to stands without UE assist) Waiver Analyst Goal 5: Patient will be able to ambulate without an AD, with minimal gait deviations -Partially met: patient ambulating with a [place] extermination inspector goal 6: Patient will report 70% improvement in overall symptoms and function. - progressing (11/25/24 60% improvement) Minutes Tracking: Time In: 1100 Time Out: 1145 Minutes: 45 Timed Code Treatment Minutes: 42 Minutes Georgia Erazo PTA Date: 11/27/2024 documented in this encounter [facility] 11-25-2024 History of Present illness Narrative [facility] Therapy Daily Note Patient: Leticia Cannon : 1955 CSN #: [id number] Referring Physician: Leatha Perez PA-C Date: 11/25/2024 Treatment Diagnosis: s/p L SATHYA, generalized weakness Onset Date: 09/02/24 PT Insurance Information: Medicare Total # of Visits Approved: 20 Per Physician Order Total # of Visits to Date: 16 No Show: 0 Canceled Appointment: 0 12/05/24 Plan of Care/Recert Due Pre-Treatment Pain: 0/10 Subjective: Pt presents to clinic without AD this date. Pt states she hasn't been using the cane for a couple of days with slight limp but overall no issues. Exercises: Exercise 1: HEP: SLR 2x8, bridge 2x10, PPT with november x10 ea, R SKTC 2x30 seconds Exercise 2: SciFIT: level 4 x 10 minutes Exercise 3: Sit/stands 2x10 holding #4 ball - vc's for equal WB through legs Exercise 5: Fwd/Lat step ups, SD 6in L leg, x15-20 ea Exercise 10: Startrac knee extension 25#, knee flexion 35# 2 x 10 ea Exercise 13: mini lunges at bar x10 - on BOSU today x15 Exercise 14: fwd/lat 10 saritha step overs x15 - fwd 4in lat 10in today Exercise 17: mirella retro amb 15# x10 // lateral walk outs 5# x3 Assessment Body Structures, Functions, Activity Limitations Requiring Skilled Therapeutic Intervention: Decreased functional mobility , Decreased ADL status, Decreased ROM, Decreased strength, Decreased endurance, Decreased balance, Decreased high-level IADLs, Increased pain, Decreased posture Assessment: Patient making good progress towards LTGs this date with improved L hip flexion strength noted and ROM . Pt L hip strength 4/5, ROM 0-100*. Pt reports 60% improvements this date. Progressed to ambulating without AD with glute weakness noted. Continue per tolerance. Activity Tolerance Activity Tolerance: Patient tolerated treatment well Patient Education Patient Education: HEP Pt verbalized/demonstrated good understanding: [x] Yes [] No, pt required further clarification. Post Treatment Pain: 0/10 Plan Plan Frequency: 2 Plan weeks: 5 Goals (Total # of Visits to Date: 16) Short Term Goals Time Frame for Short Term Goals: 3 weeks Short Term Goal 1: Patient will be initiated with a HEP-met Short Term Goal 2: Patient will tolerate 30 minutes of therex/act to improve endurance for ADLs.-met Penitentiary Goals Time Frame for Waiver Analyst Goals : 5 weeks Penitentiary Goal 1: Patient will be independent and compliant with a HEP - met Penitentiary Goal 2: Patient will improve L hip extension and flexion ROM to at least 0-90* for ADLs. - progressing (11/25/24 L hip flexion 0-100*) Waiver Analyst Goal 3: Patient will improve L LE strength to >/= 4/5 in all major joints and planes. - MET (11/25/24 L knee ext 5/5, L knee flexion 4/5, L hip flexion 4/5) Waiver Analyst Goal 4: Patient will be able to perform 5 sit to stands without UE assist. - MET (10/23/24 - 5 sit to stands without UE assist) Waiver Analyst Goal 5: Patient will be able to ambulate without an AD, with minimal gait deviations -Partially met: patient ambulating with a [place] senior care goal 6: Patient will report 70% improvement in overall symptoms and function. - progressing (11/25/24 60% improvement) Minutes Tracking: Time In: 1101 Time Out: 1150 Minutes: 49 Timed Code Treatment Minutes: 48 Minutes Georgia Erazo PTA Date: 11/25/2024 documented in this encounter [facility] 11-24-2024 History of Present illness Narrative Images from the original note were not included. HISTORY OF PRESENT ILLNESS: POST OP PT Leticia Cannon is an 69 y.o. @ female. 12 WKS PO LT SATHYA (09/02/24) @ [facility]. XRAY EPIC 10/13/24 PHYSICAL THERAPY @ [facility] WALKING UNASSISTED. DENIES PAIN. +TYL PRN. CONTINUES PT AT [place] [facility]. DOING HEP. +ICE PRN. DENIES N/T, SWELLING. DENIES GIVING OUT. WORKING ON STRENGTH. DOES NOT WAKE AT . DENIES ISSUES WITH INCISION. REVIEW OF SYSTEMS: General: Denies fever, fatigue or weight loss Lungs: Denies SOB Cardio: Denies chest pain GI: Denies indigestion or abdominal pain Neuro: Denies numbness or tingling, denies new onset paralysis Musculoskeletal: ( see note) PHYSICAL EXAM: Left Hip Exam Left hip exam is normal. Tenderness Left hip tenderness location: minimal soreness to scar, no s/s of infefction. Range of Motion Left hip abduction: not stressed with recent surgery. Adduction: normal Extension: normal Flexion: normal Muscle Strength Adduction: 5/5 Flexion: 5/5 Other Erythema: absent Scars: present (well healed, no erythema, discharge or drainage) Sensation: normal Pulse: present Comments: Antalgic gait XR hip left 2 or 3 views Imaging Result: 10/13/2024: AP and lateral of left hip showed acceptable position and alignment of left total hip arthroplasty. There was no evidence of loosening of the acetabular cup or femoral stem. Femoral head was well centered in the acetabular liner without evidence of asymmetric or accelerated wear. There was no gross evidence of fracture and/or dislocation. Impression: Unremarkable left total hip arthroplasty. Ben Arshad WEB SYSTEMS DEVELOPER-ITEM PROCESSOR Procedures No orders of the defined types were placed in this encounter. ASSESSMENT: ICD-10-CM 1. Status post total hip replacement, left Z96.642 PLAN: Patient states that she is doing well but is continuing to work with PT on ambulation and strength. I recommend she use tylenol/ibuprofen for any breakthrough pain and continue with PT. I discussed with the patient the general recommendation for the use of prophylactic antibiotics prior to dental work after joint replacement. I advised the patient that the use of prophylactic antibiotics for dental work is a controversial topic. I currently have recommended that prophylactic antibiotics be used postop and I did advise the patient that the guidelines and recommendations may change on this in the future. She may follow up with our office in 3 months for RCK and xray. Patient will call with any worsening symptoms or signs of infection. Questions answered in laymen terms at the bedside. The diagnosis, home exercise plan and any ongoing restrictions/ recommendations reviewed. If unable to be reached in office, I recommend evaluation at nearest Emergency Room if any symptoms worsened or new symptoms develop for requiring urgent evaluation. Ben Arshad WEB SYSTEMS DEVELOPER-ITEM PROCESSOR documented in this encounter [facility] 11-20-2024 History of Present illness Narrative [facility] Therapy Daily Note Patient: Leticia Cannon : 1955 CSN #: [id number] Referring Physician: Leatha Perez PA-C Date: 11/20/2024 Treatment Diagnosis: s/p L SATHYA, generalized weakness Onset Date: 09/02/24 PT Insurance Information: Medicare Total # of Visits Approved: 20 Per Physician Order Total # of Visits to Date: 15 No Show: 0 Canceled Appointment: 0 12/05/24 Plan of Care/Recert Due Pre-Treatment Pain: 10/03 Subjective: [place]. Pt states surprisingly she doesn't feel too bad. Exercises: Exercise 1: HEP: SLR 2x8, bridge 2x10, PPT with november x10 ea, R SKTC 2x30 seconds Exercise 2: SciFIT: level 4 x 10 minutes Exercise 3: Sit/stands 2x10 holding #3 DB Exercise 5: Fwd/Lat step ups, SD 6in L leg, x15-20 ea Exercise 6: Standing marches, HS curls, mini squats, hip ext, heel/toe raises x20 ea with #2 weight Exercise 8: Standing L hip flexor stretch 3x20 sec at steps // HS stretch 3 x 30 --hip flexor this date Exercise 11: Standing Sideways Walks x3 at counter top with GTB Exercise 14: fwd/lat 10 saritha step overs x15 Exercise 15: 2 laps around clinic without AD - 1 lap today// high knee walking and side walking --whole length of gym--just 1 lap around clinic this date Exercise 17: mirella retro amb 10# x10 Exercise 18: TG mini squats 2x10 Assessment Body Structures, Functions, Activity Limitations Requiring Skilled Therapeutic Intervention: Decreased functional mobility , Decreased ADL status, Decreased ROM, Decreased strength, Decreased endurance, Decreased balance, Decreased high-level IADLs, Increased pain, Decreased posture Assessment: Progressed patient with mirella retro amb and TG to improve BLE strength and endurance with good tolerance. Pt continues to display antalgic gait pattern with B knee flexion with cues for correction. Pt displayed quick fatigue with increased saritha height this date. Continue per tolerance. Activity Tolerance Activity Tolerance: Patient tolerated treatment well Patient Education Patient Education: HEP Pt verbalized/demonstrated good understanding: [x] Yes [] No, pt required further clarification. Post Treatment Pain: 10/03 Plan Plan Frequency: 2 Plan weeks: 5 Goals (Total # of Visits to Date: 15) Short Term Goals Time Frame for Short Term Goals: 3 weeks Short Term Goal 1: Patient will be initiated with a HEP-met Short Term Goal 2: Patient will tolerate 30 minutes of therex/act to improve endurance for ADLs.-met Waiver Analyst Goals Time Frame for Penitentiary Goals : 5 weeks Penitentiary Goal 1: Patient will be independent and compliant with a HEP - met Penitentiary Goal 2: Patient will improve L hip extension and flexion ROM to at least 0-90* for ADLs. - progressing (10/23/24 L hip flexion 0-59*) Waiver Analyst Goal 3: Patient will improve L LE strength to >/= 4/5 in all major joints and planes. - progressing (10/23/24 L knee ext 5/5, L knee flexion 4/5, L hip flexion 3+/5) Waiver Analyst Goal 4: Patient will be able to perform 5 sit to stands without UE assist. - MET (10/23/24 - 5 sit to stands without UE assist) Waiver Analyst Goal 5: Patient will be able to ambulate without an AD, with minimal gait deviations -Partially met: patient ambulating with a [place] extermination inspector goal 6: Patient will report 70% improvement in overall symptoms and function. - progressing ~50% improvement Minutes Tracking: Time In: 1100 Time Out: 1140 Minutes: 40 Timed Code Treatment Minutes: 39 Minutes Georgia ErazoOCTAVIA Date: 11/20/2024 documented in this encounter [facility] 11-13-2024 History of Present illness Narrative [facility] Daily Note Patient: Leticia Cannon : 1955 CSN #: [id number] Referring Physician: Leatha Perez PA-C Date: 11/13/2024 Treatment Diagnosis: s/p L SATHYA, generalized weakness Onset Date: 09/02/24 PT Insurance Information: Medicare Total # of Visits Approved: 20 Per Physician Order Total # of Visits to Date: 13 No Show: 0 Canceled Appointment: 0 12/05/24 Plan of Care/Recert Due Pre-Treatment Pain: 10/03 Subjective: Patient reports minimal pain, states she ran a bunch of errands this morning prior to therapy. Exercises: Exercise 1: HEP: SLR 2x8, bridge 2x10, PPT with march x10 ea, R SKTC 2x30 seconds Exercise 2: SciFIT: level 3.5 x 10 minutes--hills Exercise 3: Sit/stands 2x10 holding #3 DB Exercise 4: Seated LAQ 2#, HS curls GTB, x15 ea Exercise 5: Fwd/Lat step ups, SD 6in L leg, x15-20 ea Exercise 6: Standing marches, HS curls, mini squats, hip ext, heel/toe raises x20 ea on foam Exercise 8: Standing L hip flexor stretch 3x20 sec at steps // HS stretch 3 x 30 Exercise 11: Standing Sideways Walks x3 at counter top with OTB Exercise 13: mini lunges at bar x10 Exercise 14: fwd/lat 6 saritha step overs x15 Exercise 15: 2 laps around clinic without AD - 1 lap today// high knee walking and side walking --whole length of gym Exercise 16: supine SLR, bridges, SL clamshells 2x10 Manual: Other: PROM to L hip per tolerance. Assessment Body Structures, Functions, Activity Limitations Requiring Skilled Therapeutic Intervention: Decreased functional mobility , Decreased ADL status, Decreased ROM, Decreased strength, Decreased endurance, Decreased balance, Decreased high-level IADLs, Increased pain, Decreased posture Assessment: Pt continues to display antalgic gait pattern with dynamic walking drills. Progressed patient with resisted hip abduction at counter with quick fatigue noted. Added sink exercises on foam this date to improve balance and stability, close SBA. PROM L hip per tolerance following session. Continue per tolerance. Activity Tolerance Activity Tolerance: Patient tolerated treatment well Patient Education Patient Education: HEP Pt verbalized/demonstrated good understanding: [x] Yes [] No, pt required further clarification. Post Treatment Pain: 10/03 Plan Plan Frequency: 2 Plan weeks: 5 Goals (Total # of Visits to Date: 13) Short Term Goals Time Frame for Short Term Goals: 3 weeks Short Term Goal 1: Patient will be initiated with a HEP-met Short Term Goal 2: Patient will tolerate 30 minutes of therex/act to improve endurance for ADLs.-met Penitentiary Goals Time Frame for Waiver Analyst Goals : 5 weeks Waiver Analyst Goal 1: Patient will be independent and compliant with a HEP - met Waiver Analyst Goal 2: Patient will improve L hip extension and flexion ROM to at least 0-90* for ADLs. - progressing (10/23/24 L hip flexion 0-59*) Waiver Analyst Goal 3: Patient will improve L LE strength to >/= 4/5 in all major joints and planes. - progressing (10/23/24 L knee ext 5/5, L knee flexion 4/5, L hip flexion 3+/5) Waiver Analyst Goal 4: Patient will be able to perform 5 sit to stands without UE assist. - MET (10/23/24 - 5 sit to stands without UE assist) Penitentiary Goal 5: Patient will be able to ambulate without an AD, with minimal gait deviations -Partially met: patient ambulating with a SC senior care goal 6: Patient will report 70% improvement in overall symptoms and function. - progressing ~50% improvement Minutes Tracking: Time In: 1344 Time Out: 1430 Minutes: 46 Timed Code Treatment Minutes: 44 Minutes Georgia Erazo PTA Date: 11/13/2024 documented in this encounter [facility] 11-11-2024 Telephone encounter Note Called and left vm notifying patient. [facility] 11-11-2024 Miscellaneous Notes Called and left vm notifying patient. Patient called stating she has a PO 3/3 for SATHYA. She would like to know if she can get an injection in her LT Knee at this appt? Please advise. documented in this encounter [facility] 11-11-2024 Telephone encounter Note Patient called stating she has a PO 3/3 for SATHYA. She would like to know if she can get an injection in her LT Knee at this appt? Please advise. [facility] 11-04-2024 History of Present illness Narrative [facility] Out[facility] Physical Therapy Daily Note Patient: Leticia Cannon : 1955 CSN #: [id number] Referring Physician: Leatha Perez PA-C Date: 11/04/2024 Treatment Diagnosis: s/p L SATHYA, generalized weakness Onset Date: 09/02/24 PT Insurance Information: Medicare Total # of Visits Approved: 10 Per Physician Order Total # of Visits to Date: 10 No Show: 0 Canceled Appointment: 0 11/03/24 Plan of Care/Recert Due Pre-Treatment Pain: 11/03 Subjective: Patient reports weakness noted in L hip while ambulating without cane. Pt states L knee with receive injection in November due to pain. Exercises: Exercise 1: HEP: Quad sets, heel slides, bridge, LAQ; followed all hip precautions this date, see general page for details Exercise 2: SciFIT: level 3.5 x 10 minutes Exercise 3: Sit/stands 2x10 Exercise 5: Fwd/Lat step ups, 6in L leg, x10, step taps 6 L LE x10 Exercise 8: Standing L hip flexor stretch 3x20 sec at steps Exercise 11: Standing Sideways Walks x3 at counter top Exercise 13: mini lunges at bar x10 Exercise 14: fwd/lat 4 saritha step overs x15 Exercise 15: 2 laps around clinic without AD - 1 lap today Exercise 16: supine SLR, bridges, SL clamshells 2x10 Assessment Body Structures, Functions, Activity Limitations Requiring Skilled Therapeutic Intervention: Decreased functional mobility , Decreased ADL status, Decreased ROM, Decreased strength, Decreased endurance, Decreased balance, Decreased high-level IADLs, Increased pain, Decreased posture Assessment: Pt continues to display L glute weakness, added SL clamshells for isolation with tactile cues to reduce pelvic rotation. Pt denied any increase in pain or discomfort, only fatigue. Continue per tolerance. Activity Tolerance Activity Tolerance: Patient tolerated treatment well Patient Education Patient Education: HEP Pt verbalized/demonstrated good understanding: [x] Yes [] No, pt required further clarification. Post Treatment Pain: 11/03 Plan Plan Frequency: 2 Plan weeks: 5 Goals (Total # of Visits to Date: 10) Short Term Goals Time Frame for Short Term Goals: 3 weeks Short Term Goal 1: Patient will be initiated with a HEP-met Short Term Goal 2: Patient will tolerate 30 minutes of therex/act to improve endurance for ADLs.-met Waiver Analyst Goals Time Frame for Penitentiary Goals : 5 weeks Penitentiary Goal 1: Patient will be independent and compliant with a HEP - met Waiver Analyst Goal 2: Patient will improve L hip extension and flexion ROM to at least 0-90* for ADLs. - progressing (10/23/24 L hip flexion 0-59*) Waiver Analyst Goal 3: Patient will improve L LE strength to >/= 4/5 in all major joints and planes. - progressing (10/23/24 L knee ext 5/5, L knee flexion 4/5, L hip flexion 3+/5) Waiver Analyst Goal 4: Patient will be able to perform 5 sit to stands without UE assist. - MET (10/23/24 - 5 sit to stands without UE assist) Penitentiary Goal 5: Patient will be able to ambulate without an AD, with minimal gait deviations. senior care goal 6: Patient will report 70% improvement in overall symptoms and function. - progressing (10/23/24 50% improvements) Minutes Tracking: Time In: 1100 Time Out: 1147 Minutes: 47 Timed Code Treatment Minutes: 45 Minutes Georgia Erazo PTA Date: 11/04/2024 documented in this encounter [facility] 10-30-2024 History of Present illness Narrative [facility] Out[facility] Physical Therapy Daily Note Patient: Leticia Cannon : 1955 CSN #: [id number] Referring Physician: Leatha Perez PA-C Date: 10/30/2024 Treatment Diagnosis: s/p L SATHYA, generalized weakness Onset Date: 09/02/24 PT Insurance Information: Medicare Total # of Visits Approved: 10 Per Physician Order Total # of Visits to Date: 9 No Show: 0 Canceled Appointment: 0 11/03/24 Plan of Care/Recert Due Pre-Treatment Pain: 10/03 Subjective: Pt reports her hip isnt feeling to bad. Pt rates current pain a /10. Exercises: Exercise 2: SciFIT: level 3.5 x 10 minutes Exercise 3: Sit/stands 2x10 Exercise 5: Fwd/Lat step ups, 6in L leg, x10, step taps 6 L LE x10 Exercise 8: Standing L hip flexor stretch 3x20 sec at steps Exercise 11: Standing Sideways Walks x4 at counter top Exercise 12: Standing Sideways Taps on stairs x10 LLE Exercise 14: fwd/lat 4 saritha step overs x15 Assessment Assessment: Pt conitnues to display antalgic gait cycle d/t L glute weakness. Lateral shifting noted with sit<>stands. Reviewed HEP with Pt along with hip control. Will continue. Activity Tolerance Activity Tolerance: Patient tolerated treatment well Patient Education Patient Education: HEP Pt verbalized/demonstrated good understanding: [x] Yes [] No, pt required further clarification. Post Treatment Pain: 10/03 Plan Plan Frequency: 2 Plan weeks: 5 Goals (Total # of Visits to Date: 9) Short Term Goals Time Frame for Short Term Goals: 3 weeks Short Term Goal 1: Patient will be initiated with a HEP-met Short Term Goal 2: Patient will tolerate 30 minutes of therex/act to improve endurance for ADLs.-met Waiver Analyst Goals Time Frame for Waiver Analyst Goals : 5 weeks Waiver Analyst Goal 1: Patient will be independent and compliant with a HEP - met Penitentiary Goal 2: Patient will improve L hip extension and flexion ROM to at least 0-90* for ADLs. - progressing (10/23/24 L hip flexion 0-59*) Waiver Analyst Goal 3: Patient will improve L LE strength to >/= 4/5 in all major joints and planes. - progressing (10/23/24 L knee ext 5/5, L knee flexion 4/5, L hip flexion 3+/5) Waiver Analyst Goal 4: Patient will be able to perform 5 sit to stands without UE assist. - MET (10/23/24 - 5 sit to stands without UE assist) Penitentiary Goal 5: Patient will be able to ambulate without an AD, with minimal gait deviations. senior care goal 6: Patient will report 70% improvement in overall symptoms and function. - progressing (10/23/24 50% improvements) Minutes Tracking: Time In: 1105 Time Out: 1148 Minutes: 43 Timed Code Treatment Minutes: 41 Minutes Reagan Quiroz PTA Date: 10/30/2024 documented in this encounter [facility] 10-28-2024 History of Present illness Narrative [facility] Physical Therapy Daily Note Patient: Leticia Cannon : 1955 CSN #: [id number] Referring Physician: Leatha Perez PA-C Date: 10/28/2024 Treatment Diagnosis: s/p L SATHYA, generalized weakness Onset Date: 09/02/24 PT Insurance Information: Medicare Total # of Visits Approved: 10 Per Physician Order Total # of Visits to Date: 8 No Show: 0 Canceled Appointment: 0 11/03/24 Plan of Care/Recert Due Pre-Treatment Pain: 0/10 Subjective: Patient denies pain, states she is feeling pretty good. Exercises: Exercise 1: HEP: Quad sets, heel slides, bridge, LAQ; followed all hip precautions this date, see general page for details Exercise 2: SciFIT: level 3.5 x 10 minutes Exercise 3: Sit/stands 2x10 Exercise 5: Fwd/Lat step ups, 6in L leg, x10, step taps 6 L LE x10 Exercise 8: Standing L hip flexor stretch 3x20 sec at steps Exercise 11: Standing Sideways Walks x4 at counter top Exercise 14: fwd/lat 4 saritha step overs x15 Exercise 15: 2 laps around clinic without AD Assessment Body Structures, Functions, Activity Limitations Requiring Skilled Therapeutic Intervention: Decreased functional mobility , Decreased ADL status, Decreased ROM, Decreased strength, Decreased endurance, Decreased balance, Decreased high-level IADLs, Increased pain, Decreased posture Assessment: Progressed patient with ambulation around clinic without AD, fair-good tolerance. Pt displays decreased stance time on L LE and decreased step length. Verbal cues for correction with decreased endurance noted. Pt able to complete 4 saritha step overs with good tolerance. Continue per tolerance. Activity Tolerance Activity Tolerance: Patient tolerated treatment well Patient Education Patient Education: HEP Pt verbalized/demonstrated good understanding: [x] Yes [] No, pt required further clarification. Post Treatment Pain: 0/10 Plan Plan Frequency: 2 Plan weeks: 5 Goals (Total # of Visits to Date: 8) Short Term Goals Time Frame for Short Term Goals: 3 weeks Short Term Goal 1: Patient will be initiated with a HEP-met Short Term Goal 2: Patient will tolerate 30 minutes of therex/act to improve endurance for ADLs.-met Penitentiary Goals Time Frame for Penitentiary Goals : 5 weeks Waiver Analyst Goal 1: Patient will be independent and compliant with a HEP - met Waiver Analyst Goal 2: Patient will improve L hip extension and flexion ROM to at least 0-90* for ADLs. - progressing (10/23/24 L hip flexion 0-59*) Penitentiary Goal 3: Patient will improve L LE strength to >/= 4/5 in all major joints and planes. - progressing (1/30/25 L knee ext 5/5, L knee flexion 4/5, L hip flexion 3+/5) Penitentiary Goal 4: Patient will be able to perform 5 sit to stands without UE assist. - MET (10/23/24 - 5 sit to stands without UE assist) Penitentiary Goal 5: Patient will be able to ambulate without an AD, with minimal gait deviations. extermination inspector goal 6: Patient will report 70% improvement in overall symptoms and function. - progressing (10/23/24 50% improvements) Minutes Tracking: Time In: 1100 Time Out: 1142 Minutes: 42 Timed Code Treatment Minutes: 40 Minutes Georgia Erazo, OCTAVIA Date: 10/28/2024 documented in this encounter [facility] 10-23-2024 History of Present illness Narrative [facility] Physical Therapy Daily Note Patient: Leticia Cannon : 1955 CSN #: [id number] Referring Physician: Leatha Perez PA-C Date: 10/23/2024 Treatment Diagnosis: s/p L SATHYA, generalized weakness Onset Date: 09/02/24 PT Insurance Information: Medicare Total # of Visits Approved: 10 Per Physician Order Total # of Visits to Date: 7 No Show: 0 Canceled Appointment: 0 11/03/24 Plan of Care/Recert Due Pre-Treatment Pain: 0/10 Subjective: Patient denies pain prior to therapy session, states she completed laundry and cooking this morning without any issues. Exercises: Exercise 1: HEP: Quad sets, heel slides, bridge, LAQ; followed all hip precautions this date, see general page for details Exercise 2: SciFIT: level 3.5 x 10 minutes Exercise 3: Sit/stands 2x10 Exercise 5: Fwd/Lat step ups, 6in L leg, x10, step taps 6 L LE x10 Exercise 6: Standing marches, HS curls, mini squats, hip ext, heel/toe raises x20 ea Exercise 7: Supine quad sets, SLR's, heel slides, bridges x15 ea Exercise 8: Standing L hip flexor stretch 3x20 sec at steps Exercise 11: Standing Sideways Walks x4 at counter top Exercise 13: mini lunges at bar x10 Exercise 14: fwd/lat flat saritha step overs x15 Modality: CP applied to L hip post session to reduce soreness for 10 minutes with relief noted. Assessment Body Structures, Functions, Activity Limitations Requiring Skilled Therapeutic Intervention: Decreased functional mobility , Decreased ADL status, Decreased ROM, Decreased strength, Decreased endurance, Decreased balance, Decreased high-level IADLs, Increased pain, Decreased posture Assessment: [facility] with improved hip strength and endurance. Pt displays L knee ext 5/5, L knee flexion 4/5, L hip flexion 3+/5. Pt's L hip ROM 0-59* this date. Patient able to complete 5 sit to stands without UE assist. Added fwd/lat flat saritha step overs with good tolerance to exercise. CP applied post session to reduce soreness. Activity Tolerance Activity Tolerance: Patient tolerated treatment well Patient Education Patient Education: HEP Pt verbalized/demonstrated good understanding: [x] Yes [] No, pt required further clarification. Post Treatment Pain: 0/10 Plan Plan Frequency: 2 Plan weeks: 5 Goals (Total # of Visits to Date: 7) Short Term Goals Time Frame for Short Term Goals: 3 weeks Short Term Goal 1: Patient will be initiated with a HEP-met Short Term Goal 2: Patient will tolerate 30 minutes of therex/act to improve endurance for ADLs.-met Waiver Analyst Goals Time Frame for Waiver Analyst Goals : 5 weeks Waiver Analyst Goal 1: Patient will be independent and compliant with a HEP - met Waiver Analyst Goal 2: Patient will improve L hip extension and flexion ROM to at least 0-90* for ADLs. - progressing (10/23/24 L hip flexion 0-59*) Penitentiary Goal 3: Patient will improve L LE strength to >/= 4/5 in all major joints and planes. - progressing (10/23/24 L knee ext 5/5, L knee flexion 4/5, L hip flexion 3+/5) Penitentiary Goal 4: Patient will be able to perform 5 sit to stands without UE assist. - MET (10/23/24 - 5 sit to stands without UE assist) Waiver Analyst Goal 5: Patient will be able to ambulate without an AD, with minimal gait deviations. senior care goal 6: Patient will report 70% improvement in overall symptoms and function. - progressing (10/23/24 50% improvements) Minutes Tracking: Time In: 1145 Time Out: 1235 Minutes: 50 Timed Code Treatment Minutes: 48 Minutes Georgia Erazo PTA Date: 10/23/2024 documented in this encounter [facility] 10-21-2024 History of Present illness Narrative [facility] Physical Therapy Daily Note Patient: Leticia Cannon : 1955 CSN #: [id number] Referring Physician: Leatha Perez PA-C Date: 10/21/2024 Treatment Diagnosis: s/p L SATHYA, generalized weakness Onset Date: 09/02/24 PT Insurance Information: Medicare Total # of Visits Approved: 10 Per Physician Order Total # of Visits to Date: 6 No Show: 0 Canceled Appointment: 0 11/03/24 Plan of Care/Recert Due Pre-Treatment Pain: 0/10 Subjective: Patient denies pain prior to therapy session. Pt reports moving back home over the weekend and L hip became achy with steps and being on it for longer bouts. Exercises: Exercise 1: HEP: Quad sets, heel slides, bridge, LAQ; followed all hip precautions this date, see general page for details Exercise 2: SciFIT: level 2.5 x 10 minutes Exercise 3: Sit/stands 2x10, 1 armrests Exercise 4: Seated LAQ 2#, HS curls yellow band, x15 ea Exercise 5: Fwd/Lat step ups, 6in L leg, x10, step taps 6 L LE x10 Exercise 6: Standing marches, HS curls, mini squats, hip ext, heel/toe raises x20 ea Exercise 7: Supine quad sets, SLR's, heel slides, bridges x15 ea Exercise 8: Standing L hip flexor stretch 3x20 sec at steps Exercise 9: Supine L hip flexion with towel assist to 90* [id number] Exercise 11: Standing Sideways Walks x4 at counter top Exercise 13: mini lunges at bar x10 Assessment Body Structures, Functions, Activity Limitations Requiring Skilled Therapeutic Intervention: Decreased functional mobility , Decreased ADL status, Decreased ROM, Decreased strength, Decreased endurance, Decreased balance, Decreased high-level IADLs, Increased pain, Decreased posture Assessment: Continued with charted exercises to improve L hip strengthening and endurance with good tolerance. Patient with improved quad/hip flexor strengthening with SLR this date. Continue per tolerance;. Activity Tolerance Activity Tolerance: Patient tolerated treatment well Patient Education Patient Education: HEP Pt verbalized/demonstrated good understanding: [x] Yes [] No, pt required further clarification. Post Treatment Pain: 0/10 Plan Plan Frequency: 2 Plan weeks: 5 Goals (Total # of Visits to Date: 6) Short Term Goals Time Frame for Short Term Goals: 3 weeks Short Term Goal 1: Patient will be initiated with a HEP-met Short Term Goal 2: Patient will tolerate 30 minutes of therex/act to improve endurance for ADLs.-met Penitentiary Goals Time Frame for Waiver Analyst Goals : 5 weeks Penitentiary Goal 1: Patient will be independent and compliant with a HEP - met Waiver Analyst Goal 2: Patient will improve L hip extension and flexion ROM to at least 0-90* for ADLs. Penitentiary Goal 3: Patient will improve L LE strength to >/= 4/5 in all major joints and planes. Penitentiary Goal 4: Patient will be able to perform 5 sit to stands without UE assist. Penitentiary Goal 5: Patient will be able to ambulate without an AD, with minimal gait deviations. extermination inspector goal 6: Patient will report 70% improvement in overall symptoms and function. Minutes Tracking: Time In: 1145 Time Out: 1230 Minutes: 45 Timed Code Treatment Minutes: 42 Minutes Georgia Erazo PTA Date: 10/21/2024 documented in this encounter [facility] 10-14-2024 History of Present illness Narrative [facility] Therapy Daily Note Patient: Leticia Cannon : 1955 CSN #: [id number] Referring Physician: Leatha Perez PA-C Date: 10/14/2024 Treatment Diagnosis: s/p L SATHYA, generalized weakness Onset Date: 09/02/24 PT Insurance Information: Medicare Total # of Visits Approved: 10 Per Physician Order Total # of Visits to Date: 4 No Show: 0 Canceled Appointment: 0 11/03/24 Plan of Care/Recert Due Pre-Treatment Pain: 0/10 Subjective: Pt. denies current pain. Pt. reports after laying for a longer period the hip becomes achy. Exercises: Exercise 2: SciFIT: level 1 x 8 minutes Exercise 3: Sit/stands 2x10, B armrests Exercise 5: Fwd step ups, 4in L leg, x10 LLE Exercise 6: Standing marches, HS curls, mini squats, hip ext, heel/toe raises x15 ea Exercise 7: Supine quad sets, SLR's, heel slides, bridges x15 ea Exercise 11: Standing Sideways Walks x3 at counter top Exercise 12: Standing Sideways Taps on stairs x10 LLE Assessment Assessment: Added sideways step taps and sideways walking to initiate abd motion per surgeons guidelines. Pt continues to use SC for all community amb. Activity Tolerance Activity Tolerance: Patient tolerated treatment well Patient Education Patient Education: HEP Pt verbalized/demonstrated good understanding: [x] Yes [] No, pt required further clarification. Post Treatment Pain: 0/10 Plan Plan Frequency: 2 Plan weeks: 5 Goals (Total # of Visits to Date: 4) Short Term Goals Time Frame for Short Term Goals: 3 weeks Short Term Goal 1: Patient will be initiated with a HEP-met Short Term Goal 2: Patient will tolerate 30 minutes of therex/act to improve endurance for ADLs.-met Waiver Analyst Goals Time Frame for Waiver Analyst Goals : 5 weeks Waiver Analyst Goal 1: Patient will be independent and compliant with a HEP Waiver Analyst Goal 2: Patient will improve L hip extension and flexion ROM to at least 0-90* for ADLs. Penitentiary Goal 3: Patient will improve L LE strength to >/= 4/5 in all major joints and planes. Waiver Analyst Goal 4: Patient will be able to perform 5 sit to stands without UE assist. Penitentiary Goal 5: Patient will be able to ambulate without an AD, with minimal gait deviations. senior care goal 6: Patient will report 70% improvement in overall symptoms and function. Minutes Tracking: Time In: 1047 Time Out: 1130 Minutes: 43 Timed Code Treatment Minutes: 42 Minutes Reagan Quiroz PTA Date: 10/14/2024 documented in this encounter [facility] 10-13-2024 History of Present illness Narrative Images from the original note were not included. HISTORY OF PRESENT ILLNESS: POST OP PT Leticia Cannon is an 69 y.o. @ female. No surgery found s/p surgery onNo surgery found 6 WKS PO LT SATHYA (09/02/24 @ [facility]. WALKING WITH CANE. MINIMAL PAIN. TAKING TYL PRN WITH RELIEF. PT STARTED OP PT WITH DORA AGUILAR 10/10. PAIN TODAY . INCISION WELL HEALED. REVIEW OF SYSTEMS: General: Denies fever, fatigue or weight loss Lungs: Denies SOB Cardio: Denies chest pain GI: Denies indigestion or abdominal pain Neuro: Denies numbness or tingling, denies new onset paralysis Musculoskeletal: ( see note) PHYSICAL EXAM: Left Ankle Exam Comments: Left Hip Exam Left hip exam is normal. Tenderness The patient is experiencing tenderness in the lateral (minimal soreness to scar, no s/s of infefction). Range of Motion Left hip abduction: not stressed with recent surgery. Adduction: normal Extension: normal Flexion: normal Muscle Strength Adduction: 5/5 Flexion: 5/5 Other Erythema: absent Scars: present (well healing, no erythema, discharge or drainage) Sensation: normal Pulse: present Comments: The operative lower extremity was neurovascularly intact without any sensorimotor deficits noted distal to the operative hip. Patient was able to motor feet, toes, ankle and knee in all anatomic planes with 5 out of 5 strength to the operative lower extremity with abduction stress testing not preformed secondary to surgery healing. Dorsalis pedis and posterior tibial pulses were present and equal bilaterally. Sensation to light touch was intact all dermatomes to lower extremities bilaterally. Negative Homans and negative Chilo were noted bilaterally to lower extremities. There was no evidence of infection the lower extremities bilaterally. Compartments were soft to lower extremities bilaterally. XR hip left 2 or 3 views Imaging Result: 10/13/2024: AP and lateral of left hip showed acceptable position and alignment of left total hip arthroplasty. There was no evidence of loosening of the acetabular cup or femoral stem. Femoral head was well centered in the acetabular liner without evidence of asymmetric or accelerated wear. There was no gross evidence of fracture and/or dislocation. Impression: Unremarkable left total hip arthroplasty. Ben Arshad WEB SYSTEMS DEVELOPER-ITEM PROCESSOR Procedures Orders Placed This Encounter Procedures XR hip left 2 or 3 views Order Specific Question: Reason for exam: Answer: PAIN ASSESSMENT: ICD-10-CM 1. 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 Left hip pain M25.552 XR hip left 2 or 3 views PLAN: Patient is 6 weeks s/p LT SATHYA. She is doing well with improved ROM and pain. She will continue to work with PT on ambulation and strength. She may start working on abduction with PT. I reviewed xray with patient which showed stable LT SATHYA. She will call with any worsening symptoms and will follow up in 6 weeks for RCK. Questions answered in laymen terms at the bedside. The diagnosis, home exercise plan and any ongoing restrictions/ recommendations reviewed. If unable to be reached in office, I recommend evaluation at nearest Emergency Room if any symptoms worsened or new symptoms develop for requiring urgent evaluation. documented in this encounter [facility] 10-08-2024 History of Present illness Narrative [facility] Daily Note Patient: Leticia Cannon : 1955 CSN #: [id number] Referring Physician: Leatha Perez PA-C Date: 10/08/2024 Diagnosis: s/p L hip arthroplasty, Z96.642 Treatment Diagnosis: s/p L SATHYA, generalized weakness Onset Date: 09/02/24 PT Insurance Information: Medicare Total # of Visits Approved: 10 Per Physician Order Total # of Visits to Date: 2 No Show: 0 Canceled Appointment: 0 11/03/24 Plan of Care/Recert Due Pre-Treatment Pain: 0/10 Subjective: Pt denies pain today and is compliant with HEP. Exercises: Exercise 1: HEP: Quad sets, heel slides, bridge, LAQ; followed all hip precautions this date, see general page for details Exercise 2: SciFIT: level 1 x 8 minutes Exercise 3: Sit/stands x10, B armrests Exercise 4: Seated LAQ, HS curls yellow band, x15 ea Exercise 5: Fwd step ups, 6in R leg, 4in L leg, x10 ea LE Exercise 6: Standing marches, HS curls, mini squats, hip ext, heel/toe raises x15 ea Exercise 7: Supine quad sets, SLR's, heel slides, bridges x15 ea Exercise 8: Standing L hip flexor stretch 3x20 sec at steps Exercise 9: Supine L hip flexion with towel assist to 90* [id number] Exercise 10: Supine L hip flexor stretch with R SKTC, [id number] Assessment Assessment: Initiated light ther ex to improve L hip strength and ROM within current post op precautions, vc's for technique. Pt tolerated well with no rest breaks required. Will continue. Activity Tolerance Activity Tolerance: Patient tolerated treatment well Patient Education Exercise technique and progression Pt verbalized/demonstrated good understanding: [x] Yes [] No, pt required further clarification. Post Treatment Pain: 0/10 Plan Plan Frequency: 2 Plan weeks: 5 Goals (Total # of Visits to Date: 2) Short Term Goals Time Frame for Short Term Goals: 3 weeks Short Term Goal 1: Patient will be initiated with a HEP-met Short Term Goal 2: Patient will tolerate 30 minutes of therex/act to improve endurance for ADLs.-met Penitentiary Goals Time Frame for Waiver Analyst Goals : 5 weeks Waiver Analyst Goal 1: Patient will be independent and compliant with a HEP Waiver Analyst Goal 2: Patient will improve L hip extension and flexion ROM to at least 0-90* for ADLs. Waiver Analyst Goal 3: Patient will improve L LE strength to >/= 4/5 in all major joints and planes. Waiver Analyst Goal 4: Patient will be able to perform 5 sit to stands without UE assist. Penitentiary Goal 5: Patient will be able to ambulate without an AD, with minimal gait deviations. extermination inspector goal 6: Patient will report 70% improvement in overall symptoms and function. Minutes Tracking: Time In: 1115 Time Out: 1158 Minutes: 43 Timed Code Treatment Minutes: 42 Minutes Manuel Vazquez PT, DPT Date: 10/08/2024 documented in this encounter [facility] 09-15-2024 History of Present illness Narrative Images from the original note were not included. HISTORY OF PRESENT ILLNESS: POST OP PT Leticia Cannon is an 69 y.o. @ female. 1ST PO 13 DAYS LT SATHYA (09/02/24 @ [facility]. WALKING WITH ROLLATOR. TAKING PERCOCET AT HS ONLY, TAKING TYL DURING THE DAY WITH RELIEF. GETTING PT NOMS 360. TAKING ASA BID AND FE. WEARING RAMOS HOSE. PAIN TODAY -11/03. NINA REMOVED TODAY, NO REDNESS OR DRAINAGE. REVIEW OF SYSTEMS: General: Denies fever, fatigue or weight loss Lungs: Denies SOB Cardio: Denies chest pain GI: Denies indigestion or abdominal pain Neuro: Denies numbness or tingling, denies new onset paralysis Musculoskeletal: ( see note) PHYSICAL EXAM: Left Ankle Exam Range of Motion Dorsiflexion: normal Plantar flexion: normal Muscle Strength Dorsiflexion: 5/5 Plantar flexion: 5/5 Left Hip Exam Tenderness The patient is experiencing tenderness in the lateral (As expected with surgery, compartments soft). Range of Motion Left hip abduction: not stressed with recent surgery. Adduction: normal Extension: normal Flexion: 80 Muscle Strength Adduction: 5/5 Flexion: 4/5 Other Erythema: absent Scars: present (Wound healing well, nina removed, no dehisence, no erythema, discharge or drainage) Sensation: normal Pulse: present Comments: The operative lower extremity was neurovascularly intact without any sensorimotor deficits noted distal to the operative hip. Patient was able to motor feet, toes, ankle and knee in all anatomic planes with 5 out of 5 strength to the operative lower extremity with abduction stress testing not preformed secondary to surgery healing. Dorsalis pedis and posterior tibial pulses were present and equal bilaterally. Sensation to light touch was intact all dermatomes to lower extremities bilaterally. Negative Homans and negative Chilo were noted bilaterally to lower extremities. There was no evidence of infection the lower extremities bilaterally. Compartments were soft to lower extremities bilaterally. ASSESSMENT: ICD-10-CM 1. 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 Plan: Discussed Surgery- recommend cont tedhose and ASA for additional 2 wks Reviewed Hip dislocation precautions: no hip abduction until 6 weeks post op. Reminded to hold off non urgent dental appts for 6 months post op- and abx prophylaxis following. She will follow up in 4 weeks for RCK. Questions answered in laymen terms at the bedside. The diagnosis, home exercise plan and any ongoing restrictions/ recommendations reviewed. If unable to be reached in office, I recommend evaluation at nearest Emergency Room if any symptoms worsened or new symptoms develop for requiring urgent evaluation. Ben Arshad WEB SYSTEMS DEVELOPER-ITEM PROCESSOR documented in this encounter [facility] 09-08-2024 Telephone encounter Note Post op pain med refill. PDMP reviewed. [facility] 09-08-2024 Miscellaneous Notes Post op pain med refill. PDMP reviewed. documented in this encounter [facility] 09-04-2024 History of Present illness Narrative Physical Therapy Physical Therapy Evaluation Patient Name: Leticia Cannon Today's Date: 09/04/2024 Subjective Current Problem: Pt is being seen today due to having a left SATHYA replacement. Date of Surgery: 09/02/24 with one night stay. Current deficits: Impaired gait with dependence on an AD, impaired AROM, impaired LE strength, post op pain. Visit number 1. Time In: 11:20 am; Time out: 12:15 pm Total time: 55 minutes [id number] Gait training x 15 minutes [id number] TherEx x 10 minutes [id number] Eval x 20 minutes. [id number] TherAct x 10 minutes Pain Management: The patient is complaining of pain located in the left hip region and quad pain due to tightness. Pain rating 6/10. The pain is improved by ice, rest, medications including percocet. The pain is aggravated by bending activity, position change. The pain is described as aching. Precautions: Standard SATHYA precautions, WBAT L LE, active hip flexion to 90 degrees, no crossing of LE's, no pivoting ER/IR. Prior level of function: Ambulation: Severely antalgic gait pattern without use of an AD. Assistive devices: Has FWW, str cane. ADL and IADL: Independent. Home Environment: Patient staying with her daughter in daughter's home. Has 3 steps to enter. Using hospital bed. Has walk in shower and BSC. Objective Examination Functional Mobility: Bed Mobility: min A Sit to Stand: SBA Stair Negotiation: Not tested this date. Ambulation: Ambulated with step to gait pattern with use of walker; fair heel to toe gait pattern with fair knee flexion with swing phase on left LE. Noted increase WB on walker with Ue's. Hip: Active ROM: Left hip flexion/extension 0 to 70 degrees . Passive ROM: Left hip extension/flexion: 0 to 75 degrees with increased muscle guarding. Manual muscle testing: Left hip 3-/5. Palpation: Normal post-op warmth with minimal edema; Incision covered with AB dressing which was removed and replaced with new dressing and paper tape. Moderate bloody drainage present with bruising developing. Special tests: Negative Emerson Sign. Knee: Active ROM: WFL Manual muscle testing: Right knee 3/5. Ankle/Foot: Active ROM WFL. Manual muscle testing: Right ankle 4/5. Special tests Emerson's sign Negative. Tinetti Gait and Balance Assessment: Sitting balance: Steady, safe = 1 . Rises from chair: Able, uses arms to help = 1 . Attempts to rise: Able, requires > 1 attempt = 1. Immediate standing balance (first 5 seconds): Steady but uses walker or other support = 1. Standing balance: Steady but uses walker or other support = 1. Nudged: Staggers, grabs, catches self = 1. Eyes closed: Steady = 1 . Turning 360 degrees: Discontinuous steps = 0 Unsteady (grabs, staggers) = 0 . Sitting down: Uses arms or not a smooth motion = 1. Balance Score: 8/16. Indication of gait: No hesitancy = 1. Step of length and height: Step through L = 1. Foot clearance: L foot clears floor = 1 R foot clears floor = 1. Step symmetry: Right and left step length no equal = 0. Step continuity: Stopping or discontinuity between steps = 0. Path: Mild/moderate deviation or uses w/ aid = 1. Trunk: No sway but flex knees or back or uses arms for stability = 1. Walking time: Heels apart = 0. Gait score: /12. Total Score = Balance + Gait 14/28. Tinetti tool score: < = 18 High. Physical Education Intervention Physical Therapy Education: Pt was educated on the importance of cyrotherapy and elevation. Reviewed proper pillow placement under LE to maintain good extension. Stressed the importance also of ambulating at at least every other hour for 2-5 minutes duration and/or at least stand for a few minutes and completion of HEP 2x/day. Patient was educated with regards to signs and symptoms to monitor with respect to blood clots and infection. Reviewed SATHYA precautions. Therapeutic Exercise : Pt completed left LE supine exercises of glut sets, quad sets and ankle pumps (hourly) at this time, 10x. Completed bilateral LE standing heel raises, left march and right ham curls 10x. HEP issued and instructed. Gait Training: Gait training this date with walker with instruction for step to gait pattern for right affective LE. Verbal cues were provided fot heel to toe gait pattern and knee flexion during swing phase; fair carryover. Therapeutic Activity: Worked on proper sit to stand, stand to sit transfers this date from recliner good carryover with SBA with verbal cues for proper sequencing and hand placement. Worked on proper sequencing and task segmentation with getting in/out of bed while maintaining SATHYA precautions; good carryover with min A. Assessment & Plan Assessment Impairments: abnormal gait, impaired balance, impaired physical strength and pain with function Barriers to therapy: Pain Prognosis: good Goals Short Term goals (1-3 weeks) Goal 1 : Patient will demonstrate good compliance and independence with HEP. Goal 2 : Patient will ascend/descend 3 steps with HR and AD with supervision, step to gait pattern. Goal 3 : Patient will ambulate up to 5 minute duration or more with FWW, modified independent with good reciprical gait pattern. Goal 4 : Patient will improve PROM of left hip from 0 to 90 degrees with pain reported at end range < 2/10. Goal 5 : Pt will demonstrate good SATHYA precaution with all functional transfers and bed mobility with independence. Penitentiary Goals (4-6 weeks) Goal 1 : Patient will ambulate community distances on even and uneven surfaces, independently with no AD, normalized gait pattern and < 1/10 report of pain in right hip. Goal 2 : Patient will improve left hip/knee strength to 5/5 to assist with gait and transfer performances. Goal 3 : Patient will improve left hip AROM from 0 to 90 degrees with end range pain < 2/10. Goal 4 : Patient will demonstrate good static and dynamic standing balance for >15 mintues without LOB or increase in hip pain. Goal 5 : Pt will ascend/descend 15 steps with no AD and reciprical gait pattern independently. Goal 6 : Patient will improve Tinetti Balance test to 28/28 to indicate no fall risk. Plan Planned modality interventions: cryotherapy Planned therapy interventions: gait training, functional ROM exercises, strengthening, stretching, therapeutic activities, neuromuscular re-education, manual therapy, bed mobility training, home exercise program and transfer training Frequency: 2-3. Duration in weeks: 8 Treatment plan discussed with: patient Plan details: Educated patient not to over do it and to continue icing hip; patient receptive. Pt will continue to benefit from therapy intervention to improve gait training, left LE strength and ROM and improve functional mobility to return to PLOF. documented in this encounter [facility] 09-03-2024 Telephone encounter Note Amelie [facility] called and left vm at 9:53 regarding pt-pt in room 213. She had LT SATHYA sx 09/02/24 and wanted to know if she can be discharged before she gets 2nd PT appt? She would like a call back at [phone] [facility] 09-03-2024 Miscellaneous Notes Amelie [facility] called and left vm at 9:53 regarding pt-pt in room 213. She had LT SATHYA sx 09/02/24 and wanted to know if she can be discharged before she gets 2nd PT appt? She would like a call back at [phone] documented in this encounter [facility] 09-01-2024 Telephone encounter Note Post op pain rx. PDMP reviewed [facility] 09-01-2024 Miscellaneous Notes Post op pain rx. PDMP reviewed documented in this encounter [facility] 08-14-2024 History of Present illness Narrative Images from the original note were not included. GENERAL HISTORY AND PHYSICAL: NAME: Leticia Cannon : 1955 HISTORY OF PRESENT ILLNESS: Leticia Cannon is an 69 y.o. @ female. Here for surgery instructions - (L) SATHYA 09/02/2024 @[facility] PAST MEDICAL HISTORY: Past Medical History: [...] and proposed surgery scheduled. (L) SATHYA 09/02 @[facility] SX INSTRUCTIONS GIVEN TODAY 08/14 @11:15AM Madeline DURHAM 08/12 @10:30AM DR. SANCHEZ CLEARANCE 08/18 @10AM [facility] NOTIFIED NPAR ([id number]) No follow-ups on file. Discussed patient's need [...] as an alternative. documented in this encounter [facility] 08-12-2024 Instructions Nusrat Duran RN - 08/12/2024 10:30 AM EST Preoperative Education Checklist- Joints/Spine Surgery date: 09/02/24 Surgery time: 1230 p.m. Arrival time: 1030 a.m. Return between 08/25-09/01/24 Mon-Fri 7 a.m.-5 p.m. to [place] for your last blood test. 1. Bring a photo ID and your insurance card with you the day of surgery. You will check in at the main lobby of the [facility]- registration desk is straight ahead as soon as you walk in. Tell them you are here for surgery. 2. If you have a Living Will/Durable Power of Anthropology Lecturer for Health Care that is not on [...] after you have bathed. 5. No nail sierra leonean/acrylic on at least one finger. If you are having a hand, wrist, foot, or leg surgery then ALL nail sierra leonean and artificial/acrylic nails MUST be removed from [...] please call the Preadmission Testing office at [phone] Mon.-Fri. 7 a.m.-3 p.m. Leave a voicemail [...] blood clots, an IV, and possibly a MARINE CARGO SURVEYOR pump and/or a NERVE BLOCK (both used [...] doctor does not round on patients at [facility] to see you while you are [...] hospital. You may have spoken with a corporate planner at your orthopedic doctor s office, but you will still review your discharge plan with our corporate planner from here at the hospital in order [...] with your doctor. documented in this encounter [facility] 08-12-2024 Miscellaneous Notes Preoperative Education Checklist- Joints/Spine Surgery date: 09/02/24 Surgery time: 1230 p.m. Arrival time: 1030 a.m. Return between 08/25-09/01/24 Mon-Fri 7 a.m.-5 p.m. to [place] for your last blood test. 1. Bring a photo ID and your insurance card with you the day of surgery. You will check in at the main lobby of the [facility]- registration desk is straight ahead as soon as you walk in. Tell them you are here for surgery. 2. If you have a Living Will/Durable Power of Anthropology Lecturer for Health Care that is not on [...] after you have bathed. 5. No nail sierra leonean/acrylic on at least one finger. If you are having a hand, wrist, foot, or leg surgery then ALL nail sierra leonean and artificial/acrylic nails MUST be removed from [...] please call the Preadmission Testing office at [phone] Mon.-Fri. 7 a.m.-3 p.m. Leave a voicemail [...] blood clots, an IV, and possibly a MARINE CARGO SURVEYOR pump and/or a NERVE BLOCK (both used [...] doctor does not round on patients at [facility] to see you while you are [...] hospital you will receive physical therapy from [facility] physical therapists who work in the hospital and they will start seeing you the morning after surgery. Therapy from your orthopedic doctor s office will begin seeing you once you are discharged from the hospital- they are not contracted to provide your treatment while you are in the hospital. You may have spoken with a corporate planner at your orthopedic doctor s office, but you will still review your discharge plan with our corporate planner from here at the hospital in order [...] verbalized understanding. LVM for patient to watch SHAYY video prior to PAT appt. documented in this encounter [facility] 08-12-2024 Nurse Note Preoperative Education Checklist- Joints/Spine Surgery date: 09/02/24 Surgery time: 1230 p.m. Arrival time: 1030 a.m. Return between 08/25-09/01/24 Mon-Fri 7 a.m.-5 p.m. to [place] for your last blood test. 1. Bring a photo ID and your insurance card with you the day of surgery. You will check in at the main lobby of the [facility]- registration desk is straight ahead as soon as you walk in. Tell them you are here for surgery. 2. If you have a Living Will/Durable Power of Anthropology Lecturer for Health Care that is not on [...] after you have bathed. 5. No nail sierra leonean/acrylic on at least one finger. If you are having a hand, wrist, foot, or leg surgery then ALL nail sierra leonean and artificial/acrylic nails MUST be removed from [...] please call the Preadmission Testing office at [phone] Mon.-Fri. 7 a.m.-3 p.m. Leave a voicemail [...] blood clots, an IV, and possibly a MARINE CARGO SURVEYOR pump and/or a NERVE BLOCK (both used [...] doctor does not round on patients at [facility] to see you while you are [...] hospital [facility] who work in the hospital and they will start seeing you the morning after surgery. Therapy from your orthopedic doctor s office will begin seeing you once you are discharged from the hospital- they are not contracted to provide your treatment while you are in the hospital. You may have spoken with a corporate planner at your orthopedic doctor s office, but you will still review your discharge plan with our corporate planner from here at the hospital in order [...] to the follow-up appointment with your doctor. [facility] 08-12-2024 Nurse Note G wipes and surgical instructions reviewed. Patient verbalized understanding. [facility] 08-08-2024 Telephone encounter Note Pt notified - states understanding. [facility] 08-08-2024 Miscellaneous Notes Pt notified - states [...] is having (L) SATHYA 09/02/24. Please advise [phone]. documented in this encounter [facility] 08-08-2024 Telephone encounter Note She will be ok finishing this taper before surgery... I spoke to her on 08/04 about it.. but she will be off for 10 days before surgery,, she is not diabetic ...she will need to notify anesthesia of the taper and her eye surgery just so they are aware.. [facility] 08-08-2024 Telephone encounter Note Spoke with pt - states she was given Prednisone to take post-op cataract sx 08/04/24 - tapering dose 60MG down to 10MG over the course of 3 weeks ; states she will finish this 10 days prior to her scheduled SATHYA 09/02/24. Pt wants to make sure this won't affect sx - please advise [facility] 08-08-2024 Telephone encounter Note Patient left vm returning call. [facility] 08-07-2024 Telephone encounter Note Attempted to call pt - no answer - L/M stating pt can return my call if she still has questions. Closing encounter for now... [facility] 08-05-2024 Telephone encounter Note Attempted to call pt - no answer - L/M requesting a return call [facility] 08-05-2024 Nurse Note LVM for patient to watch Cashually video prior to PAT appt. [facility] 08-04-2024 Telephone encounter Note Attempted to call pt - no answer - L/M requesting a return call [facility] 08-04-2024 Telephone encounter Note Spoke with [...] if anything changes following her eye surgery. [facility] 08-04-2024 Miscellaneous Notes Spoke with pt.. [...] with Dr Christianson? documented in this encounter [facility] 08-04-2024 Telephone encounter Note Patient has caratacts sx tomorrow and they are have her take prednisone. Making sure this won't affect her Lt hip sx on 09/[address] Christianson? [facility] 08-04-2024 Telephone encounter Note Patient is having cataract sx tomorrow. They want to put her on a couple pills. She wants to make sure this is ok, she is having (L) SATHYA 09/02/24. Please advise [phone]. [facility] 06-25-2024 History of Present illness Narrative Images from the original note were not included. HISTORY OF PRESENT ILLNESS: EST PT Leticia Cannon is an 69 y.o. @ female. (EST PT) RECHECK (L) HIP ; S/P IA CORTISONE INJ 06/03/24 (3WKS 2DAYS) @ [facility] - EYE PRESSURE WAS CHECKED ~2DAYS AGO PER DR TIMMONS. XRAYS, 03/26/24 IN [facility] NO MRI NO MDP / PREDNISONE S/P [...] We will give her a note for skwan as she is going to [place]. We have discussed her HEP and restrictions [...] or the patient requires discharge to a assisted facility, the patient may require to have additional inpatient hospital stay days following the surgery. Physical therapy is contraindicated in this patient''s case because of the [id number] articulation of the patient's hip. Ramesh Christianson D.O. documented in this encounter [facility] 06-02-2024 History of Present illness Narrative Images from the original note were not included. HISTORY OF PRESENT ILLNESS: EST PT Leticia Cannon is an 69 y.o. @ female. EST PT RECHECK LT HIP PAIN- PT DID NOT GET CORTISONE INJ; WANTED TO DISCUSS MORE WITH HER EYE DR TIMMONS'S- PT STATES SHE DISCUSSED WITH EYE DR AND WOULD LIKE TO GO FORWARD WITH INJ TODAY Dr. Timmons's office stated that patient is able to have cortisone injection / MDP, they would just recommend that patient have eye pressure checked 1-2weeks after XRAY LT HIP EPIC 03/26/24 NO CORTISONE INJ NO MDP/PREDNISONE NO PREVIOUS TX CONTINUES TO HAVE PAIN- AMBULATES WITH LIMP- +STIFFNESS WITH PROLONG SITTING- LIMITED ROM- PAIN GENERALLY GROIN REGION- DIFFICULTY WITH STAIRS WILLOW: NOTICED PAIN AFTER GARDENING HX RT SATHYA YRS AGO PER DR CHRISTIANSON ALLERGIES: No Known Allergies HOME [...] to calculate BMI. Tobacco Use: Low Risk (05/19/2024) Patient History Smoking Tobacco Use: Never Smokeless Tobacco Use: Never Passive Exposure: Not on file Alcohol Use: Not on file IMAGING: Procedures Orders Placed This Encounter Procedures FL guided injection hip left Standing Status: Future Standing Expiration Date: 06/02/2025 Scheduling Instructions: [facility] ; Please call patient to schedule, thank you. (L) hip IA Injection Order Specific Question: Reason for exam: Answer: (L) hip DJD ASSESSMENT: ICD-10-CM 1. Acute hip pain, left M25.552 2. Arthritis of left hip M16.12 FL guided injection hip left PLAN: We have answered all the patients [...] examination of her left hip today we are recommending an IA injection at [facility] with patient's verbal agreeance. She will schedule an appt with Dr. Timmons 1-2 weeks s/p IA Injection to have her pressures checked. Patient is understanding she will need to wait at least 3 months s/p IA injection We have discussed her HEP and restrictions and will see her back in 3 months to reassess her left hip. Ramesh Christianson D.O. documented in this encounter [facility] 05-19-2024 History of Present illness Narrative Images from the original note were not included. HISTORY OF PRESENT ILLNESS: EST PT Leticia Cannon is an 69 y.o. @ female. EST PT RECHECK LT HIP PAIN- S/P CELEBREX; SOME RELIEF- PT DID NOT GET INJ LAST VISIT DUE NEEDING TO CHECK WITH EYE DR FOR GLAUCOMA Dr. Timmons's office stated that patient is able to have cortisone injection / MDP, they would just recommend that patient have eye pressure checked 1-2weeks after XRAY LT HIP EPIC 03/26/24 NO CORTISONE INJ NO MDP/PREDNISONE NO PREVIOUS TX SYMPTOMS GENERALLY GROIN REGION- NOTES SOME STIFFNESS WITH PROLONG SITTING- DENIES WAKE HS- LESS INSTABILITY- PAIN GENERALLY ACHINESS- LIMITED ROM- DIFFICULTY WITH STAIRS WILLOW: NOTICED PAIN AFTER GARDENING HX RT SATHYA YRS AGO PER DR STEPANIC ALLERGIES: No Known Allergies HOME MEDICATIONS: Current Outpatient Medications Medication Instructions brimonidine (AlphaGAN P) 0.15 % ophthalmic solution 1 drop, Ophthalmic, 3 times daily brimonidine (AlphaGAN P) 0.2 % ophthalmic solution ONE DROP IN EACH EYE THREE TIMES A DAY celecoxib (CELEBREX) 200 mg, Oral, Daily, Take with food dorzolamide-timolol (Cosopt) 2-0.5 % ophthalmic solution INSTILL [...] to calculate BMI. Tobacco Use: Low Risk (05/19/2024) Patient History Smoking Tobacco Use: Never Smokeless [...] acting as scribe for Dr. Christianson/birgit, PLAN: Patient is pleased with her right hip progress as she states there is nothing wrong with my right hip . We have reviewed prior (L) hip xrays. We have obtained verbal consent to proceed with cortisone injection / MDP as long as patient follows up for pressure check 1-2 weeks after. Patient states she is scheduled for a follow up with their office on Sunday. She is refusing the thought of a (L) SATHYA as she feels she is functioning too well at this time. We are recommending that she continue with Celebrex on a prn basis as she notes relief from taking it. She is requesting to hold off on the thought of a (L) hip IA injection as she would like to further discuss case with Dr. Lara on Sunday. We have discussed her HEP and restrictions and will see her back in 4 months to reassess her left hip with repeat xrays. Ramesh Christianson D.O. 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 Clayton Timmons RTC with Dr. Timmons in 4-6 weeks RTC with tx GENIE Stanley, Derek Crespo COT, acted as a scribe [...] Shalom Méndez MD --- Shalom Méndez M.D. Florist Manager of Clinical Ophthalmology Glaucoma Folder And Notcher [facility] Department of Ophthalmology and Visual Science REASON [...] time was spent with patient performing the neurodiagnostic technician work of this visit. documented in this encounter [facility] 01-31-2024 Key Crespo - 01/31/2024 1:00 PM EDT Thank you for choosing [facility] for your eye care. Below are the [...] at bedtime Anytime swimming use goggles Call [phone] with any questions or concerns. For emergencies after hours, call [phone] and ask to have the glaucoma doctor spinning bath person paged. If you do not receive a return call within 15 minutes, please call [phone] and ask for the ophthalmology resident doctor spinning bath person. documented in this encounter [facility] 01-10-2024 History of Present illness Narrative ATTENDING [...] Timmons RTC 3 weeks - postop ck I, Derek Crespo COT, [...] Shalom Méndez MD --- Shalom Méndez M.D. Florist Manager of Clinical Ophthalmology Glaucoma Folder And Notcher [facility] Department of Ophthalmology and Visual Science REASON [...] time was spent with patient performing the neurodiagnostic technician work of this visit. documented in this encounter [facility] 01-10-2024 Instructions Naomi Crespo - 01/10/2024 1:30 PM EDT Thank you for choosing [facility] for your eye care. Below are the [...] at bedtime Anytime swimming use goggles Call [phone] with any questions or concerns. For emergencies after hours, call [phone] and ask to have the glaucoma doctor spinning bath person paged. If you do not receive a return call within 15 minutes, please call [phone] and ask for the ophthalmology resident doctor spinning bath person. documented in this encounter [facility] 01-03-2024 History of Present illness Narrative [...] Shalom Méndez MD --- Shalom Méndez M.D. Florist Manager of Clinical Ophthalmology Glaucoma Folder And Notcher [facility] Department of Ophthalmology and Visual Science REASON [...] time was spent with patient performing the neurodiagnostic technician work of this visit. documented in this encounter [facility] 01-03-2024 Instructions Naomi Crespo - 01/03/2024 1:30 PM EDT Thank you for choosing [facility] for your eye care. Below are the [...] 1 drop once daily at bedtime Call [phone] with any questions or concerns. For emergencies after hours, call [phone] and ask to have the glaucoma doctor spinning bath person paged. If you do not receive a return call within 15 minutes, please call [phone] and ask for the ophthalmology resident doctor spinning bath person. documented in this encounter [facility] 12-27-2023 History of Present illness Narrative ATTENDING [...] for Shalom Méndez MD for this note 12/27/2023 at 2:03 PM Shalom Méndez M.D. Florist Manager of Clinical Ophthalmology Glaucoma Folder And Notcher [facility] Department of Ophthalmology and Visual Science REASON [...] medical history. documented in this encounter [facility] 12-17-2023 History of Present illness Narrative [...] time was spent with patient performing the neurodiagnostic technician work of this visit. ATTENDING PHYSICIAN [...] Referring; Dr. Clayton Timmons RTC with AKS 12/26 - postop (sooner PRN) Reagan Hogue MD documented in this encounter [facility] 12-14-2023 History of Present illness Narrative POST [...] right eye Anesthesia: Topical (Proparacaine) Lens used: Wood/Rena Power: 400 mW Duration: 100 ms Size: [...] with AKS 12/26 - postop (sooner PRN) I, Derek GUERRERO, acted as a scribe for [...] Shalom Méndez MD --- Shalom Méndez M.D. Florist Manager of Clinical Ophthalmology Glaucoma Folder And Notcher [facility] Department of Ophthalmology and Visual Science documented in this encounter [facility] 12-14-2023 Instructions Naomi Crespo - 12/14/2023 [...] you have any questions or problems at [phone]. For after hours emergencies, please call the [facility] film process operator at [phone] and ask to have the glaucoma doctor spinning bath person paged. If no return call within 15 minutes, call the [facility] film process operator and ask to have the ophthalmology resident doctor spinning bath person paged. documented in this encounter [facility] 12-11-2023 History of Present illness Narrative [...] RTC 4 days - postop ck Shalom Médnez M.D. Florist Manager of Clinical Ophthalmology Glaucoma Folder And Notcher [facility] Department of Ophthalmology and Visual Science Chief [...] op appointment. documented in this encounter [facility] 12-11-2023 Instructions Shalom Méndez MD - 12/11/2023 8:00 AM EDT Postoperative [...] you have any questions or problems at [phone]. For after hours emergencies, please call the [facility] film process operator at [phone] and ask to have the glaucoma doctor spinning bath person paged. If no return call within 15 minutes, call the [facility] film process operator and ask to have the ophthalmology resident doctor spinning bath person paged. documented in this encounter [facility] 12-10-2023 Nurse Surgical operation note 1315: Discharge instructions reviewed with patient and family, with family at bedside. All questions answered, patient and family verbalize understanding. 1326: Patient ambulated independently with standby assist to car without issue. [facility] 12-10-2023 Nurse Note 1315: Discharge instructions reviewed with patient and family, with family at bedside. All questions answered, patient and family verbalize understanding. 1326: Patient ambulated independently with standby assist to car without issue. Pt transported to PACU. Report given to RIC Garcia RN documented in this encounter [facility] 12-10-2023 Surgery Postoperative evaluation and management note PREOPERATIVE [...] mm square shaped scleral flap. A #67 [place] blade was then used to create the [...] to the recovery room in good condition. [facility] 12-10-2023 Miscellaneous Notes PREOPERATIVE DIAGNOSIS: Primary Open [...] mm square shaped scleral flap. A #67 [place] blade was then used to create the [...] recovery room in good condition. Leticia Cannon ([id number]) PRE OPERATIVE DIAGNOSIS Primary open-angle glaucoma, bilateral, severe stage [H40.1133] POST OPERATIVE DIAGNOSIS Primary open-angle glaucoma, bilateral, severe stage [H40.1133] PROCEDURE PERFORMED Procedure(s) (LRB): TRABECULECTOMY (RIGHT EYE) (Right) INTRAOPERATIVE FINDINGS glaucoma SURGEON Surgeons and Role: * Shalom Méndez MD - Primary ANESTHESIOLOGIST Anesthesiologist: Franck Barron MD PACKING ROOM SUPERVISOR: Leatha Longoria APRN-PACKING ROOM SUPERVISOR SURGICAL STAFF Drug Purchaser: Lin Juares RN Relief Drug Purchaser: Jennifer Doyle RN Relief Scrub: Zamzam Andrew Scrub Person: Erika Linares COMPLICATIONS None ESTIMATED BLOOD LOSS Minimal SPECIMENS No specimen sent * No specimens in log * Shalom Méndez MD December 10, 2023 12:57 PM documented in this encounter [facility] 12-10-2023 Nurse Surgical operation note Pt transported to PACU. Report given to RIC Garcia RN [facility] 12-10-2023 Hospital Discharge instructions Shalom Méndez MD - 12/10/2023 12:58 PM EDT Images from the original note were not included. [facility] Shalom Méndez MD [address] [place] [address] Postoperative Glaucoma Surgery Instructions You have an appointment tomorrow, December 10 at 8am At the [facility], 5th floor. 1) No drops are needed [...] by Tylenol During normal business hours, call [phone] with any questions or concerns. After hours, for eye emergencies call: [facility] film process operator at [phone] Shalom Méndez paged. If no return call within 15 minutes, call [phone] and ask to have the Ophthalmology Resident on-call paged. documented in this encounter [facility] 12-10-2023 Surgery Postoperative evaluation and management note Leticia Cannon ([id number]) PRE OPERATIVE DIAGNOSIS Primary open-angle glaucoma, bilateral, severe stage [H40.1133] POST OPERATIVE DIAGNOSIS Primary open-angle glaucoma, bilateral, severe stage [H40.1133] PROCEDURE PERFORMED Procedure(s) (LRB): TRABECULECTOMY (RIGHT EYE) (Right) INTRAOPERATIVE FINDINGS glaucoma SURGEON Surgeons and Role: * Shalom Méndez MD - Primary ANESTHESIOLOGIST Anesthesiologist: Franck Barron MD PACKING ROOM SUPERVISOR: Leatha Longoria APRN-PACKING ROOM SUPERVISOR SURGICAL STAFF Drug Purchaser: Lin Juares RN Relief Drug Purchaser: Jennifer Doyle RN Relief Scrub: Zamzam Andrew Scrub Person: Erika Sorg COMPLICATIONS None ESTIMATED BLOOD LOSS Minimal SPECIMENS No specimen sent * No specimens in log * Shalom Méndez MD December 10, 2023 12:57 PM [facility] 12-10-2023 History and physical note Name: Leticia Kassandra CC: Glaucoma right eye HPI: Here for [...] anesthesia. No contraindications to the planned procedure. [facility] 12-10-2023 History and physical note Name: Leticia [...] planned procedure. documented in this encounter [facility] 10-25-2023 History of Present illness Narrative [...] Shalom Méndez MD -- Shalom Méndez M.D. Florist Manager of Clinical Ophthalmology Glaucoma Folder And Notcher [facility] Department of Ophthalmology and Visual Science documented in this encounter [facility] 10-25-2023 Instructions Mary (Scribe) Luis - 10/25/2023 [...] your operative eye. SCHEDULING surgery: My surgical nurse, Laurence, will schedule your surgery. In preparation [...] unless otherwise by your doctor. QUESTIONS? Call [phone] with any questions or concerns. For emergencies after hours, call [phone] and ask to have the glaucoma doctor spinning bath person paged. If no return page in 15 minutes, please call [phone] and ask for the ophthalmology resident doctor spinning bath person. PREPARING FOR YOUR GLAUCOMA SURGERY (TUBE SHUNT) [...] your operative eye. SCHEDULING surgery: My surgical nurse, Laurence, will schedule your surgery. In preparation [...] unless otherwise prescribed by your doctor. Call [phone] with any questions or concerns. For emergencies after hours, call [phone] and ask to have the glaucoma doctor spinning bath person paged. If no return page in 15 minutes, please call [phone] and ask for the ophthalmology resident doctor spinning bath person. documented in this encounter [facility] 12-07-2022 Evaluation note Encounter Date Diagnosis Assessment [...] Nov, Fatigue, unspecified type (ICD-10 - R53.83) Double R Group Other 05-12-2022 History of Present illness Narrative* Larissa Roblero, PT - 02/02/2022 10:15 AM EDT [facility] Daily Note Patient: Leticia Cannon : 1955 CSN #: [id number] Referring Physician: eLatha Perez PA-C Date: 02/02/2022 Treatment Diagnosis: R [...] discomfort. She has met all of her long term care pharmacist goals and was educated on importance of [...] assist with decreasing painand improving mobility -MET/Continue Penitentiary Goals Time Frame for extermination inspector goals : 6 weeks extermination inspector goal 1: Pt will be independent and compliant with HEP -MET senior care goal 2: Pt will have min/no TTP through R hip surrounding GT to decrease irritation -MET senior care goal 3: Pt will improve R hip ext PROM to neutral to improve LE mobility -MET senior care goal 4: Pt will improve R hip ABD/ER strength grossly to 4/5 to assist with addressing LEmuscle imbalance -MET Minutes Tracking: Time In: 1015 Time Out: 1045 Minutes: 30 Timed Code Treatment Minutes: 28 Minutes Larissa Roblero PT, DPT Date: 02/02/2022 [facility] Phone: 1(305) 672-562305-03-2022 History of Present illness Narrative* Reagan Quiroz, OCTAVIA - 01/24/2022 8:00 AM EDT [facility] Daily Note Patient: Leticia Cannon : 1955 CSN #: [id number] Referring Physician: Leatha Perez PA-C Date: 01/24/2022 [...] 2 inch hip hike 10x Exercise 9: Saritha step overs fwd/lat x10ea (small Exercise 10: [...] assist with decreasing painand improving mobility -MET/Continue Penitentiary Goals Time Frame for senior care goals : 6 weeks extermination inspector goal 1: Pt will be independent and compliant with HEP. extermination inspector goal 2: Pt will have min/no TTP through R hip surrounding GT to decrease irritation. extermination inspector goal 3: Pt will improve R hip ext PROM to neutral to improve LE mobility. extermination inspector goal 4: Pt will improve R hip ABD/ER strength grossly to 4/5 to assist with addressing LEmuscle imbalance. Minutes Tracking: Time In: 806 Time Out: 904 Minutes: 58 Timed Code Treatment Minutes: 56 Minutes Reagan Quiroz PTA Date: 01/24/2022 [facility] this [facility] Phone: 1(703) 506-144304-27-2022 History of Present illness Narrative* Reagan Quiroz PTA - 01/18/2022 9:30 AM EDT [facility] Daily Note Patient: Leticia Cannon : 1955 CSN #: [id number] Referring Physician: Date: 01/18/2022 Treatment Diagnosis: R [...] 2 inch hip hike 10x Exercise 9: Saritha step overs fwd/lat x10ea (small Manual: Other: [...] assist with decreasing painand improving mobility -MET/Continue Waiver Analyst Goals Time Frame for extermination inspector goals : 6 weeks senior care goal 1: Pt will be independent and compliant with HEP. senior care goal 2: Pt will have min/no TTP through R hip surrounding GT to decrease irritation. extermination inspector goal 3: Pt will improve R hip ext PROM to neutral to improve LE mobility. senior care goal 4: Pt will improve R hip ABD/ER strength grossly to 4/5 to assist with addressing LEmuscle imbalance. Minutes Tracking: Time In: 933 Time Out: 1031 Minutes: 58 Timed Code Treatment Minutes: 56 Minutes Reagan Quiroz PTA Date: 01/18/2022 [facility] this [facility] Phone: 1(921) 235-435904-25-2022 History of Present illness Narrative* Blanquita Nieto PT - 01/16/2022 7:45 AM EDT [facility] Daily Note Patient: Leticia Cannon : 1955 CSN #: [id number] Referring Practitioner: Date: 01/16/2022 Diagnosis: Acute R [...] [facility] and [facility] felt good throughout. Exercises: Exercise 3: hip flexor stretching (L sktc, gentle R overpressure above knee) Exercise 5: SciFIt bike 10 mins 3 Exercise 6: Sideways amb at counter 5 laps OTB Exercise 8: FSU/LSU x15ea Exercise 9: Saritha step overs fwd/lat x10ea Manual: Soft Tissue [...] assist with decreasing painand improving mobility -MET/Continue Waiver Analyst Goals Time Frame for senior care goals : 6 weeks senior care goal 1: Pt will be independent and compliant with HEP. senior care goal 2: Pt will have min/no TTP through R hip surrounding GT to decrease irritation. extermination inspector goal 3: Pt will improve R hip ext PROM to neutral to improve LE mobility. senior care goal 4: Pt will improve R hip ABD/ER strength grossly to 4/5 to assist with addressing LEmuscle imbalance. Minutes Tracking: Time In: 744 Time Out: 45 Minutes: 60 Timed Code Treatment Minutes: 58 Minutes Blanquita Nieto PT, DPT Date: 01/16/2022 documented [facility] this [facility] Work Phone: 1(599) 501-514304-20-2022 History of Present illness Narrative* Blanquita Nieto PT - 01/11/2022 8:15 AM EDT [facility] Daily Note Patient: Leticia Cannon : 1955 CSN #: [id number] Referring Practitioner: TO Dutton Referral Date : [...] assist with decreasing painand improving mobility -MET/Continue Penitentiary Goals Time Frame for senior care goals : 6 weeks senior care goal 1: Pt will be independent and compliant with HEP. extermination inspector goal 2: Pt will have min/no TTP through R hip surrounding GT to decrease irritation. senior care goal 3: Pt will improve R hip ext PROM to neutral to improve LE mobility. extermination inspector goal 4: Pt will improve R hip ABD/ER strength grossly to 4/5 to assist with addressing LEmuscle imbalance. Minutes Tracking: Time In: 822 Time Out: 924 Minutes: 62 Timed Code Treatment Minutes: 58 Minutes Blanquita Nieto PT, DPT Date: 01/11/2022 documented [facility] this [facility] Phone: 1(251) 279-187204-14-2022 History of Present illness Narrative* Larissa Roblero PT - 01/05/2022 11:00 AM EDT [facility] Daily Note Patient: Leticia Cannon : 1955 CSN #: [id number] Referring Practitioner: TO Dutton Referral Date : [...] assist with decreasing painand improving mobility -MET/Continue senior care goals Time Frame for extermination inspector goals : 6 weeks senior care goal 1: Pt will be independent and compliant with HEP. extermination inspector goal 2: Pt will have min/no TTP through R hip surrounding GT to decrease irritation. extermination inspector goal 3: Pt will improve R hip ext PROM to neutral to improve LE mobility. senior care goal 4: Pt will improve R hip ABD/ER strength grossly to 4/5 to assist with addressing LEmuscle imbalance. Minutes Tracking: Time In: 1100 Time Out: 1145 Minutes: 45 Timed Code Treatment Minutes: 43 Minutes Larissa Roblero PT, DPT Date: 01/05/2022 documented [facility] this [facility] Work Phone: 1(783) 536-759304-11-2022 History of Present illness Narrative* Keyur Vtial - 01/02/2022 8:30 AM EDT [facility] Daily Note Patient: Leticia Cannon : 1955 [facility] #: [id number] Referring Practitioner: TO Dutton Referral Date : [...] assist with decreasing painand improving mobility. senior care goals Time Frame for senior care goals : 6 weeks senior care goal 1: Pt will be independent and compliant with HEP. senior care goal 2: Pt will have min/no TTP through R hip surrounding GT to decrease irritation. senior care goal 3: Pt will improve R hip ext PROM to neutral to improve LE mobility. extermination inspector goal 4: Pt will improve R hip ABD/ER strength grossly to 4/5 to assist with addressing LEmuscle imbalance. Minutes Tracking: Time In: 829 Time Out: 917 Minutes: 48 Timed Code Treatment Minutes: 46 Minutes Keyur Amador Date: 01/02/2022 documented in this [facility] Phone: evaluation + Plan note No data available for this section [facility] General Surgery Tariq Evaluation note* Diagnosis Encounter for screening mammogram for breast cancer documented in this encounter [employer] Phone: evaluation note* Diagnosis Encounter for screening mammogram for malignant neoplasm of breast Other screening mammogram documented in this encounter [facility] [employer]ENN[employer] Phone: evalvveqor noteNo [employer] Other Evaluation note* Diagnosis Primary open-angle glaucoma, bilateral, severe stage- Primary Nuclear sclerosis, left Pseudophakia, right eye Lens replaced by other means [facility] Diagnosis Aftercare following surgery of a sense organ- Primary Aftercare following surgery of the sense organs, NEC Primary open-angle glaucoma, bilateral, severe stage Pseudophakia, right eye Lens replaced by other means Nuclear sclerosis, left [facility] Diagnosis Aftercare following surgery of a sense organ- Primary Aftercare following surgery of the sense organs, NEC Primary open-angle glaucoma, bilateral, severe stage Pseudophakia, right eye Lens replaced by other means [facility] Diagnosis Aftercare following surgery of a sense organ- Primary Aftercare following surgery of the sense organs, NEC [facility] Diagnosis Aftercare following surgery of a sense organ- Primary Aftercare following surgery of the sense organs, NEC Primary open-angle glaucoma, bilateral, severe stage Pseudophakia, right eye Lens replaced by other means [facility] Diagnosis Aftercare following surgery of a sense organ- Primary Aftercare following surgery of the sense organs, NEC Primary open-angle glaucoma, bilateral, severe stage [facility] Diagnosis Aftercare following surgery of a sense organ- Primary Aftercare following surgery of the sense organs, NEC Primary open-angle glaucoma, bilateral, severe 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 [facility] Diagnosis Aftercare following surgery of a sense organ- Primary Aftercare following surgery of the sense organs, NEC Primary open-angle glaucoma, bilateral, severe stage documented in this encounter [facility] Diagnosis Onset Date Resolution Status Adenomatous polyp of colon a cute Hormone replacement therapy acute IBS (irritable bowel syndrome) acute Screening for colon cancer n oneactive [facility] Work Phone: Evaluation note* Diagnosis Arthritis of left hip- Primary [facility] Diagnosis Pre-op examination- Primary Arthritis of left hip [facility] Diagnosis Post-operative pain- Primary Other acute postoperative pain Arthritis of left hip [facility] Diagnosis Primary osteoarthritis of left hip- Primary Acute postoperative pain of left hip Status post left hip replacement Difficulty walking Difficulty in walking [facility] Diagnosis Post-operative pain Other acute postoperative pain Arthritis of left hip [facility] Diagnosis Arthritis of left hip- Primary [facility] Diagnosis Acute hip pain, left- Primary Arthritis of left hip [facility] Diagnosis Status post total hip replacement, left- Primary [facility] Diagnosis Status post total hip replacement, left Left hip pain Pain in joint, pelvic region and thigh [facility] Diagnosis Preop examination- Primary Unspecified pre-operative examination Osteoarthritis of left hip, unspecified osteoarthritis type Urinary frequency Preop examination Unspecified pre-operative examination Osteoarthritis of left hip, unspecified osteoarthritis type Urinary frequency Preop examination Unspecified pre-operative examination Osteoarthritis of left hip, unspecified osteoarthritis type Urinary frequency documented in this [facility] Diagnosis Status post total hip replacement, left- Primary [facility] Diagnosis Onset Date Resolution Status Admit Date Adenomatous polyp of colon acute January 30, 2025 8:28am Hormone replacement therapy acute January 30, 2025 8:28am IBS (irritable bowel syndrome) acute January 30, 2025 8:28am Medicare annual wellness vis it, subsequent noneactive January 30, 2025 8: 28am Screening for colon cancer noneactiv e January 30, 2025 8:28am Screening mammogram for vera st cancer noneactive January 30, 2025 8: 28am [facility] Work Phone: Evaluation note* Diagnosis Status post total hip replacement, left- Primary Left hip pain Pain in joint, pelvic region and thigh [facility] [...] right eye Hospitalization History SEE SURGICAL HX [employer] Other Hospital Discharge instructions No data available for this section [facility] General Surgery [place] Progress note No data available for this section [facility] [place] Summary Purpose Family History No Family History Records FoundNo Family History Records FoundNo Family History Records FoundNo Family History Records FoundNo Family History Records Found No data available for this section No Family History Records FoundNo Family History Records Found No data available for this section No Family History Records Found Advance Directives Documents on File Type Date Recorded Patient Criminalist Technician Expl anation ACP-Advance Directive ACP-Power of Anthropology Lecturer Documents on File Type Date Recorded Patient Criminalist Technician Expl anation ACP-Advance Directive ACP-Power of Anthropology Lecturer Advance Directive Response Recorded Date/ Time Advance Directives No October 16, 2023 11:07am Reason for Referral Specialty Diagnoses / Procedures Referred By Contac t Referred To Contact Radiology Diagnoses Encounter for screening mammogram for breast cancer Procedures DEANGELO CASSIUS DIGITAL SCREEN BILATERAL Lorenzo Lindsay MD [address] [facility] [address] [place] [address] Referral ID Status Reason Start Date Expiration Date Visits Re quested Visits Authorized [id number] Closed 10/31/2021 10/31/2022 1 1 Specialty Diagnoses / Procedures Referred By Radha fournier Referred To Contact Radiology Diagnoses Encounter for screening mammogram for malignant neoplasm of breast Procedures DEANGELO CASSIUS DIGITAL SCREEN BILATERAL Tyrone Sanchez, DO [address] [facility] [place] [address] Referral ID Status Reason Start Date Expiration Date Visits Re quested Visits Authorized [id number] Closed 12/15/2022 12/15/2023 1 1 Chief Complaint and Reason for Visit Chief Complaint 6 Month Check Up Reason for Visit Adenomatous polyp of colon Hormone replacement therapy IBS (irritable bowel syndrome) Screening for colon cancer Chief Complaint Admit Date Wellness January 30, 2025 8:28am Reason for Visit Admit Date Adenomatous polyp of colon January 30, 2025 8:28am Hormone replacement therapy January 30 8:28am IBS (irritable bowel syndrome) January 30, 2025 8:28am Medicare annual wellness visit, subseque nt January 30, 2025 8:28am Screening for colon cancer January 30, 2025 8:28am Screening mammogram for breast cancer Ma y 2024 8:28am Additional Source Comments INFORMATION SOURCE (unrecogn ized section and content) DATE CREATED AUTHOR 07/17/2021 [facility] [place] [facility] DATE CREATED AUTHOR AUTHOR'S ORGANIZ ATION 10/26/2022 [facility] DATE CREATED AUTHOR AUTHOR'S ORGANIZ ATION 02/02/2024 [facility] DATE CREATED AUTHOR AUTHOR'S ORGANIZ ATION 08/07/2024 [facility] DATE CREATED AUTHOR AUTHOR'S ORGANIZ ATION 09/05/2024 [facility] DATE CREATED AUTHOR AUTHOR'S ORGANIZ ATION 01/17/2025 [facility] DATE CREATED AUTHOR AUTHOR'S ORGANIZ ATION 03/04/2025 [facility] DATE CREATED AUTHOR AUTHOR'S ORGANIZ ATION 03/07/2025 [facility] Reason for Visit (unrecogniz ed section and content) Specialty Diagnoses / Procedures Referred By Contac t Referred To Contact Radiology Diagnoses Encounter for screening mammogram for breast cancer Procedures DEANGELO CASSIUS DIGITAL SCREEN BILATERAL Lorenzo Lindsay MD [address] [facility] [address] [place] [address] Referral ID Status Reason Start Date Expiration Date Visits Re quested Visits Authorized [id number] Closed 10/31/2021 10/31/2022 1 1 Specialty Diagnoses / Procedures Referred By Contac t Referred To Contact Radiology Diagnoses Encounter for screening mammogram for malignant neoplasm of breast Procedures DEANGELO CASSIUS DIGITAL SCREEN BILATERAL Daniel TyroneDO [address] [facility] [place] [address] Referral ID Status Reason Start Date Expiration Date Visits Re quested Visits Authorized [id number] Closed 12/15/2022 12/15/2023 1 1 Reason Comments New Patient Specialty Diagnoses / Procedures Referred By Contac t Referred To Contact Ophthalmology Diagnoses Glaucoma of both eyes, [place] [address] [place] [address] Shalom Méndez MD [address] [place] [address] [address] [place] [address] Referral ID Status Reason Start Date Expiration Date V isits Requested Visits Authorized [id number] New Request 10/09/2023 11/02/2024 1 1 Specialty Diagnoses / Procedures Referred By Contac t Referred To Contact Diagnoses Primary open-angle glaucoma, bilateral, severe stage Primary open-angle glaucoma, bilateral, severe stage [H40.1133] Procedures ME GLAUCOMA SURG,TRABECU AB EXTERNO TRABECULECTOMY Shalom Méndez MD [address] [place] [address] [address] [place] [address] [facility] [address] [place] [address] Referral ID Status Reason Start Date Expiration Date Visits Re quested Visits Authorized [id number] 1 1 Reason Comments Post Op Visit Reason Comments Pain Reason Onset Date Comments surgery 08/04/2024 Reason Comments Pre-op Exam Reason Onset Date Comments PO 09/03/2024 Reason Comments Follow-up Care Teams (unrecognized sec tion and content) Rn Licensed Practical Relationship Specialty Start Date End Date Tyrone Sanchez, DO [address] [facility] [place] [address] PCP - General 12/31/12 Rn Licensed Practical Relationship Specialty Start Date End Date Tyrone Sanchez, DO [address] [facility] [place] [address] PCP - General 12/31/12 Rn Licensed Practical Relationship Specialty Start Date End Date Tyrone Sanchez DO [address] [facility] [place] [address] PCP - General 12/31/12 Rn Licensed Practical Relationship Specialty Start Date End Date Tyrone Sanchez, DO [address] [facility] [place] [address] PCP - General 12/31/12 Rn Licensed Practical Relationship Specialty Start Date End Date Tyrone Sanchez, DO [address] [facility] [place] [address] PCP - General 12/31/12 Rn Licensed Practical Relationship Specialty Start Date End Date Tyrone Sanchez, DO [address] [facility] [place] [address] PCP - General 12/31/12 Rn Licensed Practical Relationship Specialty Start Date End Date Tyrone Snachez, DO [address] [facility] [place] [address] PCP - General 12/31/12 Rn Licensed Practical Relationship Specialty Start Date End Date Tyrone Sanchez, DO [address] [facility] [place] [address] PCP - General 12/31/12 Rn Licensed Practical Relationship Specialty Start Date End Date Tyrone Sanchez DO [address] [facility] [place] [address] PCP - General 12/31/12 Rn Licensed Practical Relationship Specialty Start Date End Date Tyrone Sanchez DO [address] [facility] [place] [address] PCP - General 12/31/12 Rn Licensed Practical Relationship Specialty Start Date End Date Tyrone Sanchez DO [address] [facility] [place] [address] PCP - General Internal Medicine 11/07/23 Rn Licensed Practical Relationship Specialty Start Date End Date Tyrone Sanchez DO [address] [place] [facility] [place] [address] PCP - General Internal Medicine 11/07/23 Rn Licensed Practical Relationship Specialty Start Date End Date Tyrone Sanchez DO [address] [facility] [place] [address] PCP - General Internal Medicine 11/07/23 Rn Licensed Practical Relationship Specialty Start Date End Date Tyrone Sanchez DO [address] [facility] [place] [address] PCP - General Internal Medicine 11/07/23 Rn Licensed Practical Relationship Specialty Start Date End Date Tyrone Sanchez DO [address] [facility] [place] [address] PCP - General Internal Medicine 11/07/23 Rn Licensed Practical Relationship Specialty Start Date End Date Tyrone Sanchez DO [address] [facility] [place] [address] PCP - General Internal Medicine 11/07/23 Rn Licensed Practical Relationship Specialty Start Date End Date Tyrone Sanchez DO [address] [place] [phone] PCP - General Internal Medicine 11/07/23 Team Status: Active Member Role Status Dates Tyrone Sanchez DO Primary Care Provider Active Team Status: Inactive Member Role Status Dates Tyrone Sanchez DO Primary Care Provide r, Attending Provider Active Start: June 13, 2024 End: June 13, 2024 Rn Licensed Practical Relationship Specialty Start Date End Date Tyrone Sanchez MD [address] [place] [address] PCP - General Internal Medicine 03/26/24 Rn Licensed Practical Relationship Specialty Start Date End Date Tyrone Sanchez MD [address] [place] [phone] PCP - General Internal Medicine 03/26/24 Rn Licensed Practical Relationship Specialty Start Date End Date Tyrone Sanchez MD [address] [place] [address] PCP - General Internal Medicine 03/26/24 Rn Licensed Practical Relationship Specialty Start Date End Date Tyrone Sanchez MD [address] [place] [address] PCP - General Internal Medicine 03/26/24 Rn Licensed Practical Relationship Specialty Start Date End Date Tyrone Sanchez MD [address] [place] [address] PCP - General Internal Medicine 03/26/24 Rn Licensed Practical Relationship Specialty Start Date End Date Tyrone Sanchez MD [address] [facility] [place] [address] PCP - General Internal Medicine 03/26/24 Rn Licensed Practical Relationship Specialty Start Date End Date Tyrone Sanchez MD [address] [facility] [place] [address] PCP - General Internal Medicine 03/26/24 Rn Licensed Practical Relationship Specialty Start Date End Date Tyrone Sanchez MD [address] [facility] [place] [address] PCP - General Internal Medicine 03/26/24 Rn Licensed Practical Relationship Specialty Start Date End Date Tyrone Sanchez MD [address] [facility] [place] [address] PCP - General Internal Medicine 03/26/24 Rn Licensed Practical Relationship Specialty Start Date End Date Tyrone Sanchez MD [address] [facility] [place] [address] PCP - General Internal Medicine 03/26/24 Rn Licensed Practical Relationship Specialty Start Date End Date Tyrone Sanchez MD [address] [facility] [place] [address] PCP - General Internal Medicine 03/26/24 Rn Licensed Practical Relationship Specialty Start Date End Date Tyrone Sanchez DO [address] [facility] [place] [address] PCP - General 12/31/12 Rn Licensed Practical Relationship Specialty Start Date End Date Tyrone Sanchez DO [address] [facility] [place] [address] PCP - General 12/31/12 Rn Licensed Practical Relationship Specialty Start Date End Date Tyrone Sanchez MD [address] [place] [facility] [address] PCP - General Internal Medicine 03/26/24 Rn Licensed Practical Relationship Specialty Start Date End Date Tyrone Sanchez DO [address] [facility] [place] [address] PCP - General 12/31/12 Rn Licensed Practical Relationship Specialty Start Date End Date Tyrone Sanchez DO [address] [place] [facility] [place] [address] PCP - General 12/31/12 Rn Licensed Practical Relationship Specialty Start Date End Date Tyrone Sanchez DO [address] [facility] [place] [address] PCP - General 12/31/12 Rn Licensed Practical Relationship Specialty Start Date End Date Tyrone Sanchez DO [address] [place] [facility] [place] [address] PCP - General 12/31/12 Rn Licensed Practical Relationship Specialty Start Date End Date Tyrone Sanchez DO [address] [place] [facility] [place] [address] PCP - General 12/31/12 Rn Licensed Practical Relationship Specialty Start Date End Date Tyrone Sanchez MD [address] [place] [facility] [place] [address] PCP - General Internal Medicine 03/26/24 Rn Licensed Practical Relationship Specialty Start Date End Date Tyrone Sanchez DO [address] [place] [facility] [place] [address] PCP - General 12/31/12 Rn Licensed Practical Relationship Specialty Start Date End Date Tyrone Sanchez DO [address] [facility] [place] [address] PCP - General 12/31/12 Rn Licensed Practical Relationship Specialty Start Date End Date Tyrone Sanchez MD [address] [facility] [place] [address] PCP - General Internal Medicine 03/26/24 Rn Licensed Practical Relationship Specialty Start Date End Date Tyrone Sanchez DO [address] [place] [facility] [address] PCP - General 12/31/12 Rn Licensed Practical Relationship Specialty Start Date End Date Tyrone Sanchez DO [address] [place] [facility] [place] [address] PCP - General 12/31/12 Team Status: Inactive Member Role Status Dates Tyrone Sanchez DO Primary Care Provide r, Attending Provider Active Start: January 30, 2025 End: January 30, 2025 Rn Licensed Practical Relationship Specialty Start Date End Date Tyrone Sanchez DO [address] [place] [facility] [place] [address] PCP - General Internal Medicine 02/25/25 Rn Licensed Practical Relationship Specialty Start Date End Date Tyrone Sanchez DO [address] [place] [facility] [address] PCP - General Internal Medicine 02/25/25 Scheduled Active and Recently Administ ered Medications [...] Provider: Shalom Méndez MD)[id number] (Given - Provider: Shalom Méndez MD) BUPivacaine/lidocaine/hyaluronida se 10 mL syringe 10 mL (COMPLETED) 10 mL, Retro/Mary bulbar, [employer] TO PROCEDURE, 1 dose, Starting on Sun12/10/23 [...] BE BASED ON THE PRIMARY CLINICAL RECORDS. [email or web address] provides no warranty or guarantee of the accuracy or completeness of information in this document.
== END 2025-03-12 10:56 | disposition home or self-care (01) ==
LOC: PST 10:56
PROVIDERS: PCP Internal Medicine; Visit Provider Surgery
DX: Z01.818 Encounter for other preprocedural examination (principal); Z80.0 Family history of malignant neoplasm of digestive organs

== ENCOUNTER 2025-03-18 07:52 | Day surgery (SDC) | payer MEDICARE, OTHER, SELFPAY ==
--- OUTSIDE RECORDS SUMMARY | 2025-03-04 23:59 | XMS_ITS | Continuity of Care Document ---
Author Organization [facility] [place] Address [address] [place] [address] Care Team Providers Care Infant Childcare Provider Name Role Phone CLIVE SANCHEZ Primary Care Physician [phone] Encounter [email or web address]_PILI [id number] Date(s): 03/04/25 - 03/04/25 [facility] [place] [address] [facility] [address], [place], [place] [address] Encounter Diagnosis Family history of colon cancer in mother(Discharge Diagnosis) - 03/04/25 Discharge Disposition: Home (Routine DC) Attending Physician: Heriberto FRYE MD Encounter Type: Clinic Allergies, Adverse Reactions, Alerts No Known Allergies Immunizations Given and Recorded Vaccine Date Status Refusal Reason SARS-CoV-2 (COVID-19) mRNA-1273 vaccine 01/10/21 R ecorded SARS-CoV-2 (COVID-19) mRNA-1273 vaccine 12/13/20 R ecorded Medications amLODIPine 5 mg Tab 30 EA, 0 Refill(s), TAKE 1 TABLET BY MOUTH EVERY DAY, Refills(s) 0 Start Date: 10/27/24 Status: Ordered Repeat number: 1 brimonidine Opth 0.2% Camila 1 drop(s), Eye-Both, TID, Refill(s) 0 Start Date: 02/11/25 Status: Ordered Repeat number: 1 dicyclomine 10 mg Cap 10 mg = 1 cap(s), Oral, QID, PRN abdominal pain, Refills(s) 0 Start Date: 09/29/24 Status: Ordered Repeat number: 1 dorzolamide-timolol Opth 2%-0.5% Camila Refill(s) 0, 0 Refill(s), INSTILL 1 DROP INTO EACH EYE THREE TIMES A DAY Start Date: 09/29/24 Status: Ordered Repeat number: 1 estradiol 0.5 mg Tab 0 Refill(s), TAKE 1 TABLET BY MOUTH EVERY OTHER DAY 30, Refills(s) 0 Start Date: 09/29/24 Status: Ordered Repeat number: 1 ketorolac Opth 0.5% Camila 1 drop(s), Eye-Right, TID, Refill(s) 0 Start Date: 02/11/25 Status: Ordered Repeat number: 1 Lumigan 0.01% ophthalmic solution 1 drop(s), Eye-Both, Once a day (at bedtime), Refill(s) 0 Start Date: 02/11/25 Status: Ordered Repeat number: 1 SUMAtriptan 100 mg Tab 9 EA, 0 Refill(s), TAKE 1 TABLET BY MOUTH NEEDED MAY REPEAT IN 2 HOURS IF NEEDED 30, Refills(s) 0 Start Date: 10/27/24 Status: Ordered Repeat number: 1 Problem List Condition Confirmation Course Effective Dates Status H ealth Status Informant Family history of colon cancer in mother Confirmed Active Glaucoma Confirmed Active History of colon polyps Confirmed Active Hyperlipidemia Confirmed Active IBS (irritable bowel syndrome) Confirmed Active Migraine Confirmed Active Osteopenia Confirmed Active Overweight Confirmed Active BMI 28.0-28.9,adult Confirmed Active Procedures Procedure Date Related Diagnosis Body Site Status Colonoscopy 01/22/19 Completed Arthroplasty of left hip Completed Arthroplasty of right hip Completed Arthroscopy of knee Compl eted Biopsy of breast Complete d Cataract extraction Compl eted Colonoscopy Completed Reattachment of retina Co mpleted DILAN BSO - Total abdominal hy sterectomy and bilateral salpingo-oophorectomy Completed Trabeculectomy Completed Social History Social History Type Response Smoking Status Never (less than 100 in lifetime);Never entered on: 03/04/25 Sex Female Sex Representation Female (finding) Patient Care team information Care Team Personnel Name: CLIVE SANCHEZ DO Position: FT Physician Member Role: Primary Care Physician Address: [address] [place] [address] Telecom: Care Team Related Persons Name: LEATHA RENEE Name: MC LI. Insurance Providers Guarantor name: Health Plan Information #: 1 Payer: NA Payer Identifier: [id number] Member Number: [id number] Group Number: [id number] Subscriber Identifier: [id number] Relationship to Subscriber: Self Coverage Type: MEDICARE Coverage Verification Date: 25 Telecom: JOAQUIN Address: Health Plan Information #: 2 Payer: JOAQUIN Payer Identifier: [id number] Member Number: [id number] Group Number: [id number] Subscriber Identifier: [id number] Relationship to Subscriber: Self Coverage Type: PRIVATE HEALTH INSURANCE Coverage Verification Date: 25 Telecom: JOAQUIN Address:
--- OUTSIDE RECORDS SUMMARY | 2025-03-12 17:15 | XMS_ITS | Encounter Summary ---
Author Organization [facility] Address [address] [place] [address] Care Team Providers Care Teenage Program Director Name Role Phone Tyrone Cabezas DO Primary Care Provider [phone] Reason for Referral * Other (Routine) - Pending Review Specialty Diagnoses / Procedures Referred By Radha fournier Referred To Contact Radiology Diagnoses Encounter for screening mammogram for malignant neoplasm of breast Procedures DEANGELO CASSIUS DIGITAL SCREEN BILATERAL Tyrone Cabezas DO [address] [place] [address] Phone: tel: fax: Referral ID Status Reason Start Date Expiration Date V isits Requested Visits Authorized [id number] Pending Review 02/04/2025 02/04/2026 1 1 Reason for Visit * Other (Routine) - Pending Review Specialty Diagnoses / Procedures Referred By Radha fournier Referred To Contact Radiology Diagnoses Encounter for screening mammogram for malignant neoplasm of breast Procedures DEANGELO CASSIUS DIGITAL SCREEN BILATERAL Tyrone Cabezas DO [address] [place] [address] Phone: tel: fax: Referral ID Status Reason Start Date Expiration Date V isits Requested Visits Authorized [id number] Pending Review 02/04/2025 02/04/2026 1 1 Encounter Details Date Type Department Care Team (Latest Contact Info) Description 03/12/2025 5:15 PM EDT - 03/14/2025 11:59 PM EDT Hospital Encounter [facility] [address] [phone] Encounter for screening mammogram for malignant neoplasm of breast Discharge Disposition: Home or Self Care Social History Tobacco Use Types Packs/Day Years Used Date Smoking Tobacco: Never Smokeless Tobacco: Never Alcohol Use Standard Drinks/Week Comments Never 0 (1 standard drink = 0.6 oz pur e alcohol) Comments No Sex and Gender Information Value Date Recorded Sex Assigned at Not on file Legal Sex Female 7:52 PM EST Gender Identity Not on file Sexual Orientation Not on file documented as of this encounter Medications at Time of Discharge estradiol (ESTRACE) 0.5 MG tablet TAKE 1 TABLET BY MOUTH EVERY OTHER DAY 10/04/2021 documented as of this encounter Plan of Treatment Upcoming Encounters Date Type Department Care Team (Late st Contact Info) Description 04/22/2025 1:45 PM EDT Office Visit [facility] Part of [address] [place] [address] Julianna Cavazos, DO [address] [place] [address] [address] [place] [phone] 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, 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 BIRADS: BIRADS - CATEGORY 1 Negative, no evidence of malignancy. Normal interval follow-up is recommended in 12 months. OVERALL ASSESSMENT - NEGATIVE A letter of notification will be sent to the patient regarding the results. The [employer] and the [employer] recommend annual mammograms for women 40 years and older. Performing Facility: [place] [id number] Narrative 03/13/2025 10:12 AM EDT EXAMINATION: SCREENING DIGITAL BILATERAL MAMMOGRAM WITH TOMOSYNTHESIS, 03/12/2025 TECHNIQUE: Screening mammography was performed with tomosynthesis including MLO and CC views of the bilateral breasts. Computer aided detection was used for the interpretation of this exam. COMPARISON: 12/15/2021, 02/01/2023. HISTORY: Screening. FINDINGS: The breasts are heterogeneously dense, which may obscure small masses. Within that limitation, there is no new dominant mass, suspicious microcalcification, or area of architectural distortion. us Tyrone Cabezas DO IMG MAMMOGRAPHY ORDERABLES Saba l Result documented in this encounter Visit Diagnoses Diagnosis Encounter for screening mammogram for malignant neoplasm of breast Other screening mammogram documented in this encounter Additional Health Concerns Assessment Noted Time A Body Mass Index follow-up plan has been documented for the patient 10/31/2021 10:07 AM EST documented as of this encounter Care Teams Teenage Program Director Relationship Specialty Start Date End Date Tyrone Cabezas DO [address] [place] [phone] PCP - General 12/31/12 documented as of this encounter
--- NOTE | 2025-03-18 | OP_ITS ---
OPERATION DATE: 03/18/2025 PREOPERATIVE DIAGNOSIS: Colorectal screening. Family history of colon cancer. POSTOPERATIVE DIAGNOSIS: Sigmoid diverticulosis. PROCEDURE: Colonoscopy to cecum. SURGEON: Heriberto Slater M.D. ANESTHESIA: Monitored anesthesia care. ESTIMATED BLOOD LOSS: Zero. INDICATIONS AND CONSENT: Patient is a 69-year-old female, with a family history of colon cancer in her mother, presents for surveillance colonoscopy. Indications, risks, benefits, alternatives of proceeding with colonoscopy were explained extensively to the patient, including the risks of bleeding, colon perforation or anesthetic complications. All of her questions were answered. Informed consent was obtained. PROCEDURE: Patient brought to the operating room, placed in the left lateral decubitus position. Monitored anesthesia care was provided. Rectal exam was performed which showed no masses or blood. The scope was inserted into the anal canal. Under direct visualization was advanced. It was advanced to the cecum where cecal markings were clearly identified. Upon withdrawal of the scope, mucosal surfaces were carefully examined. There was noted to be a good prep. There were no mass lesions or polyps. No inflammatory changes or ulcerations. There was moderate sigmoid diverticulosis without inflammatory changes or scarring. The scope was retroflexed in the anal canal. There was no significant hemorrhoidal disease. The scope was then withdrawn. Patient tolerated procedure well, was sent to recovery room in good condition. Follow up surveillance colonoscopy should be in five years due to family history, as long as patient is in good health. CC: Dr. Uvaldo HASKINS
[2025-03-18 07:57] VITALS: BP 133/78; PULSE 79; TEMP 36; O2SAT 96; BMI 27.8
--- OUTSIDE RECORDS SUMMARY | 2025-03-18 07:57 | XMS_ITS | Clinical Summary ---
Author Organization [facility] Address [address] [place] [address] Care Team Providers Care Municipal Bond Trader Name Role Phone Tyrone Cabezas DO Primary Care Provider [phone] Allergies No known active allergies Medications estradiol (ESTRACE) 0.5 MG tablet TAKE 1 TABLET BY MOUTH EVERY OTHER DAY 10/04/2021 Active Encounters Date Type Department Care Team Description 03/12/2025 5:15 PM EDT - 03/14/2025 11:59 PM EDT Hospital Encounter [facility] Mammography [address] [place] [id number] Encounter for screening mammogram for malignant neoplasm of breast Discharge Disposition: Home or Self Care 02/23/2025 [facility] [address] [place] [phone] Bridgett Cotton PTA 02/04/2025 Transcribe Orders [facility] [address] [place] [address] 27417 Tyrone Cabezas DO Encounter for screening mammogram for malignant neoplasm of breast (Primary Dx) 02/01/2025 Orders Only JENNIFER Admitting [address] [place] [address] [id number] Tyrone Cabezas DO 01/16/2025 11:00 AM EDT - 01/16/2025 11:59 PM EDT [facility] [address] [place] [address] 49037 Georgia Erazo PTA Discharge Disposition: Home or Self Care 01/14/2025 10:45 AM EDT - 01/14/2025 11:59 PM EDT Hospital Encounter [facility] Physical Therapy [address] [place] [address] 75774 Keyur Vital Discharge Disposition: Home or Self Care 01/06/2025 1:00 PM EDT - 01/06/2025 11:59 PM EDT Hospital Encounter [facility] Physical Therapy [address] [place] [address] [phone] Mann Tristan PTA Discharge Disposition: Home or Self Care 12/31/2024 1:00 PM EDT - 12/31/2024 11:59 PM EDT Hospital Encounter [facility] Physical Therapy [address] [place] [address] [phone] Mann Tristan PTA Discharge Disposition: Home or Self Care 12/29/2024 1:45 PM EDT - 12/29/2024 11:59 PM EDT Hospital Encounter [facility] Physical Therapy [address] [place] [address] [phone] Xin Samayoa PTA Discharge Disposition: Home or Self Care 12/26/2024 10:45 AM EDT - 12/26/2024 11:59 PM EDT Hospital Encounter [facility] Physical Therapy [address] [place] [address] [phone] Yoselin Aguilar PTA Discharge Disposition: Home or Self Care from Last 3 Months Family History Medical History Relation Name Comments Heart Attack Father Colon Cancer Mother Relation Name Status Comments Father Mother Social History Tobacco Use Types Packs/Day Years Used Date Smoking Tobacco: Never Smokeless Tobacco: Never Alcohol Use Standard Drinks/Week Comments Never 0 (1 standard drink = 0.6 oz pur e alcohol) Comments No Sex and Gender Information Value Date Recorded Sex Assigned at Not on file Legal Sex Female 7:52 PM EST Gender Identity Not on file Sexual Orientation Not on file Last Filed Vital Signs Vital Sign Reading Time Taken Comments Blood Pressure - - Pulse - - Temperature - - Respiratory Rate - - Oxygen Saturation - - Inhaled Oxygen Concentration - - Weight 68.5 kg (151 lb) 10/31/2021 8:55 AM EST Height 160 cm (5' 3 ) 10/31/2021 8:55 AM EST Body Mass Index 26.75 10/31/2021 8:55 AM EST Plan of Treatment Upcoming Encounters Date Type Department Care Team (Late st Contact Info) Description 04/22/2025 1:45 PM EDT Office Visit [facility] Part of [address] [place], [place] [id number] Julianna Cavazos, DO [address] [place] [address] 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, last seen by Dr Godwin 2021 poss prolapse, pt waiting this long bc of colonoscopy being scheduled Health Maintenance Due Date Last Done Comments Depression Screen 1965 Hepatitis C screen 1971 Lipids 1993 Colonoscopy 1998 Colorectal Cancer Screen 1998 FIT/FOBT: Average risk 1998 Fecal-DNA (Cologuard): [place] ge risk 1998 Sigmoidoscopy/CT colonography 1998 DEXA (modify frequency per FRAX score) 2008 DTaP/Tdap/Td vaccine (1 - Tdap) 07/13/2015 07/12/2015, 07/15/2014 Pneumococcal 50+ years Vacci ne (2 of 2 - PPSV23) 12/11/2019 12/10/2018 Annual Wellness Visit (Medicare) 08/20/2023 COVID-19 Vaccine (3 - 2023-2 5 season) 2024 01/10/2021, 12/13/2020 Flu vaccine (Season Ended) 04/24/202507/22, 07/12/2015 Breast cancer screen 03/12/2027 03/12/2025, 02/01/2023, 12/15/2021 Respiratory Syncytial Virus (RSV) or age 60 yrs+ (1 - 1-dose 75+ series) 2028 Shingles vaccine Completed 04/14/2023, 01/25/2023 Hepatitis A vaccine Aged Out No longe r eligible based on patient's age to complete this topic Hepatitis B vaccine Aged Out No longe r eligible based on patient's age to complete this topic Hib vaccine Aged Out No longer eligi ble based on patient's age to complete this topic Meningococcal (ACWY) vaccine Aged Out No longer eligible based on patient's age to complete this topic Meningococcal B vaccine Aged Out No l onger eligible based on patient's age to complete this topic Polio vaccine Aged Out No longer elig ible based on patient's age to complete this topic Procedures Procedure Name Priority Date/Time Associated Diagnosis Comments [facility] CASSIUS DIGITAL SCREEN BILATERAL Routine 03/12/2025 5:29 PM EDT Encounter for screening mammogram for malignant neoplasm of breast from Last 3 Months Results * [facility] CASSIUS DIGITAL SCREEN BILATERAL (03/12/2025 5:29 PM [...] to the patient regarding the results. The [employer] and the [employer] recommend annual mammograms for women 40 years and older. Performing Facility: [place] [id number] Narrative 03/13/2025 10:12 AM EDT EXAMINATION: SCREENING [...] Tyrone Cabezas DO IMG MAMMOGRAPHY ORDERABLES Saba alonso Result from Last 3 Months Insurance MEDICARE [employer] MEDICARE Care Teams Municipal Bond Trader Relationship Specialty Start Date End Date Tyrone Cabezas DO [address] [place] [id number] PCP - General 12/31/12
--- OUTSIDE RECORDS SUMMARY | 2025-03-18 07:57 | XMS_ITS | Encounter Summary ---
Author Organization [facility] Address [address] [place] [address] Care Team Providers Care Auto Bench Mechanic Name Role Phone Tyrone Cabezas DO Primary Care Provider Reason for Referral * Other (Routine) - Closed Specialty Diagnoses / Procedures Referred By Radha fournier Referred To Contact Radiology Diagnoses Encounter for screening mammogram for malignant neoplasm of breast Procedures [facility] CASSIUS DIGITAL SCREEN BILATERAL Tyrone Cabezas DO [address] [place] [address] Phone: tel: fax: Referral ID Status Reason Start Date Expiration Date Visits Re quested Visits Authorized [id number] Closed 12/15/2022 12/15/2023 1 1 Encounter Details Date Type Department Care Team (Latest Contact Info) Description 12/15/2022 Transcribe Orders [facility] [address] [place] [address] Tyrone Cabezas DO [address] [place] [address] Encounter for screening mammogram for malignant neoplasm of breast (Primary Dx) Social History Tobacco Use Types Packs/Day Years [...] on file documented as of this encounter Plan of Treatment Upcoming Encounters Date Type Department Care Team (Late st Contact Info) Description 04/22/2025 1:45 PM EDT Office Visit [facility] Part of [address] [place] [address] Julianna Cavazos DO [address] [place] [address] [place] [address] 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 Normal interval follow-up is recommended in 12 months. OVERALL ASSESSMENT - NEGATIVE A letter of notification will be sent to the patient regarding the results. The [employer] recommends annual mammograms for women 40 years and older. Narrative 02/01/2023 10:13 AM EDT EXAMINATION: SCREENING DIGITAL BILATERAL MAMMOGRAM [...] concerning grouping of microcalcification in either breast. us Tyrone Cabezas DO IMG MAMMOGRAPHY ORDERABLES Saba celeste Result documented in this encounter Visit Diagnoses Diagnosis Encounter for screening mammogram for malignant neoplasm of breast- Primary Other screening mammogram Encounter for screening mammogram for malignant neoplasm of breast Other screening mammogram documented in this encounter Additional Health Concerns Assessment Noted Time A Body Mass Index follow-up plan has been documented for the patient 10/31/2021 10:07 AM EST documented as of this encounter Care Teams Auto Bench Mechanic Relationship Specialty Start Date End Date Tyrone Cabezas DO [address] [place] [id number] PCP - General 12/31/12 documented as of this encounter
--- OUTSIDE RECORDS SUMMARY | 2025-03-18 07:57 | XMS_ITS | Clinical Summary ---
Author Organization [facility] Address [facility] [id number] [address] [place] [address] Care Team Providers Care Apprentice Painter Neckties Name Role Phone Tyrone Cabezas DO Primary Care Provider [phone] Allergies No known active allergies Medications estradioL (ESTRACE) 0.5 mg tablet Take 1 tablet (0.5 mg total) by mouth every other day. Active LUMIGAN 0.01 % ophthalmic drops Administer 1 drop into the left eye nightly. 4 Active acidophilus-pec tin, citrus 25 million cell -100 mg tablet Take 1 tablet by mouth in the morning and 1 tablet at noon and 1 tablet in the evening. Take with meals. Active brimonidine (ALPHAGAN P) 0.1 % drops Administer 1 drop into the left eye every 8 (eight) hours. Active dorzolamide (TRUSOPT) 2 % ophthalmic solution Administer 1 drop into the left eye 3 (three) times a day. Active gentamicin-pred nisoLONE (PRED-G) 0.3-1 % ophthalmic drops Administer 1 drop to the right eye in the morning and 1 drop before bedtime. Active ascorbic acid, vitamin C, (ascorbic acid) 250 mg tablet,chewable Chew 250 mg and swallow in the morning. Active amLODIPine (NORVASC) 5 mg tablet Take 1 tablet (5 mg total) by mouth in the morning. 4 Active ferrous sulfate 325 (65 FE) mg tablet Take 1 tablet (325 mg total) by mouth daily with breakfast. 4 Active Active Problems Problem Noted Date Diagnosed Date Left hip pain 09/01/2024 Family History Medical History Relation Name Comments Heart disease Father Hyperlipidemia Father Hypertension Father Colon cancer Mother Relation Name Status Comments Father Mother Social History Tobacco Use Types Packs/Day Years Used Date Smoking Tobacco: Never Smokeless Tobacco: Never Tobacco Cessation:Counseling Given: Not Answered Alcohol Use Standard Drinks/Week Comments Never 0 (1 standard drink = 0.6 oz pur e alcohol) [facility] Utilities Answer Date Recorded In the past 12 months has e electric, gas, oil, or water company threatened to shut off services in your home? No 09/02/2024 Social Connection and Isolat ion Panel [NHANES] Answer Date Recorded In a typical week, how many times do you talk on the phone with family, friends, or neighbors? More than three times a week 09/02/2024 How often do you get togethe r with friends or relatives? More than three times a week 09/02/2024 How often do you attend chur ch or advent services? More than 4 times per year 09/02/2024 Do you belong to any clubs o r organizations such as adventist groups, unions, fraternal or athletic groups, or school groups? No 09/02/2024 How often do you attend meet ings of the clubs or organizations you belong to? Never 09/02/2024 Are you , , di vorced, , never , or living with a partner? 09/02/2024 AUDIT-C Answer Date Recorded Q1: How often do you have a drink containing alcohol? Never 09/02/2024 Q2: How many drinks containi ng alcohol do you have on a typical day when you are drinking? Patient does not drink Q3: How often do you have si x or more drinks on one occasion? Never 09/02/2024 Overall Financial Resource Strain (CARDIA) Answe r Date Recorded How hard is it for you to pa y for the very basics like food, housing, medical care, and heating? Not hard at all 09/02/2024 PHQ-2 Answer Date Recorded Total Score 0 09/02/2024 [facility] Occupat ional Health - Occupational Stress Questionnaire Answer Date Recorded Do you feel stress - tense, restless, nervous, or anxious, or unable to sleep at night because your mind is troubled all the time - these days? Not at all 09/02/2024 Exercise Vital Sign Answer Date Recorde d On average, how many days pe r week do you engage in moderate to strenuous exercise (like a brisk walk)? 7 days 09/02/2024 On average, how many minutes do you engage in exercise at this level? 90 min 09/02/2024 PRAPARE - Transportation Answer Date Re corded In the past 12 months, has l ack of transportation kept you from medical appointments or from getting medications? No 08/24 In the past 12 months, has l ack of transportation kept you from meetings, work, or from getting things needed for daily living? No 09/02/2024 Housing Instability Answer Date Recorde d Are you worried or concerned that in the next two months you may not have stable housing that you own, rent or stay in as a part of a household? No 09/02/2024 Childcare Answer Date Recorded Do problems getting child ca re make it difficult for you to work or study? No 09/02/2024 Employment Answer Date Recorded Do you need help finding a [employer] center and/or a training program? No 09/02/2024 Hunger Screening Answer Date Recorded Within the past 12 months we worried whether our food would run out before we got money to buy more. Never True 09/02/2024 Within the past 12 months th e food we bought just didn't last and we didn't have money to get more. Never True 09/02/2024 Purpose - Life Answer Date Recorded I have a purpose and direction in my life. Agree 09/02/2024 Comments No Sex and Gender Information Value Date Recorded Sex Assigned at Not on file Legal Sex Female 11:28 AM EDT Gender Identity Female 09/02/2024 5:14 PM EST Sexual Orientation Straight 09/02/2024 5: 14 PM EST Last Filed Vital Signs Vital Sign Reading Time Taken Comments Blood Pressure 117/70 09/03/2024 5:16 AM EST Pulse 74 09/03/2024 5:16 AM EST Temperature 36.6 C (97.8 F) 09/03/2024 5:16 AM EST Respiratory Rate 14 09/03/2024 5:16 AM EST Oxygen Saturation 92% 09/03/2024 5:16 AM EST Inhaled Oxygen Concentration - - Weight 72.4 kg (159 lb 11.4 oz) 09/03/2024 5:16 AM EST Height 160 cm (5' 3 ) 09/02/2024 5:04 PM EST Body Mass Index 28.29 09/02/2024 5:04 PM EST Plan of Treatment Health Maintenance Due Date Last Done Comments Adult BMI Follow Up Plan 1971 DTaP,Tdap and Td Vaccines (1 - Tdap) 1972 Fall Risk Screening 2018 COVID-19 Vaccine (3 - season) 2024, 12/13/2020 Influenza Vaccine 05/25/2025 07/22/2020, 07/12/2015 Depression Screening 09/02/2025 09/02/2024 Tobacco Screening 09/02/2025 09/02/2024 Adult BMI Screening 09/03/2025 09/03/2024 Zoster (Shingles) Vaccine Completed 04/14/2023, 12/2022 Goals Goal Patient Goal Type Associated Problems Recent Progress Patient-Stated? Author DC to home with [facility] General Yes Trang Narayan LSW Note: Evaluation of progress towards goal: In progress: DC to home with her Jeanne trujillo and [facility]. Medical Devices Implanted Type Area Forestry Professor Device Identifier Shelf Expiration Date Model / Serial / Lot Cup Actb 52mm Pncl Sect Hip - Sna - [id number] Implanted:Qt y: 1 on 09/02/2024 by West Christianson Jr. DO at [facility] Orthopedic Implant Left: Hip [employer] 06/23/2034 [id number] / NA / [id number] Liner Actb 52mm 36mm Altrx Hip - Sna - [id number] Implanted:Qt y: 1 on 09/02/2024 by West Christianson Jr. DO at [facility] Orthopedic Implant Left: Hip [employer] 08/23/2028 [id number] / NA / [id number] Stem Fem Corail Amt Collar Size 11 - Sna - [id number] Implanted:Qt y: 1 on 09/02/2024 by West Christianson Jr. DO at [facility] Orthopedic Implant Left: Hip ORTHOPAEDICS 02/21/2033 [id number] / NA / [id number] Head Fem 36mm -2mm 09/06 Tpr - Sna - [id number] Implanted:Qt y: 1 on 09/02/2024 by West Christianson Jr., DO at [facility] Orthopedic Implant Left: Hip ORTHOPAEDICS 01/21/2027 [id number] / NA / [id number] Implant Hip Mop All Sz Construct Rpl 04351 - [id number] Implanted:Qt y: 1 on 09/02/2024 by West Christianson Jr., DO at [facility] Orthopedic Implant Left: Hip ORTHOPAEDICS [id number] / / Screw Hip Canc Cnn Gription 25mm - Sna - [id number] Implanted:Qt y: 1 on 09/02/2024 by West Christianson Jr., DO at [facility] Screw Left: Hip ORTHOPAEDICS 01/21/2034 [id number] / NA / [id number] Screw Hip Canc Cnn Gription 25mm - Sna - [id number] Implanted:Qt y: 1 on 09/02/2024 by West Christianson Jr., DO at [facility] Screw Left: Hip ORTHOPAEDICS 03/23/2034 [id number] / NA / [id number] Insurance COMMERCIAL MEDICARE Advance Directives * Full Code (Latest Code Status on File) Date Activated Date Inactivated Comments 09/01/2024 9:40 PM 09/01/2024 9:40 PM Care Teams Apprentice Painter Neckties Relationship Specialty Start Date End Date Tyrone Cabezas DO [address] [place] [address] PCP - General Internal Medicine 08/28/24
--- OUTSIDE RECORDS SUMMARY | 2025-03-18 07:57 | XMS_ITS | Clinical Summary ---
Author Organization [facility] Address [address] [place] [address] Care Team Providers Care Multimedia Designer Name Role Phone No, Physician Primary Care Provider Unavailabl e Allergies No known active allergies Medications SUMAtriptan (IMITREX) 100 MG tablet TAKE 1 TABLET BY MOUTH NEEDED MAY REPEAR IN 2 HOURS IF NEEDED 10/08/2022 Active Active Problems Problem Noted Date Diagnosed Date Migraines 10/26/2022 Social History Tobacco Use Types Packs/Day Years Used Date Smoking Tobacco: Never Smokeless Tobacco: Never Tobacco Cessation:Counseling Given: Not Answered Comments No Sex and Gender Information Value Date Recorded Sex Assigned at Not on file Legal Sex Female 9:43 AM EST Gender Identity Not on file Sexual Orientation Not on file Last Filed Vital Signs Vital Sign Reading Time Taken Comments Blood Pressure 176/97 10/26/2022 6:51 AM EST Pulse 80 10/26/2022 6:49 AM EST Temperature 36.4 C (97.6 F) 10/26/2022 6:49 AM EST Respiratory Rate 17 10/26/2022 6:49 AM EST Oxygen Saturation 96% 10/26/2022 6:49 AM EST Inhaled Oxygen Concentration - - Weight 67.1 kg (148 lb) 10/26/2022 6:49 AM EST Height 160 cm (5' 3 ) 10/26/2022 6:49 AM EST Body Mass Index 26.22 10/26/2022 6:49 AM EST Plan of Treatment Health Maintenance Due Date Last Done Comments CT Colonography 1953 Colonoscopy 1953 Colorectal Cancer Screening/Monitoring 1953 Dexa Scan 1953 Fecal DNA 1953 Fecal occult blood test (FOBT,FIT) 1953 Tetanus: Every 10yrs 1953 Medicare Wellness Visit 1956 Depression Screening/Follow-Up (PHQ-2/9) 1965 Hepatitis C Screening 1971 Flexible sigmoidoscopy 2003 Zoster Vaccines (1 of 2) 2003 Falls Risk Assessment 2018 Pneumococcal Vaccine: Age 50 + (2 of 2 - PCV20 or PCV21) 12/11/2019 12/10/2018 Mammogram 12/15/2022 12/15/2021 COVID-19 Vaccine (3 - season) 2024, 12/13/2020 Influenza Vaccine (Season Ended) 2025 07/22/20 20, 07/12/2015 Respiratory Syncytial Virus Immunization: Risk, 60-74 Risk, or 75+ (1 - 1-dose 75+ series) 2028 Insurance MEDICARE PART A & B Care Teams Multimedia Designer Relationship Specialty Start Date End Date No, Physician [facility] PCP - General 10/18/22
--- OUTSIDE RECORDS SUMMARY | 2025-03-18 07:57 | XMS_ITS | Encounter Summary ---
Author Organization [facility] Address [address] [place] [address] Care Team Providers Care Cylinder Press Operator Apprentice Name Role Phone Tyrone Cabezas DO Primary Care Provider [phone] Tyrone Cabezas DO Primary Care Provider [phone] Encounter Details Date Type Department Care Team (Late st Contact Info) Description 06/03/2024 Clinisync Result Encounter [facility] Unsolicited Jr. West Donovan, DO [address] [facility] [address] [place], [place] [id number] Social History Tobacco Use Types Packs/Day Years Used Date Smoking Tobacco: Never Smokeless Tobacco: Never Alcohol Use Standard Drinks/Week Comments Not Currently 0 (1 standard drink = 0.6 oz pur e alcohol) Comments Unknown Sex and Gender Information Value Date Recorded Sex Assigned at Not on file Legal Sex Female 8:11 PM EDT Gender Identity Not on file Sexual Orientation Not on file documented as of this encounter Plan of Treatment Upcoming Encounters Date Type Department Care Team (Late st Contact Info) Description 03/02/2026 9:15 AM EDT Office Visit [facility] [address] [place] [id number] Jr. West Donovan, DO [address] [facility] [address] [place] [address] documented as of this encounter Procedures Procedure Name Priority Date/Time Associated Diagnosis Comments FL GUIDED INJECTION HIP LEFT 06/03/2024 12:49 PM EDT documented in this encounter Results * FL guided injection hip left (06/03/2024 12:49 PM EDT) Anatomical Region Laterality Modality Hip Left Radiographic Colleen ging 06/03/2024 12:4 9 PM EDT Narrative 06/03/2024 12:52 [place] [address] Fluoroscopy Report Signed Patient: LETICIA CANNON MR#: [id number] : 1955 Acct:[id number] Age/Sex: 69 / F ADM Date: 06/03/24 Loc: [place] Attending Dr: West Donovan D.O. Ordering Physician: West Donovan D.O. Date of Service: 06/03/24 Procedure(s): FL hip inj LT Accession Number(s): [id number] cc: Tyrone Cabezas D.O.; West Donovan D.O. [place] [address] Patient Name: LETICIA CANNON MRN: [id number] date: 1955 Sex: F Assigned Patient Location: [place] Current Patient Location: Accession/Order Number: [id number] Exam Date: 06/03/2024 08:35 Report Date: 06/03/2024 12:49 At the request of: WEST DONOVAN Procedure: FL hip inj LT EXAMINATION: FL hip inj LT HISTORY: Left Hip Arthritis FLUORO DOSE: (Cannot be calculated) mGy Reference air kerma (Ka,r) COMPARISON: No relevant comparison available. TECHNIQUE: An arthrogram was performed under fluoroscopic guidance using non-ionic contrast material in the usual sterile manner after obtaining informed consent. Standard level fluoroscopic mode of operation utilized. FINDINGS: JOINT: Left hip NEEDLE: 25 gauge, 3.5 spinal needle. MEDICATION: 2 mL buffered 1% lidocaine for subcutaneous anesthesia. 2 mL Omnipaque-240 iodinated contrast to visualize the joint space. 40 mg Kenalog, 2 mL 0.5% bupivacaine, and 3 mL Omnipaque 240 injected into the joint space. TECHNIQUE: Anterior approach with prior localization of the femoral artery. A single stick was successful in gaining access to the joint space. CLINICAL: Improvement of joint pain post injection (3/10 preinjection; 2/10 post injection). COMPLICATIONS: None. OTHER: Negative. FL/FL hip inj LT IMPRESSION: 1. Technically successful left hip injection with slight improvement in symptoms immediately post procedure. Electronically authenticated by: NEHA HELMS Date: 06/03/2024 12:49 Dictated By: Neha Helms M.D. Signed By: 06/03/24 1252 DD/ 1249 TD/TT: Manager Ct: Procedure Note Radiology, Radiologist, MD - 06/03/2024 [place] [address] Fluoroscopy Report Signed Patient: LETICIA CANNON LMR#: [id number] : 1955cct:[id number] Age/Sex: 69 / FADM Date: 06/03/24 Loc: [place] Attending Dr: West Donovan D.O. Ordering Physician: West Donovan D.O. Date of Service: 06/03/24 Procedure(s): FL hip inj LT Accession Number(s): [id number] cc: Tyrone Cabezas D.O.; West Donovan D.O. The [place] [address] Patient Name: LETICIA CANNON MRN: [id number] date: 1955 Sex: F Assigned Patient Location: [place] Current Patient Location: Accession/Order Number: [id number] Exam Date: 06/03/2024 08:35 Report Date: 06/03/2024 12:49 At the request of: WEST DONOVAN Procedure: FL hip inj LT EXAMINATION: FL hip inj LT HISTORY: Left Hip Arthritis FLUORO DOSE: (Cannot be calculated) mGy Reference air kerma (Ka,r) COMPARISON: No relevant comparison available. TECHNIQUE: An arthrogram was performed under fluoroscopic guidance using non-ionic contrast material in the usual sterile manner after obtaining informed consent. Standard level fluoroscopic mode of operation utilized. FINDINGS: JOINT: Left hip NEEDLE: 25 gauge, 3.5 spinal needle. MEDICATION: 2 mL buffered 1% lidocaine for subcutaneous anesthesia. 2 mL Omnipaque-240 iodinated contrast to visualize the joint space. 40 mgKenalog, 2 mL 0.5% bupivacaine, and 3 mL Omnipaque 240 injected into the joint space. TECHNIQUE: Anterior approach with prior localization of the femoralartery. A single stick was successful in gaining access to the joint space. CLINICAL: Improvement of joint pain post injection (3/10 preinjection;2/10 post injection). COMPLICATIONS: None. OTHER: Negative. FL/FL hip inj LT IMPRESSION: 1. Technically successful left hip injection with slight improvement in symptoms immediately post procedure. Electronically authenticated by: NEHA HELMS Date: 06/03/2024 12:49 Dictated By: Neha Helms M.D. Signed By:06/03/24 1252 DD/ 1249 TD/TT: Manager Ct: Jr. West Donovan DO IMG FLUOROSCOPY PROCEDU RES Final Result documented in this encounter Visit Diagnoses Not on filedocumented in this encounter Care Teams Cylinder Press Operator Apprentice Relationship Specialty Start Date End Date Tyrone Cabezas DO PCP - General Internal Medicine 03/26/24 02/24/25 Tyrone Cabezas DO [address] [place] [address] PCP - General Internal Medicine 02/25/25 documented as of this encounter
--- OUTSIDE RECORDS SUMMARY | 2025-03-18 07:57 | XMS_ITS | Clinical Summary ---
Author Organization [facility] Address [address] [place] [address] Care Team Providers Care Fuel Cell Builder Name Role Phone Tyrone Cabezas DO Primary Care Provider [phone] Allergies No known active allergies Medications Estradiol 0.5 MG tablet Take 1 tablet by mouth daily. Active brimonidine 0.15 % Solution ophthalmic solution Place 1 drop in left eye 3 times daily. Use in affected eye(s). Active dorzolamide-nik olol 2-0.5 % Solution ophthalmic solution Place 1 drop in left eye 3 times daily. Active ketorolac 0.5 % Solution ophthalmic solution Place 1 drop in right eye 2 times daily. Active bimatoprost (Lumigan) 0.01 % Solution Place 1 drop in left eye at bedtime. Active Active Problems No known active problems Family History Medical History Relation Name Comments Heart Disease - Other Father Hypertension Father Cancer- Other Mother Relation Name Status Comments Father Mother Social History Tobacco Use Types Packs/Day Years Used Date Smoking Tobacco: Never Smokeless Tobacco: Never Tobacco Cessation:Counseling Given: Not Answered Alcohol Use Standard Drinks/Week Comments Never 0 (1 standard drink = 0.6 oz pur e alcohol) Comments No Sex and Gender Information Value Date Recorded Sex Assigned at Not on file Legal Sex Female 2:56 PM EST Gender Identity Not on file Sexual Orientation Not on file Last Filed Vital Signs Vital Sign Reading Time Taken Comments Blood Pressure 189/89 12/10/2023 1:00 PM EDT Pulse 70 12/10/2023 1:00 PM EDT Temperature 36.9 C (98.4 F) 12/10/2023 12:58 PM EDT Respiratory Rate 19 12/10/2023 1:00 PM EDT Oxygen Saturation 97% 12/10/2023 1:00 PM EDT Inhaled Oxygen Concentration - - Weight 75.1 kg (165 lb 9.1 oz) 12/10/2023 10:29 AM EDT Height 160 cm (5' 3 ) 12/10/2023 10:29 AM EDT Body Mass Index 29.33 12/10/2023 10:29 AM EDT Plan of Treatment Health Maintenance Due Date Last Done Comments DEXA SCAN DISCUSSION 1955 HEPATITIS C VIRUS SCREENING 1955 TETANUS 1955 TDAP (ADULT) 1972 CERVICAL CANCER SCREENING DISCUSSION 1974 LIPID SCREENING 1993 COLORECTAL CANCER SCREENING DISCUSSION 1998 PNEUMOCOCCAL VACCINE SERIES (2 of 2 - PPSV23) 12/11/2019 12/10/2018 MAMMOGRAM SCREENING DISCUSSION 02/02/2024 02/01/2023, 12/15/2021 COVID-19 VACCINE (3 - 2023-2 5 season) 2024 01/10/2021, 12/13/2020 INFLUENZA VACCINE (Season Ended) 2025 07/22/2020, 07/12/2015 RSV VACCINE (1 - 1-dose 75+ series) 2028 ZOSTER (SHINGLES) VACCINE Completed 2022, 01/25/2023 HEP B VACCINE Aged Out No longer elig ible based on patient's age to complete this topic Insurance MEDICARE SUPPLEMENT MEDICARE A AND B Care Teams Fuel Cell Builder Relationship Specialty Start Date End Date Tyrone Cabezas DO PCP - General Internal Medicine 11/07/23
--- OUTSIDE RECORDS SUMMARY | 2025-03-18 07:57 | XMS_ITS | Encounter Summary ---
Author Organization [facility] Address [address] [place] [address] Care Team Providers Care Power Plant Mechanic Name Role Phone Tyrone Cabezas DO Primary Care Provider [phone] Reason for Referral * Other (Routine) - Closed Specialty Diagnoses / Procedures Referred By Radha fournier Referred To Contact Radiology Diagnoses Encounter for screening mammogram for malignant neoplasm of breast Procedures DEANGELO CASISUS DIGITAL SCREEN BILATERAL Tyrone Cabezas DO [address] [place] [address] Phone: tel: fax: Referral ID Status Reason Start Date Expiration Date Visits Re quested Visits Authorized [id number] Closed 12/06/2023 12/05/2024 1 1 Encounter Details Date Type Department Care Team (Latest Contact Info) Description 12/06/2023 Transcribe Orders [facility] [address] [place] [address] Tyrone Cabezas DO [address] [place] [address] Encounter for screening mammogram for malignant neoplasm of breast (Primary Dx) Social History Tobacco Use Types Packs/Day Years Used Date Smoking Tobacco: Never Assessed Comments No Sex and Gender Information Value Date Recorded Sex Assigned at Not on file Legal Sex Female 7:52 PM EST Gender Identity Not on file Sexual Orientation Not on file documented as of this encounter Plan of Treatment Upcoming Encounters Date Type Department Care Team (Late st Contact Info) Description 04/22/2025 1:45 PM EDT Office Visit [facility] Part of [address] [place], [place] [id number] Julianna Cavazos, DO [facility] [place] [address] [facility] [place], last seen by Dr Godwin 2021 poss prolapse, pt waiting this long bc of colonoscopy being scheduled Scheduled Orders Name Type Priority Associated Diagnoses Orde r Schedule DEANGELO CASSIUS DIGITAL SCREEN BILATERAL Imaging Routine Encounter for screening mammogram for malignant neoplasm of breast Expected: 12/06/2023, Expires: 12/05/2024 documented as of this encounter Visit Diagnoses Diagnosis Encounter for screening mammogram for malignant neoplasm of breast- Primary Other screening mammogram documented in this encounter Additional Health Concerns Assessment Noted Time A Body Mass Index follow-up plan has been documented for the patient 10/31/2021 10:07 AM EST documented as of this encounter Care Teams Power Plant Mechanic Relationship Specialty Start Date End Date Tyrone Cabezas DO [address] [facility] [place] [address] PCP - General 12/31/12 documented as of this encounter
[2025-03-18] MEDS: 0.9 % SODIUM CHLORIDE 500 ML 50 ML IV (08:16)
[2025-03-18 09:32] VITALS: BP 107/65; PULSE 66; TEMP 36.4; O2SAT 99
[2025-03-18 09:47] VITALS: BP 110/70; PULSE 62; O2SAT 96
[2025-03-18 10:02] VITALS: BP 110/76; PULSE 67; O2SAT 95
== END 2025-03-18 10:02 | disposition home or self-care (01) ==
LOC: SURGOUT 07:54
PROVIDERS: PCP Internal Medicine; Visit Provider Surgery
PROC: (CPT G0105; principal; 2025-03-18 08:45)
DX: Z12.11 Encounter for screening for malignant neoplasm of colon (principal); Z80.0 Family history of malignant neoplasm of digestive organs; K57.30 Diverticulosis of large intestine without perforation or abscess without bleeding; E78.5 Hyperlipidemia, unspecified; K58.9 Irritable bowel syndrome, unspecified; Z90.49 Acquired absence of other specified parts of digestive tract; Z90.710 Acquired absence of both cervix and uterus; Z96.649 Presence of unspecified artificial hip joint
CPT/HCPCS: G0105; J2704